=== PATIENT | female | born 1935 | race Caucasian/White ===

== ENCOUNTER 2017-06-22 11:27 | Inpatient (IN) | payer OTHER, MEDICARE ==
[2017-06-22 11:34] VITALS: BMI 34.7
--- NOTE | 2017-06-22 11:52 | PDOC ---
History of Present Illness - General Chief Complaint: Weakness Stated Complaint: Weakness Time Seen by Provider: 06/22/17 11:48 History Source: Patient, Spouse - History of Present Illness Initial Comments: 06/22/17 11:52 Patient is an 81 year old female with PMH of DM2, HTN, HLD, CAD/[place] s/p CABG presenting with dizziness, problems with coordination and generally feeling unwell since last night. Patient endorses a diagnosis of breast cancer 9 months ago with cervical LN involvement that was identified by her bread panner but for which she has not obtained followed up or treatment. Patient states she started feeling "strange" last night with right arm weakness/coordination problems, shaking and difficulty getting out of bed because her "legs wouldn't cooperate". Patient normally ambulates well at baseline. Endorses chronic nausea ; denies headache, weakness, recent illness, changes to vision or hearing, shortness of breath, chest pain and abdominal pain. PCP: William Bazzi Cardio: Gitic Past History - Past Medical History Allergies/Adverse Reactions: Allergies Allergy/AdvReac Type Severity Reaction Status Date / Time Penicillins AdvReac Mild Rash Verified 06/22/17 11:32 Home Medications: Ambulatory Orders Aspirin [ASA -] 81 mg PO DAILY #0 tab.chew 06/29/12 Carvedilol [Coreg -] 12.5 mg PO BID #0 tablet 06/29/12 Glimepiride 4 mg PO BID #0 tablet 06/29/12 Lisinopril [Prinivil] 40 mg PO DAILY #0 tablet 06/29/12 Atorvastatin Ca [Lipitor] 40 mg PO HS 06/22/17 Metformin HCl 500 mg PO BID 06/22/17 Cardiac Disorders: Yes (AZ [place] 2005) Diabetes: Yes (niddm) HTN: Yes Hypercholesterolemia: Yes Thyroid Disease: Yes - Surgical History Cardiac Surgery: Yes (TRIPLE BYPASS) - Suicide/Smoking/Psychosocial Hx Smoking Status: No Smoking History: Unknown if ever smoked Have you smoked in the past 12 months: No Number of Cigarettes Smoked Daily: 0 Information on smoking cessation initiated: No Hx Alcohol Use: No Drug/Substance Use Hx: No Substance Use Type: None Hx Substance Use Treatment: No Review of Systems - Review of Systems Able to Perform ROS?: Yes Comments:: 06/22/17 14:00 GEN: Endorses feeling "strange" and general malaise; Denies fever, chills, recent illness HEENTM: Endorses tender right-sided mass; Denies sore throat, difficulty swallowing, Changes in vision, Changes in hearing Respiratory: Denies Cough, Shortness of Breath Breast: Endorses right sided mass Cardiac: Denies Chest Pain, Syncope ABD/GI: Endorses nausea; Denies Abdominal Pain, Vomiting, Diarrhea, Constipation : Denies Dysuria, Burning on urination, Vaginal bleeding Musculoskeletal: Endorses chronic joint pain; Denies muscle pain Integumentary: Endorses lesion over right breast; denies diaphoresis, bruises Neurological: Endorses dizziness on standing; Denies WONG, weakness All Other Systems Reviewed and Negative Is the patient limited Irish proficient: No *Physical Exam - Vital Signs Last Vital Signs Temp Pulse Resp BP Pulse Ox 98.3 F 82 18 147/66 93 L 06/22/17 11:32 06/22/17 11:32 06/22/17 11:32 06/22/17 11:32 06/22/17 11:32 - Physical Exam Comments: 06/22/17 14:49 GENERAL: AAOx3, nourished and generally well appearing, mildly disheveled, NAD HEAD: NCAT EYES: PERRLA, EOMI, sclera anicteric, conjunctiva clear ENT: hearing grossly normal, nares patent, no congestion NECK: Firm/tender right anterior mass/LAD ([id number]), [id number] left anterior mass /LAD, no JVD RESP: Speaking in full sentences, Symmetrical chest expansion, no respiratory distress, lungs CTAB CHEST: firm lump in right breast with overlying skin involvement HEART: RRR, normal S1-S2, (+) S3 ABDOMEN: nlBSx4, Soft, NTND, no guarding, no rebound. EXTREMITIES: Normal inspection, Normal ROM NEUROLOGICAL: CN II-XII grossly intact. Normal speech, no focal sensorimotor deficits, NIH:0 SKIN: Warm, Dry, normal turgor, no rashes or lesions other than noted. ED Treatment Course - LABORATORY CBC & Chemistry Diagram: 06/23/17 06:05 06/23/17 06:05 - RADIOLOGY Radiology Studies Ordered: [id number] CT/HEAD CT WITHOUT CONTRAST Cranial CT without contrast Clinical information: dizziness Multiplanar imaging was performed. Intravenous contrast was not administered. No intracranial hemorrhage is seen. There is no discrete infarct within the limitations of CT. No extra-axial fluid collection is noted. Involutional changes are seen with minimal to mild ventricular dilatation. A 0.7 x 0.3 cm low-attenuation focus is seen within the left posterior temporal squama without obvious bony expansion (transaxial image 12). There is possible mild attenuation of the adjacent inner table of the calvarium. IMPRESSION: No CT evidence of acute intracranial pathology. A small amount of fluid accumulation is noted within the right mastoid air cells. In comparison to a neck CT angiographic study of 10/30/2010 there has been apparent interval development of a 0.7 x 0.3 cm nonspecific hypodense osseous focus within the left temporal convexity posteriorly. correlate clinically and with one month follow-up CT. If there is a history of malignancy correlation with a whole body radionuclide bone scan may also be performed. Radiograph Interpretation: 06/22/17 13:37 [id number] RAD/CHEST X-RAY PORTABLE* Chest: Dizziness Since 06/28/2012, there is new pleural fluid with atelectasis or infiltrate on the right. There is a large heart with sternal sutures and clips. The left lung is clear. Follow-up recommended. [id number] CT/HEAD CT WITHOUT CONTRAST Cranial CT without contrast Clinical information: dizziness Multiplanar imaging was performed. Intravenous contrast was not administered. No intracranial hemorrhage is seen. There is no discrete infarct within the limitations of CT. No extra-axial fluid collection is noted. Involutional changes are seen with minimal to mild ventricular dilatation. A 0.7 x 0.3 cm low-attenuation focus is seen within the left posterior temporal squama without obvious bony expansion (transaxial image 12). There is possible mild attenuation of the adjacent inner table of the calvarium. IMPRESSION: No CT evidence of acute intracranial pathology. A small amount of fluid accumulation is noted within the right mastoid air cells. In comparison to a neck CT angiographic study of 10/30/2010 there has been apparent interval development of a 0.7 x 0.3 cm nonspecific hypodense osseous focus within the left temporal convexity posteriorly. correlate clinically and with one month follow-up CT. If there is a history of malignancy correlation with a whole body radionuclide bone scan may also be performed. 06/22/17 14:33 Medical Decision Making - Medical Decision Making An 81 year old female with history of CABG and untreated breast cancer with possible metastasis feeling generally unwell with associated dizziness and subjective problems with coordination. Ddx includes but is not limited to CA, metastasis, ACS, PNA, UTI, metabolic abnormalities, anemia Workup with standard labs and cardiac enzymes EKG, CXR UA CT head Admission for further workup My interpretation of EKG: nsr with some non-specific u-wave inversions, aVL, no st-elevations, intervals wnl 06/22/17 13:14 CBC WBC 8.8 K/mm3 (4.0-10.0) 06/22/17 11:52 RBC 4.83 M/mm3 (3.60-5.2) 06/22/17 11:52 Hgb 12.5 GM/dL (10.7-15.3) 06/22/17 11:52 Hct 38.6 % (32.4-45.2) 06/22/17 11:52 MCV 80.0 fl (80-96) 06/22/17 11:52 MCH 25.9 pg (25.7-33.7) 06/22/17 11:52 MCHC 32.3 g/dl (32.0-36.0) 06/22/17 11:52 RDW 16.9 % (11.6-15.6) H 06/22/17 11:52 Plt Count 312 K/MM3 (134-434) 06/22/17 11:52 MPV 7.5 fl (7.5-11.1) D 06/22/17 11:52 Neutrophils % 71.1 % (42.8-82.8) 06/22/17 11:52 Lymphocytes % 21.1 % (8-40) D 06/22/17 11:52 Monocytes % 6.9 % (3.8-10.2) 06/22/17 11:52 Eosinophils % 0.2 % (0-4.5) 06/22/17 11:52 Basophils % 0.7 % (0-2.0) 06/22/17 11:52 Reviewed and non concerning CMP Sodium 137 mmol/L (136-145) 06/22/17 11:52 Potassium 4.1 mmol/L (3.5-5.1) 06/22/17 11:52 Chloride 102 mmol/L (98-107) 06/22/17 11:52 Carbon Dioxide 25 mmol/L (21-32) 06/22/17 11:52 Anion Gap 10 (8-16) 06/22/17 11:52 BUN 17 mg/dL (7-18) 06/22/17 11:52 Creatinine 0.7 mg/dL (0.55-1.02) D 06/22/17 11:52 Creat Clearance w eGFR > 60 (>60) 06/22/17 11:52 Random Glucose 72 mg/dL (74-106) L D 06/22/17 11:52 Calcium 9.9 mg/dL (8.5-10.1) 06/22/17 11:52 Total Bilirubin 0.7 mg/dL (0.2-1.0) 06/22/17 11:52 AST 26 U/L (15-37) D 06/22/17 11:52 ALT 20 U/L (12-78) D 06/22/17 11:52 Alkaline Phosphatase 141 U/L (45-117) H 06/22/17 11:52 Creatine Kinase 117 IU/L (26-192) 06/22/17 11:52 Troponin I 0.02 ng/ml (0.00-0.05) 06/22/17 11:52 Total Protein 7.1 g/dl (6.4-8.2) 06/22/17 11:52 Albumin 2.8 g/dl (3.4-5.0) L 06/22/17 11:52 Troponin reassuring for ACS Results consistent with patient's claim of poor nutrition Elevated alkP possibly related to underlying cancer disease process 06/22/17 13:38 CXR significant for cardiomegaly with pleural fluid and atelectasis/infiltrate on the right Head CT showed no evidence of acute intracranial pathology but was significant for interval changes from 10/30/2010 with development of a 0.7 x 0.3 cm nonspecific hypodense osseous focus within the left temporal convexity posteriorly. Discussed patient with Dr. Anahy Pires (admitting for Dr. Bazzi) who agreed with admission. *DC/Admit/Observation/Transfer Diagnosis at time of Disposition: Dizziness - Discharge Dispostion Admit: Yes - Referrals
[2017-06-22 12:06] LABS: BASOPHIL 0.7 % (0-2.0); EOSINOPHIL 0.2 % (0-4.5); MCH 25.9 pg (25.7-33.7); MCHC 32.3 g/dl (32.0-36.0); MEAN PLT VOLUME 7.5 fl (7.5-11.1); NEUTROPHILS 71.1 % (42.8-82.8); PLATELET COUNT 312 K/MM3 (134-434); RDW 16.9 % (11.6-15.6); WHITE BLOOD COUNT 8.8 K/mm3 (4.0-10.0)
[2017-06-22] MEDS ORDERED: SODIUM CHLORIDE 500 ML IV STA (12:28)
[2017-06-22 12:29] LABS: ALBUMIN 2.8 g/dl (3.4-5.0); ANION GAP 10 (8-16); BILIRUBIN,TOTAL 0.7 mg/dL (0.2-1.0); CALCIUM 9.9 mg/dL (8.5-10.1); CO2 25 mmol/L (21-32); CREATININE 0.7 mg/dL (0.55-1.02); GLUCOSE,RANDOM 72 mg/dL (74-106); SGOT/AST 26 U/L (15-37); SGPT/ALT 20 U/L (12-78); TOT PROT 7.1 g/dl (6.4-8.2)
[2017-06-22 12:32] LABS: ALK PHOS 141 U/L (45-117); CPK 117 IU/L (26-192); TROPONIN I 0.02 ng/ml (0.00-0.05)
--- NOTE | 2017-06-22 13:15 | PDOC ---
Attending Attestation - Resident Resident Name: Paulino Gresham - ED Attending Attestation I have performed the following: I have examined & evaluated the patient, The case was reviewed & discussed with the resident, I agree w/resident's findings & plan, Exceptions are as noted - HPI HPI: 06/22/17 13:13 This is an 81-year-old female with a history of diabetes, hypertension, hyperlipidemia, coronary artery disease status post [place], h/o breast cancer presents to the ER with a complaint of generalized weakness, and "not feeling well" No fevers, no chills 06/22/17 13:15 - Physicial Exam PE: 06/22/17 13:17 GENERAL: The patient is in no acute distress. HEAD: Normal with no signs of trauma. EYES: PERRLA, EOMI, sclera anicteric, conjunctiva clear. ENT: Ears normal, nares patent, oropharynx clear without exudates. Moist mucous membranes. NECK: Normal range of motion, supple without lymphadenopathy, (+) Left neck mass. LUNGS: Breath sounds equal, clear to auscultation bilaterally. No wheezes, and no crackles. HEART:Regular rate and rhythm, normal S1 and S2 without murmur, rub or gallop. ABDOMEN: Soft, nontender, normoactive bowel sounds. No guarding, no rebound. No masses palpable. EXTREMITIES: Normal range of motion, no edema. No clubbing or cyanosis. No erythema, or tenderness. NEUROLOGICAL: Cranial nerves II through XII grossly intact. Normal speech. No focal neurological deficits. MUSCULOSKELETAL: Back non-tender to palpation, no CVA tenderness SKIN: Warm, Dry, normal turgor, no rashes or lesions noted. 06/22/17 14:47 - Medical Decision Making 81-year-old female with multiple coronary artery risk factors who presents emergency department with a complaint of generalized weakness. No fevers, no chills. Differential diagnosis is broad and includes: ACS, anemia, electrolyte abnormality, renal insufficiency, dehydration, intracranial pathology. Will do Labs Head CT EKG 06/22/17 13:17 Twelve-lead EKG was performed and reviewed by me. There is normal sinus rhythm with a normal rate of 79 bpm. The axis is normal. The intervals are normal - pr: 180ms, QRS:114ms, QTc:431ms. Prominent T waves anteriorly, Laboratory Tests 06/22/17 06/22/17 11:52 11:52 WBC 8.8 Hgb 12.5 Hct 38.6 Plt Count 312 BUN 17 Creatinine 0.7 D Troponin I 0.02 0.7 x 0.3 cm nonspecific hypodense osseous focus within the left temporal convexity posteriorly. No intracranial hemorrhage. No discrete infarct within the limitations of CT. No fluid collections Chest x-ray demonstrates new right pleural effusion with atelectasis May account for pt hypoxia ?CT chest 06/22/17 14:48 Pt seen in the ER by Dr Crowe Will admit to his service 06/22/17 14:50 06/22/17 14:51 06/22/17 14:57
[2017-06-22] MEDS ORDERED: ACETAMINOPHEN 325 MG TABLET (FP) PO PRN (14:58)
--- NOTE | 2017-06-22 15:05 | HP ---
Admitting History and Physical - Primary Care Physician PCP: Daya Crowe - Admission Chief Complaint: SYNCOPE/WEAKNESS/NEW ONSET OF BREAST CANCER History of Present Illness: 81 Y/O FEMALE WHO FELT DIZZY, WEAK AND HEADACHE FOR 1 DAY PRESENTS TODAY TO ER WITH HER DAUGHTER. PATIENT LIVES ALONE, HAS H/O DM, HTN, LIPIDEMIA, OA, PATIENT REPORTS SHE FEELS LIKE SHE IS HAVING A STROKE History Source: Patient, Family Member, Medical Record Limitations to Obtaining History: Poor Historian - Past Medical History Cardiovascular: Yes: HTN, Hyperlipdemia Endocrine: Yes: Diabetes Insipidus - Smoking History Smoking history: Unknown if ever smoked Have you smoked in the past 12 months: No Aproximately how many cigarettes per day: 0 - Alcohol/Substance Use Hx Alcohol Use: No Home Medications - Allergies Allergies/Adverse Reactions: Allergies Allergy/AdvReac Type Severity Reaction Status Date / Time Penicillins AdvReac Mild Rash Verified 06/22/17 11:32 - Home Medications Home Medications: Ambulatory Orders Aspirin [ASA -] 81 mg PO DAILY #0 tab.chew 06/29/12 Carvedilol [Coreg -] 12.5 mg PO BID #0 tablet 06/29/12 Glimepiride 4 mg PO BID #0 tablet 06/29/12 Lisinopril [Prinivil] 40 mg PO DAILY #0 tablet 06/29/12 Atorvastatin Ca [Lipitor] 40 mg PO HS 06/22/17 Metformin HCl 500 mg PO BID 06/22/17 Review of Systems - Review of Systems Constitutional: reports: Loss of Appetite, Malaise, Weakness Eyes: reports: No Symptoms HENT: reports: No Symptoms Neck: reports: No Symptoms Cardiovascular: reports: Palpitations Respiratory: reports: No Symptoms Gastrointestinal: reports: No Symptoms Genitourinary: reports: No Symptoms Musculoskeletal: reports: Muscle Weakness Integumentary: reports: No Symptoms Neurological: reports: Incoordination, Weakness Endocrine: reports: No Symptoms Hematology/Lymphatic: reports: No Symptoms Psychiatric: reports: No Symptoms Physical Examination Vital Signs: Vital Signs Temperature 98.3 F 06/22/17 11:32 Pulse Rate 82 06/22/17 11:32 Respiratory Rate 18 06/22/17 11:32 Blood Pressure 147/66 06/22/17 11:32 O2 Sat by Pulse Oximetry (%) 93 L 06/22/17 11:32 Constitutional: Yes: Mild Distress Eyes: Yes: WNL HENT: Yes: WNL Neck: Yes: Lymphadenopathy Cardiovascular: Yes: Pulse Irregular Respiratory: Yes: WNL Gastrointestinal: Yes: WNL Renal/: Yes: WNL Musculoskeletal: Yes: Muscle Weakness Extremities: Yes: WNL Edema: Yes Peripheral Pulses WNL: Yes Integumentary: Yes: WNL Wound/Incision: Yes: Clean/Dry Neurological: Yes: Pre-Existing Deficit, Weakness ...Motor Strength: LLE, RLE Psychiatric: Yes: Other Labs: CBC, BMP 06/22/17 11:52 06/22/17 11:52 Imaging - Results Cat Scan: Report Reviewed Problem List - Problems (1) Dizziness Code(s): R42 - DIZZINESS AND GIDDINESS (2) Ruled out for myocardial infarction Code(s): Z03.89 - ENCNTR FOR OBS FOR OTH SUSPECTED DISEASES AND COND RULED OUT (3) Stroke Assessment/Plan: RULE OUT CVA Code(s): I63.9 - CEREBRAL INFARCTION, UNSPECIFIED Qualifiers: Laterality of affected vessel: unspecified (4) Breast cancer Code(s): C50.919 - MALIGNANT NEOPLASM OF UNSP SITE OF UNSPECIFIED FEMALE BREAST Qualifiers: Estrogen receptor status: unspecified Laterality: unspecified laterality (5) Neck mass Code(s): R22.1 - LOCALIZED SWELLING, MASS AND LUMP, NECK Assessment/Plan CT HEAD LIPITOR ASA A1C BGM FALL AND NEUROCHECKS PT EVAL NEUROLOGY AND CARDIOLOGY EVAL CANCER NEOPLASM WORKUP
--- NOTE | 2017-06-22 16:08 | CONSULT ---
Consult Consult Specialty:: Oncology - History of Present Illness History of Present Illness: 81-year-old female with a history of diabetes, hypertension, hyperlipidemia, coronary artery disease status post SD, presented with generalized weakness and felt like her room spinned around her and her legs were just "weak" when she stands up. She did notice lumps in her right breast and "swelling" in her neck, but she didn't want to "bother" anyone. Lives by herself and is independent of her ADLs. No fevers, no chills. no bowel or bladder incontinence. - History Source History Provided By: Patient, Family Member, Medical Record - Past Medical History Cardio/Vascular: Yes: HTN, Hyperlipdemia Endocrine: Yes: Diabetes Insipidus - Alcohol/Substance Use Hx Alcohol Use: No - Smoking History Smoking history: Unknown if ever smoked Have you smoked in the past 12 months: No Aproximately how many cigarettes per day: 0 Home Medications - Allergies Allergies/Adverse Reactions: Allergies Allergy/AdvReac Type Severity Reaction Status Date / Time Penicillins AdvReac Mild Rash Verified 06/22/17 11:32 - Home Medications Home Medications: Ambulatory Orders Aspirin [ASA -] 81 mg PO DAILY #0 tab.chew 06/29/12 Carvedilol [Coreg -] 12.5 mg PO BID #0 tablet 06/29/12 Glimepiride 4 mg PO BID #0 tablet 06/29/12 Lisinopril [Prinivil] 40 mg PO DAILY #0 tablet 06/29/12 Atorvastatin Ca [Lipitor] 40 mg PO HS 06/22/17 Metformin HCl 500 mg PO BID 06/22/17 Review of Systems - Review of Systems Constitutional: reports: Loss of Appetite, Unintentional Wgt. Loss HENT: denies: Difficult Swallowing Neck: reports: Lumps Cardiovascular: denies: Chest Pain, Edema, Palpitations Respiratory: reports: Exercise Intolerance. denies: Cough Breasts: reports: Lumps, Skin Changes Musculoskeletal: reports: No Symptoms Hematology/Lymphatic: reports: Swollen Glands Physical Exam Vital Signs: Vital Signs Temperature 98.3 F 06/22/17 11:32 Pulse Rate 81 06/22/17 15:21 Respiratory Rate 16 06/22/17 15:21 Blood Pressure 157/61 06/22/17 15:21 O2 Sat by Pulse Oximetry (%) 95 06/22/17 15:21 Constitutional: Yes: Well Nourished, No Distress, Calm Eyes: Yes: Conjunctiva Clear, EOM Intact HENT: Yes: Atraumatic, Normocephalic Neck: Yes: Supple, Other (hard mass on the left side of the neck) Cardiovascular: Yes: Regular Rate and Rhythm Respiratory: Yes: Regular, CTA Bilaterally Gastrointestinal: Yes: Normal Bowel Sounds, Soft, Abdomen, Obese Breast(s): Yes: Left (no palpable nodules felt), Right (rt breat with a small ulcerated skin, but palplable nodules felt), Skin Changes. No: Dimpling, Discharge from Nipple, Nipple Inversion Musculoskeletal: No: Joint Stiffness, Joint Swelling Extremities: Yes: Other (bilateral axillary lymphadenopathy present) Edema: No Imaging - Results X-ray: Report Reviewed Problem List - Problems (1) Neck mass Code(s): R22.1 - LOCALIZED SWELLING, MASS AND LUMP, NECK (2) Breast mass Code(s): N63.0 - UNSPECIFIED LUMP IN UNSPECIFIED BREAST (3) Axillary lymphadenopathy Code(s): R59.0 - LOCALIZED ENLARGED LYMPH NODES Assessment/Plan New onset right sided neck mass Breast masses palpable ( right breast) Bilateral axillary LAD New pleural effusion on CXR Patient with LIKELY metastatic breast cancer. Pathological diagnosis not made. Staging w/u CT neck, C/a/p and bone scan CTH negative Pt is on aspirin , last dose was on 06/21. Would need biopsy of the neck mass preferably once off of aspirin 4-5d. Explained in detail to the daughter and the pt , who are in agreement with the planned w/u.
[2017-06-22] MEDS ORDERED: LISINOPRIL 5 MG TABLET (FP) ONE (16:15)
[2017-06-22] MEDS: LISINOPRIL 5 MG TABLET (FP) PO SCH (16:24)
[2017-06-22] MEDS: INSULIN SLIDING SCALE (NOVOLOG) 1 VIAL SQ SCH ×2 (17:19→21:15)
--- NOTE | 2017-06-22 17:24 | CON.CARD ---
Cardiology Consult (text) - Consultation Consultation Note: cc: leg weakness hpi: 81 f hx cad s/p cabg 2005, htn , hld, dm, breast cancer here with leg weakness. Pt was feeling well until this AM when tried to get out of bed and legs felt weak and she felt her balance was off. She did not fall. Waited until felt better and then stood up slowly. No cp, sob, palps, dizzy, loc, pnd , orthopnea, le edema. Sees dr fong for cardio. pmh: per hpi psh: cabg social: no tob fam: no premature cad ros: per hpi; no fever, nvd, cough, tavarez, vision changes, muscle pain, gib, hematuria, dysuria meds: Home Medications Medication Instructions Recorded Aspirin [ASA -] 81 mg PO DAILY #0 tab.chew 06/29/12 Carvedilol [Coreg -] 12.5 mg PO BID #0 tablet 06/29/12 Glimepiride 4 mg PO BID #0 tablet 06/29/12 Lisinopril [Prinivil] 40 mg PO DAILY #0 tablet 06/29/12 Atorvastatin Ca [Lipitor] 40 mg PO HS 06/22/17 Metformin HCl 500 mg PO BID 06/22/17 pe: Vital Signs Period Temp Pulse Resp BP Sys/Moreno Pulse Ox Last 24 Hr 98.3 F 81-82 16-18 147-157/61-66 93-95 nad no jvd rrr s1s2 no mrg cta bl nl eff aaox3 no le e/c/c abd nt nd pos bs no jaundice diaphoresis pos dp pt, no carotid bruit Laboratory Last Values WBC 8.8 K/mm3 (4.0-10.0) 06/22/17 11:52 RBC 4.83 M/mm3 (3.60-5.2) 06/22/17 11:52 Hgb 12.5 GM/dL (10.7-15.3) 06/22/17 11:52 Hct 38.6 % (32.4-45.2) 06/22/17 11:52 MCV 80.0 fl (80-96) 06/22/17 11:52 MCH 25.9 pg (25.7-33.7) 06/22/17 11:52 MCHC 32.3 g/dl (32.0-36.0) 06/22/17 11:52 RDW 16.9 % (11.6-15.6) H 06/22/17 11:52 Plt Count 312 K/MM3 (134-434) 06/22/17 11:52 MPV 7.5 fl (7.5-11.1) D 06/22/17 11:52 Neutrophils % 71.1 % (42.8-82.8) 06/22/17 11:52 Lymphocytes % 21.1 % (8-40) D 06/22/17 11:52 Monocytes % 6.9 % (3.8-10.2) 06/22/17 11:52 Eosinophils % 0.2 % (0-4.5) 06/22/17 11:52 Basophils % 0.7 % (0-2.0) 06/22/17 11:52 ESR 35 mm/hr (0-30) H 06/22/17 15:00 Sodium 137 mmol/L (136-145) 06/22/17 11:52 Potassium 4.1 mmol/L (3.5-5.1) 06/22/17 11:52 Chloride 102 mmol/L (98-107) 06/22/17 11:52 Carbon Dioxide 25 mmol/L (21-32) 06/22/17 11:52 Anion Gap 10 (8-16) 06/22/17 11:52 BUN 17 mg/dL (7-18) 06/22/17 11:52 Creatinine 0.7 mg/dL (0.55-1.02) D 06/22/17 11:52 Creat Clearance w eGFR > 60 (>60) 06/22/17 11:52 Random Glucose 72 mg/dL (74-106) L D 06/22/17 11:52 Hemoglobin A1c % 7.6 % (4.8-6.0) H 06/22/17 15:00 Calcium 9.9 mg/dL (8.5-10.1) 06/22/17 11:52 Total Bilirubin 0.7 mg/dL (0.2-1.0) 06/22/17 11:52 AST 26 U/L (15-37) D 06/22/17 11:52 ALT 20 U/L (12-78) D 06/22/17 11:52 Alkaline Phosphatase 141 U/L (45-117) H 06/22/17 11:52 Creatine Kinase 117 IU/L (26-192) 06/22/17 11:52 Troponin I 0.02 ng/ml (0.00-0.05) 06/22/17 11:52 Total Protein 7.1 g/dl (6.4-8.2) 06/22/17 11:52 Albumin 2.8 g/dl (3.4-5.0) L 06/22/17 11:52 echo 10/2016: nl lvef, inf/inflat/infseptal HK, nl rv, mild mr carotid us 10/2016: 60-79% bl ICA stenosis, chronic ecg 06/22/17: sr, nl intervals, no ischemic changes, pvc cxr: right atx/infiltrate a/p: 81 f hx cad s/p cabg 2005, htn , hld, dm, breast cancer here with leg weakness. leg weakness: -no obvious cardiac etiology at present -no signs acs, ecg unremarkable -recent echo w/o etiology -can check orthostatics, monitor on tele -PT, neuro eval cad, cabg: -stable, no signs acs, no angina -nl lvef -cont statin, asa, bb, yared htn: -cont home meds hld: -cont statin
--- NOTE | 2017-06-22 17:52 | CONSULT ---
Consult - text type - Consultation Consultation Note: Neurology History of Present Illness Patient is an 81 year old female with PMH of DM2, HTN, HLD, CAD/GA s/p CABG presenting with dizziness, weakness and generally feeling unwell since last night. Patient endorses a diagnosis of breast cancer with cervical LN involvement that was identified by her bullet assembly press operator but she has not obtained followed up or treatment. Patient states she started feeling "strange" last night with right arm weakness/coordination problems, shaking and difficulty getting out of bed because her "legs wouldn't cooperate". Patient normally ambulates well at baseline. Denies headache, weakness, recent illness, changes to vision or hearing, shortness of breath, chest pain and abdominal pain. CT head compelted and no intraparenchymal abnormality but ?left temporal osseous foci thats 0.7 X 0.3cm in size. Follow up CT in 1 month recommended or radionucleotide scan. Neurologically she is mentating well and without any deficits. Past History - Past Medical History Allergies/Adverse Reactions: Allergies Allergy/AdvReac Type Severity Reaction Status Date / Time Penicillins AdvReac Mild Rash Verified 06/22/17 11:32 Home Medications: Ambulatory Orders Aspirin [ASA -] 81 mg PO DAILY #0 tab.chew 06/29/12 Carvedilol [Coreg -] 12.5 mg PO BID #0 tablet 06/29/12 Glimepiride 4 mg PO BID #0 tablet 06/29/12 Lisinopril [Prinivil] 40 mg PO DAILY #0 tablet 06/29/12 Atorvastatin Ca [Lipitor] 40 mg PO HS 06/22/17 Metformin HCl 500 mg PO BID 06/22/17 Cardiac Disorders: Yes (GA IN 2005) Diabetes: Yes (niddm) HTN: Yes Hypercholesterolemia: Yes Thyroid Disease: Yes - Surgical History Cardiac Surgery: Yes (TRIPLE BYPASS) - Suicide/Smoking/Psychosocial Hx Smoking Status: No Smoking History: Unknown if ever smoked Have you smoked in the past 12 months: No Number of Cigarettes Smoked Daily: 0 Information on smoking cessation initiated: No Hx Alcohol Use: No Drug/Substance Use Hx: No Substance Use Type: None Hx Substance Use Treatment: No Review of Systems GEN: Endorses feeling "strange" and general malaise; Denies fever, chills, recent illness HEENTM: Endorses tender right sided mass; Denies sore throat, Changes in vision , Changes in hearing Respiratory: Denies Cough, Shortness of Breath Breast: Endorses right sided mass Cardiac: Denies Chest Pain, Syncope ABD/GI: Endorses nausea; Denies Abdominal Pain, Vomiting, Diarrhea, Constipation : Denies Dysuria, Burning on urination, Vaginal bleeding Musculoskeletal: Endorses chronic joint pain; Denies muscle pain Integumentary: Denies diaphoresis, rashes, bruises Neurological: Endorses dizziness on standing; Denies WONG, weakness All Other Systems Reviewed and Negative *Physical Exam - Vital Signs Last Vital Signs Temp Pulse Resp BP Pulse Ox 98.3 F 82 18 147/66 93 L 06/22/17 11:32 06/22/17 11:32 06/22/17 11:32 06/22/17 11:32 06/22/17 11:32 GENERAL: Nourished, Appropriately dressed, AAOx3, NAD HEAD: NCAT EYES: PERRLA, EOMI, sclera anicteric, conjunctiva clear ENT: hearing grossly normal, nares patent, no congestion NECK: Firm/tender right anterior mass/LAD ([id number]), [id number] left anterior mass /LAD, no JVD RESP: Speaking in full sentences, Symmetrical chest expansion, no respiratory distress, lungs CTAB CHEST: firm lump in right breast with overlying skin involvement HEART: RRR, normal S1-S2, (+) S3 ABDOMEN: nlBSx4, Soft, NTND, no guarding, no rebound. EXTREMITIES: Normal inspection, Normal ROM NEUROLOGICAL: CN II-XII grossly intact. Normal speech, no focal sensorimotor deficits, alert and awake, gait deferred SKIN: Warm, Dry, normal turgor, no rashes or lesions other than noted. CBCD WBC 8.8 K/mm3 (4.0-10.0) 06/22/17 11:52 RBC 4.83 M/mm3 (3.60-5.2) 06/22/17 11:52 Hgb 12.5 GM/dL (10.7-15.3) 06/22/17 11:52 Hct 38.6 % (32.4-45.2) 06/22/17 11:52 MCV 80.0 fl (80-96) 06/22/17 11:52 MCHC 32.3 g/dl (32.0-36.0) 06/22/17 11:52 RDW 16.9 % (11.6-15.6) H 06/22/17 11:52 Plt Count 312 K/MM3 (134-434) 06/22/17 11:52 MPV 7.5 fl (7.5-11.1) D 06/22/17 11:52 CMP Sodium 137 mmol/L (136-145) 06/22/17 11:52 Potassium 4.1 mmol/L (3.5-5.1) 06/22/17 11:52 Chloride 102 mmol/L (98-107) 06/22/17 11:52 Carbon Dioxide 25 mmol/L (21-32) 06/22/17 11:52 Anion Gap 10 (8-16) 06/22/17 11:52 BUN 17 mg/dL (7-18) 06/22/17 11:52 Creatinine 0.7 mg/dL (0.55-1.02) D 06/22/17 11:52 Creat Clearance w eGFR > 60 (>60) 06/22/17 11:52 Calcium 9.9 mg/dL (8.5-10.1) 06/22/17 11:52 Total Bilirubin 0.7 mg/dL (0.2-1.0) 06/22/17 11:52 AST 26 U/L (15-37) D 06/22/17 11:52 ALT 20 U/L (12-78) D 06/22/17 11:52 Alkaline Phosphatase 141 U/L (45-117) H 06/22/17 11:52 Total Protein 7.1 g/dl (6.4-8.2) 06/22/17 11:52 Albumin 2.8 g/dl (3.4-5.0) L 06/22/17 11:52 - RADIOLOGY Radiograph Interpretation: 06/22/17 13:37 [id number] RAD/CHEST X-RAY PORTABLE* Since 06/28/2012, there is new pleural fluid with atelectasis or infiltrate on the right. There is a large heart with sternal sutures and clips. The left lung is clear. Follow-up recommended. CT/HEAD CT WITHOUT CONTRAST IMPRESSION: No CT evidence of acute intracranial pathology. A small amount of fluid accumulation is noted within the right mastoid air cells. In comparison to a neck CT angiographic study of 10/30/2010 there has been apparent interval development of a 0.7 x 0.3 cm nonspecific hypodense osseous focus within the left temporal convexity posteriorly. correlate clinically and with one month follow-up CT. If there is a history of malignancy correlation with a whole body radionuclide bone scan may also be performed. Plan: 81 year old female with PMH of DM2, HTN, HLD, CAD/GA s/p CABG presenting with dizziness, weakness and generally feeling unwell since last night. Patient endorses a diagnosis of breast cancer with cervical LN involvement that was identified by her bullet assembly press operator but she has not obtained followed up or treatment. Patient states she started feeling "strange" last night with right arm weakness/coordination problems, shaking and difficulty getting out of bed because her "legs wouldn't cooperate". Patient normally ambulates well at baseline. Denies headache, weakness, recent illness, changes to vision or hearing, shortness of breath, chest pain and abdominal pain. CT head compelted and no intraparenchymal abnormality but ?left temporal osseous foci thats 0.7 X 0.3cm in size. Follow up CT in 1 month recommended or radionucleotide scan. Neurologically she is mentating well and without any deficits. Cardiology consulted for cardiac evaluation. Oncology consulted as well and following, likely mets. Will defer on need for further radiographic testing based on their plans and patient's wishes. If further evaluation needed, then repeat CT can be performed. Continue blood pressure management, goal < 140/90, on Coreg and Lisinopril. Continue Statin for HLD, goal LDL < 100. Dizzyness is better.
[2017-06-22 19:46] LABS: URINE APPEARANCE SLCLOUDY; URINE BILIRUBIN NEGATIVE (NEGATIVE); URINE BLOOD NEGATIVE (NEGATIVE); URINE COLOR YELLOW; URINE GLUCOSE (UA) NEGATIVE (NEGATIVE); URINE KETONE TRACE (NEGATIVE); URINE NITRITE NEGATIVE (NEGATIVE); URINE PROTEIN NEGATIVE (NEGATIVE); URINE UROBILINOGEN NEGATIVE mg/dL (0.2-1.0)
[2017-06-22] MEDS: CARVEDILOL 12.5 MG TABLET (FP) PO SCH (21:11)
[2017-06-22] MEDS: ATORVASTATIN CA 20 MG TABLET (FP) PO SCH (21:12)
[2017-06-22] MEDS ORDERED: ATORVASTATIN CA 20 MG TABLET (FP) PO SCH (22:00)
[2017-06-22] MEDS ORDERED: CARVEDILOL 6.25 MG TABLET (FP) PO SCH ×2 (22:00)
[2017-06-23] MEDS: GLIMEPIRIDE 4 MG TABLET (FP) PO SCH (06:35)
[2017-06-23 06:38] LABS: MCH 25.6 pg (25.7-33.7); MCHC 32.3 g/dl (32.0-36.0); MEAN CELL VOLUME 79.1 fl (80-96); MEAN PLT VOLUME 7.8 fl (7.5-11.1); PLATELET COUNT 276 K/MM3 (134-434); RDW 16.8 % (11.6-15.6); WHITE BLOOD COUNT 6.2 K/mm3 (4.0-10.0)
[2017-06-23] MEDS: INSULIN SLIDING SCALE (NOVOLOG) 1 VIAL SQ SCH ×3 (06:42→21:13)
[2017-06-23 06:51] LABS: INR 1.09 (0.82-1.09)
[2017-06-23 06:53] LABS: ACTIVATED PTT 27.4 SECONDS (26.9-34.4)
[2017-06-23 07:07] LABS: ANION GAP 11 (8-16); CALCIUM 9.7 mg/dL (8.5-10.1); CO2 24 mmol/L (21-32); GLUCOSE,RANDOM 59 mg/dL (74-106)
[2017-06-23 07:11] LABS: ALBUMIN 2.5 g/dl (3.4-5.0); ALK PHOS 116 U/L (45-117); BILIRUBIN,TOTAL 0.7 mg/dL (0.2-1.0); CREATININE 0.6 mg/dL (0.55-1.02); SGOT/AST 22 U/L (15-37); SGPT/ALT 17 U/L (12-78); TOT PROT 6.2 g/dl (6.4-8.2)
[2017-06-23 08:27] LABS: URINE LEUK ESTERASE Negative (NEGATIVE)
[2017-06-23] MEDS: CARVEDILOL 12.5 MG TABLET (FP) PO SCH ×2 (09:06→21:12)
[2017-06-23] MEDS: LISINOPRIL 5 MG TABLET (FP) PO SCH (09:06)
[2017-06-23 09:33] LABS: CHOLESTEROL 132 mg/dL (50-200)
--- NOTE | 2017-06-23 09:38 | PN ---
Progress Note (short form) - Note Progress Note: Neurology History of Present Illness Patient is an 81 year old female with PMH of DM2, HTN, HLD, CAD/IA s/p CABG presenting with dizziness, weakness and generally feeling unwell since last night. Patient endorses a diagnosis of breast cancer with cervical LN involvement that was identified by her cone examiner but she has not obtained followed up or treatment. Patient states she started feeling "strange" last night with right arm weakness/coordination problems, shaking and difficulty getting out of bed because her "legs wouldn't cooperate". Patient normally ambulates well at baseline. Denies headache, weakness, recent illness, changes to vision or hearing, shortness of breath, chest pain and abdominal pain. CT head compelted and no intraparenchymal abnormality but ?left temporal osseous foci thats 0.7 X 0.3cm in size. Follow up CT in 1 month recommended or radionucleotide scan. Denies feeling dizzy or lightheaded today. About to have physical therapy during my visit. Neurologically she is mentating well and without any deficits. Active Medications Acetaminophen (Tylenol -) 650 mg PO Q6H PRN PRN Reason: FEVER OR PAIN Atorvastatin Calcium (Lipitor -) 40 mg PO HS [facility] Last Admin: 06/22/17 21:12 Dose: 40 mg Carvedilol (Coreg -) 12.5 mg PO BID [facility] Last Admin: 06/23/17 09:06 Dose: 12.5 mg Glimepiride (Amaryl -) 4 mg PO DAILY@0700 [facility] Last Admin: 06/23/17 06:35 Dose: 4 mg Influenza Virus Vaccine Quadrival (Flulaval Quad [id number]) 60 mcg IM .ONCE ONE Stop: 06/23/17 10:01 Insulin Aspart (Novolog Vial Sliding Scale -) 1 vial SQ ACHS [facility] PRN Reason: Protocol Last Admin: 06/23/17 06:42 Dose: Not Given Lisinopril (Prinivil) 5 mg PO DAILY [facility] Last Admin: 06/23/17 09:06 Dose: 5 mg *Physical Exam Vital Signs Temperature 98.7 F 06/23/17 05:36 Pulse Rate 80 06/23/17 05:36 Respiratory Rate 18 06/23/17 05:36 Blood Pressure 159/65 06/23/17 05:36 O2 Sat by Pulse Oximetry (%) 96 06/22/17 20:49 GENERAL: Nourished, Appropriately dressed, AAOx3, NAD HEAD: NCAT EYES: PERRLA, EOMI, sclera anicteric, conjunctiva clear ENT: hearing grossly normal, nares patent, no congestion NECK: Firm/tender right anterior mass/LAD ([id number]), [id number] left anterior mass /LAD, no JVD RESP: Speaking in full sentences, Symmetrical chest expansion, no respiratory distress, lungs CTAB CHEST: firm lump in right breast with overlying skin involvement HEART: RRR, normal S1-S2, (+) S3 ABDOMEN: nlBSx4, Soft, NTND, no guarding, no rebound. EXTREMITIES: Normal inspection, Normal ROM NEUROLOGICAL: CN II-XII grossly intact. Normal speech, no focal sensorimotor deficits, alert and awake, gait deferred SKIN: Warm, Dry, normal turgor, no rashes or lesions other than noted. CBCD WBC 6.2 K/mm3 (4.0-10.0) 06/23/17 06:05 RBC 4.50 M/mm3 (3.60-5.2) 06/23/17 06:05 Hgb 11.5 GM/dL (10.7-15.3) 06/23/17 06:05 Hct 35.6 % (32.4-45.2) 06/23/17 06:05 MCV 79.1 fl (80-96) L 06/23/17 06:05 MCHC 32.3 g/dl (32.0-36.0) 06/23/17 06:05 RDW 16.8 % (11.6-15.6) H 06/23/17 06:05 Plt Count 276 K/MM3 (134-434) 06/23/17 06:05 MPV 7.8 fl (7.5-11.1) 06/23/17 06:05 CMP Sodium 138 mmol/L (136-145) 06/23/17 06:05 Potassium 4.2 mmol/L (3.5-5.1) 06/23/17 06:05 Chloride 103 mmol/L (98-107) 06/23/17 06:05 Carbon Dioxide 24 mmol/L (21-32) 06/23/17 06:05 Anion Gap 11 (8-16) 06/23/17 06:05 BUN 13 mg/dL (7-18) D 06/23/17 06:05 Creatinine 0.6 mg/dL (0.55-1.02) 06/23/17 06:05 Creat Clearance w eGFR > 60 (>60) 06/23/17 06:05 Calcium 9.7 mg/dL (8.5-10.1) 06/23/17 06:05 Total Bilirubin 0.7 mg/dL (0.2-1.0) 06/23/17 06:05 AST 22 U/L (15-37) 06/23/17 06:05 ALT 17 U/L (12-78) 06/23/17 06:05 Alkaline Phosphatase 116 U/L (45-117) 06/23/17 06:05 Total Protein 6.2 g/dl (6.4-8.2) L 06/23/17 06:05 Albumin 2.5 g/dl (3.4-5.0) L 06/23/17 06:05 - RADIOLOGY Radiograph Interpretation: 06/22/17 13:37 [id number] RAD/CHEST X-RAY PORTABLE* Since 06/28/2012, there is new pleural fluid with atelectasis or infiltrate on the right. There is a large heart with sternal sutures and clips. The left lung is clear. Follow-up recommended. CT/HEAD CT WITHOUT CONTRAST IMPRESSION: No CT evidence of acute intracranial pathology. A small amount of fluid accumulation is noted within the right mastoid air cells. In comparison to a neck CT angiographic study of 10/30/2010 there has been apparent interval development of a 0.7 x 0.3 cm nonspecific hypodense osseous focus within the left temporal convexity posteriorly. correlate clinically and with one month follow-up CT. If there is a history of malignancy correlation with a whole body radionuclide bone scan may also be performed. Plan: 81 year old female with PMH of DM2, HTN, HLD, CAD/IA s/p CABG presenting with dizziness, weakness and generally feeling unwell since last night. Patient endorses a diagnosis of breast cancer with cervical LN involvement that was identified by her cone examiner but she has not obtained followed up or treatment. Patient states she started feeling "strange" last night with right arm weakness/coordination problems, shaking and difficulty getting out of bed because her "legs wouldn't cooperate". Patient normally ambulates well at baseline. Denies headache, weakness, recent illness, changes to vision or hearing, shortness of breath, chest pain and abdominal pain. CT head compelted and no intraparenchymal abnormality but ?left temporal osseous foci thats 0.7 X 0.3cm in size. Follow up CT in 1 month recommended or radionucleotide scan. Neurologically she is mentating well and without any deficits. Cardiology consulted for cardiac evaluation. Oncology consulted as well and following, likely mets. Will defer on need for further radiographic testing based on their plans and patient's wishes. If further evaluation needed, then repeat CT can be performed. Continue blood pressure management, goal < 140/90, on Coreg and Lisinopril. Continue Statin for HLD, goal LDL < 100. Dizzyness is better and patient stable. Physcial therapy for this AM.
[2017-06-23] MEDS ORDERED: FLU VACCINE QUAD 60 MCG/0.5 ML (MDV 17-18) IM ONE (10:00)
--- NOTE | 2017-06-23 10:46 | PN ---
Progress Note (short form) - Note Progress Note: s: feeling better, no sob palps dizzy cp. legs stronger today. o: Vital Signs Period Temp Pulse Resp BP Sys/Moreno Pulse Ox Last 24 Hr 97.8 F-98.7 F 80-92 16-18 118-174/55-84 93-97 nad no jvd rrr s1s2 no mrg cta bl nl eff aaox3 no le e/c/c abd nt nd pos bs no jaundice diaphoresis Current Medications Generic Name Dose Route Start Last Admin Trade Name Freq PRN Reason Stop Dose Admin Acetaminophen 650 mg 06/22/17 14:58 Tylenol - PO Q6H PRN FEVER OR PAIN Atorvastatin Calcium 40 mg 06/22/17 22:00 06/22/17 21:12 Lipitor - PO 40 mg HS [facility] Administration Carvedilol 12.5 mg 06/22/17 22:00 06/23/17 09:06 Coreg - PO 12.5 mg BID [facility] Administration Glimepiride 4 mg 06/23/17 07:00 06/23/17 06:35 Amaryl - PO 4 mg DAILY@0700 [facility] Administration Insulin Aspart 1 vial 06/22/17 16:30 06/23/17 06:42 Novolog Vial Sliding Scale - SQ Not Given ACHS [facility] Protocol Lisinopril 5 mg 06/22/17 10:00 06/23/17 09:06 Prinivil PO 5 mg DAILY [facility] Administration Laboratory Last Values WBC 6.2 K/mm3 (4.0-10.0) 06/23/17 06:05 RBC 4.50 M/mm3 (3.60-5.2) 06/23/17 06:05 Hgb 11.5 GM/dL (10.7-15.3) 06/23/17 06:05 Hct 35.6 % (32.4-45.2) 06/23/17 06:05 MCV 79.1 fl (80-96) L 06/23/17 06:05 MCH 25.6 pg (25.7-33.7) L 06/23/17 06:05 MCHC 32.3 g/dl (32.0-36.0) 06/23/17 06:05 RDW 16.8 % (11.6-15.6) H 06/23/17 06:05 Plt Count 276 K/MM3 (134-434) 06/23/17 06:05 MPV 7.8 fl (7.5-11.1) 06/23/17 06:05 Neutrophils % 71.1 % (42.8-82.8) 06/22/17 11:52 Lymphocytes % 21.1 % (8-40) D 06/22/17 11:52 Monocytes % 6.9 % (3.8-10.2) 06/22/17 11:52 Eosinophils % 0.2 % (0-4.5) 06/22/17 11:52 Basophils % 0.7 % (0-2.0) 06/22/17 11:52 ESR 35 mm/hr (0-30) H 06/22/17 15:00 PT with INR 12.00 SEC (9.98-11.88) H 06/23/17 06:05 INR 1.09 (0.82-1.09) 06/23/17 06:05 PTT (Actin FS) 27.4 SECONDS (26.9-34.4) 06/23/17 06:05 Sodium 138 mmol/L (136-145) 06/23/17 06:05 Potassium 4.2 mmol/L (3.5-5.1) 06/23/17 06:05 Chloride 103 mmol/L (98-107) 06/23/17 06:05 Carbon Dioxide 24 mmol/L (21-32) 06/23/17 06:05 Anion Gap 11 (8-16) 06/23/17 06:05 BUN 13 mg/dL (7-18) D 06/23/17 06:05 Creatinine 0.6 mg/dL (0.55-1.02) 06/23/17 06:05 Creat Clearance w eGFR > 60 (>60) 06/23/17 06:05 POC Glucometer 80 UNITS (()) 06/23/17 06:00 Random Glucose 59 mg/dL (74-106) L 06/23/17 06:05 Hemoglobin A1c % 7.6 % (4.8-6.0) H 06/22/17 15:00 Calcium 9.7 mg/dL (8.5-10.1) 06/23/17 06:05 Total Bilirubin 0.7 mg/dL (0.2-1.0) 06/23/17 06:05 AST 22 U/L (15-37) 06/23/17 06:05 ALT 17 U/L (12-78) 06/23/17 06:05 Alkaline Phosphatase 116 U/L (45-117) 06/23/17 06:05 Creatine Kinase 117 IU/L (26-192) 06/22/17 11:52 Troponin I 0.02 ng/ml (0.00-0.05) 06/22/17 11:52 Total Protein 6.2 g/dl (6.4-8.2) L 06/23/17 06:05 Albumin 2.5 g/dl (3.4-5.0) L 06/23/17 06:05 Triglycerides 106 mg/dL (35-160) 06/23/17 06:05 Cholesterol 132 mg/dL (50-200) 06/23/17 06:05 Total LDL Cholesterol 73 mg/dL (5-100) 06/23/17 06:05 HDL Cholesterol 36 mg/dL (40-60) L 06/23/17 06:05 Urine Color Yellow 06/22/17 18:20 Urine Appearance Slcloudy 06/22/17 18:20 Urine pH 5.0 (5.0-8.0) 06/22/17 18:20 Ur Specific [place] >= 1.030 (1.005-1.025) H 06/22/17 18:20 Urine Protein Negative (NEGATIVE) 06/22/17 18:20 Urine Glucose (UA) Negative (NEGATIVE) 06/22/17 18:20 Urine Ketones Trace (NEGATIVE) H 06/22/17 18:20 Urine Blood Negative (NEGATIVE) 06/22/17 18:20 Urine Nitrite Negative (NEGATIVE) 06/22/17 18:20 Urine Bilirubin Negative (NEGATIVE) 06/22/17 18:20 Urine Urobilinogen Negative mg/dL (0.2-1.0) 06/22/17 18:20 Ur Leukocyte Esterase Negative (NEGATIVE) 06/22/17 18:20 echo 10/2016: nl lvef, inf/inflat/infseptal HK, nl rv, mild mr carotid us 10/2016: 60-79% bl ICA stenosis, chronic ecg 06/22/17: sr, nl intervals, no ischemic changes, pvc cxr: right atx/infiltrate tele: sr, occ pvcs a/p: 81 f hx cad s/p cabg 2006, htn , hld, dm, breast cancer here with leg weakness. leg weakness: -no obvious cardiac etiology at present -no signs acs, ecg unremarkable -recent echo w/o etiology -orthostatics nl, tele benign -PT, neuro eval cad, cabg: -stable, no signs acs, no angina -nl lvef -cont statin, asa, bb, yared htn: -cont home meds hld: -cont statin
--- NOTE | 2017-06-23 12:16 | PN ---
Progress Note, Physician Chief Complaint: comfortable +appetite +bm - Current Medication List Current Medications: Active Medications Acetaminophen (Tylenol -) 650 mg PO Q6H PRN PRN Reason: FEVER OR PAIN Atorvastatin Calcium (Lipitor -) 40 mg PO HS [facility] Last Admin: 06/22/17 21:12 Dose: 40 mg Carvedilol (Coreg -) 12.5 mg PO BID [facility] Last Admin: 06/23/17 09:06 Dose: 12.5 mg Glimepiride (Amaryl -) 4 mg PO DAILY@0700 [facility] Last Admin: 06/23/17 06:35 Dose: 4 mg Insulin Aspart (Novolog Vial Sliding Scale -) 1 vial SQ ACHS [facility] PRN Reason: Protocol Last Admin: 06/23/17 06:42 Dose: Not Given Lisinopril (Prinivil) 5 mg PO DAILY [facility] Last Admin: 06/23/17 09:06 Dose: 5 mg - Objective Vital Signs: Vital Signs Temperature 98 F 06/23/17 09:00 Pulse Rate 75 06/23/17 09:00 Respiratory Rate 18 06/23/17 09:00 Blood Pressure 139/63 06/23/17 09:00 O2 Sat by Pulse Oximetry (%) 97 06/23/17 09:00 Constitutional: Yes: Mild Distress Eyes: Yes: WNL HENT: Yes: WNL Neck: Yes: Lymphadenopathy, Other Cardiovascular: Yes: WNL Respiratory: Yes: On Nasal O2, SOB on Exertion Gastrointestinal: Yes: WNL Musculoskeletal: Yes: WNL Extremities: Yes: WNL Edema: Yes Edema: LLE: Trace, RLE: Trace Peripheral Pulses WNL: Yes Integumentary: Yes: WNL Wound/Incision: Yes: Clean/Dry Neurological: Yes: Pre-Existing Deficit ...Motor Strength: WNL Psychiatric: Yes: WNL Labs: CBC, BMP 06/23/17 06:05 06/23/17 06:05 INR, PTT INR 1.09 (0.82-1.09) 06/23/17 06:05 Problem List - Problems (1) Dizziness Code(s): R42 - DIZZINESS AND GIDDINESS (2) Ruled out for myocardial infarction Code(s): Z03.89 - ENCNTR FOR OBS FOR OTH SUSPECTED DISEASES AND COND RULED OUT (3) Stroke Code(s): I63.9 - CEREBRAL INFARCTION, UNSPECIFIED Qualifiers: Laterality of affected vessel: unspecified (4) Breast cancer Code(s): C50.919 - MALIGNANT NEOPLASM OF UNSP SITE OF UNSPECIFIED FEMALE BREAST Qualifiers: Estrogen receptor status: unspecified Laterality: unspecified laterality (5) Neck mass Code(s): R22.1 - LOCALIZED SWELLING, MASS AND LUMP, NECK Assessment/Plan NEOPLASM WORKUP IN PROGRESS ONCOLOGY F/U APPRECIATED WILL NEED BIOPSY OF BREAST LIVER LESIONS WILL DISCUSS WITH DR ARCHIE ROCK ASA FOR 7 DAYS
--- NOTE | 2017-06-23 15:58 | CONSULT ---
Consult - text type - Consultation Consultation Note: Breast surgery Patient chart reviewed. 81 yr old who tells me she has had a nontender R breast mass for over one year and for one year has noted a R neck mass that is enlarging. currently admitted for dizziness with a neg cardiology and neurology workup. had ct of chest abl pelvis CT that is suspicious for cervical , R supraclav lymph nodes, renal mass , hepatic and bony metastatic disease. Has no prior breast history. FH- sister with breast cancer age 80. Feels much better than yesterday. PE- Breasts- ulcerating 6cm mass in the R breast 2-3:00 periphery and a second mass mearing 1.5cm R 1:00 location 5cm from the nipple with intact skin. no cellulitis. There are other areas of nodularity in the L breast no discerte mass. No other palp abnormality in the R breast. Multiple enlarged matted R axillary lymph nodes. Obvious R neck mass measures 8cm firm and fixed with no skin changes. Likely metastatic breast cancer. rec. R cervical LN FNA or core under u/s guidance, if core is unsafe based on u/s then a R breast core biopsy as well for bio markers. I have asked her to f/u with me as well as medical oncology as an outpatient. She and her daughter understand. Thank you for the consult Dr. Evangelista [phone]
--- NOTE | 2017-06-23 16:08 | PN ---
Progress Note (short form) - Note Progress Note: Oncology f/u: Patient says she feels back to baseline. General: NAD Neck: Yes: Supple, Other (hard mass on the left side of the neck) Cardiovascular: Yes: Regular Rate and Rhythm Respiratory: Yes: Regular, CTA Bilaterally Gastrointestinal: Yes: Normal Bowel Sounds, Soft, Abdomen, Obese Breast(s): Yes: Left (no palpable nodules felt), Right (rt breat with a ulcerated skin, but palpable nodules felt), Skin Changes. No: Dimpling, Discharge from Nipple, Nipple Inversion Musculoskeletal: No: Joint Stiffness, Joint Swelling Extremities: Yes: Other (bilateral axillary lymphadenopathy present) Edema: No Last Vital Signs Temp Pulse Resp BP Pulse Ox 97.5 F L 78 18 157/80 97 06/23/17 14:00 06/23/17 14:00 06/23/17 09:00 06/23/17 14:00 06/23/17 09:00 CBC, BMP 06/23/17 06:05 06/23/17 06:05 Current Medications Generic Name Dose Route Start Last Admin Trade Name Freq PRN Reason Stop Dose Admin Acetaminophen 650 mg 06/22/17 14:58 Tylenol - PO Q6H PRN FEVER OR PAIN Atorvastatin Calcium 40 mg 06/22/17 22:00 06/22/17 21:12 Lipitor - PO 40 mg HS [facility] Administration Carvedilol 12.5 mg 06/22/17 22:00 06/23/17 09:06 Coreg - PO 12.5 mg BID [facility] Administration Glimepiride 4 mg 06/23/17 07:00 06/23/17 06:35 Amaryl - PO 4 mg DAILY@0700 [facility] Administration Insulin Aspart 1 vial 06/22/17 16:30 06/23/17 12:18 Novolog Vial Sliding Scale - SQ Not Given ACHS [facility] Protocol Lisinopril 5 mg 06/22/17 10:00 06/23/17 09:06 Prinivil PO 5 mg DAILY [facility] Administration Assessment/Plan: New onset right sided neck mass Breast masses palpable ( right breast) Bilateral axillary LAD New pleural effusion on CXR Patient with LIKELY metastatic breast cancer. Pathological diagnosis pending. Biopsy IP/OP Staging w/u CT neck, C/a/p reviewed, extensive metastatic disease. To consider pulm c/s for pleural effusion. Pending bone scan to be seen by Breast Surgery. Problem List - Problems (1) Neck mass Code(s): R22.1 - LOCALIZED SWELLING, MASS AND LUMP, NECK (2) Breast mass Code(s): N63.0 - UNSPECIFIED LUMP IN UNSPECIFIED BREAST (3) Axillary lymphadenopathy Code(s): R59.0 - LOCALIZED ENLARGED LYMPH NODES
[2017-06-23] MEDS: ATORVASTATIN CA 20 MG TABLET (FP) PO SCH (21:12)
[2017-06-24] MEDS: GLIMEPIRIDE 4 MG TABLET (FP) PO SCH (06:30)
[2017-06-24 06:54] LABS: MCH 25.2 pg (25.7-33.7); MCHC 31.9 g/dl (32.0-36.0); MEAN CELL VOLUME 79.1 fl (80-96); MEAN PLT VOLUME 7.8 fl (7.5-11.1); PLATELET COUNT 280 K/MM3 (134-434); RDW 16.5 % (11.6-15.6)
[2017-06-24 07:12] LABS: ALBUMIN 2.6 g/dl (3.4-5.0); ANION GAP 8 (8-16); CALCIUM 9.9 mg/dL (8.5-10.1); CO2 27 mmol/L (21-32); GLUCOSE,RANDOM 74 mg/dL (74-106); SGOT/AST 22 U/L (15-37); SGPT/ALT 18 U/L (12-78)
[2017-06-24 07:14] LABS: ALK PHOS 121 U/L (45-117); BILIRUBIN,TOTAL 0.8 mg/dL (0.2-1.0); CREATININE 0.6 mg/dL (0.55-1.02); TOT PROT 6.4 g/dl (6.4-8.2)
[2017-06-24] MEDS: CARVEDILOL 12.5 MG TABLET (FP) PO SCH (09:13)
[2017-06-24] MEDS: LISINOPRIL 5 MG TABLET (FP) PO SCH (09:13)
--- NOTE | 2017-06-24 10:18 | PN ---
Progress Note (short form) - Note Progress Note: s: feeling better, no sob palps dizzy cp. legs stronger today. o: Vital Signs Period Temp Pulse Resp BP Sys/Moreno Pulse Ox Last 24 Hr 97.4 F-99.3 F 77-79 18-20 125-157/58-80 93 nad no jvd rrr s1s2 no mrg cta bl nl eff aaox3 no le e/c/c abd nt nd pos bs no jaundice diaphoresis Current Medications Generic Name Dose Route Start Last Admin Trade Name Freq PRN Reason Stop Dose Admin Acetaminophen 650 mg 06/22/17 14:58 Tylenol - PO Q6H PRN FEVER OR PAIN Atorvastatin Calcium 40 mg 06/22/17 22:00 06/23/17 21:12 Lipitor - PO 40 mg HS URSZULA Administration Carvedilol 12.5 mg 06/22/17 22:00 06/24/17 09:13 Coreg - PO 12.5 mg BID URSZULA Administration Glimepiride 4 mg 06/23/17 07:00 06/24/17 06:30 Amaryl - PO 4 mg DAILY@0700 URSZULA Administration Insulin Aspart 1 vial 06/22/17 16:30 06/23/17 21:13 Novolog Vial Sliding Scale - SQ Not Given ACHS [facility] Protocol Lisinopril 5 mg 06/22/17 10:00 06/24/17 09:13 Prinivil PO 5 mg DAILY URSZULA Administration CBC, BMP 06/24/17 06:15 06/24/17 06:15 echo 10/2016: nl lvef, inf/inflat/infseptal HK, nl rv, mild mr carotid us 10/2016: 60-79% bl ICA stenosis, chronic ecg 06/22/17: sr, nl intervals, no ischemic changes, pvc cxr: right atx/infiltrate tele: sr, occ pvcs a/p: 81 f hx cad s/p cabg 2006, htn , hld, dm, breast cancer here with leg weakness. leg weakness: -no obvious cardiac etiology -no signs acs, ecg unremarkable -recent echo w/o etiology -orthostatics nl, tele benign -PT, neuro eval cad, cabg: -stable, no signs acs, no angina -nl lvef -cont statin, asa, bb, yared htn: -cont home meds hld: -cont statin metastatic breast ca: -per oncology cardiac nolen stable for dc, can dc tele
--- NOTE | 2017-06-24 10:20 | PN ---
Progress Note (short form) - Note Progress Note: Neurology History of Present Illness Patient is an 81 year old female with PMH of DM2, HTN, HLD, CAD/[place] s/p CABG presenting with dizziness, weakness and generally feeling unwell since last night. 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 Patient states she started feeling "strange" last night with right arm weakness/coordination problems, shaking and difficulty getting out of bed because her "legs wouldn't cooperate". Patient normally ambulates well at baseline. Denies headache, weakness, recent illness, changes to vision or hearing, shortness of breath, chest pain and abdominal pain. CT head compelted and no intraparenchymal abnormality but ?left temporal osseous foci thats 0.7 X 0.3cm in size. Completed CT Neck, chest, abd/pelvis. Reviewed all studies. 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 Neurologically she is mentating well and without any deficits. Active Medications Acetaminophen (Tylenol -) 650 mg PO Q6H PRN PRN Reason: FEVER OR PAIN Atorvastatin Calcium (Lipitor -) 40 mg PO HS [facility] Last Admin: 06/23/17 21:12 Dose: 40 mg Carvedilol (Coreg -) 12.5 mg PO BID [facility] Last Admin: 06/24/17 09:13 Dose: 12.5 mg Glimepiride (Amaryl -) 4 mg PO DAILY@0700 [facility] Last Admin: 06/24/17 06:30 Dose: 4 mg Insulin Aspart (Novolog Vial Sliding Scale -) 1 vial SQ ACHS [facility] PRN Reason: Protocol Last Admin: 06/23/17 21:13 Dose: Not Given Lisinopril (Prinivil) 5 mg PO DAILY [facility] Last Admin: 06/24/17 09:13 Dose: 5 mg *Physical Exam Vital Signs Period Temp Pulse Resp BP Sys/Moreno Pulse Ox Last 24 Hr 97.4 F-99.3 F 77-79 18-20 125-157/58-80 93 GENERAL: Nourished, Appropriately dressed, AAOx3, NAD HEAD: NCAT EYES: PERRLA, EOMI, sclera anicteric, conjunctiva clear ENT: hearing grossly normal, nares patent, no congestion NECK: Firm/tender right anterior mass/LAD ([id number]), [id number] left anterior mass /LAD, no JVD RESP: Speaking in full sentences, Symmetrical chest expansion, no respiratory distress, lungs CTAB CHEST: firm lump in right breast with overlying skin involvement HEART: RRR, normal S1-S2, (+) S3 ABDOMEN: nlBSx4, Soft, NTND, no guarding, no rebound. EXTREMITIES: Normal inspection, Normal ROM NEUROLOGICAL: CN II-XII grossly intact. Normal speech, no focal sensorimotor deficits, alert and awake, gait deferred SKIN: Warm, Dry, normal turgor, no rashes or lesions other than noted. CBCD WBC 6.0 K/mm3 (4.0-10.0) 06/24/17 06:15 RBC 4.51 M/mm3 (3.60-5.2) 06/24/17 06:15 Hgb 11.4 GM/dL (10.7-15.3) 06/24/17 06:15 Hct 35.7 % (32.4-45.2) 06/24/17 06:15 MCV 79.1 fl (80-96) L 06/24/17 06:15 MCHC 31.9 g/dl (32.0-36.0) L 06/24/17 06:15 RDW 16.5 % (11.6-15.6) H 06/24/17 06:15 Plt Count 280 K/MM3 (134-434) 06/24/17 06:15 MPV 7.8 fl (7.5-11.1) 06/24/17 06:15 CMP Sodium 136 mmol/L (136-145) 06/24/17 06:15 Potassium 4.3 mmol/L (3.5-5.1) 06/24/17 06:15 Chloride 101 mmol/L (98-107) 06/24/17 06:15 Carbon Dioxide 27 mmol/L (21-32) 06/24/17 06:15 Anion Gap 8 (8-16) 06/24/17 06:15 BUN 13 mg/dL (7-18) 06/24/17 06:15 Creatinine 0.6 mg/dL (0.55-1.02) 06/24/17 06:15 Creat Clearance w eGFR > 60 (>60) 06/24/17 06:15 Calcium 9.9 mg/dL (8.5-10.1) 06/24/17 06:15 Total Bilirubin 0.8 mg/dL (0.2-1.0) 06/24/17 06:15 AST 22 U/L (15-37) 06/24/17 06:15 ALT 18 U/L (12-78) 06/24/17 06:15 Alkaline Phosphatase 121 U/L (45-117) H 06/24/17 06:15 Total Protein 6.4 g/dl (6.4-8.2) 06/24/17 06:15 Albumin 2.6 g/dl (3.4-5.0) L 06/24/17 06:15 - RADIOLOGY Radiograph Interpretation: CT head reviewed CT Chest reviewed CT Abd/pelvis reviewed CT neck reviewed Plan: 81 year old female with PMH of DM2, HTN, HLD, CAD/[place] s/p CABG presenting with dizziness, weakness and generally feeling unwell since last night. 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 Patient states she started feeling "strange" last night with right arm weakness/coordination problems, shaking and difficulty getting out of bed because her "legs wouldn't cooperate". Patient normally ambulates well at baseline. Denies headache, weakness, recent illness, changes to vision or hearing, shortness of breath, chest pain and abdominal pain. CT head compelted and no intraparenchymal abnormality but ?left temporal osseous foci thats 0.7 X 0.3cm in size.Also reviewed CT neck, chest, abd as above. Oncology following. Patient considering options and goals of care. Continue blood pressure management, goal < 140/90, on Coreg and Lisinopril. Continue Statin for HLD, goal LDL < 100. Dizzyness is better and patient stable.
--- NOTE | 2017-06-24 10:40 | DS ---
Physical Examination Vital Signs: Vital Signs Temperature 98.3 F 06/24/17 05:45 Pulse Rate 79 06/24/17 05:45 Respiratory Rate 20 06/24/17 05:45 Blood Pressure 145/69 06/24/17 05:45 O2 Sat by Pulse Oximetry (%) 93 L 06/23/17 20:30 Findings/Remarks: PATIENT IS READY TO GO HOME TODAY AND RETURN WEDNESDAY FOR BIOPSY AFTER 7 DAYS OFF ASA Constitutional: Yes: No Distress Eyes: Yes: WNL HENT: Yes: WNL Neck: Yes: Lymphadenopathy Cardiovascular: Yes: WNL Respiratory: Yes: SOB Gastrointestinal: Yes: WNL Renal/: Yes: WNL Musculoskeletal: Yes: Muscle Weakness Extremities: Yes: WNL Edema: No Peripheral Pulses WNL: Yes Integumentary: Yes: WNL Wound/Incision: Yes: Clean/Dry Neurological: Yes: Pre-Existing Deficit ...Motor Strength: LLE, RLE Psychiatric: Yes: WNL Labs: CBC, BMP 06/24/17 06:15 06/24/17 06:15 Discharge Summary Reason For Visit: DIZZINES Current Active Problems Axillary lymphadenopathy (Acute) Breast cancer (Acute) Breast mass (Acute) Dizziness (Acute) Neck mass (Acute) Ruled out for myocardial infarction (Acute) Stroke (Acute) Procedures: Principal: CT HEAD/CHEST Other Procedures: NEOPLASTIC WORKUP Hospital Course: ADMITTED FOR NECK MASS, LUNG MASS, LIVER LESIONS, LIKELY METASTATIC CANCER. PATIENT NEEDS TO BE OFF ASA FOR 7 DAYS PRIOR TO DISCHARGE. WILL DC HOME TODAY, SHE IS SCHEDULED WITH DR SZYMANSKI FOR BREAST BIOPSY. [facility] Condition: Fair - Instructions Diet, Activity, Other Instructions: LOW SODIUM [facility] BIOPSY WEDNESDAY Referrals: William Bazzi MD, MD [Primary Care Provider] - Disposition: VNS/HOME HEALTH CARE - Home Medications Comprehensive Discharge Medication List: Ambulatory Orders Aspirin [ASA -] 81 mg PO DAILY #0 tab.chew 06/29/12 Carvedilol [Coreg -] 12.5 mg PO BID #0 tablet 06/29/12 Glimepiride 4 mg PO BID #0 tablet 06/29/12 Lisinopril [Prinivil] 40 mg PO DAILY #0 tablet 06/29/12 Atorvastatin Ca [Lipitor] 40 mg PO HS 06/22/17 Metformin HCl 500 mg PO BID 06/22/17
[2017-06-24 11:06] VITALS: BP 121/53; PULSE 81; TEMP 98.4
--- NOTE | 2017-07-02 10:38 | EKG ---
Test Reason : Blood Pressure : / mmHG Vent. Rate : 079 BPM Atrial Rate : 079 BPM P-R Int : 180 ms QRS Dur : 114 ms QT Int : 376 ms P-R-T Axes : 030 -13 118 degrees QTc Int : 431 ms SINUS RHYTHM WITH OCCASIONAL PREMATURE VENTRICULAR COMPLEXES NONSPECIFIC INTRAVENTRICULAR CONDUCTION DEFECT ABNORMAL ECG WHEN COMPARED WITH ECG OF 28-JUN-2012 13:17, PREMATURE VENTRICULAR COMPLEXES ARE NOW PRESENT NONSPECIFIC T WAVE ABNORMALITY NOW EVIDENT IN INFERIOR LEADS T WAVE INVERSION MORE EVIDENT IN LATERAL LEADS REPEAT EKG IF CLINICALLY INDICATED Confirmed by KAMRAN WATSON MD ([id number]) on 06/22/2017 9:58:33 PM Also confirmed by KAMRAN WATSON MD ([id number]), visual effects editor REYMUNDO RAMIREZ ([id number]) on 07/02/2017 10:38:00 AM Referred By: Confirmed By:KAMRAN WATSON MD
== END 2017-06-24 11:40 | disposition home health service (06) | DRG 598 ==
LOC: JER 11:27 → JERBED 14:37 → J4W 17:58
PROVIDERS: ADMIT Family Medicine; ATTEND Family Medicine
DX: C50.911 Malignant neoplasm of unspecified site of right female breast (principal); J98.11 Atelectasis; J90 Pleural effusion, not elsewhere classified; Z80.3 Family history of malignant neoplasm of breast; R53.1 Weakness; E11.9 Type 2 diabetes mellitus without complications; I10 Essential (primary) hypertension; E78.5 Hyperlipidemia, unspecified; I25.10 Atherosclerotic heart disease of native coronary artery without angina pectoris; I25.2 Old myocardial infarction; Z95.1 Presence of aortocoronary bypass graft; R22.1 Localized swelling, mass and lump, neck; R59.0 Localized enlarged lymph nodes
CPT/HCPCS: 36415; 70450-TC; 70491-TC; 71010-TC; 71260-TC; 74178-TC; 78306-TC; 80053; 80061; 81003; 82550; 83036; 83721; 84484; 85025; 85027; 85610; 85651; 85730; 86300; 86304; 90688; 93005; 93010; 99284-25; A9503; Q9967

== ENCOUNTER 2017-07-17 08:15 | Inpatient (IN) | payer OTHER, MEDICARE ==
[2017-07-17 08:27] VITALS: BMI 34.3
--- NOTE | 2017-07-17 08:28 | PDOC ---
History of Present Illness <Gio Cabrera - Last Filed: 07/17/17 08:27> - General History Source: Patient Exam Limitations: No Limitations - History of Present Illness Initial Comments: 07/17/17 08:50 The patient is a 81 year old female with a significant past medical history of diabetes, HTN, HLD, triple bypass s/p [place] who presents to the ED for progressively worsening shortness of breath for several weeks. The patient was recently discharged from the hospital on 06/24 and since then reports intermittent shortness of breath with a slightly productive cough of phlegm. Patient states her shortness of breath worsened last night and woke her up from her sleep around midnight. Patient states she had difficulty moving her extremities during her episode of shortness of breath last night. She also notes she developed bilateral lower extremity edema 2 days ago. Denies chest pain. <Gretchen Watkins - Last Filed: 07/17/17 08:51> - General Chief Complaint: Shortness of Breath Stated Complaint: SOB Time Seen by Provider: 07/17/17 08:26 Past History - Past Medical History Cardiac Disorders: Yes ([place] 2005) COPD: No Diabetes: Yes (niddm) HTN: Yes Hypercholesterolemia: Yes Thyroid Disease: Yes - Surgical History Cardiac Surgery: Yes (TRIPLE BYPASS) - Suicide/Smoking/Psychosocial Hx Smoking Status: No Smoking History: Never smoked Have you smoked in the past 12 months: No Number of Cigarettes Smoked Daily: 0 Information on smoking cessation initiated: No Hx Alcohol Use: No Drug/Substance Use Hx: No Substance Use Type: None Hx Substance Use Treatment: No <Gio Cabrera - Last Filed: 07/17/17 08:27> <Gretchen Watkins - Last Filed: 07/17/17 08:51> - Past Medical History Allergies/Adverse Reactions: Allergies Allergy/AdvReac Type Severity Reaction Status Date / Time Penicillins AdvReac Mild Rash Verified 07/17/17 08:21 Home Medications: Ambulatory Orders Aspirin [ASA -] 81 mg PO DAILY #0 tab.chew 06/29/12 Carvedilol [Coreg -] 12.5 mg PO BID #0 tablet 06/29/12 Glimepiride 4 mg PO BID #0 tablet 06/29/12 Lisinopril [Prinivil] 40 mg PO DAILY #0 tablet 06/29/12 Atorvastatin Ca [Lipitor] 40 mg PO HS 06/22/17 Metformin HCl 500 mg PO BID 06/22/17 *Physical Exam - Vital Signs Last Vital Signs Temp Pulse Resp BP Pulse Ox 94 H 32 H 130/89 9 L 07/17/17 08:22 07/17/17 08:22 07/17/17 08:22 07/17/17 08:22 <Gio Cabrera - Last Filed: 07/17/17 08:27> - Vital Signs Last Vital Signs Temp Pulse Resp BP Pulse Ox 94 H 32 H 130/89 9 L 07/17/17 08:22 07/17/17 08:22 07/17/17 08:22 07/17/17 08:22 <Gretchen Watkins - Last Filed: 07/17/17 08:51> *DC/Admit/Observation/Transfer - Attestations Scribe Attestion: 07/17/17 08:51 Documentation prepared by Gretchen Watkins, acting as medical laboratory assistant for Gio Cabrera MD <Gretchen Watkins - Last Filed: 07/17/17 08:51>
--- NOTE | 2017-07-17 08:29 | PDOC ---
History of Present Illness - General Chief Complaint: Shortness of Breath Stated Complaint: SOB Time Seen by Provider: 07/17/17 08:26 History Source: Patient, Family Exam Limitations: No Limitations - History of Present Illness Initial Comments: 07/17/17 12:52 Patient is an 81 year old female with PMH of DM2, HTN, HLD, CAD/[place] s/p CABG and recently diagnosed breast cancer with metastatic tumors in lungs, liver and neck brought by EMS with acute respiratory distress since last night around 2am. Called daughter around 6am who called EMS. Patient given oxygen in ambulance and saturating well, breathing comfortably. Patient was admitted on 06/22 and discharged on 06/24, where she was found to have a large right-sided pleural edema as well as multiple neoplams and metastases in the nasopharynx, cervical, axillary and supraclavicular lymph nodes, breast, lungs, liver, adrenal glands, kidney, uterus, spine, ribs and pelvis. Patient denies loss of consciousness, chest pain. 07/20/17 20:29 Past History - Past Medical History Allergies/Adverse Reactions: Allergies Allergy/AdvReac Type Severity Reaction Status Date / Time Penicillins AdvReac Mild Rash Verified 07/17/17 08:21 Home Medications: Ambulatory Orders Aspirin [ASA -] 81 mg PO DAILY #0 tab.chew 06/29/12 Carvedilol [Coreg -] 12.5 mg PO BID #0 tablet 06/29/12 Glimepiride 4 mg PO BID #0 tablet 06/29/12 Lisinopril [Prinivil] 40 mg PO DAILY #0 tablet 06/29/12 Atorvastatin Ca [Lipitor] 40 mg PO HS 06/22/17 Metformin HCl [Metformin HCl ER] 500 mg PO BID 07/17/17 Cardiac Disorders: Yes ([place] 2005) COPD: No Diabetes: Yes (niddm) HTN: Yes Hypercholesterolemia: Yes Thyroid Disease: Yes - Surgical History Cardiac Surgery: Yes (TRIPLE BYPASS) - Suicide/Smoking/Psychosocial Hx Smoking Status: No Smoking History: Never smoked Have you smoked in the past 12 months: No Number of Cigarettes Smoked Daily: 0 Information on smoking cessation initiated: No Hx Alcohol Use: No Drug/Substance Use Hx: No Substance Use Type: None Hx Substance Use Treatment: No Review of Systems - Review of Systems Able to Perform ROS?: Yes Is the patient limited Portuguese proficient: No Constitutional: No: Symptoms Reported HEENTM: No: Symptoms Reported Respiratory: Yes: Shortness of Breath, SOB at Rest Cardiac (ROS): No: Symptoms Reported ABD/GI: No: Symptoms Reported : No: Symptoms Reported Musculoskeletal: No: Symptoms Reported Integumentary: No: Symptoms Reported Neurological: No: Symptoms reported Endocrine: No: Symptoms Reported *Physical Exam - Vital Signs Last Vital Signs Temp Pulse Resp BP Pulse Ox 94 H 32 H 130/89 9 L 07/17/17 08:22 07/17/17 08:22 07/17/17 08:22 07/17/17 08:22 - Physical Exam General Appearance: Yes: Appropriately Dressed, Mild Distress HEENT: positive: EOMI, ROLANDA Respiratory/Chest: positive: Other (absent breath sounds on the right. normal on the left.). negative: Chest Tender Cardiovascular: positive: Regular Rhythm, Regular Rate, S1, S2 Gastrointestinal/Abdominal: positive: Normal Bowel Sounds, Soft, Protuberent. negative: Tender Integumentary: positive: Normal Color, Dry, Warm Neurologic: positive: Fully Oriented, Alert, Depressed Affect ED Treatment Course - LABORATORY CBC & Chemistry Diagram: 07/19/17 05:18 07/19/17 05:18 Medical Decision Making - Medical Decision Making 07/20/17 20:29 Patient is an 81 year old female with PMH of DM2, HTN, HLD, CAD/[place] s/p CABG and recently diagnosed breast cancer with metastatic tumors in lungs, liver and neck brought by EMS with acute respiratory distress since last night around 2am Patient received 40 mg of Lasix IV with diuresis of 1 L of normal saline, improving overall respiratory status. Chest x-ray reveals increasing right hemithorax opacification. Case discussed with Dr. Andres who accepted to admit the patient. . Will admit for further evaluation and treatment. *DC/Admit/Observation/Transfer Diagnosis at time of Disposition: Respiratory distress, Malignant pleural effusion - Discharge Dispostion Admit: Yes - Referrals
[2017-07-17] MEDS ORDERED: FUROSEMIDE 40 MG/4 ML INJECTABLE VIAL IVPUSH ONE (08:59)
[2017-07-17] MEDS ORDERED: FUROSEMIDE 40 MG/4 ML INJECTABLE VIAL ONE ×2 (09:12→17:58)
[2017-07-17 09:15] LABS: VENOUS PH 7.73 (7.32-7.42)
[2017-07-17 09:16] LABS: VENOUS BLOOD GAS HCO3 27.8 meq/L (19-25)
[2017-07-17 09:27] LABS: BASOPHIL 0.6 % (0-2.0); EOSINOPHIL 0.2 % (0-4.5); MCH 25.7 pg (25.7-33.7); MCHC 32.7 g/dl (32.0-36.0); MEAN CELL VOLUME 78.6 fl (80-96); MEAN PLT VOLUME 7.6 fl (7.5-11.1); NEUTROPHILS 76.2 % (42.8-82.8); PLATELET COUNT 336 K/MM3 (134-434); RDW 16.8 % (11.6-15.6); WHITE BLOOD COUNT 8.1 K/mm3 (4.0-10.0)
[2017-07-17 09:47] LABS: INR 1.01 (0.82-1.09); PROTHROMBIN TIME (PATIENT) 11.4 SEC (9.98-11.88)
[2017-07-17 09:50] LABS: ALBUMIN 3.2 g/dl (3.4-5.0); ANION GAP 7 (8-16); BILIRUBIN,TOTAL 0.9 mg/dL (0.2-1.0); CALCIUM 10.9 mg/dL (8.5-10.1); CO2 29 mmol/L (21-32); CREATININE 0.7 mg/dL (0.55-1.02); GLUCOSE,RANDOM 74 mg/dL (74-106); MAGNESIUM 1.8 mg/dL (1.8-2.4); PHOSPHOROUS 3.9 mg/dL (2.5-4.9); SGOT/AST 33 U/L (15-37); SGPT/ALT 26 U/L (12-78); TOT PROT 7.9 g/dl (6.4-8.2)
[2017-07-17 09:51] LABS: ALK PHOS 174 U/L (45-117); CPK 121 IU/L (26-192); TROPONIN I < 0.02 ng/ml (0.00-0.05)
[2017-07-17 09:58] LABS: URINE APPEARANCE CLEAR; URINE BILIRUBIN NEGATIVE (NEGATIVE); URINE BLOOD NEGATIVE (NEGATIVE); URINE COLOR LTYELLOW; URINE GLUCOSE (UA) NEGATIVE (NEGATIVE); URINE KETONE NEGATIVE (NEGATIVE); URINE NITRITE NEGATIVE (NEGATIVE); URINE PROTEIN NEGATIVE (NEGATIVE); URINE UROBILINOGEN NEGATIVE mg/dL (0.2-1.0)
--- NOTE | 2017-07-17 10:28 | PDOC ---
Attending Attestation - HPI HPI: 07/17/17 10:28 The patient is a 81 year old female with a significant past medical history of diabetes, HTN, HLD, triple bypass s/p [place] who presents to the ED for progressively worsening shortness of breath for several weeks. The patient was recently discharged from the hospital on 06/24 and since then reports intermittent shortness of breath with a slightly productive cough of phlegm. Patient states her shortness of breath worsened last night and woke her up from her sleep around midnight. Patient states she had difficulty moving her extremities during her episode of shortness of breath last night. She also notes she developed bilateral lower extremity edema 2 days ago. Denies chest pain. Documentation prepared by Gretchen Watkins, acting as medical oncologist for Gio Cabrera MD <Gretchen Watkins - Last Filed: 07/17/17 10:28> - Resident Resident Name: Favian Crandall - ED Attending Attestation I have performed the following: I have examined & evaluated the patient, The case was reviewed & discussed with the resident, I agree w/resident's findings & plan, Exceptions are as noted - Physicial Exam PE: 07/17/17 12:11 Patient is awake and alert, dyspneic and tachypneic; patient's hypoxemic on room air with oxygen saturation of 88%, improving to 100% 4 L via nasal cannula. Morbidly obese, nc, atr + Large right submandibular mass, mildly tender to palpation, attached to the overlying skin; rrr + Significantly decreased breath sounds at the right base, extending up to the two thirds of the lung field; breath sounds are audible on the left with mild intermittent rhonchi; + Evaluation of the right breast reveals a hard mass with excoriated, erythematous overlying skin; + 1 Left lower extremity edema cn ii-xii grossly intact; motor is 5 of 54; - Medical Decision Making 07/17/17 12:13 Patient is an 81-year-old female with history of hypertension, diabetes, elevated cholesterol, metastatic breast CA presents to the ER with worsening shortness of breath. Presentation is consistent with increasing right pleural effusion which is likely malignant in nature as well as concomitant fluid overload. Patient received 40 mg of Lasix IV with diuresis of 1 L of normal saline, improving overall respiratory status. Chest x-ray reveals increasing right hemithorax opacification. Case discussed with Dr. jones he. Will admit for further evaluation and treatment. <Gio Cabrera - Last Filed: 07/17/17 12:14>
--- NOTE | 2017-07-17 11:43 | HP ---
Admitting History and Physical - Admission History of Present Illness: 81 year old female with PMH of DM2, HTN, HLD, CAD/[place] s/p CABG and recently diagnosed breast cancer with metastatic tumors in lungs, liver and neck brought by EMS with acute respiratory distress since last night around 2am. Called daughter around 6am who called EMS. Patient given oxygen in ambulance and saturating well, breathing comfortably. Patient was admitted on 06/22 and discharged on 06/24, where she was found to have a large right-sided pleural edema as well as multiple neoplams and metastases in the nasopharynx, cervical, axillary and supraclavicular lymph nodes, breast, lungs, liver, adrenal glands, kidney, uterus, spine, ribs and pelvis. Patient denies loss of consciousness, chest pain. - Past Medical History Cardiovascular: Yes: CHF, HTN, Hyperlipdemia Pulmonary: Yes: COPD Heme/Onc: Yes: Cancer (BREAST) Endocrine: Yes: Diabetes Insipidus - Smoking History Smoking history: Never smoked Have you smoked in the past 12 months: No Aproximately how many cigarettes per day: 0 - Alcohol/Substance Use Hx Alcohol Use: No Home Medications - Allergies Allergies/Adverse Reactions: Allergies Allergy/AdvReac Type Severity Reaction Status Date / Time Penicillins AdvReac Mild Rash Verified 07/17/17 08:21 - Home Medications Home Medications: Ambulatory Orders Aspirin [ASA -] 81 mg PO DAILY #0 tab.chew 06/29/12 Carvedilol [Coreg -] 12.5 mg PO BID #0 tablet 06/29/12 Glimepiride 4 mg PO BID #0 tablet 06/29/12 Lisinopril [Prinivil] 40 mg PO DAILY #0 tablet 06/29/12 Atorvastatin Ca [Lipitor] 40 mg PO HS 06/22/17 Metformin HCl [Metformin HCl ER] 500 mg PO BID 07/17/17 Review of Systems - Review of Systems Cardiovascular: reports: Edema, Shortness of Breath. denies: Chest Pain Respiratory: reports: Orthopnea, SOB, SOB on Exertion Gastrointestinal: denies: Abdominal Pain, Diarrhea Genitourinary: reports: No Symptoms Neurological: reports: No Symptoms Physical Examination Vital Signs: Vital Signs Temperature 97.4 F L 07/17/17 09:13 Pulse Rate 79 07/17/17 10:49 Respiratory Rate 17 07/17/17 10:49 Blood Pressure 133/84 07/17/17 10:49 O2 Sat by Pulse Oximetry (%) 97 07/17/17 10:49 Cardiovascular: Yes: S1, S2 Respiratory: Yes: Diminished, Rales (AT THE BASES) Gastrointestinal: Yes: Normal Bowel Sounds, Soft. No: Tenderness Edema: Yes Labs: CBC, BMP 07/17/17 09:01 07/17/17 09:01 Imaging - Results Cat Scan: Image Reviewed Problem List - Problems (1) CHF (congestive heart failure) Assessment/Plan: IV LASIX BNP CARDIO Code(s): I50.9 - HEART FAILURE, UNSPECIFIED (2) Malignant pleural effusion Assessment/Plan: CONSULT W PULM Code(s): J91.0 - MALIGNANT PLEURAL EFFUSION (3) Breast cancer Assessment/Plan: ONCOLOGY CONSULT SURGICAL CONSULT Code(s): C50.919 - MALIGNANT NEOPLASM OF UNSP SITE OF UNSPECIFIED FEMALE BREAST Qualifiers: Estrogen receptor status: unspecified Laterality: unspecified laterality
[2017-07-17] MEDS ORDERED: POTASSIUM CHLORIDE TABS 20 MEQ TABLET.ER (FP) PO ONE (11:52)
[2017-07-17] MEDS: POTASSIUM CHLORIDE TABS 20 MEQ TABLET.ER (FP) PO SCH ×2 (11:58→12:19)
[2017-07-17 17:08] LABS: URINE LEUK ESTERASE Negative (NEGATIVE)
--- NOTE | 2017-07-17 17:25 | PN ---
Progress Note (short form) - Note Progress Note: PULMONARY CONSULTATION DICTATED 07/17/17 IMP RESPIRATORY DISTRESS LARGE R PLEURAL EFFUSION METASTATIC BREAST CA CHF ASHD S/P CABG PLAN O2 THORACENTESIS LASIX PRN ONCOLOGY OPINION DR ACOSTA Problem List - Problems (1) Malignant pleural effusion Code(s): J91.0 - MALIGNANT PLEURAL EFFUSION (2) Respiratory distress Code(s): R06.00 - DYSPNEA, UNSPECIFIED (3) Breast cancer Code(s): C50.919 - MALIGNANT NEOPLASM OF UNSP SITE OF UNSPECIFIED FEMALE BREAST Qualifiers: Estrogen receptor status: unspecified Laterality: unspecified laterality (4) Breast mass Code(s): N63.0 - UNSPECIFIED LUMP IN UNSPECIFIED BREAST (5) ASHD (arteriosclerotic heart disease) Code(s): I25.10 - ATHSCL HEART DISEASE OF [place] CORONARY ARTERY W/O ANG PCTRS (6) CHF (congestive heart failure) Code(s): I50.9 - HEART FAILURE, UNSPECIFIED
[2017-07-17 17:42] LABS: TROPONIN I 0.03 ng/ml (0.00-0.05)
[2017-07-17] MEDS: FUROSEMIDE 40 MG/4 ML INJECTABLE VIAL IVPUSH SCH (18:12)
--- NOTE | 2017-07-17 18:18 | CONS ---
DATE OF CONSULTATION: 07/17/2017 PULMONARY CONSULTATION REFERRING PHYSICIAN: Annemarie Andres MD HISTORY OF PRESENT ILLNESS: The patient is an 81-year-old white female with a past medical history of type 2 diabetes, hypertension, arteriosclerotic heart disease, status post CABG, status post MD, nonsmoker who was recently diagnosed with breast cancer with multiple metastatic tumors to the lungs, pleural effusion. She was admitted to [facility] with complaints of increasing shortness of breath. The patient states the past 3-4 weeks though she has been developing increasing shortness of breath and dyspnea on exertion. Yesterday she developed severe dyspnea at which time she was sent to the emergency room. In the ER she was treated with some Lasix and bronchodilators with some clinical improvement. She had a chest x-ray performed which revealed a large right pleural effusion. Of note, she had a CAT scan on June 22 which revealed large right pleural effusion and multiple metastatic lesions. The patient denies any chest pain or palpitations. She has a cough that is nonproductive. She denies fever or chills. She has had weight loss having had a loss of appetite. PAST MEDICAL HISTORY: Again includes type 2 diabetes, hypertension, hyperlipidemia, arteriosclerotic heart disease, status post MD, status post CABG, recently diagnosed breast cancer. MEDICATIONS PRIOR TO ADMISSION: Include aspirin, Coreg, glimepiride, Prinivil, Lipitor, metformin. 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 CURRENT MEDICATIONS: Include Lasix, Lipitor, Coreg and subcutaneous heparin, Prinivil. PHYSICAL EXAMINATION: General: The patient is an elderly white female, awake, alert and in no acute respiratory distress. Vitals: The patient is currently afebrile. Blood pressure is 100/50, respiratory rate 19, O2 saturation 97% on 3 L. HEENT: Examination is normocephalic and atraumatic. Neck: Supple. Heart: Regular with normal S1, S2. Lungs: Diminished breath sounds on the right 3/4 up. Abdomen: Soft, bowel sounds positive. Extremities: No cyanosis or edema. LABORATORY DATA: WBC 8.1, hemoglobin 13.4, hematocrit 40.9, platelet count 336,000. Chemistries showed BUN 14, creatinine 0.7, BNP 1353. Chest x-ray revealed large right pleural effusion. IMPRESSION: 1. Respiratory distress secondary to large right pleural effusion most likely malignancy secondary to the malignant etiology, transit breast cancer. 2. Mild congestive heart failure. 3. Hypertension. 4. Arteriosclerotic heart disease status post coronary artery bypass graft. PLAN: Continue O2. Will arrange for thoracentesis and/or insertion of pigtail catheter for drainage, oncology consultation, Sourav judd, supplemental O2. BRYCE ACOSTA M.D. [id number]
[2017-07-17] MEDS ORDERED: DEXTROSE 50%-WATER 25 GM/50 ML DISP.SYRIN ONE (23:21)
[2017-07-17] MEDS ORDERED: DEXTROSE 50%-WATER - 25 GM/50 ML VIAL IVPUSH ONE (23:24)
--- NOTE | 2017-07-17 23:35 | PN ---
Progress Note (short form) - Note Progress Note: Paged about patient who is lethargic. Informed that her most recent BGM was 37. Chart reviewed PE: Gen: Lethargic patient, diaphoresis noted Lungs: Rales appreciated L lower base; otherwise no wheezes or rhonchi heard. Normal rate Cardiac: RRR, no murmurs appreciated; monitoring showing 86 bpm Abdomen: Nontender, nondistended soft, no rebound Neuro: EOMI, COLTON, strength 5/5 grossly, sensation intact grossly Ext: trace edema noted at ankles; clammy to touch A/P: --D50 25gm IVP --BGM 15-30 min --Dr. Andres was reached by nursing staff; rest per his management. Lazaro Garcia, - Internal Medicine PGY-1
[2017-07-17] MEDS: CARVEDILOL 12.5 MG TABLET (FP) PO SCH (23:45)
[2017-07-17] MEDS: ATORVASTATIN CA 40 MG TABLET (FP) PO SCH (23:45)
[2017-07-17] MEDS: HEPARIN NA (PORCINE) 5,000 UNITS/ML 1ML VIAL SQ SCH (23:46)
[2017-07-17] MEDS: DEXTROSE 5%-0.45% SALINE 1,000 ML IV SCH (23:55)
[2017-07-18] MEDS: FUROSEMIDE 40 MG/4 ML INJECTABLE VIAL IVPUSH SCH ×2 (06:39→17:03)
[2017-07-18 07:39] LABS: BASOPHIL 0.5 % (0-2.0); EOSINOPHIL 0.2 % (0-4.5); MCH 25.6 pg (25.7-33.7); MCHC 32.6 g/dl (32.0-36.0); MEAN CELL VOLUME 78.6 fl (80-96); MEAN PLT VOLUME 7.6 fl (7.5-11.1); NEUTROPHILS 69.4 % (42.8-82.8); PLATELET COUNT 273 K/MM3 (134-434); RDW 16.9 % (11.6-15.6); WHITE BLOOD COUNT 7.4 K/mm3 (4.0-10.0)
[2017-07-18 08:33] LABS: ALBUMIN 2.5 g/dl (3.4-5.0); ALK PHOS 131 U/L (45-117); ANION GAP 8 (8-16); BILIRUBIN,TOTAL 0.9 mg/dL (0.2-1.0); CALCIUM 9.6 mg/dL (8.5-10.1); CO2 31 mmol/L (21-32); CREATININE 0.8 mg/dL (0.55-1.02); SGOT/AST 32 U/L (15-37); SGPT/ALT 22 U/L (12-78); TOT PROT 6.1 g/dl (6.4-8.2)
[2017-07-18 08:44] LABS: GLUCOSE,RANDOM 41 mg/dL (74-106)
[2017-07-18] MEDS: LISINOPRIL 20 MG TABLET (FP) PO SCH (09:35)
[2017-07-18] MEDS: CARVEDILOL 12.5 MG TABLET (FP) PO SCH ×2 (09:35→21:20)
[2017-07-18] MEDS: POTASSIUM CHLORIDE TABS 20 MEQ TABLET.ER (FP) PO SCH (09:35)
[2017-07-18] MEDS: HEPARIN NA (PORCINE) 5,000 UNITS/ML 1ML VIAL SQ SCH (09:36)
--- NOTE | 2017-07-18 10:41 | PN ---
Progress Note, Physician History of Present Illness: PULMONARY ALERT,FEELING BETTER,LESS DYSPNEIC,-CP,DRY COUGH - Current Medication List Current Medications: Active Medications Atorvastatin Calcium (Lipitor -) 40 mg PO HS [facility] Last Admin: 07/17/17 23:45 Dose: 40 mg Carvedilol (Coreg -) 12.5 mg PO BID [facility] Last Admin: 07/18/17 09:35 Dose: 12.5 mg Furosemide (Lasix Injection -) 40 mg IVPUSH BID@0600,1800 [facility] Last Admin: 07/18/17 06:39 Dose: 40 mg Heparin Sodium (Porcine) (Heparin -) 5,000 unit SQ BID [facility] Last Admin: 07/18/17 09:36 Dose: 5,000 unit Dextrose/Sodium Chloride (D5-1/2ns -) 1,000 mls @ 75 mls/hr IV ASDIR [facility] Last Admin: 07/17/17 23:55 Dose: 75 mls/hr Lisinopril (Prinivil) 40 mg PO DAILY [facility] Last Admin: 07/18/17 09:35 Dose: 40 mg Potassium Chloride (K-Dur -) 20 meq PO DAILY [facility] Last Admin: 07/18/17 09:35 Dose: 20 meq - Objective Vital Signs: Vital Signs Temperature 98.0 F 07/18/17 06:00 Pulse Rate 75 07/18/17 06:00 Respiratory Rate 18 07/18/17 06:00 Blood Pressure 118/51 07/18/17 06:00 O2 Sat by Pulse Oximetry (%) 95 07/17/17 23:45 Constitutional: Yes: Well Nourished, Calm Eyes: Yes: WNL HENT: Yes: WNL, Thrush Cardiovascular: Yes: Regular Rate and Rhythm, S1, S2 Respiratory: Yes: Diminished (DIMINISHED BS R 1/2 UP) Gastrointestinal: Yes: Normal Bowel Sounds, Soft Extremities: Yes: WNL Edema: No Labs: CBC, BMP 07/18/17 05:10 07/18/17 05:10 INR, PTT INR 1.01 (0.82-1.09) 07/17/17 09:01 Problem List - Problems (1) Malignant pleural effusion Code(s): J91.0 - MALIGNANT PLEURAL EFFUSION (2) Respiratory distress Code(s): R06.00 - DYSPNEA, UNSPECIFIED (3) Breast cancer Code(s): C50.919 - MALIGNANT NEOPLASM OF UNSP SITE OF UNSPECIFIED FEMALE BREAST Qualifiers: Estrogen receptor status: unspecified Laterality: unspecified laterality (4) Breast mass Code(s): N63.0 - UNSPECIFIED LUMP IN UNSPECIFIED BREAST (5) ASHD (arteriosclerotic heart disease) Code(s): I25.10 - ATHSCL HEART DISEASE OF [place] CORONARY ARTERY W/O ANG PCTRS (6) CHF (congestive heart failure) Code(s): I50.9 - HEART FAILURE, UNSPECIFIED Assessment/Plan IMP RESPIRATORY DISTRESS LARGE R PLEURAL EFFUSION LIKELY MALIGNANT METASTATIC BREAST CA CHF ASHD S/P CABG PLAN O2 THORACENTESIS WITH ULTRASOUND GUIDANCE LASIX PRN ONCOLOGY OPINION DR ACOSTA Problem List - Problems (1) Malignant pleural effusion Code(s): J91.0 - MALIGNANT PLEURAL EFFUSION (2) Respiratory distress Code(s): R06.00 - DYSPNEA, UNSPECIFIED (3) Breast cancer Code(s): C50.919 - MALIGNANT NEOPLASM OF UNSP SITE OF UNSPECIFIED FEMALE BREAST Qualifiers: Estrogen receptor status: unspecified Laterality: unspecified laterality (4) Breast mass Code(s): N63.0 - UNSPECIFIED LUMP IN UNSPECIFIED BREAST (5) ASHD (arteriosclerotic heart disease) Code(s): I25.10 - ATHSCL HEART DISEASE OF [place] CORONARY ARTERY W/O ANG PCTRS (6) CHF (congestive heart failure) Code(s): I50.9 - HEART FAILURE, UNSPECIFIED
--- NOTE | 2017-07-18 11:34 | PN ---
Progress Note, Physician - Current Medication List Current Medications: Active Medications Atorvastatin Calcium (Lipitor -) 40 mg PO HS [facility] Last Admin: 07/17/17 23:45 Dose: 40 mg Carvedilol (Coreg -) 12.5 mg PO BID [facility] Last Admin: 07/18/17 09:35 Dose: 12.5 mg Furosemide (Lasix Injection -) 40 mg IVPUSH BID@0600,1800 [facility] Last Admin: 07/18/17 06:39 Dose: 40 mg Heparin Sodium (Porcine) (Heparin -) 5,000 unit SQ BID [facility] Last Admin: 07/18/17 09:36 Dose: 5,000 unit Dextrose/Sodium Chloride (D5-1/2ns -) 1,000 mls @ 75 mls/hr IV ASDIR [facility] Last Admin: 07/17/17 23:55 Dose: 75 mls/hr Lisinopril (Prinivil) 40 mg PO DAILY [facility] Last Admin: 07/18/17 09:35 Dose: 40 mg Potassium Chloride (K-Dur -) 20 meq PO DAILY [facility] Last Admin: 07/18/17 09:35 Dose: 20 meq - Objective Vital Signs: Vital Signs Temperature 98.0 F 07/18/17 06:00 Pulse Rate 75 07/18/17 06:00 Respiratory Rate 18 07/18/17 06:00 Blood Pressure 118/51 07/18/17 06:00 O2 Sat by Pulse Oximetry (%) 95 07/17/17 23:45 Cardiovascular: Yes: S1, S2 Respiratory: Yes: Rales Gastrointestinal: Yes: Normal Bowel Sounds, Soft Labs: CBC, BMP 07/18/17 05:10 07/18/17 05:10 INR, PTT INR 1.01 (0.82-1.09) 07/17/17 09:01 Problem List - Problems (1) CHF (congestive heart failure) Assessment/Plan: IV LASIX BNP CARDIO Code(s): I50.9 - HEART FAILURE, UNSPECIFIED (2) Malignant pleural effusion Assessment/Plan: CONSULT W PULM PLEURAL TAP Code(s): J91.0 - MALIGNANT PLEURAL EFFUSION (3) Breast cancer Assessment/Plan: ONCOLOGY CONSULT SURGICAL CONSULT Code(s): C50.919 - MALIGNANT NEOPLASM OF UNSP SITE OF UNSPECIFIED FEMALE BREAST Qualifiers: Estrogen receptor status: unspecified Laterality: unspecified laterality (4) Bacteremia Assessment/Plan: RPT BC ID ROCEPHIN Code(s): R78.81 - BACTEREMIA
--- NOTE | 2017-07-18 12:36 | CONSULT ---
Consult Consult Specialty:: Oncology - History of Present Illness History of Present Illness: 81 year old female with a significant past medical history of diabetes, HTN, HLD , triple bypass s/p [place] who presents to the ED for progressively worsening shortness of breath for several weeks. The patient was recently discharged from the hospital on 06/24 and since then reports intermittent shortness of breath with a slightly productive cough of phlegm. Patient states her shortness of breath worsened last night and woke her up from her sleep around midnight. Patient states she had difficulty moving her extremities during her episode of shortness of breath last night. She also notes she developed bilateral lower extremity edema 2 days ago. Denies chest pain. She was seen by breast surgery last admission, as per her and daughter neck mass biopsy was inconclusive and a breat bioposy was planned She now feels a little bit better than when she came in. she had an roman coming up in the office - History Source History Provided By: Patient, Family Member, Medical Record - Past Medical History Cardio/Vascular: Yes: CHF, HTN, Hyperlipdemia Pulmonary: Yes: COPD Endocrine: Yes: Diabetes Insipidus - Alcohol/Substance Use Hx Alcohol Use: No - Smoking History Smoking history: Never smoked Have you smoked in the past 12 months: No Aproximately how many cigarettes per day: 0 Home Medications - Allergies Allergies/Adverse Reactions: Allergies Allergy/AdvReac Type Severity Reaction Status Date / Time Penicillins AdvReac Mild Rash Verified 07/17/17 08:21 - Home Medications Home Medications: Ambulatory Orders Aspirin [ASA -] 81 mg PO DAILY #0 tab.chew 06/29/12 Carvedilol [Coreg -] 12.5 mg PO BID #0 tablet 06/29/12 Glimepiride 4 mg PO BID #0 tablet 06/29/12 Lisinopril [Prinivil] 40 mg PO DAILY #0 tablet 06/29/12 Atorvastatin Ca [Lipitor] 40 mg PO HS 06/22/17 Metformin HCl [Metformin HCl ER] 500 mg PO BID 07/17/17 Physical Exam Vital Signs: Vital Signs Temperature 97.9 F 07/18/17 11:53 Pulse Rate 80 07/18/17 11:53 Respiratory Rate 18 07/18/17 11:53 Blood Pressure 97/66 07/18/17 11:53 O2 Sat by Pulse Oximetry (%) 95 07/18/17 11:49 Constitutional: Yes: Well Nourished, No Distress, Calm Eyes: Yes: Conjunctiva Clear, EOM Intact HENT: Yes: Atraumatic, Normocephalic Neck: Yes: Supple, Trachea Midline Cardiovascular: Yes: Regular Rate and Rhythm Respiratory: Yes: Regular, Other (decreased breath sounds left) Breast(s): Yes: Other (palpable rt breast mass. palpable rt neck mass) Labs: CBC, BMP 07/18/17 05:10 07/18/17 05:10 Imaging - Results X-ray: Report Reviewed Assessment/Plan metastatic breast ca for thoracentesis tomorrow. hold dvt ppx for cytology appreciate pulm consult will follow supportive care
[2017-07-18] MEDS ORDERED: CEFTRIAXONE 2 GM in DEXTROSE 5%-WATER - 100 ML IVPB SCH (14:30)
--- NOTE | 2017-07-18 15:02 | CON.CARD ---
Cardiology Consult (text) - Consultation Consultation Note: cc: sob hpi: 81 f hx cad s/p cabg 2006, htn , hld, dm, metastatic breast cancer, with rt pleural effusion (likely malignant) here with sob/increase in effusion size. . has been on D5 IVF (? due to hypoglycemia)? as well as bid IV lasix. ? overall net negative? Patient states her sob has improved iwth this regimen. No cp, palps, dizzy, loc, pnd, orthopnea, le edema. Sees dr fong for cardio. pmh: per hpi psh: cabg social: no tob fam: no premature cad ros: per hpi; no fever, nvd, cough, tavarez, vision changes, muscle pain, gib, hematuria, dysuria meds: Ambulatory Orders Aspirin [ASA -] 81 mg PO DAILY #0 tab.chew 06/29/12 Carvedilol [Coreg -] 12.5 mg PO BID #0 tablet 06/29/12 Glimepiride 4 mg PO BID #0 tablet 06/29/12 Lisinopril [Prinivil] 40 mg PO DAILY #0 tablet 06/29/12 Atorvastatin Ca [Lipitor] 40 mg PO HS 06/22/17 Metformin HCl [Metformin HCl ER] 500 mg PO BID 07/17/17 Current Medications Atorvastatin Calcium (Lipitor -) 40 mg PO HS [facility] Last Admin: 07/17/17 23:45 Dose: 40 mg Carvedilol (Coreg -) 12.5 mg PO BID [facility] Last Admin: 07/18/17 09:35 Dose: 12.5 mg Furosemide (Lasix Injection -) 40 mg IVPUSH BID@0600,1800 [facility] Last Admin: 07/18/17 06:39 Dose: 40 mg Heparin Sodium (Porcine) (Heparin -) 5,000 unit SQ BID [facility] Last Admin: 07/18/17 09:36 Dose: 5,000 unit Dextrose/Sodium Chloride (D5-1/2ns -) 1,000 mls @ 75 mls/hr IV ASDIR [facility] Last Admin: 07/17/17 23:55 Dose: 75 mls/hr Ceftriaxone Sodium 2 gm/ (Dextrose) 100 mls @ 200 mls/hr IVPB DAILY [facility] Lisinopril (Prinivil) 40 mg PO DAILY [facility] Last Admin: 07/18/17 09:35 Dose: 40 mg Potassium Chloride (K-Dur -) 20 meq PO DAILY [facility] Last Admin: 07/18/17 09:35 Dose: 20 meq pe: Vital Signs - 24 hr 07/17/17 07/17/17 07/17/17 19:25 22:00 22:02 Temperature 98.4 F Pulse Rate Pulse Rate [ 80 84 Apical] Respiratory 16 16 Rate Blood Pressure Blood Pressure 112/55 160/91 [Right Arm] O2 Sat by Pulse 100 96 96 Oximetry (%) 07/17/17 07/18/17 07/18/17 23:45 01:00 EST 06:00 Temperature 98.1 F 97.6 F 98.0 F Pulse Rate 79 76 75 Pulse Rate [ Apical] Respiratory 18 18 18 Rate Blood Pressure 130/67 125/70 118/51 Blood Pressure [Right Arm] O2 Sat by Pulse 95 Oximetry (%) 07/18/17 07/18/17 11:49 11:53 Temperature 97.9 F Pulse Rate 80 Pulse Rate [ Apical] Respiratory 18 18 Rate Blood Pressure 97/66 Blood Pressure [Right Arm] O2 Sat by Pulse 95 Oximetry (%) Intake & Output 07/16/17 07/17/17 07/18/17 07/19/17 08:59 08:59 07:59 07:59 Output Total Balance Weight nad no jvd rrr s1s2 no mrg bibasilar dullness R>L, nl effort aaox3 no le e/c/c abd nt nd pos bs no jaundice diaphoresis pos dp pt, no carotid bruit CBC, BMP 07/18/17 05:10 07/18/17 05:10 Laboratory Tests 07/17/17 07/17/17 07/17/17 09:01 09:01 11:58 Calcium 10.9 H Magnesium 1.8 Total Bilirubin AST ALT Alkaline Phosphatase Troponin I < 0.02 0.03 B-Natriuretic Peptide 1353.50 H Albumin 07/18/17 05:10 Calcium Magnesium Total Bilirubin 0.9 AST 32 ALT 22 Alkaline Phosphatase 131 H D Troponin I B-Natriuretic Peptide Albumin 2.5 L D echo 10/2016: nl lvef, inf/inflat/infseptal HK, nl rv, mild mr carotid us 10/2016: 60-79% bl ICA stenosis, chronic ecg: sr, pac's. lateral twi. tele: sr, pac's, pvc's. 1 run of svt, cxr: progressive fluid on right with CM. congestive changes. a/p: 81 f hx cad s/p cabg 2005, htn , hld, dm, metastatic breast cancer, with rt pleural effusion (likely malignant) here with sob/increase in effusion size. . sob - plan for thoracentesis wednesday, holding asa - currently on both IVF/bid iv lasix. D5 may be necessary due to hypoglycemia. Also with 1/2 + blood cx. Since symptoms improving, will con't current regimen and reevaluate need to stop either lasix or fluids tomorrow. cad, cabg: -stable, no signs acs, no angina -nl lvef -cont statin, asa, bb, yared htn: -cont home meds hld: -cont statin
[2017-07-18] MEDS: LEVOFLOXACIN 500 MG IVPB 100 ML IVPB SCH (18:42)
[2017-07-18] MEDS: ATORVASTATIN CA 40 MG TABLET (FP) PO SCH (21:20)
[2017-07-18] MEDS: DEXTROSE 5%-0.45% SALINE 1,000 ML IV SCH (23:45)
[2017-07-19] MEDS: FUROSEMIDE 40 MG/4 ML INJECTABLE VIAL IVPUSH SCH ×2 (06:26→17:55)
--- NOTE | 2017-07-19 07:21 | EKG ---
Test Reason : Blood Pressure : / mmHG Vent. Rate : 071 BPM Atrial Rate : 071 BPM P-R Int : 184 ms QRS Dur : 112 ms QT Int : 404 ms P-R-T Axes : 042 -06 125 degrees QTc Int : 439 ms SINUS RHYTHM WITH PREMATURE ATRIAL COMPLEXES INCOMPLETE LEFT BUNDLE BRANCH BLOCK ABNORMAL ECG WHEN COMPARED WITH ECG OF 17-JUL-2017 08:30, NO SIGNIFICANT CHANGE WAS FOUND Confirmed by ROSE ESPINOSA, CARLOS ENRIQUE (2016) on 07/19/2017 7:20:26 AM Referred By: Rebecca RDZ Confirmed By:CARLOS ENRIQUE ROSE MD
[2017-07-19 07:37] LABS: BASOPHIL 0.8 % (0-2.0); EOSINOPHIL 1.5 % (0-4.5); MCH 25.5 pg (25.7-33.7); MCHC 32.8 g/dl (32.0-36.0); MEAN CELL VOLUME 77.8 fl (80-96); MEAN PLT VOLUME 7.3 fl (7.5-11.1); NEUTROPHILS 65.1 % (42.8-82.8); PLATELET COUNT 265 K/MM3 (134-434); RDW 16.8 % (11.6-15.6); WHITE BLOOD COUNT 6.8 K/mm3 (4.0-10.0)
[2017-07-19 07:56] LABS: ALBUMIN 2.5 g/dl (3.4-5.0); ANION GAP 9 (8-16); BILIRUBIN,TOTAL 0.6 mg/dL (0.2-1.0); CALCIUM 9.5 mg/dL (8.5-10.1); CO2 31 mmol/L (21-32); CREATININE 0.8 mg/dL (0.55-1.02); GLUCOSE,RANDOM 63 mg/dL (74-106); SGOT/AST 37 U/L (15-37); SGPT/ALT 22 U/L (12-78); TOT PROT 6.1 g/dl (6.4-8.2)
[2017-07-19 07:57] LABS: ALK PHOS 133 U/L (45-117)
[2017-07-19] MEDS: LEVOFLOXACIN 500 MG IVPB 100 ML IVPB SCH (09:38)
[2017-07-19] MEDS: LISINOPRIL 20 MG TABLET (FP) PO SCH (09:38)
[2017-07-19] MEDS: CARVEDILOL 12.5 MG TABLET (FP) PO SCH ×2 (09:39→21:27)
[2017-07-19] MEDS: POTASSIUM CHLORIDE TABS 20 MEQ TABLET.ER (FP) PO SCH (09:39)
--- NOTE | 2017-07-19 10:12 | PN ---
Progress Note (short form) - Note Progress Note: ID Consult dictated + BC SCN x 1 bottle Probable contaminant Metastatic ca, probable malignant effusion Await repeat BC Observe off antibiotics
--- NOTE | 2017-07-19 11:21 | PN ---
Progress Note, Physician History of Present Illness: pulmonary alert,feeling better,less dyspneic,-cp. pt to have thoracentesis today - Current Medication List Current Medications: Active Medications Atorvastatin Calcium (Lipitor -) 40 mg PO HS [facility] Last Admin: 07/18/17 21:20 Dose: 40 mg Carvedilol (Coreg -) 12.5 mg PO BID [facility] Last Admin: 07/19/17 09:39 Dose: 12.5 mg Furosemide (Lasix Injection -) 40 mg IVPUSH BID@0600,1800 [facility] Last Admin: 07/19/17 06:26 Dose: 40 mg Heparin Sodium (Porcine) (Heparin -) 5,000 unit SQ BID [facility] Last Admin: 07/18/17 09:36 Dose: 5,000 unit Dextrose/Sodium Chloride (D5-1/2ns -) 1,000 mls @ 75 mls/hr IV ASDIR [facility] Last Admin: 07/18/17 23:45 Dose: 75 mls/hr Levofloxacin (Levaquin 500 Mg Premixed Ivpb -) 100 mls @ 100 mls/hr IVPB DAILY [facility] Last Admin: 07/19/17 09:38 Dose: 100 mls/hr Lisinopril (Prinivil) 40 mg PO DAILY [facility] Last Admin: 07/19/17 09:38 Dose: 40 mg Potassium Chloride (K-Dur -) 20 meq PO DAILY [facility] Last Admin: 07/19/17 09:39 Dose: 20 meq - Objective Vital Signs: Vital Signs Temperature 97.9 F 07/19/17 10:00 Pulse Rate 80 07/19/17 10:00 Respiratory Rate 18 07/19/17 10:00 Blood Pressure 108/51 07/19/17 10:00 O2 Sat by Pulse Oximetry (%) 96 07/19/17 09:00 Constitutional: Yes: Well Nourished, Calm Eyes: Yes: WNL HENT: Yes: WNL Neck: Yes: WNL Cardiovascular: Yes: Regular Rate and Rhythm, S1, S2 Respiratory: Yes: Diminished (diminished bs on r 1/3 up) Gastrointestinal: Yes: Normal Bowel Sounds, Soft Extremities: Yes: WNL Edema: No Labs: CBC, BMP 07/19/17 05:18 07/19/17 05:18 INR, PTT INR 1.01 (0.82-1.09) 07/17/17 09:01 Problem List - Problems (1) Malignant pleural effusion Code(s): J91.0 - MALIGNANT PLEURAL EFFUSION (2) Respiratory distress Code(s): R06.00 - DYSPNEA, UNSPECIFIED (3) Breast cancer Code(s): C50.919 - MALIGNANT NEOPLASM OF UNSP SITE OF UNSPECIFIED FEMALE BREAST Qualifiers: Estrogen receptor status: unspecified Laterality: unspecified laterality (4) Breast mass Code(s): N63.0 - UNSPECIFIED LUMP IN UNSPECIFIED BREAST (5) ASHD (arteriosclerotic heart disease) Code(s): I25.10 - ATHSCL HEART DISEASE OF [place] CORONARY ARTERY W/O ANG PCTRS (6) CHF (congestive heart failure) Code(s): I50.9 - HEART FAILURE, UNSPECIFIED Assessment/Plan IMP RESPIRATORY DISTRESS LARGE R PLEURAL EFFUSION LIKELY MALIGNANT METASTATIC BREAST CA CHF ASHD S/P CABG PLAN O2 THORACENTESIS WITH ULTRASOUND GUIDANCE TODAY ALYSSA ACOSTA Problem List - Problems (1) Malignant pleural effusion Code(s): J91.0 - MALIGNANT PLEURAL EFFUSION (2) Respiratory distress Code(s): R06.00 - DYSPNEA, UNSPECIFIED (3) Breast cancer Code(s): C50.919 - MALIGNANT NEOPLASM OF UNSP SITE OF UNSPECIFIED FEMALE BREAST Qualifiers: Estrogen receptor status: unspecified Laterality: unspecified laterality (4) Breast mass Code(s): N63.0 - UNSPECIFIED LUMP IN UNSPECIFIED BREAST (5) ASHD (arteriosclerotic heart disease) Code(s): I25.10 - ATHSCL HEART DISEASE OF [place] CORONARY ARTERY W/O ANG PCTRS (6) CHF (congestive heart failure) Code(s): I50.9 - HEART FAILURE, UNSPECIFIED
--- NOTE | 2017-07-19 12:17 | PN ---
Progress Note, Physician Chief Complaint: sob History of Present Illness: urinated marked volume to lasix. sob much improved. leg swelling (started few days prior to admit) much improved no cp, palpit - Current Medication List Current Medications: Active Medications Atorvastatin Calcium (Lipitor -) 40 mg PO HS [facility] Last Admin: 07/18/17 21:20 Dose: 40 mg Carvedilol (Coreg -) 12.5 mg PO BID [facility] Last Admin: 07/19/17 09:39 Dose: 12.5 mg Furosemide (Lasix Injection -) 40 mg IVPUSH BID@0600,1800 [facility] Last Admin: 07/19/17 06:26 Dose: 40 mg Heparin Sodium (Porcine) (Heparin -) 5,000 unit SQ BID [facility] Last Admin: 07/18/17 09:36 Dose: 5,000 unit Dextrose/Sodium Chloride (D5-1/2ns -) 1,000 mls @ 75 mls/hr IV ASDIR [facility] Last Admin: 07/18/17 23:45 Dose: 75 mls/hr Levofloxacin (Levaquin 500 Mg Premixed Ivpb -) 100 mls @ 100 mls/hr IVPB DAILY [facility] Last Admin: 07/19/17 09:38 Dose: 100 mls/hr Lisinopril (Prinivil) 40 mg PO DAILY [facility] Last Admin: 07/19/17 09:38 Dose: 40 mg Potassium Chloride (K-Dur -) 20 meq PO DAILY [facility] Last Admin: 07/19/17 09:39 Dose: 20 meq - Objective Vital Signs: Vital Signs Temperature 97.9 F 07/19/17 10:00 Pulse Rate 80 07/19/17 10:00 Respiratory Rate 18 07/19/17 10:00 Blood Pressure 108/51 07/19/17 10:00 O2 Sat by Pulse Oximetry (%) 96 07/19/17 09:00 Constitutional: Yes: Well Nourished, No Distress, Calm Cardiovascular: Yes: Regular Rate and Rhythm, S1, S2. No: Gallop, Murmur Respiratory: Yes: Regular, CTA Bilaterally, Diminished (R lower 1/2). No: Accessory Muscle Use, Rales, Wheezes Extremities: No: Cold Edema: Yes (trace pretib) Neurological: Yes: Alert, Oriented Psychiatric: No: Agitated Labs: CBC, BMP 07/19/17 05:18 07/19/17 05:18 INR, PTT INR 1.01 (0.82-1.09) 07/17/17 09:01 - ....Imaging EKG: Other (tele: NSR) Assessment/Plan echo 10/2016: nl lvef, inf/inflat/infseptal HK, nl rv, mild mr carotid us 10/2016: 60-79% bl ICA stenosis, chronic ecg: sr, pac's. lateral twi. cxr: progressive fluid on right with CM. congestive changes. a/p: 81 f hx cad s/p cabg 2005, htn , hld, dm, metastatic breast cancer, with rt pleural effusion (likely malignant) here with sob/increase in effusion size. . sob, pleural effusion (right)--likely malignant - plan for thoracentesis wednesday, holding asa - remainder of plan per pulmonary cad, cabg: -has had no angina -no signs acs here -nl lvef -cont statin, asa, bb, yared htn: -cont home meds hld: -cont statin D/C TELEMETRY
--- NOTE | 2017-07-19 13:19 | CONS ---
DATE OF CONSULTATION: DATE OF DICTATION: 07/19/2017 INFECTIOUS DISEASE CONSULTATION HISTORY OF PRESENT ILLNESS: The patient is an 81-year-old female with presumed metastatic breast cancer evaluated for positive blood culture. She presented to the hospital on July 17, 2017, with worsening shortness of breath. She had recently been hospitalized at [facility] from June 22 through June 24 with shortness of breath. She was found to have a large right pleural effusion which was felt to be metastatic. She is now scheduled to have a diagnostic/therapeutic thoracentesis. Blood cultures were obtained on admission and are positive for coagulase-negative staphylococcus in 1 bottle. She denies any fever or chills. She has a right breast mass involving the skin which was not described as being infected. No reports of any surrounding erythema or purulent wound drainage. She denies any other skin infection. She does not have a port. She is status post bypass surgery. No history of prosthetic valves or other intravascular devices. PAST MEDICAL HISTORY: Positive for presumed metastatic breast carcinoma, hypertension, diabetes, hyperlipidemia, coronary artery disease, myocardial infarction. PAST SURGICAL HISTORY: Status post coronary artery bypass. ALLERGIES: TO PENICILLIN. PATIENT REPORTS RASH WITH PENICILLIN. SOCIAL HISTORY: She lives at home. She is a nonsmoker. SYSTEMS REVIEW: Neurologic: No loss of consciousness. Seizure activity or focal weakness. Cardiac: Negative chest pain or palpations. Respiratory: Negative cough or sputum production. Gastrointestinal: Negative vomiting or diarrhea. Genitourinary: Negative for urinary tract infection. MEDICATIONS: Include aspirin, carvedilol, lisinopril, Lipitor, glimepiride. LABORATORY DATA: White count 6.8, hematocrit 33.1, platelet count 265. BUN 15, creatinine 0.8. Urinalysis negative. Chest x-ray shows a large right pleural effusion. Blood cultures coagulase-negative staphylococcus x1 bottle. PHYSICAL EXAMINATION: General: The patient is out of bed to chair, alert and awake, not acutely toxic appearing, in acute distress. Vital Signs: Temperature 98.9, blood pressure 129/76, pulse 84 regular, respirations 20 per minute, breathing appears nonlabored at rest on nasal cannula. HEENT: Sclerae anicteric. Heart: Sounds S1, S2. Lungs: Diminished breath sounds, right mid and lower lung bejarano. Left lung field clear. Breasts: Right breast, there is a mass lesion present with skin involvement. There is no surrounding erythema or purulent wound drainage. Abdomen: Soft. No tenderness elicited. No mass, rebound, or rigidity. Extremities: 1+ pedal edema. IMPRESSION: 1. Positive blood cultures, coagulase-negative staphylococcus, probable contaminant. 2. Metastatic carcinoma. 3. Probable malignant right pleural effusion. PLAN: Repeat blood cultures have been obtained. No clear source for coagulase-negative staphylococcus bacteremia or sepsis. Will observe off antibiotic therapy. Await blood culture results. Will follow. Thank you for the kind referral. MONTY ALVAREZ M.D. [id number]
[2017-07-19 15:24] LABS: GLUCOSE,PLEURAL FLUID 105.618; TOTAL PROTEIN,PLEURAL FLUID 3.879
[2017-07-19 15:41] LABS: PLEURAL FLUID SOURCE RIGHT PLEURAL
[2017-07-19 15:42] LABS: PLEURAL FLUID APPEARANCE CLOUDY; PLEURAL FLUID COLOR YELLOW
--- NOTE | 2017-07-19 17:50 | PN ---
Progress Note, Physician Chief Complaint: AWAKE, ALERT EATING DINNER S/P THORACENTESIS - Current Medication List Current Medications: Active Medications Atorvastatin Calcium (Lipitor -) 40 mg PO HS [facility] Last Admin: 07/18/17 21:20 Dose: 40 mg Carvedilol (Coreg -) 12.5 mg PO BID [facility] Last Admin: 07/19/17 09:39 Dose: 12.5 mg Furosemide (Lasix Injection -) 40 mg IVPUSH BID@0600,1800 [facility] Last Admin: 07/19/17 06:26 Dose: 40 mg Heparin Sodium (Porcine) (Heparin -) 5,000 unit SQ BID [facility] Last Admin: 07/18/17 09:36 Dose: 5,000 unit Dextrose/Sodium Chloride (D5-1/2ns -) 1,000 mls @ 75 mls/hr IV ASDIR [facility] Last Admin: 07/18/17 23:45 Dose: 75 mls/hr Levofloxacin (Levaquin 500 Mg Premixed Ivpb -) 100 mls @ 100 mls/hr IVPB DAILY [facility] Last Admin: 07/19/17 09:38 Dose: 100 mls/hr Lisinopril (Prinivil) 40 mg PO DAILY [facility] Last Admin: 07/19/17 09:38 Dose: 40 mg Potassium Chloride (K-Dur -) 20 meq PO DAILY [facility] Last Admin: 07/19/17 09:39 Dose: 20 meq - Objective Vital Signs: Vital Signs Temperature 98.3 F 07/19/17 15:00 Pulse Rate 81 07/19/17 15:00 Respiratory Rate 18 07/19/17 15:00 Blood Pressure 99/50 07/19/17 15:00 O2 Sat by Pulse Oximetry (%) 96 07/19/17 09:00 Constitutional: Yes: Mild Distress Eyes: Yes: WNL HENT: Yes: WNL Neck: Yes: WNL Cardiovascular: Yes: Murmur Respiratory: Yes: Cough, On Nasal O2, Rales Gastrointestinal: Yes: WNL Genitourinary: Yes: WNL Musculoskeletal: Yes: Muscle Weakness Extremities: Yes: WNL Edema: Yes Edema: LLE: 1+, RLE: 1+ Peripheral Pulses WNL: Yes Integumentary: Yes: WNL Wound/Incision: Yes: Clean/Dry Neurological: Yes: WNL ...Motor Strength: WNL Psychiatric: Yes: WNL Labs: CBC, BMP 07/19/17 05:18 07/19/17 05:18 INR, PTT INR 1.01 (0.82-1.09) 07/17/17 09:01 Problem List - Problems (1) ASHD (arteriosclerotic heart disease) Code(s): I25.10 - ATHSCL HEART DISEASE OF [place] CORONARY ARTERY W/O ANG PCTRS (2) CHF (congestive heart failure) Code(s): I50.9 - HEART FAILURE, UNSPECIFIED Qualifiers: Congestive heart failure type: unspecified congestive heart failure type Congestive heart failure chronicity: acute on chronic Qualified Code(s ): I50.9 - Heart failure, unspecified; I50.9 - Heart failure, unspecified; I50.9 - Heart failure, unspecified; I50.9 - Heart failure, unspecified (3) Malignant pleural effusion Code(s): J91.0 - MALIGNANT PLEURAL EFFUSION (4) Respiratory distress Code(s): R06.00 - DYSPNEA, UNSPECIFIED (5) Axillary lymphadenopathy Code(s): R59.0 - LOCALIZED ENLARGED LYMPH NODES (6) Breast cancer Code(s): C50.919 - MALIGNANT NEOPLASM OF UNSP SITE OF UNSPECIFIED FEMALE BREAST Qualifiers: Breast location: overlapping sites of breast Estrogen receptor status: unspecified Laterality: unspecified laterality (7) Breast mass Code(s): N63.0 - UNSPECIFIED LUMP IN UNSPECIFIED BREAST (8) Neck mass Code(s): R22.1 - LOCALIZED SWELLING, MASS AND LUMP, NECK Assessment/Plan AWAIT CULTURES AND CYTOLOGY OF THORACENTEIS PLEURAL EFFUSIONS PULM/CARDIO F/U APPRECIATED PT EVAL SNF [facility]
[2017-07-19] MEDS: ATORVASTATIN CA 40 MG TABLET (FP) PO SCH (21:27)
[2017-07-19 21:39] LABS: PLEURAL FLUID LYMPHOCYTES 28 %; PLEURAL FLUID MACROPHAGES 36 %; PLEURAL FLUID NEUTROPHIL 22 %
[2017-07-19] MEDS ORDERED: INSULIN (NOVOLOG) ASPART 100 UNITS/ML 10ML VIAL SQ ONE ×2 (22:30→22:45)
[2017-07-19] MEDS: DEXTROSE 5%-0.45% SALINE 1,000 ML IV SCH (22:53)
[2017-07-20] MEDS: FUROSEMIDE 40 MG/4 ML INJECTABLE VIAL IVPUSH SCH ×2 (06:37→18:13)
[2017-07-20] MEDS: INSULIN SLIDING SCALE (NOVOLOG) 1 VIAL SQ SCH ×4 (06:38→21:31)
[2017-07-20] MEDS: DEXTROSE 5%-0.45% SALINE 1,000 ML IV SCH (08:44)
[2017-07-20] MEDS ORDERED: PT OWN MED DRAWER 7, Y5N ONE (10:25)
[2017-07-20] MEDS: LEVOFLOXACIN 500 MG IVPB 100 ML IVPB SCH (11:01)
[2017-07-20] MEDS: HEPARIN NA (PORCINE) 5,000 UNITS/ML 1ML VIAL SQ SCH ×2 (11:02→21:30)
[2017-07-20] MEDS: POTASSIUM CHLORIDE TABS 20 MEQ TABLET.ER (FP) PO SCH (11:02)
[2017-07-20] MEDS: LISINOPRIL 20 MG TABLET (FP) PO SCH (11:02)
[2017-07-20] MEDS: CARVEDILOL 12.5 MG TABLET (FP) PO SCH ×2 (11:02→21:30)
[2017-07-20] MEDS ORDERED: INSULIN (NOVOLOG) ASPART 100 UNITS/ML 10ML VIAL ONE (11:23)
--- NOTE | 2017-07-20 13:02 | PN ---
Progress Note (short form) - Note Progress Note: Feels better. Less SOB. S/P Thoracentesis yesterday -> appears exudative No acute events overnight. Intake & Output 07/18/17 07/18/17 07/19/17 07/20/17 00:59 23:59 23:59 23:59 Intake Total 2970 Output Total 3000 Balance -30 Weight 189 lb 14.4 oz 186 lb 3 oz Last Vital Signs Temp Pulse Resp BP Pulse Ox 98.3 F 77 20 104/61 95 07/20/17 06:11 07/20/17 06:11 07/20/17 06:11 07/20/17 06:11 07/19/17 21:00 Active Medications Atorvastatin Calcium (Lipitor -) 40 mg PO HS [facility] Last Admin: 07/19/17 21:27 Dose: 40 mg Carvedilol (Coreg -) 12.5 mg PO BID [facility] Last Admin: 07/20/17 11:02 Dose: 12.5 mg Furosemide (Lasix Injection -) 40 mg IVPUSH BID@0600,1800 [facility] Last Admin: 07/20/17 06:37 Dose: 40 mg Heparin Sodium (Porcine) (Heparin -) 5,000 unit SQ BID [facility] Last Admin: 07/20/17 11:02 Dose: 5,000 unit Dextrose/Sodium Chloride (D5-1/2ns -) 1,000 mls @ 75 mls/hr IV ASDIR [facility] Last Admin: 07/20/17 08:44 Dose: 75 mls/hr Levofloxacin (Levaquin 500 Mg Premixed Ivpb -) 100 mls @ 100 mls/hr IVPB DAILY [facility] Last Admin: 07/20/17 11:01 Dose: 100 mls/hr Insulin Aspart (Novolog Vial Sliding Scale -) 1 vial SQ ACHS [facility] PRN Reason: Protocol Last Admin: 07/20/17 11:27 Dose: 2 units Lisinopril (Prinivil) 40 mg PO DAILY [facility] Last Admin: 07/20/17 11:02 Dose: 40 mg Potassium Chloride (K-Dur -) 20 meq PO DAILY [facility] Last Admin: 07/20/17 11:02 Dose: 20 meq Constitutional: Yes: NAD Eyes: Yes: WNL HENT: Yes: WNL Neck: Yes: WNL Cardiovascular: Yes: Regular Rate and Rhythm, S1, S2 Respiratory: Yes: Diminished at the bases, few scattered rhonchi Gastrointestinal: Yes: Normal Bowel Sounds, Soft Extremities: Yes: WNL Edema: No Labs: Laboratory Results - last 24 hr 07/19/17 07/19/17 07/19/17 14:30 14:35 21:26 POC Glucometer 184 298 Fluid Other Cells Pleural Fluid Source Right pleural Pleural Color Yellow Pleural Appearance Cloudy Pleural WBC 424 Pleural RBC 6467 Pleural Neutrophils 22 Pleural Lymphocytes 28 Pleural Monocytes 2 Pleural Macrophages 36 Pleural Mesothelial 12 Pleural Total Protein 3.879 Pleural Albumin 2 Pleural LDH 670.56 Pleural Glucose 105.618 Pleural Amylase 19.714 Pleural Triglycerides 26 07/20/17 07/20/17 07/20/17 01:16 04:08 06:37 POC Glucometer 270 222 216 Fluid Other Cells Pleural Fluid Source Pleural Color Pleural Appearance Pleural WBC Pleural RBC Pleural Neutrophils Pleural Lymphocytes Pleural Monocytes Pleural Macrophages Pleural Mesothelial Pleural Total Protein Pleural Albumin Pleural LDH Pleural Glucose Pleural Amylase Pleural Triglycerides 07/20/17 11:15 POC Glucometer 218 Fluid Other Cells Pleural Fluid Source Pleural Color Pleural Appearance Pleural WBC Pleural RBC Pleural Neutrophils Pleural Lymphocytes Pleural Monocytes Pleural Macrophages Pleural Mesothelial Pleural Total Protein Pleural Albumin Pleural LDH Pleural Glucose Pleural Amylase Pleural Triglycerides Problem List - Problems (1) Malignant pleural effusion Code(s): J91.0 - MALIGNANT PLEURAL EFFUSION (2) Respiratory distress Code(s): R06.00 - DYSPNEA, UNSPECIFIED (3) Breast cancer Code(s): C50.919 - MALIGNANT NEOPLASM OF UNSP SITE OF UNSPECIFIED FEMALE BREAST Qualifiers: Estrogen receptor status: unspecified Laterality: unspecified laterality (4) Breast mass Code(s): N63.0 - UNSPECIFIED LUMP IN UNSPECIFIED BREAST (5) ASHD (arteriosclerotic heart disease) Code(s): I25.10 - ATHSCL HEART DISEASE OF [place] CORONARY ARTERY W/O ANG PCTRS (6) CHF (congestive heart failure) Code(s): I50.9 - HEART FAILURE, UNSPECIFIED Assessment/Plan IMP RESPIRATORY DISTRESS LARGE R PLEURAL EFFUSION LIKELY MALIGNANT METASTATIC BREAST CA CHF ASHD S/P CABG PLAN O2 FOLLOW PLEURAL FLUID CYTOLOGY AND CULTURES LASIX PRN DR SALGADO
--- NOTE | 2017-07-20 13:57 | PN ---
Progress Note, Physician Chief Complaint: OOB in chair S/P thoracentesis Breathing improved. No c/o chest pain Denies cough/ sputum No fever/ chills Afebrile WBC WNL - Current Medication List Current Medications: Active Medications Atorvastatin Calcium (Lipitor -) 40 mg PO HS [facility] Last Admin: 07/19/17 21:27 Dose: 40 mg Carvedilol (Coreg -) 12.5 mg PO BID [facility] Last Admin: 07/20/17 11:02 Dose: 12.5 mg Furosemide (Lasix Injection -) 40 mg IVPUSH BID@0600,1800 [facility] Last Admin: 07/20/17 06:37 Dose: 40 mg Heparin Sodium (Porcine) (Heparin -) 5,000 unit SQ BID [facility] Last Admin: 07/20/17 11:02 Dose: 5,000 unit Dextrose/Sodium Chloride (D5-1/2ns -) 1,000 mls @ 75 mls/hr IV ASDIR [facility] Last Admin: 07/20/17 08:44 Dose: 75 mls/hr Levofloxacin (Levaquin 500 Mg Premixed Ivpb -) 100 mls @ 100 mls/hr IVPB DAILY [facility] Last Admin: 07/20/17 11:01 Dose: 100 mls/hr Insulin Aspart (Novolog Vial Sliding Scale -) 1 vial SQ ACHS [facility] PRN Reason: Protocol Last Admin: 07/20/17 11:27 Dose: 2 units Lisinopril (Prinivil) 40 mg PO DAILY [facility] Last Admin: 07/20/17 11:02 Dose: 40 mg Potassium Chloride (K-Dur -) 20 meq PO DAILY [facility] Last Admin: 07/20/17 11:02 Dose: 20 meq - Objective Vital Signs: Vital Signs Temperature 98.3 F 07/20/17 06:11 Pulse Rate 77 07/20/17 06:11 Respiratory Rate 20 07/20/17 06:11 Blood Pressure 104/61 07/20/17 06:11 O2 Sat by Pulse Oximetry (%) 95 07/19/17 21:00 Constitutional: Yes: No Distress Eyes: Yes: Conjunctiva Clear Cardiovascular: Yes: Regular Rate and Rhythm, S1, S2 Respiratory: Yes: Other (decreased BS R lower lung field Few crepitations L base) Gastrointestinal: Yes: Normal Bowel Sounds, Soft. No: Tenderness Edema: Yes Labs: CBC, BMP 07/19/17 05:18 07/19/17 05:18 INR, PTT INR 1.01 (0.82-1.09) 07/17/17 09:01 Assessment/Plan R Pleural effusion s/p thoracentesis Exudative ? malignant +BC SCN likely contaminant Repeat BC (-) Metastatic ca Would observe off antibiotics No treatment for blood isolate
--- NOTE | 2017-07-20 14:32 | PN ---
Progress Note, Physician Chief Complaint: awake alert removed 02 nc patient comfortable - Current Medication List Current Medications: Active Medications Atorvastatin Calcium (Lipitor -) 40 mg PO HS [facility] Last Admin: 07/19/17 21:27 Dose: 40 mg Carvedilol (Coreg -) 12.5 mg PO BID [facility] Last Admin: 07/20/17 11:02 Dose: 12.5 mg Furosemide (Lasix Injection -) 40 mg IVPUSH BID@0600,1800 [facility] Last Admin: 07/20/17 06:37 Dose: 40 mg Heparin Sodium (Porcine) (Heparin -) 5,000 unit SQ BID [facility] Last Admin: 07/20/17 11:02 Dose: 5,000 unit Dextrose/Sodium Chloride (D5-1/2ns -) 1,000 mls @ 75 mls/hr IV ASDIR [facility] Last Admin: 07/20/17 08:44 Dose: 75 mls/hr Levofloxacin (Levaquin 500 Mg Premixed Ivpb -) 100 mls @ 100 mls/hr IVPB DAILY [facility] Last Admin: 07/20/17 11:01 Dose: 100 mls/hr Insulin Aspart (Novolog Vial Sliding Scale -) 1 vial SQ ACHS [facility] PRN Reason: Protocol Last Admin: 07/20/17 11:27 Dose: 2 units Lisinopril (Prinivil) 40 mg PO DAILY [facility] Last Admin: 07/20/17 11:02 Dose: 40 mg Potassium Chloride (K-Dur -) 20 meq PO DAILY [facility] Last Admin: 07/20/17 11:02 Dose: 20 meq - Objective Vital Signs: Vital Signs Temperature 98.3 F 07/20/17 06:11 Pulse Rate 77 07/20/17 06:11 Respiratory Rate 20 07/20/17 06:11 Blood Pressure 104/61 07/20/17 06:11 O2 Sat by Pulse Oximetry (%) 95 07/19/17 21:00 Constitutional: Yes: Mild Distress Eyes: Yes: WNL HENT: Yes: WNL Neck: Yes: WNL Cardiovascular: Yes: WNL Respiratory: Yes: WNL Gastrointestinal: Yes: WNL Genitourinary: Yes: WNL Musculoskeletal: Yes: Muscle Weakness Extremities: Yes: WNL Peripheral Pulses WNL: Yes Integumentary: Yes: WNL Wound/Incision: Yes: Clean/Dry Neurological: Yes: Unsteady Gait, Weakness ...Motor Strength: LLE, RLE Psychiatric: Yes: WNL Labs: CBC, BMP 07/19/17 05:18 07/19/17 05:18 INR, PTT INR 1.01 (0.82-1.09) 07/17/17 09:01 Problem List - Problems (1) ASHD (arteriosclerotic heart disease) Code(s): I25.10 - ATHSCL HEART DISEASE OF [place] CORONARY ARTERY W/O ANG PCTRS (2) CHF (congestive heart failure) Code(s): I50.9 - HEART FAILURE, UNSPECIFIED Qualifiers: Congestive heart failure type: unspecified congestive heart failure type Congestive heart failure chronicity: acute on chronic Qualified Code(s ): I50.9 - Heart failure, unspecified; I50.9 - Heart failure, unspecified; I50.9 - Heart failure, unspecified; I50.9 - Heart failure, unspecified (3) Malignant pleural effusion Code(s): J91.0 - MALIGNANT PLEURAL EFFUSION (4) Respiratory distress Code(s): R06.00 - DYSPNEA, UNSPECIFIED (5) Axillary lymphadenopathy Code(s): R59.0 - LOCALIZED ENLARGED LYMPH NODES (6) Breast cancer Code(s): C50.919 - MALIGNANT NEOPLASM OF UNSP SITE OF UNSPECIFIED FEMALE BREAST Qualifiers: Breast location: overlapping sites of breast Estrogen receptor status: unspecified Laterality: unspecified laterality (7) Breast mass Code(s): N63.0 - UNSPECIFIED LUMP IN UNSPECIFIED BREAST (8) Neck mass Code(s): R22.1 - LOCALIZED SWELLING, MASS AND LUMP, NECK Assessment/Plan AWAIT CYTOLOGY RESULTS FROM THORACENTESIS NO ABX AT THIS TIME CHECK LABS PT EVAL SNF [facility] REFERRALS
--- NOTE | 2017-07-20 16:44 | PN ---
Progress Note (short form) - Note Progress Note: Oncology follow-up: Feels much better s/p thoracentesis eating lunch Denies any complains. daughter at bedside. Constitutional: Yes: No Distress Eyes: Yes: Conjunctiva Clear Cardiovascular: Yes: Regular Rate and Rhythm, S1, S2 Respiratory: Yes: Other (decreased BS R lower lung field Few crepitations L base) Gastrointestinal: Yes: Normal Bowel Sounds, Soft. No: Tenderness Edema: Yes Last Vital Signs Temp Pulse Resp BP Pulse Ox 97.8 F 72 20 119/46 98 07/20/17 09:00 07/20/17 09:00 07/20/17 09:00 07/20/17 09:00 07/20/17 09:00 CBC, BMP 07/19/17 05:18 07/19/17 05:18 Current Medications Generic Name Dose Route Start Last Admin Trade Name Freq PRN Reason Stop Dose Admin Atorvastatin Calcium 40 mg 07/17/17 22:00 07/19/17 21:27 Lipitor - PO 40 mg HS [facility] Administration Carvedilol 12.5 mg 07/17/17 22:00 07/20/17 11:02 Coreg - PO 12.5 mg BID [facility] Administration Furosemide 40 mg 07/17/17 18:00 07/20/17 06:37 Lasix Injection - IVPUSH 40 mg BID@0600,1800 [facility] Administration Heparin Sodium (Porcine) 5,000 unit 07/17/17 22:00 07/20/17 11:02 Heparin - SQ 5,000 unit BID [facility] Administration Dextrose/Sodium Chloride 1,000 mls @ 75 mls/hr 07/17/17 23:30 07/20/17 08:44 D5-1/2ns - IV 75 mls/hr ASDIR [facility] Administration Levofloxacin 100 mls @ 100 mls/hr 07/18/17 18:30 07/20/17 11:01 Levaquin 500 Mg Premixed Ivpb - IVPB 100 mls/hr DAILY [facility] Administration Insulin Aspart 1 vial 07/20/17 07:00 07/20/17 11:27 Novolog Vial Sliding Scale - SQ 2 units ACHS [facility] Administration Protocol Lisinopril 40 mg 07/18/17 10:00 07/20/17 11:02 Prinivil PO 40 mg DAILY [facility] Administration Potassium Chloride 20 meq 07/17/17 12:00 07/20/17 11:02 K-Dur - PO 20 meq DAILY [facility] Administration s/p thoracentesis will f/u cytology pt and daughter aware the date and time for follow-up in our office. Problem List - Problems (1) Malignant pleural effusion Code(s): J91.0 - MALIGNANT PLEURAL EFFUSION (2) Axillary lymphadenopathy Code(s): R59.0 - LOCALIZED ENLARGED LYMPH NODES (3) Breast cancer Code(s): C50.919 - MALIGNANT NEOPLASM OF UNSP SITE OF UNSPECIFIED FEMALE BREAST Qualifiers: Breast location: overlapping sites of breast Estrogen receptor status: unspecified Laterality: unspecified laterality (4) Neck mass Code(s): R22.1 - LOCALIZED SWELLING, MASS AND LUMP, NECK
[2017-07-20] MEDS: ATORVASTATIN CA 40 MG TABLET (FP) PO SCH (21:30)
[2017-07-21 09:06] LABS: MCH 26.1 pg (25.7-33.7); MCHC 33.5 g/dl (32.0-36.0); MEAN CELL VOLUME 77.9 fl (80-96); MEAN PLT VOLUME 7.4 fl (7.5-11.1); PLATELET COUNT 249 K/MM3 (134-434); RDW 16.5 % (11.6-15.6)
[2017-07-21 09:34] LABS: ALBUMIN 2.4 g/dl (3.4-5.0); ALK PHOS 135 U/L (45-117); ANION GAP 9 (8-16); BILIRUBIN,TOTAL 0.7 mg/dL (0.2-1.0); CALCIUM 9.3 mg/dL (8.5-10.1); CO2 28 mmol/L (21-32); CREATININE 0.8 mg/dL (0.55-1.02); GLUCOSE,RANDOM 259 mg/dL (74-106); SGOT/AST 28 U/L (15-37); SGPT/ALT 24 U/L (12-78); TOT PROT 6.3 g/dl (6.4-8.2)
[2017-07-21] MEDS: LEVOFLOXACIN 500 MG IVPB 100 ML IVPB SCH (09:37)
[2017-07-21] MEDS: POTASSIUM CHLORIDE TABS 20 MEQ TABLET.ER (FP) PO SCH (09:39)
[2017-07-21] MEDS: CARVEDILOL 12.5 MG TABLET (FP) PO SCH (09:40)
[2017-07-21] MEDS: LISINOPRIL 20 MG TABLET (FP) PO SCH (09:40)
[2017-07-21] MEDS: HEPARIN NA (PORCINE) 5,000 UNITS/ML 1ML VIAL SQ SCH (10:47)
--- NOTE | 2017-07-21 11:28 | DS ---
Physical Examination Vital Signs: Vital Signs Temperature 97.8 F 07/21/17 02:00 Pulse Rate 82 07/21/17 02:00 Respiratory Rate 20 07/21/17 02:00 Blood Pressure 125/46 07/21/17 02:00 O2 Sat by Pulse Oximetry (%) 98 07/20/17 21:00 Constitutional: Yes: No Distress Eyes: Yes: WNL HENT: Yes: WNL Neck: Yes: WNL Cardiovascular: Yes: WNL Respiratory: Yes: WNL Gastrointestinal: Yes: WNL Renal/: Yes: WNL Musculoskeletal: Yes: Muscle Weakness Extremities: Yes: WNL Edema: Yes Edema: LLE: Trace, RLE: Trace Peripheral Pulses WNL: Yes Integumentary: Yes: WNL Wound/Incision: Yes: Clean/Dry Neurological: Yes: Pre-Existing Deficit ...Motor Strength: LLE, RLE Psychiatric: Yes: WNL Labs: CBC, BMP 07/21/17 08:35 07/21/17 08:35 Discharge Summary Reason For Visit: RESPITORY DISTRESS PLEURAL EFFUSION Current Active Problems ASHD (arteriosclerotic heart disease) (Acute) Bacteremia (Acute) CHF (congestive heart failure) (Acute) Malignant pleural effusion (Acute) Respiratory distress (Acute) Procedures: Principal: thoracentesis Hospital Course: labs cultures thoracentesis, await cultures and cytology can dc to snf f/u as outpatient for oncology workup and treatment Condition: Fair - Instructions Diet, Activity, Other Instructions: ada oncology follow up for cytology of thoracentesis Referrals: William Bazzi MD, [Primary Care Provider] - Disposition: [facility] F[facility] - Home Medications Comprehensive Discharge Medication List: Ambulatory Orders Aspirin [ASA -] 81 mg PO DAILY #0 tab.chew 06/29/12 Carvedilol [Coreg -] 12.5 mg PO BID #0 tablet 06/29/12 Glimepiride 4 mg PO BID #0 tablet 06/29/12 Lisinopril [Prinivil] 40 mg PO DAILY #0 tablet 06/29/12 Atorvastatin Ca [Lipitor] 40 mg PO HS 06/22/17 Metformin HCl [Metformin HCl ER] 500 mg PO BID 07/17/17 Atorvastatin Ca [Lipitor] 40 mg PO HS tablet 07/21/17 Carvedilol [Coreg -] 12.5 mg PO BID tablet 07/21/17 Insulin Sliding Scale [Novolog Vial Sliding Scale -] 1 vial SQ ACHS units 07/21 Lisinopril [Prinivil] 40 mg PO DAILY tablet 07/21/17 Potassium Chloride [K-Dur -] 20 meq PO DAILY tablet.er 07/21/17
--- NOTE | 2017-07-21 12:59 | EKG ---
Test Reason : Blood Pressure : / mmHG Vent. Rate : 087 BPM Atrial Rate : 091 BPM P-R Int : 000 ms QRS Dur : 104 ms QT Int : 364 ms P-R-T Axes : 000 -15 144 degrees QTc Int : 438 ms POOR DATA QUALITY, INTERPRETATION MAY BE ADVERSELY AFFECTED NORMAL SINUS RHYTHM POSSIBLE ANTERIOR INFARCT (CITED ON OR BEFORE 17-JUL-2017) NONSPECIFIC T WAVE ABNORMALITY LATERAL LEADS ABNORMAL ECG WHEN COMPARED WITH ECG OF 22-JUN-2017 11:35, PREMATURE VENTRICULAR COMPLEXES ARE NO LONGER PRESENT Confirmed by ROSE ESPINOSA, CARLOS ENRIQUE (2016) on 07/21/2017 12:58:49 PM Referred By: Confirmed By:CARLOS ENRIQUE ROSE MD
[2017-07-21 14:40] VITALS: BP 121/64; PULSE 79; TEMP 98.1
--- NOTE | 2017-07-22 20:28 | PN ---
Progress Note (short form) - Note Progress Note: ADDENDUM DIAGNOSIS MALIGNANT PLEURAL EFFUSSIONS WITH RESOLVED ACUTE RESPIRATORY FAILURE Problem List - Problems (1) Neck mass Code(s): R22.1 - LOCALIZED SWELLING, MASS AND LUMP, NECK (2) Breast cancer Code(s): C50.919 - MALIGNANT NEOPLASM OF UNSP SITE OF UNSPECIFIED FEMALE BREAST Qualifiers: Breast location: overlapping sites of breast Estrogen receptor status: unspecified Laterality: unspecified laterality (3) Breast mass Code(s): N63.0 - UNSPECIFIED LUMP IN UNSPECIFIED BREAST (4) Axillary lymphadenopathy Code(s): R59.0 - LOCALIZED ENLARGED LYMPH NODES (5) Respiratory distress Code(s): R06.00 - DYSPNEA, UNSPECIFIED (6) Malignant pleural effusion Code(s): J91.0 - MALIGNANT PLEURAL EFFUSION (7) ASHD (arteriosclerotic heart disease) Code(s): I25.10 - ATHSCL HEART DISEASE OF [place] CORONARY ARTERY W/O ANG PCTRS (8) CHF (congestive heart failure) Code(s): I50.9 - HEART FAILURE, UNSPECIFIED Qualifiers: Congestive heart failure type: unspecified congestive heart failure type Congestive heart failure chronicity: acute on chronic Qualified Code(s): I50.9 - Heart failure, unspecified
--- NOTE | 2017-07-26 15:53 | PATH ---
Cytology Non-Gynecological Report Patient Name: KAIN HOLDEN [facility]. Rec. #: [id number] /Age/Gender: 1935 (Age: 81) / F Account: [id number] Location: [address] [place] [address] Taken: 07/19/2017 Received: 07/20/2017 Reported: 07/26/2017 Physicians: Elvia Rendon M.D. Ammir Rabadi, M.D. Specimen(s) Received A: RIGHT PLEURAL FLUID B: RIGHT PLEURAL FLUID Clinical History Pleural fusion, lung nodules, breast mass Final Diagnosis A & B. PLEURAL EFFUSION FOR CYTOLOGY: SATISFACTORY FOR EVALUATION POSITIVE FOR MALIGNANT CELLS. ADENOCARCINOMA. SEE COMMENT. Comment: Immunohistochemical stains performed and interpreted at [facility] show the atypical cells are positive for CK7, and ER, while negative for TTF-1. Additional immunohistochemical stains performed at [place], [place] ([id number]) and interpreted at [facility] show the atypical cells are positive for BASIL, Reese-Ep4 (weakly) and MARY-3. MOC-31 shows weak staining. Numerous macrophages are highlighted by CD68, while scattered mesothelial cells are positive for D2-40 and calretinin. The above immunophenotype (CK7+, ER+, MARY-3+) favors breast origin. Medical chart reviewed. Suggest clinical/radiological correlation and further work-up as warranted. Case shown interdepartmentally. Findings will be discussed with Dr. Crowe. Electronically Signed Zaira Patel M.D. Gross Description A. Approximately 50 cc of yellow fluid received fixed in 50% alcohol. Two cytofunnels and one cellblock prepared. B. Approximately 1400 cc of yellow fluid received fresh. Two cytofunnels and one cellblock prepared.
== END 2017-07-21 17:21 | DRG 597 ==
LOC: JER 08:15 → JERBED 14:59 → J4W 22:35 → J6S 07-20 00:18
PROVIDERS: ADMIT Family Medicine; ATTEND Family Medicine
PROC: 0W993ZX Drainage of Right Pleural Cavity, Percutaneous Approach, Diagnostic (ICD-10-PCS; principal; 2017-07-19)
DX: C50.919 Malignant neoplasm of unspecified site of unspecified female breast (principal); J96.00 Acute respiratory failure, unspecified whether with hypoxia or hypercapnia; C78.7 Secondary malignant neoplasm of liver and intrahepatic bile duct; C78.00 Secondary malignant neoplasm of unspecified lung; J91.0 Malignant pleural effusion; E78.5 Hyperlipidemia, unspecified; I25.10 Atherosclerotic heart disease of native coronary artery without angina pectoris; Z95.1 Presence of aortocoronary bypass graft; I25.2 Old myocardial infarction; E11.9 Type 2 diabetes mellitus without complications; Z79.84 Long term (current) use of oral hypoglycemic drugs; E66.01 Morbid (severe) obesity due to excess calories; Z68.36 Body mass index [BMI] 36.0-36.9, adult; I11.0 Hypertensive heart disease with heart failure; I50.9 Heart failure, unspecified; R06.03 Acute respiratory distress; Z88.0 Allergy status to penicillin
CPT/HCPCS: 36415; 71010-TC; 76942; 80053; 81003; 82042; 82150; 82550; 82803; 82945; 83615; 83735; 83880; 84100; 84157; 84478; 84484; 85025; 85027; 85610; 85730; 87040; 87070; 87075; 87086; 87102; 87116; 87186; 87205; 87206; 87210; 88108; 88305-TC; 88341-TC; 89051; 93005; 93010; 93970-TC; 97116-GP; 97161-GP; 99285-25; J1644

== ENCOUNTER 2017-07-23 16:36 | Observation (INO) | payer OTHER, MEDICARE ==
--- NOTE | 2017-07-23 17:41 | PDOC ---
History of Present Illness <Sharad Victoria - Last Filed: 07/23/17 20:48> - History of Present Illness Initial Comments: 07/23/17 17:27 The patient is an 81 yo f w/ PMH of DM2, HTN, HLD, CAD/[place] s/p CABG and recently diagnosed breast cancer with metastatic tumors in lungs, liver and neck comes into the ED after she became confused and agitated in the residential. Per the patient, she remembers seeing double, then remembers being woken up by residential staff. Her blood glucose at this time was 25. The patient was given 1 mg glucagon IM and 200cc of D10 in the residential, then brought to the ED for evaluation. Patient denies chest pain, SOB, fevers, chills, abdominal pain. 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, lungs and neck) COPD: No Diabetes: Yes (niddm) HTN: Yes Hypercholesterolemia: Yes Thyroid Disease: Yes - Surgical History Cardiac Surgery: Yes (TRIPLE BYPASS) - Suicide/Smoking/Psychosocial Hx Smoking Status: No Smoking History: Never smoked Have you smoked in the past 12 months: No Number of Cigarettes Smoked Daily: 0 Hx Alcohol Use: No Drug/Substance Use Hx: No Substance Use Type: None Hx Substance Use Treatment: No <Yariel Gomez - Last Filed: 07/24/17 09:04> <Jonathan Cancino - Last Filed: 07/27/17 17:21> - Past Medical History Allergies/Adverse Reactions: Allergies Allergy/AdvReac Type Severity Reaction Status Date / Time Penicillins AdvReac Mild Rash Verified 07/23/17 16:44 Home Medications: Ambulatory Orders Aspirin [ASA -] 81 mg PO DAILY #0 tab.chew 06/29/12 Metformin HCl [Metformin HCl ER] 500 mg PO BID 07/17/17 Atorvastatin Ca [Lipitor] 40 mg PO HS tablet 07/21/17 Carvedilol [Coreg -] 12.5 mg PO BID tablet 07/21/17 Insulin Sliding Scale [Novolog Vial Sliding Scale -] 1 vial SQ ACHS units 07/21 Lisinopril [Prinivil] 40 mg PO DAILY tablet 07/21/17 Potassium Chloride [K-Dur -] 20 meq PO DAILY tablet.er 07/21/17 Review of Systems - Review of Systems Constitutional: No: Chills, Fever, Malaise HEENTM: Yes: Double Vision Respiratory: No: Cough, Shortness of Breath, SOB with Exertion Cardiac (ROS): No: Chest Pain, Edema, Lightheadedness, Palpitations ABD/GI: No: Symptoms Reported : No: Burning, Dysuria Integumentary: No: Bruising Neurological: No: Headache, Numbness, Tingling Hematologic/Lymphatic: No: Anemia, Blood Clots, Easy Bleeding <Yariel Gomez - Last Filed: 07/24/17 09:04> *Physical Exam - Vital Signs Last Vital Signs Temp Pulse Resp BP Pulse Ox 97.4 F L 68 20 131/48 96 07/23/17 16:44 07/23/17 16:44 07/23/17 16:44 07/23/17 16:44 07/23/17 16:44 <Sharad Victoria - Last Filed: 07/23/17 20:48> - Vital Signs Last Vital Signs Temp Pulse Resp BP Pulse Ox 97.4 F L 68 20 131/48 96 07/23/17 16:44 07/23/17 16:44 07/23/17 16:44 07/23/17 16:44 07/23/17 16:44 - Physical Exam General Appearance: Yes: Appropriately Dressed. No: Apparent Distress HEENT: positive: EOMI, ROLANDA, Normal ENT Inspection Neck: positive: Trachea midline. negative: Tender Respiratory/Chest: positive: Decreased Breath Sounds (decreased breath sounds in the right lower lung field), Crackles (crackles in mid lung bejarano b/l ). negative: Chest Tender Cardiovascular: positive: Regular Rhythm, Regular Rate, S1, S2. negative: Edema , JVD, Murmur, Gallop/S3, Gallop/S4 Gastrointestinal/Abdominal: positive: Normal Bowel Sounds, Flat, Soft. 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, Fully Oriented, Alert, Normal Mood/ Affect, Normal Response <Yariel Gomez - Last Filed: 07/24/17 09:04> - Vital Signs Last Vital Signs Temp Pulse Resp BP Pulse Ox 98.2 F 76 20 134/62 95 07/26/17 10:00 07/26/17 10:00 07/26/17 10:00 07/26/17 10:00 07/26/17 10:00 <Jonathan Cancino - Last Filed: 07/27/17 17:21> ED Treatment Course - LABORATORY CBC & Chemistry Diagram: 07/23/17 18:30 07/23/17 18:30 - ADDITIONAL ORDERS Additional order review: Laboratory Results 07/23/17 07/23/17 07/23/17 18:30 18:30 17:29 Sodium 135 L Potassium 4.5 D Chloride 99 Carbon Dioxide 30 Anion Gap 6 L BUN 13 Creatinine 0.6 D Creat Clearance w eGFR > 60 POC Glucometer 163.45537 Random Glucose 90 D Calcium 10.6 H Total Bilirubin 0.4 D AST 35 D ALT 29 D Alkaline Phosphatase 137 H Total Protein 6.5 Albumin 2.5 L Urine Color Ltyellow Urine Appearance Clear Urine pH 7.0 D Ur Specific [place] 1.005 Urine Protein Negative Urine Glucose (UA) 1+ H Urine Ketones Negative Urine Blood 1+ H Urine Nitrite Negative Urine Bilirubin Negative Urine Urobilinogen Negative Urine WBC (Auto) 2 Urine RBC (Auto) < 1 Ur Epithelial Cells Rare Urine Bacteria Rare 07/23/17 07/23/17 18:30 17:29 RBC 4.27 MCV 78.5 L MCHC 32.8 RDW 16.8 H MPV 7.2 L Neutrophils % 76.7 Lymphocytes % 14.6 D Monocytes % 7.5 Eosinophils % 0.4 Basophils % 0.8 POC Glucometer [phone] <Sharad Victoria - Last Filed: 07/23/17 20:48> - LABORATORY CBC & Chemistry Diagram: 07/23/17 18:30 07/23/17 18:30 <Yariel Gomez - Last Filed: 07/24/17 09:04> - LABORATORY CBC & Chemistry Diagram: 07/25/17 06:35 07/25/17 06:35 - ADDITIONAL ORDERS Additional order review: 07/23/17 18:30 Urine Culture - Final Urine - Urine Clean Catch NO GROWTH OBTAINED 07/23/17 07/23/17 18:30 17:29 RBC 4.27 MCV 78.5 L MCHC 32.8 RDW 16.8 H MPV 7.2 L Neutrophils % 76.7 Lymphocytes % 14.6 D Monocytes % 7.5 Eosinophils % 0.4 Basophils % 0.8 POC Glucometer [phone] - Medications Given in the ED: ED Medications Discontinued Medications Generic Name Dose Route Start Last Admin Trade Name Freq PRN Reason Stop Dose Admin Aspirin 81 mg 07/24/17 10:00 07/26/17 10:24 Asa - PO 81 mg DAILY URSZULA Administration Atorvastatin Calcium 40 mg 07/24/17 22:00 07/25/17 22:20 Lipitor - PO 40 mg HS URSZULA Administration Carvedilol 12.5 mg 07/24/17 10:00 07/24/17 09:23 Coreg - PO Not Given BID URSZULA Carvedilol 12.5 mg 07/24/17 10:00 07/26/17 10:23 Coreg - PO 12.5 mg BID URSZULA Administration Dextrose 25 gm 07/24/17 05:57 07/24/17 06:04 D50w (Syringe) - IVPUSH 25 gm PRN PRN Administration hypoglycemia Heparin Sodium (Porcine) 5,000 unit 07/24/17 10:00 07/26/17 10:24 Heparin - SQ 5,000 unit BID URSZULA Administration Dextrose 1,000 mls @ 42 mls/hr 07/24/17 00:15 07/24/17 00:38 D5w - IV 42 mls/hr ASDIR URSZULA Administration Insulin Aspart 1 vial 07/24/17 07:00 07/26/17 06:18 Novolog Vial Sliding Scale - SQ Not Given ACHS URSZULA Protocol Lisinopril 40 mg 07/24/17 10:00 07/24/17 09:23 Prinivil PO Not Given DAILY URSZULA Lisinopril 40 mg 07/24/17 10:00 07/24/17 10:04 Prinivil PO Not Given DAILY URSZULA Lisinopril 10 mg 07/24/17 15:35 07/26/17 10:22 Prinivil PO 10 mg DAILY URSZULA Administration Potassium Chloride 20 meq 07/24/17 10:00 07/26/17 10:24 K-Dur - PO 20 meq DAILY URSZULA Administration <Jonathan Cancino - Last Filed: 07/27/17 17:21> Medical Decision Making - Medical Decision Making 07/23/17 18:53 The patient is an 81 yo f w/ PMH of DM2, HTN, HLD, CAD/RI s/p CABG and recently diagnosed breast cancer with metastatic tumors in lungs, liver and neck who comes into the ED s/p hypoglycemic episode. Patient's blood glucose is WNL in the ED. She is eating, talking and oriented at this time. Her sulfonyurea is long acting, however and has the potential to cause further hypoglycemic episodes. She likely will require admission for observation. -CBC, CMP -CXR -UA -UCX 07/23/17 19:00 -Case signed out to Dr. Victoria <Yariel Gomez - Last Filed: 07/24/17 09:04> *DC/Admit/Observation/Transfer - Discharge Dispostion Admit: Yes <Sharad Victoria - Last Filed: 07/23/17 20:48> <Yariel Gomez - Last Filed: 07/24/17 09:04> <Jonathan Cancino - Last Filed: 07/27/17 17:21> Diagnosis at time of Disposition: Hypoglycemia - Discharge Dispostion Disposition: [facility] Condition at time of disposition: Stable
--- NOTE | 2017-07-23 18:14 | PDOC ---
Attending Attestation - HPI HPI: 07/23/17 18:16 81 year old female, pmh of NIDDM (on metformin and glipizide), HTN, HLD, stage 4 Breast Cancer with metastasis to the neck and lungs, who presents to the emergency room [facility] from [facility] with a blood glucose of 35. Patient 's daughter states that the patient became confused and agitated when her sugar dropped. - Physicial Exam PE: 07/23/17 18:24 Vitals: Triage Vital signs reviewed General Appearance: no acute distress, well nourished well developed Head: Atraumatic Eyes: Pupils equal reactive round, extraocular movement intact Chest Wall: Nontender Cardiac: Regular rate and rhythym, no murmurs, no rubs, no gallops Lungs: Clear to auscultation bilateral, good air movement bilaterally Abdomen: Soft, non distended, normal bowel sounds, non tender to palpation Skin: Warm and dry, no rashes or lesions, no rash, no petechiae Neuro: AOX3; Cranial Nerves 2-12 grossly intact, Strength intact to all extremities, Sensation intact to all extremities, gait normal Psych: Normal mood, normal affect <Trisha Nj - Last Filed: 07/23/17 18:23> - Resident Resident Name: Yariel Gomez - ED Attending Attestation I have performed the following: I have examined & evaluated the patient, The case was reviewed & discussed with the resident, I agree w/resident's findings & plan, Exceptions are as noted - Medical Decision Making 07/23/17 19:21 Hypoglycemia on a sulfonylurea. Dr. Guthrie follow-up blood work patient will need observation for further management. <Jonathan Cancino - Last Filed: 07/23/17 19:21>
[2017-07-23 18:49] LABS: BASOPHIL 0.8 % (0-2.0); EOSINOPHIL 0.4 % (0-4.5); MCH 25.8 pg (25.7-33.7); MCHC 32.8 g/dl (32.0-36.0); MEAN CELL VOLUME 78.5 fl (80-96); MEAN PLT VOLUME 7.2 fl (7.5-11.1); NEUTROPHILS 76.7 % (42.8-82.8); PLATELET COUNT 237 K/MM3 (134-434); RDW 16.8 % (11.6-15.6); WHITE BLOOD COUNT 10.6 K/mm3 (4.0-10.0)
[2017-07-23 19:13] LABS: ALBUMIN 2.5 g/dl (3.4-5.0); ANION GAP 6 (8-16); BILIRUBIN,TOTAL 0.4 mg/dL (0.2-1.0); CALCIUM 10.6 mg/dL (8.5-10.1); CO2 30 mmol/L (21-32); CREATININE 0.6 mg/dL (0.55-1.02); GLUCOSE,RANDOM 90 mg/dL (74-106); SGOT/AST 35 U/L (15-37); SGPT/ALT 29 U/L (12-78); TOT PROT 6.5 g/dl (6.4-8.2)
[2017-07-23 19:14] LABS: ALK PHOS 137 U/L (45-117)
[2017-07-23 19:21] LABS: URINE APPEARANCE CLEAR; URINE BILIRUBIN NEGATIVE (NEGATIVE); URINE BLOOD 1+ (NEGATIVE); URINE COLOR LTYELLOW; URINE GLUCOSE (UA) 1+ (NEGATIVE); URINE KETONE NEGATIVE (NEGATIVE); URINE NITRITE NEGATIVE (NEGATIVE); URINE PROTEIN NEGATIVE (NEGATIVE); URINE UROBILINOGEN NEGATIVE mg/dL (0.2-1.0)
[2017-07-23 19:24] LABS: URINE BACTERIA RARE /hpf (NONE SEEN); URINE RBC < 1; URINE WBC 2
[2017-07-23 21:45] LABS: URINE LEUK ESTERASE Negative (NEGATIVE)
[2017-07-24 00:05] VITALS: BMI 31.8
[2017-07-24] MEDS ORDERED: DEXTROSE 50%-WATER - 25 GM/50 ML VIAL IVPUSH PRN (00:14)
[2017-07-24] MEDS ORDERED: DEXTROSE 5%-WATER - 1,000 ML IV SCH (00:15)
[2017-07-24] MEDS ORDERED: ACETAMINOPHEN 325 MG TABLET (FP) PO PRN (00:17)
[2017-07-24] MEDS ORDERED: DEXTROSE 50%-WATER 25 GM/50 ML DISP.SYRIN IVPUSH PRN (05:57)
[2017-07-24] MEDS ORDERED: DEXTROSE 50%-WATER - 25 GM/50 ML VIAL ONE (05:59)
[2017-07-24] MEDS: INSULIN SLIDING SCALE (NOVOLOG) 1 VIAL SQ SCH ×4 (06:00→22:06)
[2017-07-24] MEDS ORDERED: INSULIN SLIDING SCALE (NOVOLOG) 1 VIAL SQ SCH (07:00)
[2017-07-24] MEDS: POTASSIUM CHLORIDE TABS 20 MEQ TABLET.ER (FP) PO SCH (09:23)
[2017-07-24] MEDS: ASPIRIN 81 MG CHEWABLE TABLETS PO SCH (09:23)
[2017-07-24] MEDS: HEPARIN NA (PORCINE) 5,000 UNITS/ML 1ML VIAL SQ SCH ×2 (09:23→22:06)
[2017-07-24] MEDS ORDERED: CARVEDILOL 12.5 MG TABLET (FP) PO SCH (10:00)
[2017-07-24] MEDS ORDERED: LISINOPRIL 20 MG TABLET (FP) PO SCH ×2 (10:00)
[2017-07-24] MEDS: CARVEDILOL 12.5 MG TABLET (FP) PO SCH ×2 (10:04→22:03)
--- NOTE | 2017-07-24 15:41 | CONSULT ---
Consult Consult Specialty:: endocrine Referred by:: yelena diamond Reason for Consultation:: hypercalcemia,and hypoglycemia - History of Present Illness Chief Complaint: low sugar History of Present Illness: 81 year old female, pmh of NIDDM (on metformin and glipizide), HTN, HLD, stage 4 Breast Cancer with metastasis to the neck and lungs, who presents to the emergency room [facility] from [facility] with a blood glucose of 35. she became confused and agitated when her sugar dropped.has elevated calcium,poor appetite - History Source History Provided By: Patient - Past Medical History Cardio/Vascular: Yes: CHF, HTN, Hyperlipdemia Pulmonary: Yes: COPD ...: No Endocrine: Yes: Diabetes Insipidus - Alcohol/Substance Use Hx Alcohol Use: No - Smoking History Smoking history: Never smoked Have you smoked in the past 12 months: No Aproximately how many cigarettes per day: 0 Home Medications - Allergies Allergies/Adverse Reactions: Allergies Allergy/AdvReac Type Severity Reaction Status Date / Time Penicillins AdvReac Mild Rash Verified 07/23/17 16:44 - Home Medications Home Medications: Ambulatory Orders Aspirin [ASA -] 81 mg PO DAILY #0 tab.chew 06/29/12 Glimepiride 4 mg PO BID #0 tablet 06/29/12 Metformin HCl [Metformin HCl ER] 500 mg PO BID 07/17/17 Atorvastatin Ca [Lipitor] 40 mg PO HS tablet 07/21/17 Carvedilol [Coreg -] 12.5 mg PO BID tablet 07/21/17 Insulin Sliding Scale [Novolog Vial Sliding Scale -] 1 vial SQ ACHS units 07/21 Levofloxacin [Levaquin -] 500 mg PO DAILY #4 tablet 07/21/17 Lisinopril [Prinivil] 40 mg PO DAILY tablet 07/21/17 Potassium Chloride [K-Dur -] 20 meq PO DAILY tablet.er 07/21/17 Review of Systems - Review of Systems Constitutional: reports: Loss of Appetite, Weakness Eyes: reports: No Symptoms HENT: reports: No Symptoms Neck: reports: No Symptoms Cardiovascular: reports: No Symptoms Respiratory: reports: Exercise Intolerance, SOB on Exertion Gastrointestinal: reports: Constipation, Nausea Genitourinary: reports: No Symptoms Breasts: reports: Skin Changes Musculoskeletal: reports: Muscle Pain, Muscle Cramps, Muscle Weakness Integumentary: reports: No Symptoms Neurological: reports: Weakness Physical Exam Vital Signs: Vital Signs Temperature 97.4 F L 07/24/17 14:00 Pulse Rate 79 07/24/17 14:00 Respiratory Rate 20 07/24/17 14:00 Blood Pressure 110/61 07/24/17 14:00 O2 Sat by Pulse Oximetry (%) 96 07/24/17 15:05 Constitutional: Yes: Anxious Eyes: Yes: EOM Intact HENT: Yes: Normocephalic Neck: Yes: Trachea Midline Cardiovascular: Yes: Regular Rate and Rhythm Respiratory: Yes: CTA Bilaterally Gastrointestinal: Yes: Normal Bowel Sounds ...Rectal Exam: Yes: Deferred Renal/: Yes: WNL Musculoskeletal: Yes: WNL Extremities: Yes: WNL Edema: No Edema: LLE: 2+, RLE: 2+ Integumentary: Yes: WNL Neurological: Yes: WNL Psychiatric: Yes: Alert Labs: CBC, BMP 07/23/17 18:30 07/23/17 18:30 Problem List - Problems (1) Hypercalcemia of malignancy Code(s): E83.52 - HYPERCALCEMIA (2) ASHD (arteriosclerotic heart disease) Code(s): I25.10 - ATHSCL HEART DISEASE OF [place] CORONARY ARTERY W/O ANG PCTRS (3) Breast cancer Code(s): C50.919 - MALIGNANT NEOPLASM OF UNSP SITE OF UNSPECIFIED FEMALE BREAST (4) Breast mass Code(s): N63.0 - UNSPECIFIED LUMP IN UNSPECIFIED BREAST (5) Hypoglycemia Code(s): E16.2 - HYPOGLYCEMIA, UNSPECIFIED Assessment/Plan Current Active Problems Hypercalcemia of malignancy (Acute) Hypoglycemia (Acute) diabetes mellitus,hypoglycemia htn ashd Abnormal Lab Results 07/23/17 07/23/17 07/23/17 18:30 18:30 18:30 WBC 10.6 H D MCV 78.5 L RDW 16.8 H MPV 7.2 L Sodium 135 L Anion Gap 6 L Calcium 10.6 H Alkaline Phosphatase 137 H Albumin 2.5 L Urine Glucose (UA) 1+ H Urine Blood 1+ H Laboratory Results - last 24 hr 07/23/17 07/23/17 07/23/17 17:29 18:30 18:30 WBC 10.6 H D RBC 4.27 Hgb 11.0 Hct 33.5 MCV 78.5 L MCH 25.8 MCHC 32.8 RDW 16.8 H Plt Count 237 MPV 7.2 L Neutrophils % 76.7 Lymphocytes % 14.6 D Monocytes % 7.5 Eosinophils % 0.4 Basophils % 0.8 Sodium 135 L Potassium 4.5 D Chloride 99 Carbon Dioxide 30 Anion Gap 6 L BUN 13 Creatinine 0.6 D Creat Clearance w eGFR > 60 POC Glucometer 163.43900 Random Glucose 90 D Calcium 10.6 H Total Bilirubin 0.4 D AST 35 D ALT 29 D Alkaline Phosphatase 137 H Total Protein 6.5 Albumin 2.5 L Urine Color Urine Appearance Urine pH Ur Specific [place] Urine Protein Urine Glucose (UA) Urine Ketones Urine Blood Urine Nitrite Urine Bilirubin Urine Urobilinogen Ur Leukocyte Esterase Urine WBC (Auto) Urine RBC (Auto) Ur Epithelial Cells Urine Bacteria 07/23/17 07/24/17 07/24/17 18:30 03:08 05:50 WBC RBC Hgb Hct MCV MCH MCHC RDW Plt Count MPV Neutrophils % Lymphocytes % Monocytes % Eosinophils % Basophils % Sodium Potassium Chloride Carbon Dioxide Anion Gap BUN Creatinine Creat Clearance w eGFR POC Glucometer 57 73 Random Glucose Calcium Total Bilirubin AST ALT Alkaline Phosphatase Total Protein Albumin Urine Color Ltyellow Urine Appearance Clear Urine pH 7.0 D Ur Specific [place] 1.005 Urine Protein Negative Urine Glucose (UA) 1+ H Urine Ketones Negative Urine Blood 1+ H Urine Nitrite Negative Urine Bilirubin Negative Urine Urobilinogen Negative Ur Leukocyte Esterase Negative Urine WBC (Auto) 2 Urine RBC (Auto) < 1 Ur Epithelial Cells Rare Urine Bacteria Rare 07/24/17 07/24/17 07/24/17 06:40 07:51 11:13 WBC RBC Hgb Hct MCV MCH MCHC RDW Plt Count MPV Neutrophils % Lymphocytes % Monocytes % Eosinophils % Basophils % Sodium Potassium Chloride Carbon Dioxide Anion Gap BUN Creatinine Creat Clearance w eGFR POC Glucometer 147 94 150 Random Glucose Calcium Total Bilirubin AST ALT Alkaline Phosphatase Total Protein Albumin Urine Color Urine Appearance Urine pH Ur Specific [place] Urine Protein Urine Glucose (UA) Urine Ketones Urine Blood Urine Nitrite Urine Bilirubin Urine Urobilinogen Ur Leukocyte Esterase Urine WBC (Auto) Urine RBC (Auto) Ur Epithelial Cells Urine Bacteria plan: bgm qid novolog insulin low dose dc glymeperide as appetite is low\risk hypoglycemia dc iv k lower yared 1 use metformin 500mg bid ck pth intact molecule ck hba1c
--- NOTE | 2017-07-24 17:53 | HP ---
Admitting History and Physical - Primary Care Physician PCP: Daya Crowe - Admission Chief Complaint: hypoglyemia History of Present Illness: The patient is an 81 yo f w/ PMH of DM2, HTN, HLD, CAD/[place] s/p CABG and recently diagnosed breast cancer with metastatic tumors in lungs, liver and neck comes into the ED after she became confused and agitated in the skilled nursing. Per the patient, she remembers seeing double, then remembers being woken up by skilled nursing staff. Her blood glucose at this time was 25. The patient was given 1 mg glucagon IM and 200cc of D10 in the skilled nursing, then brought to the ED for evaluation. Patient denies chest pain, SOB, fevers, chills, abdominal pain. History Source: Patient, Medical Record Limitations to Obtaining History: No Limitations - Past Medical History Cardiovascular: Yes: CHF, HTN, Hyperlipdemia Pulmonary: Yes: COPD ...: No Heme/Onc: Yes: Cancer (BREAST) Endocrine: Yes: Diabetes Insipidus - Smoking History Smoking history: Never smoked Have you smoked in the past 12 months: No Aproximately how many cigarettes per day: 0 - Alcohol/Substance Use Hx Alcohol Use: No Home Medications - Allergies Allergies/Adverse Reactions: Allergies Allergy/AdvReac Type Severity Reaction Status Date / Time Penicillins AdvReac Mild Rash Verified 07/23/17 16:44 - Home Medications Home Medications: Ambulatory Orders Aspirin [ASA -] 81 mg PO DAILY #0 tab.chew 06/29/12 Glimepiride 4 mg PO BID #0 tablet 06/29/12 Metformin HCl [Metformin HCl ER] 500 mg PO BID 07/17/17 Atorvastatin Ca [Lipitor] 40 mg PO HS tablet 07/21/17 Carvedilol [Coreg -] 12.5 mg PO BID tablet 07/21/17 Insulin Sliding Scale [Novolog Vial Sliding Scale -] 1 vial SQ ACHS units 07/21 Levofloxacin [Levaquin -] 500 mg PO DAILY #4 tablet 07/21/17 Lisinopril [Prinivil] 40 mg PO DAILY tablet 07/21/17 Potassium Chloride [K-Dur -] 20 meq PO DAILY tablet.er 07/21/17 Review of Systems - Review of Systems Constitutional: reports: Diaphoresis, Weakness Eyes: reports: No Symptoms HENT: reports: No Symptoms Neck: reports: No Symptoms Cardiovascular: reports: No Symptoms Respiratory: reports: No Symptoms Gastrointestinal: reports: No Symptoms Genitourinary: reports: No Symptoms Breasts: reports: No Symptoms Reported Musculoskeletal: reports: No Symptoms Integumentary: reports: No Symptoms Neurological: reports: Change in LOC Endocrine: reports: No Symptoms Hematology/Lymphatic: reports: No Symptoms Psychiatric: reports: No Symptoms Pain Intensity: 0 Physical Examination Vital Signs: Vital Signs Temperature 97.4 F L 07/24/17 14:00 Pulse Rate 79 07/24/17 14:00 Respiratory Rate 20 07/24/17 14:00 Blood Pressure 110/61 07/24/17 14:00 O2 Sat by Pulse Oximetry (%) 96 07/24/17 15:05 Findings/Remarks: NAD, sitting in chair, feels much better seen by endocrinology medications adjusted Constitutional: Yes: Well Nourished, No Distress, Calm Cardiovascular: Yes: Regular Rate and Rhythm Respiratory: Yes: Regular Musculoskeletal: Yes: WNL Extremities: Yes: WNL Edema: No Peripheral Pulses WNL: Yes Neurological: Yes: Alert, Oriented Psychiatric: Yes: Alert, Oriented Labs: CBC, BMP 07/23/17 18:30 07/23/17 18:30 Imaging - Results Chest X-ray: Report Reviewed Problem List - Problems (1) Hypoglycemia Assessment/Plan: -d/c glimepiride -decrease metformin dosage -insulin sliding scale -endocrinology consult Code(s): E16.2 - HYPOGLYCEMIA, UNSPECIFIED (2) Breast cancer Code(s): C50.919 - MALIGNANT NEOPLASM OF UNSP SITE OF UNSPECIFIED FEMALE BREAST Assessment/Plan see problem list possible d/c in AM DVT prophylaxis
[2017-07-24] MEDS: ATORVASTATIN CA 40 MG TABLET (FP) PO SCH (22:04)
[2017-07-25] MEDS: INSULIN SLIDING SCALE (NOVOLOG) 1 VIAL SQ SCH ×4 (06:31→22:22)
[2017-07-25 07:37] LABS: BASOPHIL 1.3 % (0-2.0); EOSINOPHIL 1.2 % (0-4.5); MCH 25.5 pg (25.7-33.7); MCHC 32.4 g/dl (32.0-36.0); MEAN CELL VOLUME 78.6 fl (80-96); MEAN PLT VOLUME 7.7 fl (7.5-11.1); NEUTROPHILS 60.7 % (42.8-82.8); PLATELET COUNT 225 K/MM3 (134-434); RDW 16.5 % (11.6-15.6); WHITE BLOOD COUNT 5.6 K/mm3 (4.0-10.0)
[2017-07-25 08:17] LABS: ALBUMIN 2.2 g/dl (3.4-5.0); ANION GAP 7 (8-16); CALCIUM 9.8 mg/dL (8.5-10.1); CHOLESTEROL 124 mg/dL (50-200); CO2 29 mmol/L (21-32); CREATININE 0.6 mg/dL (0.55-1.02); GLUCOSE,RANDOM 145 mg/dL (74-106); SGOT/AST 25 U/L (15-37); SGPT/ALT 23 U/L (12-78)
[2017-07-25 08:19] LABS: ALK PHOS 124 U/L (45-117); BILIRUBIN,TOTAL 0.5 mg/dL (0.2-1.0); TOT PROT 5.6 g/dl (6.4-8.2)
[2017-07-25] MEDS: POTASSIUM CHLORIDE TABS 20 MEQ TABLET.ER (FP) PO SCH (09:26)
[2017-07-25] MEDS: HEPARIN NA (PORCINE) 5,000 UNITS/ML 1ML VIAL SQ SCH ×2 (09:26→22:22)
[2017-07-25] MEDS: LISINOPRIL 20 MG TABLET (FP) PO SCH (09:26)
[2017-07-25] MEDS: CARVEDILOL 12.5 MG TABLET (FP) PO SCH ×2 (09:26→22:20)
[2017-07-25] MEDS: ASPIRIN 81 MG CHEWABLE TABLETS PO SCH (09:26)
[2017-07-25] MEDS: ATORVASTATIN CA 40 MG TABLET (FP) PO SCH (22:20)
--- NOTE | 2017-07-25 22:44 | PN ---
Progress Note, Physician Chief Complaint: hypoglycemia History of Present Illness: NAD, sitting in chair, doesn't want to go back today d/c in AM - Current Medication List Current Medications: Active Medications Acetaminophen (Tylenol -) 650 mg PO Q6H PRN PRN Reason: FEVER OR PAIN Aspirin (Asa -) 81 mg PO DAILY [facility] Last Admin: 07/25/17 09:26 Dose: 81 mg Atorvastatin Calcium (Lipitor -) 40 mg PO HS [facility] Last Admin: 07/25/17 22:20 Dose: 40 mg Carvedilol (Coreg -) 12.5 mg PO BID [facility] Last Admin: 07/25/17 22:20 Dose: 12.5 mg Heparin Sodium (Porcine) (Heparin -) 5,000 unit SQ BID [facility] Last Admin: 07/25/17 22:22 Dose: 5,000 unit Insulin Aspart (Novolog Vial Sliding Scale -) 1 vial SQ ACHS [facility] PRN Reason: Protocol Last Admin: 07/25/17 22:22 Dose: 4 units Lisinopril (Prinivil) 10 mg PO DAILY [facility] Last Admin: 07/25/17 09:26 Dose: 10 mg Potassium Chloride (K-Dur -) 20 meq PO DAILY [facility] Last Admin: 07/25/17 09:26 Dose: 20 meq - Objective Vital Signs: Vital Signs Temperature 97.8 F 07/25/17 22:00 Pulse Rate 72 07/25/17 22:00 Respiratory Rate 20 07/25/17 22:00 Blood Pressure 136/58 07/25/17 22:00 O2 Sat by Pulse Oximetry (%) 95 07/25/17 16:00 Constitutional: Yes: Well Nourished, No Distress, Calm Cardiovascular: Yes: Regular Rate and Rhythm Respiratory: Yes: Regular Gastrointestinal: Yes: Normal Bowel Sounds Musculoskeletal: Yes: WNL Extremities: Yes: WNL Edema: No Peripheral Pulses WNL: Yes Neurological: Yes: Alert, Oriented Psychiatric: Yes: Alert, Oriented Labs: CBC, BMP 07/25/17 06:35 07/25/17 06:35 Problem List - Problems (1) Hypoglycemia Assessment/Plan: -d/c glimepiride -decrease metformin dosage -insulin sliding scale -endocrinology consult Code(s): E16.2 - HYPOGLYCEMIA, UNSPECIFIED (2) Breast cancer Code(s): C50.919 - MALIGNANT NEOPLASM OF UNSP SITE OF UNSPECIFIED FEMALE BREAST Assessment/Plan see problem list d/c in AM DVT prophylaxis
--- NOTE | 2017-07-25 22:47 | DS ---
Physical Examination Vital Signs: Vital Signs Temperature 97.8 F 07/25/17 22:00 Pulse Rate 72 07/25/17 22:00 Respiratory Rate 20 07/25/17 22:00 Blood Pressure 136/58 07/25/17 22:00 O2 Sat by Pulse Oximetry (%) 95 07/25/17 16:00 Constitutional: Yes: Well Nourished, No Distress, Calm Cardiovascular: Yes: Regular Rate and Rhythm Respiratory: Yes: Regular Gastrointestinal: Yes: Normal Bowel Sounds Musculoskeletal: Yes: WNL Extremities: Yes: WNL Edema: No Peripheral Pulses WNL: Yes Neurological: Yes: Alert, Oriented Psychiatric: Yes: Alert, Oriented Labs: CBC, BMP 07/25/17 06:35 07/25/17 06:35 Discharge Summary Reason For Visit: HYPOGLYCEMIA Current Active Problems Hypercalcemia of malignancy (Acute) Hypoglycemia (Acute) Hospital Course: 81 year old female, pmh of NIDDM (on metformin and glipizide), HTN, HLD, stage 4 Breast Cancer with metastasis to the neck and lungs, who presents to the emergency room [facility] from [facility] with a blood glucose of 35. Patient 's daughter states that the patient became confused and agitated when her sugar dropped. During her stay she was evaluated by endocrinology Glimepiride was discontinue and metformin was change to 500 mg po BID Insulin sliding scale was continued Condition: Stable - Instructions Diet, Activity, Other Instructions: diabetic diet -d/c Glimepiride -metformin 500 mg BID -f/u with endocrinology Disposition: [facility] - Home Medications Comprehensive Discharge Medication List: Ambulatory Orders Aspirin [ASA -] 81 mg PO DAILY #0 tab.chew 06/29/12 Metformin HCl [Metformin HCl ER] 500 mg PO BID 07/17/17 Atorvastatin Ca [Lipitor] 40 mg PO HS tablet 07/21/17 Carvedilol [Coreg -] 12.5 mg PO BID tablet 07/21/17 Insulin Sliding Scale [Novolog Vial Sliding Scale -] 1 vial SQ ACHS units 07/21 Lisinopril [Prinivil] 40 mg PO DAILY tablet 07/21/17 Potassium Chloride [K-Dur -] 20 meq PO DAILY tablet.er 07/21/17
[2017-07-26] MEDS: INSULIN SLIDING SCALE (NOVOLOG) 1 VIAL SQ SCH (06:18)
[2017-07-26] MEDS: LISINOPRIL 20 MG TABLET (FP) PO SCH (10:22)
[2017-07-26] MEDS: CARVEDILOL 12.5 MG TABLET (FP) PO SCH (10:23)
[2017-07-26] MEDS: ASPIRIN 81 MG CHEWABLE TABLETS PO SCH (10:24)
[2017-07-26] MEDS: POTASSIUM CHLORIDE TABS 20 MEQ TABLET.ER (FP) PO SCH (10:24)
[2017-07-26] MEDS: HEPARIN NA (PORCINE) 5,000 UNITS/ML 1ML VIAL SQ SCH (10:24)
[2017-07-26 12:12] VITALS: BP 134/62; PULSE 76; TEMP 98.2
== END 2017-07-26 11:02 ==
LOC: JER 16:36 → JERBED 20:49 → J7W 23:27
PROVIDERS: ADMIT Family Medicine; ATTEND Family Medicine
PROC: 3E013GC Introduction of Other Therapeutic Substance into Subcutaneous Tissue, Percutaneous Approach (ICD-10-PCS; principal; 2017-07-23)
DX: E11.649 Type 2 diabetes mellitus with hypoglycemia without coma (principal); E23.2 Diabetes insipidus; Z79.4 Long term (current) use of insulin; Z79.84 Long term (current) use of oral hypoglycemic drugs; E83.52 Hypercalcemia; I10 Essential (primary) hypertension; I25.10 Atherosclerotic heart disease of native coronary artery without angina pectoris; I25.2 Old myocardial infarction; I50.9 Heart failure, unspecified; E78.5 Hyperlipidemia, unspecified; C50.919 Malignant neoplasm of unspecified site of unspecified female breast; C78.7 Secondary malignant neoplasm of liver and intrahepatic bile duct; C78.00 Secondary malignant neoplasm of unspecified lung; C79.89 Secondary malignant neoplasm of other specified sites; Z95.1 Presence of aortocoronary bypass graft; Z88.0 Allergy status to penicillin; Z79.82 Long term (current) use of aspirin
CPT/HCPCS: 36415; 71010-TC; 80053; 80061; 81003; 81015; 83721; 85025; 87086; 96372; 99284-25; G0378; J1644

== ENCOUNTER 2017-09-29 19:36 | Inpatient (IN) | payer OTHER, MEDICARE ==
--- NOTE | 2017-09-29 20:06 | PDOC ---
History of Present Illness - General History Source: Family, Old Records Exam Limitations: No Limitations - History of Present Illness Initial Comments: 09/29/17 20:53 The patient is an 81 yo f w/ PMH of DM2, HTN, HLD, CAD/OK s/p CABG and recently diagnosed breast cancer with metastatic tumors in lungs, liver and neck ( currently receiving radiation) comes into the ED with lower extremity swelling and shortness of breath since Monday 09/25. As per daughter, there was a recent change made to the patients diuretic medication (furosemide). She was originally 20 mg once a day, but the patients Oncologist increased the dosage to 40 mg every other day. The patient is not on O2 at home. She reports a cough productive of yellow sputum. Denies any fever, chills, nausea, vomiting, diarrhea, or abdominal pain. Denies any chest pain. Allergies: Penicillins Oncologist: Dr. Frey Supervisor Stitching Department: Dr. Dubose PCP: Dr. 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, lungs and neck) COPD: No Diabetes: Yes (niddm) HTN: Yes Hypercholesterolemia: Yes Thyroid Disease: Yes - Surgical History Cardiac Surgery: Yes (TRIPLE BYPASS) - Suicide/Smoking/Psychosocial Hx Smoking Status: No Smoking History: Never smoked Have you smoked in the past 12 months: No Number of Cigarettes Smoked Daily: 0 Hx Alcohol Use: No Drug/Substance Use Hx: No Substance Use Type: None Hx Substance Use Treatment: No <Chantel Hall - Last Filed: 09/29/17 23:09> - Past Medical History Allergies/Adverse Reactions: Allergies Allergy/AdvReac Type Severity Reaction Status Date / Time Penicillins AdvReac Mild Rash Verified 09/29/17 20:04 Home Medications: Ambulatory Orders Aspirin [ASA -] 81 mg PO DAILY #0 tab.chew 06/29/12 Metformin HCl [Metformin HCl ER] 500 mg PO BID 07/17/17 Atorvastatin Ca [Lipitor] 40 mg PO HS tablet 07/21/17 Carvedilol [Coreg -] 12.5 mg PO BID tablet 07/21/17 Lisinopril [Prinivil] 40 mg PO DAILY tablet 07/21/17 Anastrozole [Arimidex -] 1 mg PO DAILY 09/29/17 Furosemide [Lasix -] 40 mg PO DAILY 09/29/17 Review of Systems - Review of Systems Able to Perform ROS?: Yes Comments:: 09/29/17 20:56 GENERAL/CONSTITUTIONAL: No fever or chills. No weakness. HEAD, EYES, EARS, NOSE AND THROAT: No change in vision. No ear pain or discharge. No sore throat. CARDIOVASCULAR: No chest pain or shortness of breath. RESPIRATORY: (+)Shortness of breath, Cough. No wheezing, or hemoptysis. GASTROINTESTINAL: No nausea, vomiting, diarrhea or constipation. GENITOURINARY: No dysuria, frequency, or change in urination. MUSCULOSKELETAL: No joint swelling or pain. No neck or back pain. EXTREMITIES: (+)Bilateral lower extremity swelling. SKIN: No rash NEUROLOGIC: No headache, vertigo, loss of consciousness, or change in strength/ sensation. ENDOCRINE: No increased thirst. No abnormal weight change. HEMATOLOGIC/LYMPHATIC: No anemia, easy bleeding, or history of blood clots. ALLERGIC/IMMUNOLOGIC: No hives or skin allergy. <Sisi Terry - Last Filed: 09/29/17 21:01> *Physical Exam - Vital Signs Last Vital Signs Temp Pulse Resp BP Pulse Ox 98.8 F 80 20 127/61 93 L 09/29/17 20:05 09/29/17 20:05 09/29/17 20:05 09/29/17 20:05 09/29/17 20:05 - Physical Exam Comments: 09/29/17 20:58 GENERAL: Awake, alert, and fully oriented, in no acute distress HEAD: No signs of trauma EYES: PERRLA, EOMI, sclera anicteric, conjunctiva clear ENT: Auricles normal inspection, hearing grossly normal, nares patent, oropharynx clear without exudates. Moist mucosa NECK: Normal ROM, supple, no lymphadenopathy, JVD, or masses LUNGS: (+)Rales throughout. No wheezes. HEART: Regular rate and rhythm, normal S1 and S2, no murmurs, rubs or gallops ABDOMEN: Soft, nontender, normoactive bowel sounds. No guarding, no rebound. No masses EXTREMITIES: (+)4+ pitting edema bilaterally. Normal range of motion. No clubbing or cyanosis. No cords, erythema, or tenderness NEUROLOGICAL: Cranial nerves II through XII grossly intact. Normal speech, normal gait SKIN: Warm, Dry, normal turgor, no rashes or lesions noted <Sisi Terry - Last Filed: 09/29/17 21:01> Heart Score/ECG Review - ECG Intrepretation Comment:: 09/29/17 21:42 sinus at 82, q waves anterior leads that are age indeterminate, t wave inversions lateral leads, unchanged from prior <Chantel Hall - Last Filed: 09/29/17 23:09> ED Treatment Course - LABORATORY CBC & Chemistry Diagram: 09/29/17 20:27 09/29/17 20:27 <Sisi Terry - Last Filed: 09/29/17 21:01> - LABORATORY CBC & Chemistry Diagram: 09/29/17 20:27 09/29/17 20:27 <Chantel Hall - Last Filed: 09/29/17 23:09> Medical Decision Making - Medical Decision Making 09/29/17 20:21 81yo female with SOB/Cough/LE EDEMA -suspect chf exacerbation vs pna -yellow sputum -currently on radiation therapy for breast ca -recent change in lasix therapy to 40mg qod instead of 20mg daily -cards is Dr. Dubose -rales on exam, no rhonchi -now with O2 requirement -will need admission 09/29/17 23:08 large pleural effusion on R side on xray, cephalizaiton on xray will admit Dr. Bazzi admits to [facility] who is covered by the hospitalist service case discussed with Dr. castaneda who accepts pt to service <Chantel Hall - Last Filed: 09/29/17 23:09> *DC/Admit/Observation/Transfer - Attestations Scribe Attestion: 09/29/17 21:02 Documentation prepared by Sisi Terry, acting as medical officer psychiatry for Chantel Hall DO, MD. <Sisi Terry - Last Filed: 09/29/17 21:01> - Discharge Dispostion Admit: Yes - Attestations Physician Attestion: 09/29/17 23:09 I, Dr. Chantel Hall DO, attest that this document has been prepared under my direction and personally reviewed by me in its entirety. I further attest, that it accurately reflects all work, treatment, procedures and medical decision -making performed by me. <Chantel Hall - Last Filed: 09/29/17 23:09> Diagnosis at time of Disposition: CHF (congestive heart failure), Respiratory distress, Pleural effusion, Edema - Discharge Dispostion Condition at time of disposition: Guarded - Referrals Referrals: William Bazzi MD, MD [Primary Care Provider] -
[2017-09-29 20:08] VITALS: BMI 24.3
[2017-09-29 20:46] LABS: BASO % 0.9 % (0-2.0); HEMATOCRIT 30.5 % (32.4-45.2); HEMOGLOBIN 9.8 GM/dL (10.7-15.3); LYMPH % 5.1 % (8-40); MCH 25.9 pg (25.7-33.7); MCHC 32.3 g/dl (32.0-36.0); MEAN CELL VOLUME 80.3 fl (80-96); MEAN PLT VOLUME 7.3 fl (7.5-11.1); MONO % 4.9 % (3.8-10.2); NEUT % 89.1 % (42.8-82.8); PLATELET COUNT 338 K/MM3 (134-434); RBC 3.79 M/mm3 (3.60-5.2); WHITE BLOOD COUNT 3.3 K/mm3 (4.0-10.0)
[2017-09-29 21:09] LABS: INR 1.24 (0.82-1.09)
[2017-09-29 21:12] LABS: ACTIVATED PTT 26.6 SECONDS (26.9-34.4)
[2017-09-29 21:13] LABS: ALBUMIN 2.3 g/dl (3.4-5.0); ANION GAP 9 (8-16); BILIRUBIN,TOTAL 0.7 mg/dL (0.2-1.0); BLOOD UREA NITROGEN 11 mg/dL (7-18); CALCIUM 7.9 mg/dL (8.5-10.1); CHLORIDE 90 mmol/L (98-107); CO2 30 mmol/L (21-32); CREATININE 0.6 mg/dL (0.55-1.02); GLUCOSE,RANDOM 232 mg/dL (74-106); MAGNESIUM 1.1 mg/dL (1.8-2.4); POTASSIUM 3.9 mmol/L (3.5-5.1); SGOT/AST 12 U/L (15-37); SGPT/ALT 13 U/L (12-78); SODIUM 129 mmol/L (136-145); TOT PROT 5.7 g/dl (6.4-8.2)
[2017-09-29 21:14] LABS: ARTERIAL BLD GAS O2 SATURATION 94.9 % (90-98.9); ARTERIAL BLOOD GAS BASE EXCESS 6.1 meq/l (-2-2); ARTERIAL BLOOD GAS PCO2 43.5 mmHg (35-45); ARTERIAL BLOOD GAS PO2 73.4 mmHg (68-100); ARTERIAL BLOOD GAS pH 7.46 (7.35-7.45); CARBOXYHEMOGLOBIN 1.7 gm% (0.5-2.0)
[2017-09-29 21:16] LABS: ALK PHOS 127 U/L (45-117)
[2017-09-29 21:17] LABS: ALLENS TEST POSITIVE
[2017-09-29] MEDS ORDERED: FUROSEMIDE 40 MG/4 ML INJECTABLE VIAL IVPUSH ONE (21:39)
[2017-09-29] MEDS ORDERED: FUROSEMIDE 40 MG/4 ML INJECTABLE VIAL ONE (22:12)
[2017-09-29] MEDS ORDERED: MAGNESIUM SULF 50% (8.12 MEQ/2 ML-1 GM VIAL) IVPB ONE (23:09)
--- NOTE | 2017-09-30 | HP ---
Addendum entered and electronically signed by Sera Cheatham, RESIDENT 09/30/17 01 :14: Added: #Hypomagnesemia -F/u Mg level tomorrow Original Note: <Sera Cheatham - Last Filed: 09/30/17 01:13> CHIEF COMPLAINT: SOB, lower extremity edema PCP: HISTORY OF PRESENT ILLNESS: 81 y/o F with PMH CAD s/p CABG, recently dx breast CA (2016) with mets to lung, liver, neck (receives radiation M,T,,,. On Anastrazole), recent admission in July for respiratory distress and pleural effusion, who presents to ED with lower extremity edema and SOB since this past 09/25/17. As per pt , around noon on Wednesday, her daughter looked at her legs and realized they looked incredibly swollen. Pt already noticed during this time that she became increasingly SOB when ambulating four steps. At baseline, pt walks 20 feet before she becomes SOB. Over past wk, pt has gained 9 pounds. She follows with Dr. Frey and she recently changed her lasix regimen of 20mg qd to 20-40- 20mg alternating doses. Pt also endorses productive cough of yellow or white sputum over past 2 weeks (without blood). Denies WONG, fever, chills, chest or abdominal pain, changes in urinary or bowel function, or sick contacts. In ED, pt received one dose of lasix 40mg IVP. ER course was notable for: (1) leukopenia 3.3 (2) Na 129 (3) BNP ~07923 (4) CXR: R effusion (5) Admin of 1 dose lasix 40mg IVP (6) received Mg 2gm IVPB - had Mg level 1.1 Recent Travel: none PAST MEDICAL HISTORY: IDDM, HTN, HLD, CAD/ GA (s/p CABG), recently dx Breast CA with mets to lung, liver, neck (receives radiation M, T, W, , Wed. On anastrazole), recent admission in July for resp distress and pleural effusion, gluteal pressure ulcers x 2 PAST SURGICAL HISTORY: D&C, tonsillectomy, CABG Social History: Smoking: denies Alcohol: denies Drugs: denies Family History: mother - CHF, brothers- lung cancer x 2 (both smokers), sister- breast CA, lung CA Allergies Penicillins Adverse Reaction (Mild, Verified 09/29/17 20:04) Rash HOME MEDICATIONS: Home Medications Medication Instructions Recorded Aspirin [ASA -] 81 mg PO DAILY #0 tab.chew 06/29/12 Metformin HCl [Metformin HCl ER] 500 mg PO BID 07/17/17 Atorvastatin Ca [Lipitor] 40 mg PO HS tablet 07/21/17 Carvedilol [Coreg -] 12.5 mg PO BID tablet 07/21/17 Lisinopril [Prinivil] 40 mg PO DAILY tablet 07/21/17 Anastrozole [Arimidex -] 1 mg PO DAILY 09/29/17 Furosemide [Lasix -] 40 mg PO DAILY 09/29/17 REVIEW OF SYSTEMS CONSTITUTIONAL: +weight gain Absent: fever, chills, diaphoresis, generalized weakness, malaise, loss of appetite, weight change HEENT: Absent: rhinorrhea, nasal congestion, throat pain, throat swelling, difficulty swallowing, mouth swelling, ear pain, eye pain, visual changes CARDIOVASCULAR: Absent: chest pain, syncope, palpitations, irregular heart rate, lightheadedness , peripheral edema RESPIRATORY: +SOB, intermittent cough, dyspnea with exertion Absent: cough, shortness of breath, dyspnea with exertion, orthopnea, wheezing, stridor, hemoptysis GASTROINTESTINAL: Absent: abdominal pain, abdominal distension, nausea, vomiting, diarrhea, constipation, melena, hematochezia GENITOURINARY: Absent: dysuria, frequency, urgency, hesitancy, hematuria, flank pain, genital pain MUSCULOSKELETAL: Absent: myalgia, arthralgia, joint swelling, back pain, neck pain SKIN: Absent: rash, itching, pallor HEMATOLOGIC/IMMUNOLOGIC: Absent: easy bleeding, easy bruising, lymphadenopathy, frequent infections ENDOCRINE: Absent: unexplained weight gain, unexplained weight loss, heat intolerance, cold intolerance NEUROLOGIC: Absent: headache, focal weakness or paresthesias, dizziness, unsteady gait, seizure, mental status changes, bladder or bowel incontinence PSYCHIATRIC: Absent: anxiety, depression, suicidal or homicidal ideation, hallucinations. PHYSICAL EXAMINATION Vital Signs - 24 hr 09/29/17 09/29/17 20:05 22:19 Temperature 98.8 F Pulse Rate 80 Respiratory 20 Rate Blood Pressure 127/61 Blood Pressure 121/53 [Right Arm] O2 Sat by Pulse 93 L Oximetry (%) GENERAL: Sitting up in bed, on NC 02, awake, alert, and fully oriented, in no acute distress. HEAD: Normal with no signs of trauma. EYES: Pupils equal, round and reactive to light, extraocular movements intact, sclera anicteric, conjunctiva clear. EARS, NOSE, THROAT: Ears normal, nares patent, oropharynx clear without exudates. Moist mucous membranes. NECK: Normal range of motion, supple without lymphadenopathy, JVD. R sided induration on neck - fibrotic LUNGS: rales appreciated b/l. No wheezes, and no crackles. No accessory muscle use. HEART: Regular rate and rhythm, normal S1 and S2 without murmur, rub or gallop. ABDOMEN: Soft, nontender, not distended, normoactive bowel sounds, no guarding LOWER EXTREMITIES: 2+ posterior tibial pulses, 3+ pitting edema b/l NEUROLOGICAL: Cranial nerves II-XII intact. Laboratory Results 09/29/17 09/29/17 09/29/17 20:27 20:27 20:27 WBC 3.3 L D Hgb 9.8 L Hct 30.5 L Plt Count 338 D Neutrophils % 89.1 H D ABG O2 Sat (Measured) Sodium 129 L Potassium 3.9 Chloride 90 L Carbon Dioxide 30 BUN 11 Creatinine 0.6 Random Glucose 232 H Calcium 7.9 L AST 12 L ALT 13 Alkaline Phosphatase 127 H B-Natriuretic Peptide 3937.42 H 09/29/17 21:00 Hct Neutrophils % Puncture Site Right radial ABG pH 7.46 H ABG pCO2 at Pt Temp 43.5 ABG pO2 at Pt Temp 73.4 ABG HCO3 30.2 H ABG O2 Sat (Measured) 94.9 BUN AST Microbiology -Blood cx: pending Radio -CXR: cardiomegaly, cephalization of vessels, R sided pleural effusion (my read) ASSESSMENT/PLAN: 81 y/o F with PMH CAD s/p CABG, recently dx breast CA (2016) with mets to lung, liver, neck (receives radiation M,T,W,Th,Fr. On Anastrazole), recent admission in July for respiratory distress and pleural effusion, who presents to ED with lower extremity edema and SOB since this past 09/25/17. Pt being admitted for SOB 2/2 malignant pleural effusion or CHF exacerbation /RHF #SOB 2/2 malignant pleural effusion and possible CHF exacerbation/ RHF -IR consult - Dr. Mckinney for therapeutic thoracentesis -Pulm consult- Dr. Barber -BNP ~39,000 -received 40mg IVP lasix in ED -starting on lasix 40mg IVP BID -strict I's and O's -daily weights -02, nebulizer tx #Metastatic Breast CA (on radiation) -leukopenia 3.3 -continue Anastrazole 1mg PO qd -Heme-onc consult- Dr. Frey #gluteal pressure ulcers -wound care consult -turn and position #CAD s/p CABG -Continue aspirin 81 mg PO qd #HTN- currently controlled -Continue home meds coreg 12.5 PO BID, prinivil 40mg PO qd #HLD -Continue Lipitor 40mg PO qd #IDDM -Hold metformin 500 mg PO BID -ISS -BGM #F/E/N -avoid fluid overload -monitor electrolytes - especially Na. Has hx hyponatremia -sodium controlled diet #Disposition telemetry monitoring Visit type - Emergency Visit Emergency Visit: Yes ED Registration Date: 09/29/17 Care time: The patient presented to the Emergency Department on the above date and was hospitalized for further evaluation of their emergent condition. - New Patient This patient is new to me today: Yes Date on this admission: 09/30/17 - Critical Care Critical Care patient: No <DanielCarlee - Last Filed: 09/30/17 01:48> ATTENDING PHYSICIAN STATEMENT I saw and evaluated the patient. I reviewed the resident's note and discussed the case with the resident. I agree with the resident's findings and plan as documented. HISTORY OF PRESENT ILLNESS: 81 year old female with history of metastatic breast cancer complicated by recurrent malignant pleural effusion that presents c/o worsening leg edema and sob No fevers . S/p recent XRT to r chest wall On oral chemo PHYSICAL EXAMINATION Vital Signs - 24 hr 09/29/17 09/29/17 09/30/17 20:05 22:19 01:14 Temperature 98.8 F Pulse Rate 80 Respiratory 20 Rate Blood Pressure 127/61 Blood Pressure 121/53 109/54 [Right Arm] O2 Sat by Pulse 93 L Oximetry (%) GENERAL: Awake, alert, and fully oriented, in no acute distress. HEAD: Normal with no signs of trauma. NECK: Normal range of motion,R chest wall and neck XRT skin scarring and erythema LUNGS:decreased air entry R LL, left basilar rales HEART: Regular rate and rhythm, normal S1 and S2 without murmur, rub or gallop. ABDOMEN: Soft, nontender, not distended, normoactive bowel sounds, no guarding, no rebound, no masses. No hepatomegaly or splenomegaly. MUSCULOSKELETAL: Normal range of motion at all joints. No bony deformities or tenderness. No CVA tenderness. UPPER EXTREMITIES: 2+ pulses, warm, well-perfused. No cyanosis. No clubbing. No peripheral edema. LOWER EXTREMITIES: 2+ pulses, warm, well-perfused. 3 plus edema Agree with assessment and plan above . Discussed with patients daughter
[2017-09-30 01:54] LABS: URINE APPEARANCE CLEAR; URINE BILIRUBIN NEGATIVE (NEGATIVE); URINE BLOOD NEGATIVE (NEGATIVE); URINE COLOR LTYELLOW; URINE GLUCOSE (UA) 2+ (NEGATIVE); URINE KETONE NEGATIVE (NEGATIVE); URINE LEUK ESTERASE NEGATIVE (NEGATIVE); URINE NITRITE NEGATIVE (NEGATIVE); URINE PROTEIN NEGATIVE (NEGATIVE); URINE UROBILINOGEN 4.0 E.U/dl mg/dL (0.2-1.0)
[2017-09-30] MEDS: FUROSEMIDE 40 MG/4 ML INJECTABLE VIAL IVPUSH SCH ×3 (02:00→12:59)
[2017-09-30] MEDS: HEPARIN NA (PORCINE) 5,000 UNITS/ML 1ML VIAL SQ SCH ×3 (03:18→22:05)
[2017-09-30] MEDS: INSULIN SLIDING SCALE (NOVOLOG) 1 VIAL SQ SCH ×4 (06:30→22:06)
[2017-09-30 06:37] LABS: BASO % 0.6 % (0-2.0); EOS % 0.2 % (0-4.5); HEMATOCRIT 27.7 % (32.4-45.2); HEMOGLOBIN 8.8 GM/dL (10.7-15.3); LYMPH % 9.5 % (8-40); MCH 25.5 pg (25.7-33.7); MCHC 31.7 g/dl (32.0-36.0); MEAN CELL VOLUME 80.5 fl (80-96); MEAN PLT VOLUME 7.6 fl (7.5-11.1); MONO % 8.2 % (3.8-10.2); NEUT % 81.5 % (42.8-82.8); PLATELET COUNT 313 K/MM3 (134-434); RBC 3.44 M/mm3 (3.60-5.2); WHITE BLOOD COUNT 3.4 K/mm3 (4.0-10.0)
[2017-09-30] MEDS ORDERED: metFORMIN HCL 500 MG TABLET (FP) PO SCH (07:00)
[2017-09-30 07:04] LABS: ANION GAP 9 (8-16); BLOOD UREA NITROGEN 8 mg/dL (7-18); CALCIUM 7.5 mg/dL (8.5-10.1); CHLORIDE 92 mmol/L (98-107); CO2 32 mmol/L (21-32); GLUCOSE,RANDOM 193 mg/dL (74-106); MAGNESIUM 1.6 mg/dL (1.8-2.4); POTASSIUM 3.2 mmol/L (3.5-5.1); SODIUM 133 mmol/L (136-145)
[2017-09-30 07:05] LABS: CREATININE 0.5 mg/dL (0.55-1.02)
--- NOTE | 2017-09-30 08:58 | PN ---
Progress Note, Physician - Current Medication List Current Medications: Active Medications Anastrozole (Arimidex -) 1 mg PO DAILY URSZULA Aspirin (Asa -) 81 mg PO DAILY URSZULA Atorvastatin Calcium (Lipitor -) 40 mg PO HS URSZULA Carvedilol (Coreg -) 12.5 mg PO BID URSZULA Furosemide (Lasix Injection -) 40 mg IVPUSH BIDLASIX URSZULA Last Admin: 09/30/17 02:00 Dose: 40 mg Heparin Sodium (Porcine) (Heparin -) 5,000 unit SQ BID URSZULA Last Admin: 09/30/17 03:18 Dose: 5,000 unit Insulin Aspart (Novolog Vial Sliding Scale -) 1 vial SQ ACHS URSZULA PRN Reason: Protocol Last Admin: 09/30/17 06:30 Dose: 4 units Lisinopril (Prinivil) 40 mg PO DAILY [facility] - Objective Vital Signs: Vital Signs Temperature 98.6 F 09/30/17 07:08 Pulse Rate 81 09/30/17 08:53 Respiratory Rate 24 09/30/17 08:53 Blood Pressure 99/57 09/30/17 08:53 O2 Sat by Pulse Oximetry (%) 98 09/30/17 08:50 Labs: CBC, BMP 09/30/17 05:05 09/30/17 05:05 INR, PTT INR 1.24 (0.82-1.09) H 09/29/17 20:27 Problem List - Problems (1) Malignant pleural effusion Assessment/Plan: -IR consult - Dr. Mckinney for therapeutic thoracentesis -Pulm consult- -BNP ~39,000 -received 40mg IVP lasix in ED -on lasix 40mg IVP BID -strict I's and O's -daily weights -02, nebulizer tx Code(s): J91.0 - MALIGNANT PLEURAL EFFUSION (2) CHF (congestive heart failure) Assessment/Plan: as above Code(s): I50.9 - HEART FAILURE, UNSPECIFIED Qualifiers: (3) Breast cancer Assessment/Plan: per oncology Code(s): C50.919 - MALIGNANT NEOPLASM OF UNSP SITE OF UNSPECIFIED FEMALE BREAST
--- NOTE | 2017-09-30 09:02 | PN ---
Progress Note (short form) - Note Progress Note: Patient seen and examined. Metastatic breast cancer on hormonal therapy. Paliative RT for neck LAD. Admitted for LE edema and SOB. Today, she feels better, improved with IV diuresis. O/E: NAD NCAT Decreased size of the neck mass. Decreased rt breath sounds +2+ edema LE. Temp Pulse Resp BP Pulse Ox 98.6 F 81 24 99/57 98 09/30/17 07:08 09/30/17 08:53 09/30/17 08:53 09/30/17 08:53 09/30/17 08:50 CBC, BMP 09/30/17 05:05 09/30/17 05:05 Current Medications Generic Name Dose Route Start Last Admin Trade Name Freq PRN Reason Stop Dose Admin Anastrozole 1 mg 09/30/17 10:00 Arimidex - PO DAILY URSZULA Aspirin 81 mg 09/30/17 10:00 Asa - PO DAILY URSZULA Atorvastatin Calcium 40 mg 09/30/17 22:00 Lipitor - PO HS URSZULA Carvedilol 12.5 mg 09/30/17 10:00 Coreg - PO BID URSZULA Furosemide 40 mg 09/30/17 01:00 09/30/17 02:00 Lasix Injection - IVPUSH 40 mg BIDLASIX URSZULA Administration Heparin Sodium (Porcine) 5,000 unit 09/30/17 01:15 09/30/17 03:18 Heparin - SQ 5,000 unit BID URSZULA Administration Insulin Aspart 1 vial 09/30/17 07:00 09/30/17 06:30 Novolog Vial Sliding Scale - SQ 4 units ACHS URSZULA Administration Protocol Lisinopril 40 mg 09/30/17 10:00 Prinivil PO DAILY URSZULA CT c/a/p pending CT chest results, consideration for aspira. IR consult IV diuresis ( increased an an OP lasix 40mg every other day , alternating to 20 last week). c/w Arimedex undergoing palliative RT to the neck mass refused chemotherapy HypoK, repletion d/w ISABELLE
[2017-09-30] MEDS ORDERED: PT OWN MED DRAWER 7, Y5N ONE ×2 (09:44)
[2017-09-30 09:52] LABS: BASO % 0.8 % (0-2.0); EOS % 0.1 % (0-4.5); HEMATOCRIT 29.8 % (32.4-45.2); HEMOGLOBIN 9.5 GM/dL (10.7-15.3); LYMPH % 7.2 % (8-40); MCH 25.7 pg (25.7-33.7); MCHC 31.8 g/dl (32.0-36.0); MEAN CELL VOLUME 80.7 fl (80-96); MEAN PLT VOLUME 6.9 fl (7.5-11.1); MONO % 6.7 % (3.8-10.2); NEUT % 85.2 % (42.8-82.8); PLATELET COUNT 315 K/MM3 (134-434); RBC 3.69 M/mm3 (3.60-5.2); WHITE BLOOD COUNT 4.2 K/mm3 (4.0-10.0)
[2017-09-30] MEDS ORDERED: FUROSEMIDE 40 MG TABLET (FP) PO SCH (10:00)
[2017-09-30] MEDS: CARVEDILOL 12.5 MG TABLET (FP) PO SCH ×2 (10:03→22:05)
[2017-09-30] MEDS: ASPIRIN 81 MG CHEWABLE TABLETS PO SCH (10:03)
[2017-09-30] MEDS: LISINOPRIL 20 MG TABLET (FP) PO SCH (10:03)
[2017-09-30] MEDS: ANASTROZOLE 1 MG TABLET PO SCH (10:04)
[2017-09-30] MEDS: POTASSIUM CHLORIDE TABS 20 MEQ TABLET.ER (FP) PO SCH (10:09)
[2017-09-30 10:25] LABS: ALBUMIN 2.2 g/dl (3.4-5.0); ANION GAP 6 (8-16); BLOOD UREA NITROGEN 8 mg/dL (7-18); CALCIUM 7.8 mg/dL (8.5-10.1); CHLORIDE 91 mmol/L (98-107); CO2 35 mmol/L (21-32); GLUCOSE,RANDOM 157 mg/dL (74-106); POTASSIUM 3.4 mmol/L (3.5-5.1); SGOT/AST 15 U/L (15-37); SODIUM 132 mmol/L (136-145)
[2017-09-30 10:49] LABS: ALK PHOS 114 U/L (45-117); BILIRUBIN,TOTAL 0.5 mg/dL (0.2-1.0); CREATININE 0.6 mg/dL (0.55-1.02); SGPT/ALT 15 U/L (12-78); TOT PROT 5.5 g/dl (6.4-8.2)
--- NOTE | 2017-09-30 11:18 | PN ---
Progress Note (short form) - Note Progress Note: ID Consult dictated 81 y/o female with PMH metastatic breast ca, malignant R pleural effusion admitted with worsening dyspnea, bilateral LE edema. Noted to have leukopenia. No fever/ chills Metastatic breast ca Malignant pleural effusion For theraputic thoracentesis Observe off antibiotics
[2017-09-30] MEDS: POTASSIUM CHLORIDE 10 MEQ in SODIUM CHLORIDE 100 ML IVPB SCH ×2 (11:50→12:51)
--- NOTE | 2017-09-30 12:35 | EKG ---
Test Reason : Blood Pressure : / mmHG Vent. Rate : 082 BPM Atrial Rate : 082 BPM P-R Int : 162 ms QRS Dur : 118 ms QT Int : 404 ms P-R-T Axes : 056 -13 131 degrees QTc Int : 472 ms SINUS RHYTHM WITH PREMATURE SUPRAVENTRICULAR COMPLEXES ANTERIOR INFARCT (CITED ON OR BEFORE 23-JUL-2017) ABNORMAL ECG WHEN COMPARED WITH ECG OF 23-JUL-2017 17:33, PREMATURE SUPRAVENTRICULAR COMPLEXES ARE NOW PRESENT QT HAS LENGTHENED Confirmed by KAREN EMERSON MD ([id number]) on 09/30/2017 12:34:55 PM Referred By: Confirmed By:KAREN EMERSON MD
--- NOTE | 2017-09-30 13:36 | CONS ---
INFECTIOUS DISEASE CONSULTATION DATE OF CONSULTATION: DATE OF DICTATION: 09/20/2017 REASON FOR CONSULTATION: The patient is an 81-year-old female with a history of metastatic breast cancer, evaluated for possible pneumonia. HISTORY OF PRESENT ILLNESS: The patient was admitted to the hospital on September 29, 2017, with complaints of increasing shortness of breath and lower extremity edema for several days. A chest x-ray shows a right pleural effusion. Her course was notable for leukopenia. At the present time, the patient is awake and alert. She complains of some shortness of breath at rest. She has an occasional cough productive of whitish sputum. She denies any chest pain or hemoptysis. No fever or chills. She has been afebrile during this admission. Blood cultures preliminarily are negative. She denies any chest pain, purulent sputum production, or hemoptysis. No complaints of vomiting or diarrhea, dysuria, or hematuria. PAST MEDICAL HISTORY: Positive for breast CA with metastases to the lung, liver, and neck; diabetes mellitus; hypertension; hyperlipidemia; coronary artery disease status post myocardial infarction. PAST SURGICAL HISTORY: Status post coronary artery bypass graft in 2017. ALLERGIES: PENICILLIN (rash). MEDICATIONS: Aspirin, metformin, Lipitor, Coreg, lisinopril, Lasix, Arimidex. SOCIAL HISTORY: She lives at home with family members. She is a nonsmoker, nondrinker. SYSTEMS REVIEW: Neurologic: No loss of consciousness, seizure activity, or focal weakness. Cardiac: Negative chest pain or palpitations. Respiratory: As per HPI. Gastrointestinal: Negative vomiting or diarrhea. Genitourinary: Negative for urinary tract infection. LABORATORY DATA: White count 4.2, hematocrit 29.8, platelet count 315. BUN 8, creatinine 0.5. Urinalysis was negative leukocyte esterase. Chest x-ray: Right pleural effusion. PHYSICAL EXAMINATION: General: The patient is awake and alert. She is not acutely toxic appearing, in no acute respiratory distress. Vital Signs: Temperature 98.6; blood pressure 99/57; pulse 87, regular; respirations 24 per minute. HEENT: Sclerae are anicteric. Heart: Sounds S1, S2. Lungs: Diminished breath sounds, right base. Abdomen: Obese, soft, nontender. Extremities: Positive for edema. IMPRESSION: An 81-year-old female with a history of metastatic breast cancer, malignant right pleural effusion, now admitted with worsening dyspnea, lower extremity edema, noted to be leukopenic. 1. Metastatic breast cancer. 2. Malignant pleural effusion. 3. Leukopenia. RECOMMENDATIONS: Observe off antibiotic therapy. Await cultures. Therapeutic thoracentesis with fluid for culture and cytology. Will follow. Thank you for the kind referral. MONTY ALVAREZ M.D. [facility]/[id number]
[2017-09-30] MEDS ORDERED: POTASSIUM CHLORIDE TABS 20 MEQ TABLET.ER (FP) PO ONE (17:15)
[2017-09-30] MEDS ORDERED: MAGNESIUM SULF 50% (8.12 MEQ/2 ML-1 GM VIAL) IVPB ONE ×2 (17:15→22:30)
--- NOTE | 2017-09-30 17:32 | CON.CARD ---
Cardiology Consult (text) - Consultation Consultation Note: cc: sob hpi: 81 f hx cad s/p cabg 2005, htn , hld, niddm, breast cancer with mets to l.nodes, bone, likely liver and malignant rt pleural effusion (s/p thora 2016) p/w progressive lower extremity edema, shortness of breath and noted to have recurrent rt pleural effusion (s/p thora 09/30). Sx's since Monday 09/25. + cough productive of yellow sputum. Oncologist recently increased lasix from 20 mg daily to 40 mg QOD alternating with 20 mg QOD. s/p thoracentesis here. s/p 40 mg IV lasix last night and BID today. s/p lyte repletion. No cp, palps, dizzy, loc, pnd, orthopnea Sees dr fong for cardio. pmh: per hpi psh: cabg social: no tob fam: no premature cad ros: per hpi; no f/c/s, nvd, tavarez, vision changes, rashes, bleeding, abdominal pain. meds: Ambulatory Orders Aspirin [ASA -] 81 mg PO DAILY #0 tab.chew 06/29/12 Metformin HCl [Metformin HCl ER] 500 mg PO BID 07/17/17 Atorvastatin Ca [Lipitor] 40 mg PO HS tablet 07/21/17 Carvedilol [Coreg -] 12.5 mg PO BID tablet 07/21/17 Lisinopril [Prinivil] 40 mg PO DAILY tablet 07/21/17 Anastrozole [Arimidex -] 1 mg PO DAILY 09/29/17 Furosemide [Lasix -] 40 mg PO DAILY 09/29/17 Current Medications Anastrozole (Arimidex -) 1 mg PO DAILY COUNTS [facility]CLUDE 234 BEDS AT [facility] Last Admin: 09/30/17 10:04 Dose: Not Given Aspirin (Asa -) 81 mg PO DAILY COUNTS INCLUDE 234 BEDS AT THE [facility] Last Admin: 09/30/17 10:03 Dose: 81 mg Atorvastatin Calcium (Lipitor -) 40 mg PO HS COUNTS INCLUDE 234 BEDS AT THE [facility] Carvedilol (Coreg -) 12.5 mg PO BID COUNTS INCLUDE 234 BEDS AT THE [facility] Last Admin: 09/30/17 10:03 Dose: 12.5 mg Furosemide (Lasix Injection -) 40 mg IVPUSH BIDLASIX COUNTS INCLUDE 234 BEDS AT THE [facility] Last Admin: 09/30/17 12:59 Dose: 40 mg Heparin Sodium (Porcine) (Heparin -) 5,000 unit SQ BID COUNTS INCLUDE 234 BEDS AT THE [facility] Last Admin: 09/30/17 10:04 Dose: 5,000 unit Insulin Aspart (Novolog Vial Sliding Scale -) 1 vial SQ ACHS COUNTS INCLUDE 234 BEDS AT THE [facility] PRN Reason: Protocol Last Admin: 09/30/17 11:15 Dose: Not Given Lisinopril (Prinivil) 40 mg PO DAILY COUNTS INCLUDE 234 BEDS AT THE [facility] Last Admin: 09/30/17 10:03 Dose: 40 mg Potassium Chloride (K-Dur -) 20 meq PO DAILY COUNTS INCLUDE 234 BEDS AT THE [facility] Last Admin: 09/30/17 10:09 Dose: 20 meq pe: Vital Signs - 24 hr 09/30/17 09/30/17 09/30/17 01:14 02:02 02:59 Temperature 98.6 F Pulse Rate 80 Pulse Rate [ 70 Radial] Respiratory 24 Rate Blood Pressure 120/54 Blood Pressure 109/54 106/53 [Right Arm] O2 Sat by Pulse 97 Oximetry (%) 09/30/17 09/30/17 09/30/17 07:08 07:43 08:53 Temperature 98.6 F Pulse Rate 78 81 Pulse Rate [ Radial] Respiratory 18 18 24 Rate Blood Pressure 120/54 99/57 Blood Pressure [Right Arm] O2 Sat by Pulse 97 Oximetry (%) 09/30/17 09/30/17 09/30/17 09:00 09:30 18:00 Temperature Pulse Rate 69 94 H Pulse Rate [ Radial] Respiratory 18 17 Rate Blood Pressure 120/54 Blood Pressure [Right Arm] O2 Sat by Pulse 98 94 L Oximetry (%) Intake & Output 09/28/17 09/29/17 09/30/17 10/01/17 07:59 07:59 07:59 07:59 Intake Total 480 Output Total 600 1200 Balance -600 -720 Weight 193 lb 6.4 oz nad calm jvd flat, neck supple rrr s1s2 2/6 sys murmur at lsb/apex bibasilar dullness, nl effort + bs. soft, nt nd no hsm 1-2+ soft le edema, no c/c pos dp pt, no carotid bruit no jaundice diaphoresis aaox3 CBC, BMP 09/30/17 09:30 09/30/17 09:30 Laboratory Tests 07/17/17 09/29/17 09/29/17 09:01 20:27 20:27 INR 1.24 H ABG pH ABG pCO2 at Pt Temp ABG pO2 at Pt Temp ABG HCO3 ABG O2 Sat (Measured) Magnesium 1.1 L Total Bilirubin AST ALT Alkaline Phosphatase B-Natriuretic Peptide 1353.50 H Albumin 09/29/17 09/29/17 09/30/17 20:27 21:00 05:05 INR ABG pH 7.46 H ABG pCO2 at Pt Temp 43.5 ABG pO2 at Pt Temp 73.4 ABG HCO3 30.2 H ABG O2 Sat (Measured) 94.9 Magnesium 1.6 L Total Bilirubin AST ALT Alkaline Phosphatase B-Natriuretic Peptide 3937.42 H Albumin 09/30/17 09:30 INR ABG pH ABG pCO2 at Pt Temp ABG pO2 at Pt Temp ABG HCO3 ABG O2 Sat (Measured) Magnesium Total Bilirubin 0.5 D AST 15 ALT 15 Alkaline Phosphatase 114 B-Natriuretic Peptide Albumin 2.2 L 09/29/17 20:27 Creatine Kinase 52 Troponin I 0.03 ekg: SR with pac's, IVCD, poor r wave progression. anterolateral twi. similar to priors. tele: sr with frequent runs of svt chest ct: images and report reviewed. interstitial edema. bilateral pl effusion with compressive atelectasis. large on rt, small on left. cardiomegaly. calc cors. Diffuse subcutaneous edema/anasarca. mets to l. nodes, bone, likely liver. rt breast mass. echo 10/2016: nl lvef, inf/inflat/infseptal HK, nl rv, mild mr carotid us 10/2016: 60-79% bl ICA stenosis, chronic LE dopplers 07/2017: no dvt. 81 f hx cad s/p cabg 2005, htn , hld, niddm, breast cancer with mets to l.nodes, bone, likely liver and malignant rt pleural effusion (s/p thora 2016) p/w progressive lower extremity edema, shortness of breath and noted to have recurrent rt pleural effusion (s/p thora 09/30). sob: - multifactorial. likely contribution from recurrent pleural effusion (s/p thora 09/30), but also with diastolic HF exacerbation (see mgm't below). - pulm/id/onc following. diastolic HF exacerbation - anasarca and signs of pulmonary edema on exam and chest ct. May have contribution from third spacing due to low albumin, but likely also with acute diastolic HF exacerbation. Will repeat echo to r/o change in systolic function. - hyponatremia improving with current lasix regimen. con't diuresis with 40 mg IV bid. aggressive lyte repletion. - frequent runs of SVT on tele. lyte repletion. monitor for sustained episodes. con't coreg - daily standing weights. i/o's. bmp, mg cad s/p cabg/HL - prior echo with inferior wall motion abnormalities with preserved EF. Had declined stress testing in past, per dr. fong. - no anginal sx's. EKG unchanged from priors. troponin neg x 1 yesterday. Will add on level to this morning's labs. - con't OMT with asa, statin, bb, yared HTN - bp running low normal s/p thora. monitor on home lisinopril, coreg carotid atherosclerosis - stable velocities on u/s per office notes. Per report has previously declined further evaluation with cta or surgical eval. - con't asa, statin
[2017-09-30 19:37] LABS: GLUCOSE,PLEURAL FLUID 166.647; TOTAL PROTEIN,PLEURAL FLUID 2.588
[2017-09-30 20:56] LABS: PLEURAL FLUID APPEARANCE CLEAR; PLEURAL FLUID COLOR YELLOW
[2017-09-30 20:57] LABS: PLEURAL FLUID LYMPHOCYTES 48 %; PLEURAL FLUID MACROPHAGES 15 %; PLEURAL FLUID MESOTHELIAL 6 %; PLEURAL FLUID MONOCYTE 29 %; PLEURAL FLUID NEUTROPHIL 2 %; PLEURAL FLUID RBC 418 /mm3
[2017-09-30] MEDS: ATORVASTATIN CA 40 MG TABLET (FP) PO SCH (22:05)
[2017-09-30] MEDS ORDERED: MAGNESIUM SULF 50% (8.12 MEQ/2 ML-1 GM VIAL) ONE (22:18)
[2017-10-01] MEDS: INSULIN SLIDING SCALE (NOVOLOG) 1 VIAL SQ SCH ×4 (06:06→21:18)
[2017-10-01] MEDS: FUROSEMIDE 40 MG/4 ML INJECTABLE VIAL IVPUSH SCH ×2 (06:07→13:43)
[2017-10-01 07:00] LABS: ANION GAP 6 (8-16); BLOOD UREA NITROGEN 8 mg/dL (7-18); CALCIUM 7.2 mg/dL (8.5-10.1); CHLORIDE 93 mmol/L (98-107); CO2 33 mmol/L (21-32); CREATININE 0.5 mg/dL (0.55-1.02); GLUCOSE,RANDOM 101 mg/dL (74-106); MAGNESIUM 1.9 mg/dL (1.8-2.4); POTASSIUM 3.8 mmol/L (3.5-5.1); SODIUM 132 mmol/L (136-145)
[2017-10-01] MEDS ORDERED: PT OWN MED DRAWER 7, Y5N ONE (09:21)
[2017-10-01] MEDS: HEPARIN NA (PORCINE) 5,000 UNITS/ML 1ML VIAL SQ SCH ×2 (09:59→21:17)
[2017-10-01] MEDS: POTASSIUM CHLORIDE TABS 20 MEQ TABLET.ER (FP) PO SCH (10:00)
[2017-10-01] MEDS: ASPIRIN 81 MG CHEWABLE TABLETS PO SCH (10:00)
[2017-10-01] MEDS: ANASTROZOLE 1 MG TABLET PO SCH (10:01)
[2017-10-01] MEDS: LISINOPRIL 20 MG TABLET (FP) PO SCH (10:19)
[2017-10-01] MEDS: CARVEDILOL 12.5 MG TABLET (FP) PO SCH ×2 (10:19→21:18)
--- NOTE | 2017-10-01 11:19 | PN ---
Progress Note (short form) - Note Progress Note: s: sob and le edema present but a little better today. no cp palps dizzy o: Vital Signs Period Temp Pulse Resp BP Sys/Moreno Pulse Ox Last 24 Hr 98.1 F-99.8 F 65-94 17-22 96-120/40-54 95-97 nad calm jvd flat, neck supple rrr s1s2 2/6 sys murmur at lsb/apex bibasilar dullness, nl effort + bs. soft, nt nd no hsm 1+ le edema, no c/c no jaundice diaphoresis aaox3 Current Medications Generic Name Dose Route Start Last Admin Trade Name Freq PRN Reason Stop Dose Admin Anastrozole 1 mg 09/30/17 10:00 10/01/17 10:01 Arimidex - PO 1 mg DAILY URSZULA Administration Aspirin 81 mg 09/30/17 10:00 10/01/17 10:00 Asa - PO 81 mg DAILY URSZULA Administration Atorvastatin Calcium 40 mg 09/30/17 22:00 09/30/17 22:05 Lipitor - PO 40 mg HS URSZULA Administration Carvedilol 12.5 mg 09/30/17 10:00 10/01/17 10:19 Coreg - PO Not Given BID URSZULA Furosemide 40 mg 09/30/17 01:00 10/01/17 06:07 Lasix Injection - IVPUSH 40 mg BIDLASIX URSZULA Administration Heparin Sodium (Porcine) 5,000 unit 09/30/17 01:15 10/01/17 09:59 Heparin - SQ 5,000 unit BID URSZULA Administration Insulin Aspart 1 vial 09/30/17 07:00 10/01/17 06:06 Novolog Vial Sliding Scale - SQ Not Given ACHS [facility] Protocol Lisinopril 40 mg 09/30/17 10:00 10/01/17 10:19 Prinivil PO Not Given DAILY URSZULA Potassium Chloride 20 meq 09/30/17 10:00 10/01/17 10:00 K-Dur - PO 20 meq DAILY URSZULA Administration CBC, BMP 09/30/17 09:30 10/01/17 06:00 ekg: SR with pac's, IVCD, poor r wave progression. anterolateral twi. similar to priors. tele: sr, occ pvcs, brief atrial run chest ct: images and report reviewed. interstitial edema. bilateral pl effusion with compressive atelectasis. large on rt, small on left. cardiomegaly. calc cors. Diffuse subcutaneous edema/anasarca. mets to l. nodes, bone, likely liver. rt breast mass. echo 10/2016: nl lvef, inf/inflat/infseptal HK, nl rv, mild mr carotid us 10/2016: 60-79% bl ICA stenosis, chronic LE dopplers 07/2017: no dvt. a/p: 81 f hx cad s/p cabg 2005, htn , hld, niddm, breast cancer with mets to l.nodes, bone, likely liver and malignant rt pleural effusion (s/p thora 2016) p/w progressive lower extremity edema, shortness of breath and noted to have recurrent rt pleural effusion (s/p thora 09/30). sob: - multifactorial. likely contribution from recurrent pleural effusion (s/p thora 09/30), but also with diastolic HF exacerbation (see mgm't below). - s/p thoracentesis 09/30 - pulm/id/onc following. diastolic HF exacerbation - anasarca and signs of pulmonary edema on exam and chest ct. May have contribution from third spacing due to low albumin, but likely also with acute diastolic HF exacerbation. Will repeat echo to r/o change in systolic function. - con't diuresis with 40 mg IV bid. - daily standing weights. i/o's. bmp, mg cad s/p cabg/HL - prior echo with inferior wall motion abnormalities with preserved EF. Had declined stress testing in past, per dr. fong. - no anginal sx's. EKG unchanged from priors. troponin neg x 2 - con't OMT with asa, statin, bb, yared HTN - monitor on home lisinopril, coreg carotid atherosclerosis - stable velocities on u/s per office notes. Per report has previously declined further evaluation with cta or surgical eval. - con't asa, statin
--- NOTE | 2017-10-01 13:44 | CON.PULM ---
Consult Consult Specialty:: PULM/CCM Referred by:: FÉLIX Reason for Consultation:: SOB - History of Present Illness Chief Complaint: SOB History of Present Illness: 81 F, CAD s/p CABG, recently dx breast CA (2016) with mets to lung, liver, neck (receives radiation M,T,W,Th,Fr. On Anastrazole). Recent admission in July for respiratory distress and pleural effusion. Now reports PRIDE and increased LE. Does report recent change in Lasix dose. No sick contacts or travel history. CT : Large right pleural effusion. - History Source History Provided By: Patient Limitations to Obtaining History: No Limitations - Past Medical History Cardio/Vascular: Yes: CHF, HTN, Hyperlipdemia Pulmonary: Yes: COPD Endocrine: Yes: Diabetes Insipidus - Alcohol/Substance Use Hx Alcohol Use: No - Smoking History Smoking history: Never smoked Have you smoked in the past 12 months: No Aproximately how many cigarettes per day: 0 Home Medications - Allergies Allergies/Adverse Reactions: Allergies Allergy/AdvReac Type Severity Reaction Status Date / Time Penicillins AdvReac Mild Rash Verified 09/29/17 20:04 - Home Medications Home Medications: Ambulatory Orders Aspirin [ASA -] 81 mg PO DAILY #0 tab.chew 06/29/12 Metformin HCl [Metformin HCl ER] 500 mg PO BID 07/17/17 Atorvastatin Ca [Lipitor] 40 mg PO HS tablet 07/21/17 Carvedilol [Coreg -] 12.5 mg PO BID tablet 07/21/17 Lisinopril [Prinivil] 40 mg PO DAILY tablet 07/21/17 Anastrozole [Arimidex -] 1 mg PO DAILY 09/29/17 Furosemide [Lasix -] 40 mg PO DAILY 09/29/17 Review of Systems - Review of Systems Constitutional: reports: Malaise, Weakness. denies: Chills, Fever, Night Sweats Eyes: reports: No Symptoms HENT: reports: No Symptoms Neck: reports: No Symptoms Cardiovascular: reports: Edema, Shortness of Breath. denies: Chest Pain, Palpitations Respiratory: reports: Cough, SOB, SOB on Exertion. denies: Hemoptysis, Snoring , Wheezing Gastrointestinal: reports: No Symptoms Genitourinary: reports: No Symptoms Breasts: reports: No Symptoms Reported Musculoskeletal: reports: No Symptoms Integumentary: reports: No Symptoms Neurological: reports: No Symptoms Endocrine: reports: No Symptoms Hematology/Lymphatic: reports: No Symptoms Psychiatric: reports: No Symptoms Physical Exam Vital Sings: Vital Signs Temperature 98.1 F 10/01/17 08:29 Pulse Rate 76 10/01/17 10:09 Respiratory Rate 21 10/01/17 09:00 Blood Pressure 108/45 10/01/17 10:09 O2 Sat by Pulse Oximetry (%) 97 10/01/17 09:00 Constitutional: Yes: Mild Distress Eyes: Yes: Conjunctiva Clear, EOM Intact HENT: Yes: Atraumatic, Normocephalic Neck: Yes: Supple, Trachea Midline Cardiovascular: Yes: Tachycardia Respiratory: Yes: Cough, Diminished, On Nasal O2, Rales, Rhonchi, SOB, Tachypnea. No: Accessory Muscle Use, Stridor, Wheezes ...Inspection: Yes: Surgical Scar Gastrointestinal: Yes: Normal Bowel Sounds, Soft Renal/: Yes: WNL Musculoskeletal: Yes: WNL Extremities: Yes: WNL Edema: Yes Peripheral Pulses WNL: Yes Integumentary: Yes: WNL Neurological: Yes: WNL, Alert, Oriented ...Motor Strength: WNL Psychiatric: Yes: WNL, Alert, Oriented Labs: CBC, BMP 09/30/17 09:30 10/01/17 06:00 ABG Results ABG pH 7.46 (7.35-7.45) H 09/29/17 21:00 ABG pCO2 at Pt Temp 43.5 mmHg (35-45) 09/29/17 21:00 ABG pO2 at Pt Temp 73.4 mmHg (68-100) 09/29/17 21:00 ABG HCO3 30.2 meq/L (22-26) H 09/29/17 21:00 ABG O2 Sat (Measured) 94.9 % (90-98.9) 09/29/17 21:00 ABG O2 Content 11.6 % vol (15-22) L 09/29/17 21:00 ABG Base Excess 6.1 meq/l (-2-2) H 09/29/17 21:00 Imaging - Results Chest X-ray: Report Reviewed, Image Reviewed Cat Scan: Report Reviewed, Image Reviewed Problem List - Problems (1) CHF (congestive heart failure) Code(s): I50.9 - HEART FAILURE, UNSPECIFIED Qualifiers: (2) Edema Code(s): R60.9 - EDEMA, UNSPECIFIED (3) Pleural effusion Code(s): J90 - PLEURAL EFFUSION, NOT ELSEWHERE CLASSIFIED (4) Respiratory distress Code(s): R06.00 - DYSPNEA, UNSPECIFIED (5) ASHD (arteriosclerotic heart disease) Code(s): I25.10 - ATHSCL HEART DISEASE OF [place] CORONARY ARTERY W/O ANG PCTRS (6) Axillary lymphadenopathy Code(s): R59.0 - LOCALIZED ENLARGED LYMPH NODES (7) Breast cancer Code(s): C50.919 - MALIGNANT NEOPLASM OF UNSP SITE OF UNSPECIFIED FEMALE BREAST (8) Malignant pleural effusion Code(s): J91.0 - MALIGNANT PLEURAL EFFUSION Assessment/Plan Follow Fluid analysis Daily weight Strict I & O O2 as needed to maintain saturation Monitor off ABX VTE prophylaxis with SQ Heparin If fluid is recurrent -> may benefit from a PleureX Will follow Dr Morales
--- NOTE | 2017-10-01 16:37 | PN ---
Progress Note, Physician History of Present Illness: Awake, alert No complaints No c/o cough / sputum / dyspnea No fever/ chills Afebrile WBC improved - Current Medication List Current Medications: Active Medications Anastrozole (Arimidex -) 1 mg PO DAILY [facility] Last Admin: 10/01/17 10:01 Dose: 1 mg Aspirin (Asa -) 81 mg PO DAILY [facility] Last Admin: 10/01/17 10:00 Dose: 81 mg Atorvastatin Calcium (Lipitor -) 40 mg PO HS [facility] Last Admin: 09/30/17 22:05 Dose: 40 mg Carvedilol (Coreg -) 12.5 mg PO BID [facility] Last Admin: 10/01/17 10:19 Dose: Not Given Furosemide (Lasix Injection -) 40 mg IVPUSH BIDLASIX [facility] Last Admin: 10/01/17 13:43 Dose: 40 mg Heparin Sodium (Porcine) (Heparin -) 5,000 unit SQ BID [facility] Last Admin: 10/01/17 09:59 Dose: 5,000 unit Insulin Aspart (Novolog Vial Sliding Scale -) [address] [facility] PRN Reason: Protocol Last Admin: 10/01/17 12:09 Dose: 4 units Lisinopril (Prinivil) 40 mg PO DAILY [facility] Last Admin: 10/01/17 10:19 Dose: Not Given Potassium Chloride (K-Dur -) 20 meq PO DAILY [facility] Last Admin: 10/01/17 10:00 Dose: 20 meq - Objective Vital Signs: Vital Signs Temperature 98.0 F 10/01/17 14:00 Pulse Rate 75 10/01/17 14:00 Respiratory Rate 22 10/01/17 14:00 Blood Pressure 111/56 10/01/17 14:00 O2 Sat by Pulse Oximetry (%) 97 10/01/17 09:00 Constitutional: Yes: No Distress Eyes: Yes: Conjunctiva Clear Cardiovascular: Yes: Regular Rate and Rhythm, S1, S2 Respiratory: Yes: Diminished Gastrointestinal: Yes: Normal Bowel Sounds, Soft. No: Tenderness Edema: Yes Edema: LLE: 1+, RLE: 1+ Labs: CBC, BMP 09/30/17 09:30 10/01/17 06:00 INR, PTT INR 1.24 (0.82-1.09) H 09/29/17 20:27 Assessment/Plan Metastatic breast ca Malignant effusion Leukopenia-improved Cultures no growth Observe off antibiotics
--- NOTE | 2017-10-01 17:08 | PN ---
Progress Note, Physician History of Present Illness: Feels better - Current Medication List Current Medications: Active Medications Anastrozole (Arimidex -) 1 mg PO DAILY [facility] Last Admin: 10/01/17 10:01 Dose: 1 mg Aspirin (Asa -) 81 mg PO DAILY [facility] Last Admin: 10/01/17 10:00 Dose: 81 mg Atorvastatin Calcium (Lipitor -) 40 mg PO HS [facility] Last Admin: 09/30/17 22:05 Dose: 40 mg Carvedilol (Coreg -) 12.5 mg PO BID [facility] Last Admin: 10/01/17 10:19 Dose: Not Given Furosemide (Lasix Injection -) 40 mg IVPUSH BIDLASIX [facility] Last Admin: 10/01/17 13:43 Dose: 40 mg Heparin Sodium (Porcine) (Heparin -) 5,000 unit SQ BID [facility] Last Admin: 10/01/17 09:59 Dose: 5,000 unit Insulin Aspart (Novolog Vial Sliding Scale -) 1 vial SQ ACHS [facility] PRN Reason: Protocol Last Admin: 10/01/17 12:09 Dose: 4 units Lisinopril (Prinivil) 40 mg PO DAILY [facility] Last Admin: 10/01/17 10:19 Dose: Not Given Potassium Chloride (K-Dur -) 20 meq PO DAILY [facility] Last Admin: 10/01/17 10:00 Dose: 20 meq - Objective Vital Signs: Vital Signs Temperature 98.0 F 10/01/17 14:00 Pulse Rate 75 10/01/17 14:00 Respiratory Rate 22 10/01/17 14:00 Blood Pressure 111/56 10/01/17 14:00 O2 Sat by Pulse Oximetry (%) 97 10/01/17 09:00 Cardiovascular: Yes: S1, S2 Respiratory: Yes: Diminished (at the bases), On Nasal O2 Gastrointestinal: Yes: Normal Bowel Sounds, Soft Edema: Yes Labs: CBC, BMP 09/30/17 09:30 10/01/17 06:00 INR, PTT INR 1.24 (0.82-1.09) H 09/29/17 20:27 Problem List - Problems (1) Malignant pleural effusion Assessment/Plan: -IR consult - Dr. Mckinney for s/p therapeutic thoracentesis -Pulm consult- -BNP ~39,000 -received 40mg IVP lasix in ED -on lasix 40mg IVP BID -strict I's and O's -daily weights -02, nebulizer tx -f/u cxr Code(s): J91.0 - MALIGNANT PLEURAL EFFUSION (2) CHF (congestive heart failure) Assessment/Plan: as above Code(s): I50.9 - HEART FAILURE, UNSPECIFIED Qualifiers: (3) Breast cancer Assessment/Plan: per oncology Code(s): C50.919 - MALIGNANT NEOPLASM OF UNSP SITE OF UNSPECIFIED FEMALE BREAST
--- NOTE | 2017-10-01 17:17 | PN ---
Progress Note (short form) - Note Progress Note: PAtient seen and examined Denies any complaints Last Vital Signs Temp Pulse Resp BP Pulse Ox 98.0 F 75 22 111/56 97 10/01/17 14:00 10/01/17 14:00 10/01/17 14:00 10/01/17 14:00 10/01/17 09:00 Rt. neck mass Cor: RSR, No murmurs, No gallops Lungs: Clear to P&A Abd: Soft, Normal bowel sounds, No organomegaly Ext:No significant edema Abnormal Lab Results 09/30/17 10/01/17 09:30 06:00 Sodium 132 L 132 L Potassium 3.4 L Chloride 91 L 93 L Carbon Dioxide 35 H 33 H Anion Gap 6 L 6 L Creatinine 0.5 L Random Glucose 157 H Calcium 7.8 L 7.2 L Total Protein 5.5 L Albumin 2.2 L Active Medications Generic Name Dose Route Start Last Admin Trade Name Freq PRN Reason Stop Dose Admin Anastrozole 1 mg 09/30/17 10:00 10/01/17 10:01 Arimidex - PO 1 mg DAILY URSZULA Administration Aspirin 81 mg 09/30/17 10:00 10/01/17 10:00 Asa - PO 81 mg DAILY URSZULA Administration Atorvastatin Calcium 40 mg 09/30/17 22:00 09/30/17 22:05 Lipitor - PO 40 mg HS URSZULA Administration Carvedilol 12.5 mg 09/30/17 10:00 10/01/17 10:19 Coreg - PO Not Given BID URSZULA Furosemide 40 mg 09/30/17 01:00 10/01/17 13:43 Lasix Injection - IVPUSH 40 mg BIDLASIX URSZULA Administration Heparin Sodium (Porcine) 5,000 unit 09/30/17 01:15 10/01/17 09:59 Heparin - SQ 5,000 unit BID URSZULA Administration Insulin Aspart 1 vial 09/30/17 07:00 10/01/17 12:09 Novolog Vial Sliding Scale - SQ 4 units ACHS URSZULA Administration Protocol Lisinopril 40 mg 09/30/17 10:00 10/01/17 10:19 Prinivil PO Not Given DAILY URSZULA Potassium Chloride 20 meq 09/30/17 10:00 10/01/17 10:00 K-Dur - PO 20 meq DAILY URSZULA Administration A/P 81 y/o patient with metastatic breast cancer, on arimidex. Getting RT to rt. neck mass. Recurrent rt. pleural effusion--s/p thoracentesis getting iv diuresis per cardiology will follow
[2017-10-01] MEDS: ATORVASTATIN CA 40 MG TABLET (FP) PO SCH (21:17)
[2017-10-02] MEDS: FUROSEMIDE 40 MG/4 ML INJECTABLE VIAL IVPUSH SCH ×2 (05:43→13:58)
[2017-10-02] MEDS: INSULIN SLIDING SCALE (NOVOLOG) 1 VIAL SQ SCH ×4 (06:07→22:28)
[2017-10-02] MEDS ORDERED: PT OWN MED DRAWER 7, Y5N ONE (07:58)
[2017-10-02 08:07] LABS: SERUM IRON SATURATION 12 % (15-55); TOTAL IRON BINDING CAPACITY 217 ug/dL (250-450); UIBC 191 ug/dL (118-369)
[2017-10-02] MEDS: LISINOPRIL 20 MG TABLET (FP) PO SCH (09:09)
[2017-10-02] MEDS: POTASSIUM CHLORIDE TABS 20 MEQ TABLET.ER (FP) PO SCH (09:09)
[2017-10-02] MEDS: HEPARIN NA (PORCINE) 5,000 UNITS/ML 1ML VIAL SQ SCH ×2 (09:10→22:28)
[2017-10-02] MEDS: ANASTROZOLE 1 MG TABLET PO SCH (09:10)
[2017-10-02] MEDS: CARVEDILOL 12.5 MG TABLET (FP) PO SCH ×2 (09:10→22:28)
[2017-10-02] MEDS: ASPIRIN 81 MG CHEWABLE TABLETS PO SCH (09:10)
--- NOTE | 2017-10-02 10:28 | PN ---
Progress Note (short form) - Note Progress Note: NAD on [place] O2. Reports feeling better after right thoracentesis. Appeared transudative. Intake & Output 09/29/17 09/30/17 10/01/17 10/02/17 23:59 23:59 23:59 23:59 Intake Total 480 565 200 Output Total 2500 2350 1200 Balance -2019 Weight 137 lb 193 lb 6.4 oz 189 lb 186 lb 6.4 oz Last Vital Signs Temp Pulse Resp BP Pulse Ox 98.9 F 96 H 22 127/54 95 10/02/17 06:00 10/02/17 06:00 10/02/17 06:00 10/02/17 06:00 10/01/17 21:00 Active Medications Anastrozole (Arimidex -) 1 mg PO DAILY [facility] Last Admin: 10/02/17 09:10 Dose: 1 mg Aspirin (Asa -) 81 mg PO DAILY [facility] Last Admin: 10/02/17 09:10 Dose: 81 mg Atorvastatin Calcium (Lipitor -) 40 mg PO HS [facility] Last Admin: 10/01/17 21:17 Dose: 40 mg Carvedilol (Coreg -) 12.5 mg PO BID [facility] Last Admin: 10/02/17 09:10 Dose: 12.5 mg Furosemide (Lasix Injection -) 40 mg IVPUSH BIDLASIX [facility] Last Admin: 10/02/17 05:43 Dose: 40 mg Heparin Sodium (Porcine) (Heparin -) 5,000 unit SQ BID [facility] Last Admin: 10/02/17 09:10 Dose: 5,000 unit Insulin Aspart (Novolog Vial Sliding Scale -) 1 vial SQ ACHS [facility] PRN Reason: Protocol Last Admin: 10/02/17 06:07 Dose: Not Given Lisinopril (Prinivil) 40 mg PO DAILY [facility] Last Admin: 10/02/17 09:09 Dose: 40 mg Potassium Chloride (K-Dur -) 20 meq PO DAILY [facility] Last Admin: 10/02/17 09:09 Dose: 20 meq Constitutional: Yes: No acute distress Eyes: Yes: Conjunctiva Clear, EOM Intact HENT: Yes: Atraumatic, Normocephalic Neck: Yes: Supple, Trachea Midline Cardiovascular: Yes: Tachycardia Respiratory: Yes: Cough, Diminished, On Nasal O2, Rales, Rhonchi, SOB, Tachypnea. No: Accessory Muscle Use, Stridor, Wheezes ...Inspection: Yes: Surgical Scar Gastrointestinal: Yes: Normal Bowel Sounds, Soft Renal/: Yes: WNL Musculoskeletal: Yes: WNL Extremities: Yes: WNL Edema: Yes Peripheral Pulses WNL: Yes Integumentary: Yes: WNL Neurological: Yes: WNL, Alert, Oriented ...Motor Strength: WNL Psychiatric: Yes: WNL, Alert, Oriented Labs: Laboratory Results - last 24 hr 09/30/17 09:30 Iron 26 L TIBC 217 L Iron Saturation 12 L Problem List - Problems (1) CHF (congestive heart failure) Code(s): I50.9 - HEART FAILURE, UNSPECIFIED Qualifiers: (2) Edema Code(s): R60.9 - EDEMA, UNSPECIFIED (3) Pleural effusion Code(s): J90 - PLEURAL EFFUSION, NOT ELSEWHERE CLASSIFIED (4) Respiratory distress Code(s): R06.00 - DYSPNEA, UNSPECIFIED (5) ASHD (arteriosclerotic heart disease) Code(s): I25.10 - ATHSCL HEART DISEASE OF [place] CORONARY ARTERY W/O ANG PCTRS (6) Axillary lymphadenopathy Code(s): R59.0 - LOCALIZED ENLARGED LYMPH NODES (7) Breast cancer Code(s): C50.919 - MALIGNANT NEOPLASM OF UNSP SITE OF UNSPECIFIED FEMALE BREAST (8) Malignant pleural effusion Code(s): J91.0 - MALIGNANT PLEURAL EFFUSION Assessment/Plan Daily weight Strict I & O O2 as needed to maintain saturation Monitor off ABX VTE prophylaxis with SQ Heparin Lasix BID Follow fluid culture / cytology Dr Morales Problem List - Problems (1) CHF (congestive heart failure) Code(s): I50.9 - HEART FAILURE, UNSPECIFIED Qualifiers: (2) Edema Code(s): R60.9 - EDEMA, UNSPECIFIED (3) Pleural effusion Code(s): J90 - PLEURAL EFFUSION, NOT ELSEWHERE CLASSIFIED (4) Respiratory distress Code(s): R06.00 - DYSPNEA, UNSPECIFIED (5) ASHD (arteriosclerotic heart disease) Code(s): I25.10 - ATHSCL HEART DISEASE OF [place] CORONARY ARTERY W/O ANG PCTRS (6) Axillary lymphadenopathy Code(s): R59.0 - LOCALIZED ENLARGED LYMPH NODES (7) Breast cancer Code(s): C50.919 - MALIGNANT NEOPLASM OF UNSP SITE OF UNSPECIFIED FEMALE BREAST (8) Malignant pleural effusion Code(s): J91.0 - MALIGNANT PLEURAL EFFUSION
[2017-10-02] MEDS: ATORVASTATIN CA 40 MG TABLET (FP) PO SCH (22:28)
[2017-10-03] MEDS ORDERED: PT OWN MED DRAWER 7, Y5N ONE (09:28)
--- NOTE | 2017-10-03 10:11 | PN ---
Progress Note (short form) - Note Progress Note: NAD on [place] O2. No acute events overnight. No CP or SOB. Intake & Output 09/30/17 10/01/17 10/02/17 10/03/17 23:59 23:59 23:59 23:59 Intake Total 282 015 6933 100 Output Total 2500 2350 1999 Balance -2019 100 Weight 193 lb 6.4 oz 189 lb 186 lb 6.4 oz Last Vital Signs Temp Pulse Resp BP Pulse Ox 98.9 F 69 21 104/43 98 10/02/17 14:00 10/03/17 06:00 10/03/17 06:00 10/03/17 06:00 10/02/17 20:06 Active Medications Anastrozole (Arimidex -) 1 mg PO DAILY [facility] Last Admin: 10/02/17 09:10 Dose: 1 mg Aspirin (Asa -) 81 mg PO DAILY [facility] Last Admin: 10/02/17 09:10 Dose: 81 mg Atorvastatin Calcium (Lipitor -) 40 mg PO HS [facility] Last Admin: 10/02/17 22:28 Dose: 40 mg Carvedilol (Coreg -) 12.5 mg PO BID [facility] Last Admin: 10/02/17 22:28 Dose: 12.5 mg Furosemide (Lasix Injection -) 40 mg IVPUSH BIDLASIX [facility] Last Admin: 10/02/17 13:58 Dose: 40 mg Heparin Sodium (Porcine) (Heparin -) 5,000 unit SQ BID [facility] Last Admin: 10/02/17 22:28 Dose: 5,000 unit Insulin Aspart (Novolog Vial Sliding Scale -) 1 vial SQ ACHS [facility] PRN Reason: Protocol Last Admin: 10/02/17 22:28 Dose: 2 units Lisinopril (Prinivil) 40 mg PO DAILY [facility] Last Admin: 10/02/17 09:09 Dose: 40 mg Potassium Chloride (K-Dur -) 20 meq PO DAILY [facility] Last Admin: 10/02/17 09:09 Dose: 20 meq Constitutional: Yes: No acute distress Eyes: Yes: Conjunctiva Clear, EOM Intact HENT: Yes: Atraumatic, Normocephalic Neck: Yes: Supple, Trachea Midline Cardiovascular: Yes: Tachycardia Respiratory: Yes: Cough, Diminished, On Nasal O2, Rales, Rhonchi, SOB, Tachypnea. No: Accessory Muscle Use, Stridor, Wheezes ...Inspection: Yes: Surgical Scar Gastrointestinal: Yes: Normal Bowel Sounds, Soft Renal/: Yes: WNL Musculoskeletal: Yes: WNL Extremities: Yes: WNL Edema: Yes Peripheral Pulses WNL: Yes Integumentary: Yes: WNL Neurological: Yes: WNL, Alert, Oriented ...Motor Strength: WNL Psychiatric: Yes: WNL, Alert, Oriented Labs: Laboratory Results - last 24 hr 10/02/17 10/02/17 12:25 17:43 POC Glucometer 190 179 Problem List - Problems (1) CHF (congestive heart failure) Code(s): I50.9 - HEART FAILURE, UNSPECIFIED Qualifiers: (2) Edema Code(s): R60.9 - EDEMA, UNSPECIFIED (3) Pleural effusion Code(s): J90 - PLEURAL EFFUSION, NOT ELSEWHERE CLASSIFIED (4) Respiratory distress Code(s): R06.00 - DYSPNEA, UNSPECIFIED (5) ASHD (arteriosclerotic heart disease) Code(s): I25.10 - ATHSCL HEART DISEASE OF [place] CORONARY ARTERY W/O ANG PCTRS (6) Axillary lymphadenopathy Code(s): R59.0 - LOCALIZED ENLARGED LYMPH NODES (7) Breast cancer Code(s): C50.919 - MALIGNANT NEOPLASM OF UNSP SITE OF UNSPECIFIED FEMALE BREAST (8) Malignant pleural effusion Code(s): J91.0 - MALIGNANT PLEURAL EFFUSION Assessment/Plan Daily weight Strict I & O O2 as needed to maintain saturation Monitor off ABX VTE prophylaxis with SQ Heparin Lasix BID Check labs Follow fluid culture / cytology Dr Morales Problem List - Problems (1) CHF (congestive heart failure) Code(s): I50.9 - HEART FAILURE, UNSPECIFIED Qualifiers: (2) Edema Code(s): R60.9 - EDEMA, UNSPECIFIED (3) Pleural effusion Code(s): J90 - PLEURAL EFFUSION, NOT ELSEWHERE CLASSIFIED (4) Respiratory distress Code(s): R06.00 - DYSPNEA, UNSPECIFIED (5) ASHD (arteriosclerotic heart disease) Code(s): I25.10 - ATHSCL HEART DISEASE OF [place] CORONARY ARTERY W/O ANG PCTRS (6) Axillary lymphadenopathy Code(s): R59.0 - LOCALIZED ENLARGED LYMPH NODES (7) Breast cancer Code(s): C50.919 - MALIGNANT NEOPLASM OF UNSP SITE OF UNSPECIFIED FEMALE BREAST (8) Malignant pleural effusion Code(s): J91.0 - MALIGNANT PLEURAL EFFUSION
[2017-10-03] MEDS: FUROSEMIDE 40 MG/4 ML INJECTABLE VIAL IVPUSH SCH ×2 (10:57→13:42)
[2017-10-03] MEDS: ANASTROZOLE 1 MG TABLET PO SCH (10:57)
[2017-10-03] MEDS: ASPIRIN 81 MG CHEWABLE TABLETS PO SCH (10:57)
[2017-10-03] MEDS: LISINOPRIL 20 MG TABLET (FP) PO SCH (10:57)
[2017-10-03] MEDS: CARVEDILOL 12.5 MG TABLET (FP) PO SCH ×2 (10:57→22:02)
[2017-10-03] MEDS: HEPARIN NA (PORCINE) 5,000 UNITS/ML 1ML VIAL SQ SCH ×2 (10:58→22:04)
[2017-10-03] MEDS: POTASSIUM CHLORIDE TABS 20 MEQ TABLET.ER (FP) PO SCH (10:58)
[2017-10-03] MEDS: INSULIN SLIDING SCALE (NOVOLOG) 1 VIAL SQ SCH ×4 (10:59→23:20)
[2017-10-03 11:32] LABS: ANION GAP 3 (8-16); BLOOD UREA NITROGEN 12 mg/dL (7-18); CHLORIDE 94 mmol/L (98-107); CO2 35 mmol/L (21-32); CREATININE 0.5 mg/dL (0.55-1.02); GLUCOSE,RANDOM 169 mg/dL (74-106); POTASSIUM 4.4 mmol/L (3.5-5.1); SODIUM 132 mmol/L (136-145)
[2017-10-03 12:07] LABS: CALCIUM 6.9 mg/dL (8.5-10.1)
--- NOTE | 2017-10-03 12:28 | PN ---
Progress Note, Physician History of Present Illness: No events I/O neg 1 L Wt up to 193 Believes that her breathing is improving - Current Medication List Current Medications: Active Medications Anastrozole (Arimidex -) 1 mg PO DAILY [facility] Last Admin: 10/03/17 10:57 Dose: 1 mg Aspirin (Asa -) 81 mg PO DAILY [facility] Last Admin: 10/03/17 10:57 Dose: 81 mg Atorvastatin Calcium (Lipitor -) 40 mg PO HS [facility] Last Admin: 10/02/17 22:28 Dose: 40 mg Carvedilol (Coreg -) 12.5 mg PO BID [facility] Last Admin: 10/03/17 10:57 Dose: 12.5 mg Furosemide (Lasix Injection -) 40 mg IVPUSH BIDLASIX [facility] Last Admin: 10/03/17 10:57 Dose: 40 mg Heparin Sodium (Porcine) (Heparin -) 5,000 unit SQ BID [facility] Last Admin: 10/03/17 10:58 Dose: 5,000 unit Insulin Aspart (Novolog Vial Sliding Scale -) 1 vial SQ ACHS [facility] PRN Reason: Protocol Last Admin: 10/03/17 11:18 Dose: 4 units Lisinopril (Prinivil) 40 mg PO DAILY [facility] Last Admin: 10/03/17 10:57 Dose: 40 mg Potassium Chloride (K-Dur -) 20 meq PO DAILY [facility] Last Admin: 10/03/17 10:58 Dose: 20 meq - Objective Vital Signs: Vital Signs Temperature 97.9 F 10/03/17 11:00 Pulse Rate 74 10/03/17 10:00 Respiratory Rate 22 10/03/17 10:00 Blood Pressure 119/76 10/03/17 10:00 O2 Sat by Pulse Oximetry (%) 98 10/03/17 09:00 Constitutional: Yes: No Distress Eyes: Yes: WNL HENT: Yes: WNL Neck: Yes: WNL Cardiovascular: Yes: WNL, Murmur Respiratory: Yes: WNL, Regular Gastrointestinal: Yes: Normal Bowel Sounds Extremities: Yes: WNL Edema: LLE: 1+, RLE: 1+ Labs: CBC, BMP 09/30/17 09:30 10/03/17 10:51 INR, PTT INR 1.24 (0.82-1.09) H 09/29/17 20:27 Assessment/Plan a/p: 81 f hx cad s/p cabg 2005, htn , hld, niddm, breast cancer with mets to l.nodes, bone, likely liver and malignant rt pleural effusion (s/p thora 2016) p/w progressive lower extremity edema, shortness of breath and noted to have recurrent rt pleural effusion (s/p thora 09/30). sob: - multifactorial. likely contribution from recurrent pleural effusion (s/p thora 09/30), but also with diastolic HF exacerbation (see mgm't below). - s/p thoracentesis 09/30 - pulm/id/onc following. diastolic HF exacerbation - anasarca and signs of pulmonary edema on exam and chest ct. May have contribution from third spacing due to low albumin, but likely also with acute diastolic HF exacerbation. Echo on 10/01/2017 showed preserved biventricular function with hypocontractility of inferoseptal segment. No significant valvular abnormality. - con't diuresis with 40 mg IV bid. - daily standing weights. i/o's. bmp, mg cad s/p cabg/HL - prior echo with inferior wall motion abnormalities with preserved EF. Had declined stress testing in past, per dr. fong. - no anginal sx's. EKG unchanged from priors. troponin neg x 2 - con't OMT with asa, statin, bb, yared
--- NOTE | 2017-10-03 19:36 | PN ---
Progress Note, Physician History of Present Illness: Feels better - Current Medication List Current Medications: Active Medications Anastrozole (Arimidex -) 1 mg PO DAILY [facility] Last Admin: 10/03/17 10:57 Dose: 1 mg Aspirin (Asa -) 81 mg PO DAILY [facility] Last Admin: 10/03/17 10:57 Dose: 81 mg Atorvastatin Calcium (Lipitor -) 40 mg PO HS [facility] Last Admin: 10/02/17 22:28 Dose: 40 mg Carvedilol (Coreg -) 12.5 mg PO BID [facility] Last Admin: 10/03/17 10:57 Dose: 12.5 mg Furosemide (Lasix Injection -) 40 mg IVPUSH BIDLASIX [facility] Last Admin: 10/03/17 13:42 Dose: 40 mg Heparin Sodium (Porcine) (Heparin -) 5,000 unit SQ BID [facility] Last Admin: 10/03/17 10:58 Dose: 5,000 unit Insulin Aspart (Novolog Vial Sliding Scale -) 1 vial SQ ACHS [facility] PRN Reason: Protocol Last Admin: 10/03/17 16:07 Dose: 4 units Lisinopril (Prinivil) 40 mg PO DAILY [facility] Last Admin: 10/03/17 10:57 Dose: 40 mg Potassium Chloride (K-Dur -) 20 meq PO DAILY [facility] Last Admin: 10/03/17 10:58 Dose: 20 meq - Objective Vital Signs: Vital Signs Temperature 98.8 F 10/03/17 16:10 Pulse Rate 72 10/03/17 16:10 Respiratory Rate 18 10/03/17 19:04 Blood Pressure 104/54 10/03/17 16:10 O2 Sat by Pulse Oximetry (%) 98 10/03/17 19:04 Cardiovascular: Yes: S1, S2 Respiratory: Yes: Diminished Gastrointestinal: Yes: Normal Bowel Sounds, Soft Labs: CBC, BMP 09/30/17 09:30 10/03/17 10:51 INR, PTT INR 1.24 (0.82-1.09) H 09/29/17 20:27 Problem List - Problems (1) Malignant pleural effusion Assessment/Plan: -IR consult - Dr. Mckinney for s/p therapeutic thoracentesis -Pulm consult- -BNP ~39,000 -received 40mg IVP lasix in ED -on lasix 40mg IVP BID -strict I's and O's -daily weights -02, nebulizer tx -f/u cxr Code(s): J91.0 - MALIGNANT PLEURAL EFFUSION (2) CHF (congestive heart failure) Assessment/Plan: as above Code(s): I50.9 - HEART FAILURE, UNSPECIFIED Qualifiers: (3) Breast cancer Assessment/Plan: per oncology Code(s): C50.919 - MALIGNANT NEOPLASM OF UNSP SITE OF UNSPECIFIED FEMALE BREAST (4) HTN (hypertension) Assessment/Plan: now low hold lisinpril check cbc monitor Code(s): I10 - ESSENTIAL (PRIMARY) HYPERTENSION
[2017-10-03 21:36] LABS: BASO % 0.5 % (0-2.0); EOS % 0.5 % (0-4.5); HEMATOCRIT 29.6 % (32.4-45.2); HEMOGLOBIN 9.5 GM/dL (10.7-15.3); LYMPH % 13.9 % (8-40); MCH 26.1 pg (25.7-33.7); MEAN CELL VOLUME 81.4 fl (80-96); MEAN PLT VOLUME 7.4 fl (7.5-11.1); MONO % 10.9 % (3.8-10.2); NEUT % 74.2 % (42.8-82.8); PLATELET COUNT 321 K/MM3 (134-434); RBC 3.63 M/mm3 (3.60-5.2); RDW 18.5 % (11.6-15.6); WHITE BLOOD COUNT 4.9 K/mm3 (4.0-10.0)
[2017-10-03] MEDS: ATORVASTATIN CA 40 MG TABLET (FP) PO SCH (22:01)
[2017-10-04] MEDS: FUROSEMIDE 40 MG/4 ML INJECTABLE VIAL IVPUSH SCH ×2 (05:45→14:22)
[2017-10-04 06:25] LABS: BASO % 1.7 % (0-2.0); EOS % 0.4 % (0-4.5); HEMATOCRIT 34.1 % (32.4-45.2); HEMOGLOBIN 10.6 GM/dL (10.7-15.3); LYMPH % 12.7 % (8-40); MCH 25.6 pg (25.7-33.7); MEAN CELL VOLUME 82.6 fl (80-96); MEAN PLT VOLUME 7.6 fl (7.5-11.1); MONO % 7.4 % (3.8-10.2); NEUT % 77.8 % (42.8-82.8); PLATELET COUNT 377 K/MM3 (134-434); RBC 4.13 M/mm3 (3.60-5.2); RDW 18.4 % (11.6-15.6); WHITE BLOOD COUNT 6.4 K/mm3 (4.0-10.0)
[2017-10-04 06:58] LABS: ALBUMIN 2.5 g/dl (3.4-5.0); ALK PHOS 123 U/L (45-117); ANION GAP 6 (8-16); BILIRUBIN,TOTAL 0.7 mg/dL (0.2-1.0); BLOOD UREA NITROGEN 12 mg/dL (7-18); CHLORIDE 93 mmol/L (98-107); CO2 33 mmol/L (21-32); CREATININE 0.5 mg/dL (0.55-1.02); GLUCOSE,RANDOM 175 mg/dL (74-106); POTASSIUM 4.5 mmol/L (3.5-5.1); SGOT/AST 19 U/L (15-37); SGPT/ALT 17 U/L (12-78); SODIUM 132 mmol/L (136-145); TOT PROT 6.2 g/dl (6.4-8.2)
[2017-10-04] MEDS ORDERED: PT OWN MED DRAWER 7, Y5N ONE ×2 (08:02→08:40)
--- NOTE | 2017-10-04 08:04 | PN ---
Progress Note, Physician Chief Complaint: sob History of Present Illness: sob "a little" better no cp, palpit feet swollen - Current Medication List Current Medications: Active Medications Anastrozole (Arimidex -) 1 mg PO DAILY [facility] Last Admin: 10/03/17 10:57 Dose: 1 mg Aspirin (Asa -) 81 mg PO DAILY [facility] Last Admin: 10/03/17 10:57 Dose: 81 mg Atorvastatin Calcium (Lipitor -) 40 mg PO HS [facility] Last Admin: 10/03/17 22:01 Dose: 40 mg Carvedilol (Coreg -) 12.5 mg PO BID [facility] Last Admin: 10/03/17 22:02 Dose: 12.5 mg Furosemide (Lasix Injection -) 40 mg IVPUSH BIDLASIX [facility] Last Admin: 10/04/17 05:45 Dose: 40 mg Heparin Sodium (Porcine) (Heparin -) 5,000 unit SQ BID [facility] Last Admin: 10/03/17 22:04 Dose: 5,000 unit Insulin Aspart (Novolog Vial Sliding Scale -) 1 vial SQ ACHS [facility] PRN Reason: Protocol Last Admin: 10/03/17 23:20 Dose: 2 units Potassium Chloride (K-Dur -) 20 meq PO DAILY [facility] Last Admin: 10/03/17 10:58 Dose: 20 meq - Objective Vital Signs: Vital Signs Temperature 98.6 F 10/04/17 02:00 Pulse Rate 76 10/04/17 06:00 Respiratory Rate 22 10/04/17 06:00 Blood Pressure 114/43 10/04/17 06:00 O2 Sat by Pulse Oximetry (%) 98 10/03/17 19:04 Constitutional: Yes: Well Nourished, No Distress, Calm Cardiovascular: Yes: Regular Rate and Rhythm, S1, S2. No: JVD (in chair), Gallop, Murmur Respiratory: Yes: Regular, Diminished (R base). No: Accessory Muscle Use, Rales , Wheezes Extremities: No: Cold Edema: Yes (1+ ankles/feet) Neurological: Yes: Alert, Oriented Psychiatric: No: Agitated Labs: CBC, BMP 10/04/17 05:25 10/04/17 05:25 INR, PTT INR 1.24 (0.82-1.09) H 09/29/17 20:27 - ....Imaging EKG: Other (tele: NSR, PSVT run) Assessment/Plan ekg: SR with pac's, IVCD, poor r wave progression. anterolateral twi. similar to priors. chest ct images and report reviewed. interstitial edema. bilateral pl effusion with compressive atelectasis. large on rt, small on left. cardiomegaly. calc cors. diffuse subcutaneous edema/anasarca. mets to l. nodes, bone, likely liver. rt breast mass. Echo 09/30: nl LVSF; + hypo IW, inferolat, inferoseptal; nl RV; valves WNL Echo 10/2016: nl lvef, inf/inflat/infseptal HK, nl rv, mild mr Carotid us 10/2016: 60-79% bl ICA stenosis, chronic LE dopplers 07/2017: no dvt. a/p: 81 f hx cad s/p cabg 2005, htn , hld, niddm, breast cancer with mets to l.nodes, bone, likely liver and malignant rt pleural effusion (s/p thora 2016) p/w progressive lower extremity edema, shortness of breath and noted to have recurrent rt pleural effusion (s/p thora 09/30). pleural effusion (malignant?), acute diast chf - s/p thoracentesis 09/30 - anasarca and signs of pulmonary edema on exam and chest ct. May have contribution from third spacing due to low albumin, but likely also with acute diastolic HF exacerbation. Will repeat echo to r/o change in systolic function. - remains sob, with 10/01 cxr worsening congestion/effusions - UOP approx 2L daily on lasix 40 iv bid - rpt CXR today--rec incr lasix 80 iv bid if cxr not improving - pulm/id/onc following. - bedscale wts not helpful, follow CXR and phys exam as above hyponatremia: - ? SIADH, ? paraneoplastic syndrome - sodium stable with ongoing diuresis, observe cad s/p cabg/HL - prior echo with inferior wall motion abnormalities with preserved EF. Had declined stress testing in past, per dr. fong. - no anginal sx's. EKG unchanged from priors. troponin neg x 2 - con't OMT with asa, statin, bb, yared HTN - bp controlled - cont home lisinopril, coreg carotid atherosclerosis - stable velocities on u/s per office notes. Per report has previously declined further evaluation with cta or surgical eval. - con't asa, statin
[2017-10-04] MEDS: HEPARIN NA (PORCINE) 5,000 UNITS/ML 1ML VIAL SQ SCH ×2 (09:00→22:03)
[2017-10-04] MEDS: POTASSIUM CHLORIDE TABS 20 MEQ TABLET.ER (FP) PO SCH (09:00)
[2017-10-04] MEDS: CARVEDILOL 12.5 MG TABLET (FP) PO SCH ×2 (09:00→22:03)
[2017-10-04] MEDS: ASPIRIN 81 MG CHEWABLE TABLETS PO SCH (09:01)
[2017-10-04] MEDS: ANASTROZOLE 1 MG TABLET PO SCH (09:26)
--- NOTE | 2017-10-04 11:15 | PN ---
Progress Note, Physician Chief Complaint: patient is in ICU s/p thoracocentesis on 09/30 sitting in chair awake alert no sob no distress weight is 182 from 193 - Current Medication List Current Medications: Active Medications Anastrozole (Arimidex -) 1 mg PO DAILY [facility] Last Admin: 10/04/17 09:26 Dose: 1 mg Aspirin (Asa -) 81 mg PO DAILY [facility] Last Admin: 10/04/17 09:01 Dose: 81 mg Atorvastatin Calcium (Lipitor -) 40 mg PO HS [facility] Last Admin: 10/03/17 22:01 Dose: 40 mg Carvedilol (Coreg -) 12.5 mg PO BID [facility] Last Admin: 10/04/17 09:00 Dose: 12.5 mg Furosemide (Lasix Injection -) 40 mg IVPUSH BIDLASIX [facility] Last Admin: 10/04/17 05:45 Dose: 40 mg Heparin Sodium (Porcine) (Heparin -) 5,000 unit SQ BID [facility] Last Admin: 10/04/17 09:00 Dose: 5,000 unit Insulin Aspart (Novolog Vial Sliding Scale -) 1 vial SQ ACHS [facility] PRN Reason: Protocol Last Admin: 10/03/17 23:20 Dose: 2 units Potassium Chloride (K-Dur -) 20 meq PO DAILY [facility] Last Admin: 10/04/17 09:00 Dose: 20 meq - Objective Vital Signs: Vital Signs Temperature 98 F 10/04/17 08:00 Pulse Rate 72 10/04/17 08:00 Respiratory Rate 22 10/04/17 08:00 Blood Pressure 114/48 10/04/17 08:00 O2 Sat by Pulse Oximetry (%) 96 10/04/17 09:00 Constitutional: Yes: Calm Cardiovascular: Yes: Regular Rate and Rhythm, S1 Respiratory: Yes: Diminished (on right side) Gastrointestinal: Yes: Normal Bowel Sounds, Soft Edema: Yes Neurological: Yes: Alert, Oriented Labs: CBC, BMP 10/04/17 05:25 10/04/17 05:25 INR, PTT INR 1.24 (0.82-1.09) H 09/29/17 20:27 Assessment/Plan recurrent pleural effusion s/p thoracocentesis on 09/30 awaitng cultures/cytology Microbiology 09/30/17 15:15 Pleural Fluid Gram Stain - Final 09/30/17 15:15 Pleural Fluid Anaerobic Culture - Final NO GROWTH OF AEROBIC ORGANISMS AFTER 48 HOURS INCUBATION NO ANAEROBES WERE ISOLATED daily weights iv lasix bid oxygen as needed DVT ppx sub q heparin cxr CAD s/p CABG on statin , BB, aspirin HTN on coreg , not on lisinopril breast cancer on arimidex
[2017-10-04] MEDS: INSULIN SLIDING SCALE (NOVOLOG) 1 VIAL SQ SCH ×3 (12:14→22:49)
--- NOTE | 2017-10-04 14:43 | PN ---
Progress Note (short form) - Note Progress Note: NAD on NC O2. Feels OK today. No acute events overnight. No CP or SOB. Intake & Output 10/01/17 10/02/17 10/03/17 10/04/17 23:59 23:59 23:59 23:59 Intake Total 565 1000 860 120 Output Total 2350 2000 2100 1400 Balance -1785 -1000 -1240 -1280 Weight 189 lb 186 lb 6.4 oz 193 lb 1.999 oz 182 lb 3.2 oz Last Vital Signs Temp Pulse Resp BP Pulse Ox 98 F 68 20 104/50 96 10/04/17 12:00 10/04/17 12:00 10/04/17 12:00 10/04/17 12:00 10/04/17 09:00 Active Medications Anastrozole (Arimidex -) 1 mg PO DAILY [facility] Last Admin: 10/04/17 09:26 Dose: 1 mg Aspirin (Asa -) 81 mg PO DAILY [facility] Last Admin: 10/04/17 09:01 Dose: 81 mg Atorvastatin Calcium (Lipitor -) 40 mg PO HS [facility] Last Admin: 10/03/17 22:01 Dose: 40 mg Carvedilol (Coreg -) 12.5 mg PO BID [facility] Last Admin: 10/04/17 09:00 Dose: 12.5 mg Furosemide (Lasix Injection -) 40 mg IVPUSH BIDLASIX [facility] Last Admin: 10/04/17 14:22 Dose: 40 mg Heparin Sodium (Porcine) (Heparin -) 5,000 unit SQ BID [facility] Last Admin: 10/04/17 09:00 Dose: 5,000 unit Insulin Aspart (Novolog Vial Sliding Scale -) 1 vial SQ ACHS [facility] PRN Reason: Protocol Last Admin: 10/04/17 12:14 Dose: 4 units Potassium Chloride (K-Dur -) 20 meq PO DAILY [facility] Last Admin: 10/04/17 09:00 Dose: 20 meq Constitutional: Yes: No acute distress Eyes: Yes: Conjunctiva Clear, EOM Intact HENT: Yes: Atraumatic, Normocephalic Neck: Yes: Supple, Trachea Midline Cardiovascular: Yes: Tachycardia Respiratory: Yes: Cough, Diminished, On Nasal O2, Rales, Rhonchi, SOB, Tachypnea. No: Accessory Muscle Use, Stridor, Wheezes ...Inspection: Yes: Surgical Scar Gastrointestinal: Yes: Normal Bowel Sounds, Soft Renal/: Yes: WNL Musculoskeletal: Yes: WNL Extremities: Yes: WNL Edema: Yes Peripheral Pulses WNL: Yes Integumentary: Yes: WNL Neurological: Yes: WNL, Alert, Oriented ...Motor Strength: WNL Psychiatric: Yes: WNL, Alert, Oriented Labs: Laboratory Results - last 24 hr 09/30/17 09/30/17 09/30/17 05:51 11:10 22:02 WBC RBC Hgb Hct MCV MCH MCHC RDW Plt Count MPV Neutrophils % Lymphocytes % Monocytes % Eosinophils % Basophils % Sodium Potassium Chloride Carbon Dioxide Anion Gap BUN Creatinine Creat Clearance w eGFR POC Glucometer 244.16133 205.82873 [phone] Random Glucose Calcium Total Bilirubin AST ALT Alkaline Phosphatase Total Protein Albumin 10/01/17 10/01/17 10/01/17 05:18 12:01 17:46 WBC RBC Hgb Hct MCV MCH MCHC RDW Plt Count MPV Neutrophils % Lymphocytes % Monocytes % Eosinophils % Basophils % Sodium Potassium Chloride Carbon Dioxide Anion Gap BUN Creatinine Creat Clearance w eGFR POC Glucometer 157.28592 210.03769 182.49344 Random Glucose Calcium Total Bilirubin AST ALT Alkaline Phosphatase Total Protein Albumin 10/01/17 10/02/17 10/02/17 20:33 05:31 22:24 WBC RBC Hgb Hct MCV MCH MCHC RDW Plt Count MPV Neutrophils % Lymphocytes % Monocytes % Eosinophils % Basophils % Sodium Potassium Chloride Carbon Dioxide Anion Gap BUN Creatinine Creat Clearance w eGFR POC Glucometer 145.86343 142.78671 164.16328 Random Glucose Calcium Total Bilirubin AST ALT Alkaline Phosphatase Total Protein Albumin 10/03/17 10/03/17 10/04/17 16:05 20:30 05:25 WBC 4.9 6.4 D RBC 3.63 4.13 Hgb 9.5 L 10.6 L D Hct 29.6 L 34.1 D MCV 81.4 82.6 MCH 26.1 25.6 L MCHC 32.0 31.0 L RDW 18.5 H 18.4 H Plt Count 321 377 MPV 7.4 L 7.6 Neutrophils % 74.2 77.8 Lymphocytes % 13.9 D 12.7 Monocytes % 10.9 H 7.4 Eosinophils % 0.5 D 0.4 Basophils % 0.5 1.7 D Sodium Potassium Chloride Carbon Dioxide Anion Gap BUN Creatinine Creat Clearance w eGFR POC Glucometer [phone] Random Glucose Calcium Total Bilirubin AST ALT Alkaline Phosphatase Total Protein Albumin 10/04/17 05:25 WBC RBC Hgb Hct MCV MCH MCHC RDW Plt Count MPV Neutrophils % Lymphocytes % Monocytes % Eosinophils % Basophils % Sodium 132 L Potassium 4.5 Chloride 93 L Carbon Dioxide 33 H Anion Gap 6 L BUN 12 Creatinine 0.5 L Creat Clearance w eGFR > 60 POC Glucometer Random Glucose 175 H Calcium 7.0 L Total Bilirubin 0.7 D AST 19 ALT 17 Alkaline Phosphatase 123 H Total Protein 6.2 L Albumin 2.5 L Problem List - Problems (1) CHF (congestive heart failure) Code(s): I50.9 - HEART FAILURE, UNSPECIFIED Qualifiers: (2) Edema Code(s): R60.9 - EDEMA, UNSPECIFIED (3) Pleural effusion Code(s): J90 - PLEURAL EFFUSION, NOT ELSEWHERE CLASSIFIED (4) Respiratory distress Code(s): R06.00 - DYSPNEA, UNSPECIFIED (5) ASHD (arteriosclerotic heart disease) Code(s): I25.10 - ATHSCL HEART DISEASE OF [place] CORONARY ARTERY W/O ANG PCTRS (6) Axillary lymphadenopathy Code(s): R59.0 - LOCALIZED ENLARGED LYMPH NODES (7) Breast cancer Code(s): C50.919 - MALIGNANT NEOPLASM OF UNSP SITE OF UNSPECIFIED FEMALE BREAST (8) Malignant pleural effusion Code(s): J91.0 - MALIGNANT PLEURAL EFFUSION Assessment/Plan Daily weight Strict I & O O2 as needed to maintain saturation Monitor off ABX VTE prophylaxis with SQ Heparin Lasix BID Follow fluid culture / cytology Dr Morales Problem List - Problems (1) CHF (congestive heart failure) Code(s): I50.9 - HEART FAILURE, UNSPECIFIED Qualifiers: (2) Edema Code(s): R60.9 - EDEMA, UNSPECIFIED (3) Pleural effusion Code(s): J90 - PLEURAL EFFUSION, NOT ELSEWHERE CLASSIFIED (4) Respiratory distress Code(s): R06.00 - DYSPNEA, UNSPECIFIED (5) ASHD (arteriosclerotic heart disease) Code(s): I25.10 - ATHSCL HEART DISEASE OF [place] CORONARY ARTERY W/O ANG PCTRS (6) Axillary lymphadenopathy Code(s): R59.0 - LOCALIZED ENLARGED LYMPH NODES (7) Breast cancer Code(s): C50.919 - MALIGNANT NEOPLASM OF UNSP SITE OF UNSPECIFIED FEMALE BREAST (8) Malignant pleural effusion Code(s): J91.0 - MALIGNANT PLEURAL EFFUSION
--- NOTE | 2017-10-04 15:07 | PATH ---
Cytology Non-Gynecological Report Patient Name: KAIN HOLDEN [facility]. Rec. #: [id number] /Age/Gender: 1935 (Age: 81) / F Account: [id number] Location: EMERGENCY ROOM Taken: 10/01/2017 Received: 10/01/2017 Reported: 10/04/2017 Physicians: Elvia Lazo M.D. Amara Nandikolla, M.D. Smitha Mellacheruvu, M.D. Specimen(s) Received A: RIGHT PLEURAL FLUID B: RIGHT PLEURAL FLUID Clinical History Pleural effusion Final Diagnosis A & B. PLEURAL FLUID, RIGHT, THORACENTESIS: SATISFACTORY FOR EVALUATION ATYPICAL. RARE ATYPICAL CELLS IN A BACKGROUND OF SCATTERED MESOTHELIAL CELLS, RARE NEUTROPHILS AND RARE LYMPHOCYTES. Comment: Prior material is noted. History of metastatic breast carcinoma noted. Electronically Signed Zaira Patel M.D. Gross Description A. Approximately 50 cc of yellow fluid received fixed in 50% alcohol. Two cytofunnels and one cellblock prepared. B. Approximately 1500 cc of yellow fluid received fresh. Two cytofunnels and one cellblock prepared.
[2017-10-04] MEDS: ATORVASTATIN CA 40 MG TABLET (FP) PO SCH (22:04)
[2017-10-05] MEDS: FUROSEMIDE 40 MG/4 ML INJECTABLE VIAL IVPUSH SCH (05:12)
[2017-10-05] MEDS: INSULIN SLIDING SCALE (NOVOLOG) 1 VIAL SQ SCH ×4 (06:15→22:05)
--- NOTE | 2017-10-05 09:33 | PN ---
Progress Note, Physician History of Present Illness: Feels better - Current Medication List Current Medications: Active Medications Anastrozole (Arimidex -) 1 mg PO DAILY [facility] Last Admin: 10/04/17 09:26 Dose: 1 mg Aspirin (Asa -) 81 mg PO DAILY [facility] Last Admin: 10/04/17 09:01 Dose: 81 mg Atorvastatin Calcium (Lipitor -) 40 mg PO HS [facility] Last Admin: 10/04/17 22:04 Dose: 40 mg Carvedilol (Coreg -) 12.5 mg PO BID [facility] Last Admin: 10/04/17 22:03 Dose: 12.5 mg Furosemide (Lasix Injection -) 40 mg IVPUSH BIDLASIX [facility] Last Admin: 10/05/17 05:12 Dose: 40 mg Heparin Sodium (Porcine) (Heparin -) 5,000 unit SQ BID [facility] Last Admin: 10/04/17 22:03 Dose: 5,000 unit Insulin Aspart (Novolog Vial Sliding Scale -) 1 vial SQ ACHS [facility] PRN Reason: Protocol Last Admin: 10/05/17 06:15 Dose: Not Given - Objective Vital Signs: Vital Signs Temperature 97.7 F 10/05/17 04:00 Pulse Rate 71 10/05/17 04:00 Respiratory Rate 20 10/05/17 04:00 Blood Pressure 106/48 10/05/17 04:00 O2 Sat by Pulse Oximetry (%) 96 10/04/17 19:23 Cardiovascular: Yes: S1, S2 Respiratory: Yes: Diminished, On Nasal O2 Gastrointestinal: Yes: Normal Bowel Sounds, Soft Labs: CBC, BMP 10/04/17 05:25 10/04/17 05:25 INR, PTT INR 1.24 (0.82-1.09) H 09/29/17 20:27 Problem List - Problems (1) Malignant pleural effusion Assessment/Plan: -IR consult - Dr. Mckinney for s/p therapeutic thoracentesis -Pulm consult- -BNP ~39,000 -received 40mg IVP lasix in ED -on lasix 40mg IVP BID--to 60 po bid -strict I's and O's -daily weights -02, nebulizer tx -f/u cxr Code(s): J91.0 - MALIGNANT PLEURAL EFFUSION (2) CHF (congestive heart failure) Code(s): I50.9 - HEART FAILURE, UNSPECIFIED Qualifiers: (3) Breast cancer Assessment/Plan: per oncology Code(s): C50.919 - MALIGNANT NEOPLASM OF UNSP SITE OF UNSPECIFIED FEMALE BREAST (4) HTN (hypertension) Assessment/Plan: now low hold lisinpril check cbc monitor Code(s): I10 - ESSENTIAL (PRIMARY) HYPERTENSION Assessment/Plan PHYSICAL THERAPY
--- NOTE | 2017-10-05 09:34 | PN ---
Progress Note (short form) - Note Progress Note: Chief Complaint: sob History of Present Illness: sob "a little" better no cp, palpit, dizziness, le edema stable/improving. appetite at baseline. Current Medications Anastrozole (Arimidex -) 1 mg PO DAILY [facility] Last Admin: 10/04/17 09:26 Dose: 1 mg Aspirin (Asa -) 81 mg PO DAILY [facility] Last Admin: 10/04/17 09:01 Dose: 81 mg Atorvastatin Calcium (Lipitor -) 40 mg PO HS [facility] Last Admin: 10/04/17 22:04 Dose: 40 mg Carvedilol (Coreg -) 12.5 mg PO BID [facility] Last Admin: 10/04/17 22:03 Dose: 12.5 mg Furosemide (Lasix Injection -) 40 mg IVPUSH BIDLASIX [facility] Last Admin: 10/05/17 05:12 Dose: 40 mg Heparin Sodium (Porcine) (Heparin -) 5,000 unit SQ BID [facility] Last Admin: 10/04/17 22:03 Dose: 5,000 unit Insulin Aspart (Novolog Vial Sliding Scale -) 1 vial SQ ACHS [facility] PRN Reason: Protocol Last Admin: 10/05/17 06:15 Dose: Not Given Potassium Chloride (K-Dur -) 20 meq PO DAILY [facility] Last Admin: 10/04/17 09:00 Dose: 20 meq - Objective Vital Signs: Vital Signs - 24 hr 10/04/17 10/04/17 10/04/17 12:00 16:00 19:23 Temperature 98 F Pulse Rate 68 72 Respiratory 20 20 20 Rate Blood Pressure 104/50 128/50 O2 Sat by Pulse 96 Oximetry (%) 10/04/17 10/05/17 10/05/17 20:00 00:00 04:00 Temperature 97.7 F Pulse Rate 74 72 71 Respiratory 20 20 20 Rate Blood Pressure 100/46 96/50 106/48 O2 Sat by Pulse Oximetry (%) Intake & Output 10/03/17 10/04/17 10/05/17 10/06/17 07:59 07:59 07:59 07:59 Intake Total 900 880 360 Output Total 800 3500 2200 Balance 100 -2620 -1840 Weight 193 lb 1.999 oz 182 lb 3.2 oz 180 lb 8 oz Constitutional: Yes: Well Nourished, No Distress, Calm jvd flat neck supple Cardiovascular: Yes: Regular Rate and Rhythm, S1, S2. No: JVD (in chair), Gallop, Murmur Respiratory: Yes: Regular, Diminished (R base). No: Accessory Muscle Use, Rales , Wheezes + bs soft nt nd Extremities: warm. diminished dp/pt. Edema: Yes (trace-1+ ankles/feet) Neurological: Yes: Alert, Oriented Psychiatric: No: Agitated Labs: CBC, BMP 10/04/17 05:25 10/04/17 05:25 - ....Imaging EKG: Other (tele: NSR, PSVT run) Assessment/Plan ekg: SR with pac's, IVCD, poor r wave progression. anterolateral twi. similar to priors. CXR 10/04: per report, no significant change. CM with residual congestion and bilateral pleural effusions R>L. by my review, right sided congestion/effusion appears slightly worse. chest ct images and report reviewed. interstitial edema. bilateral pl effusion with compressive atelectasis. large on rt, small on left. cardiomegaly. calc cors. diffuse subcutaneous edema/anasarca. mets to l. nodes, bone, likely liver. rt breast mass. Echo 09/30: nl LVSF; + hypo IW, inferolat, inferoseptal; nl RV; valves WNL Echo 10/2016: nl lvef, inf/inflat/infseptal HK, nl rv, mild mr Carotid us 10/2016: 60-79% bl ICA stenosis, chronic LE dopplers 07/2017: no dvt. a/p: 81 f hx cad s/p cabg 2005, htn , hld, niddm, breast cancer with mets to l.nodes, bone, likely liver and malignant rt pleural effusion (s/p thora 2016) p/w progressive lower extremity edema, shortness of breath and noted to have recurrent rt pleural effusion (s/p thora 09/30). pleural effusion (malignant?), acute diast chf - s/p thoracentesis 09/30 - anasarca and signs of pulmonary edema on exam and chest ct. May have contribution from third spacing due to low albumin, but likely also with acute diastolic HF exacerbation. Repeat echo --> no change in systolic function. - 10/04 remains sob, with 10/01 cxr worsening congestion/effusions. UOP approx 2L daily on lasix 40 iv bid. rpt CXR 10/04 --rec incr lasix 80 iv bid if cxr not - 10/05: repeat cxr stable/slightly worsened. pmd increase lasix to 60 mg IV BID. BMP today and tomorrow to monitor for change in setting of change in diruetic regimen. If bmp stable, consider increasing diuresis further to 80 mg IV BID (per dr. fong's recs from 10/04). K rising, will hold standing kcl. - pulm/id/onc following. bedscale wts not helpful, follow CXR and phys exam as above hyponatremia: - ? SIADH, ? paraneoplastic syndrome - sodium stable with ongoing diuresis, observe with above changes. cad s/p cabg/HL - prior echo with inferior wall motion abnormalities with preserved EF. Had declined stress testing in past, per dr. fong. - no anginal sx's. EKG unchanged from priors. troponin neg x 2 - con't OMT with asa, statin, bb. ACEI on hold for low bp's. HTN - bp controlled/running low. con't coreg. holding lisinopril. carotid atherosclerosis - stable velocities on u/s per office notes. Per report has previously declined further evaluation with cta or surgical eval. - con't asa, statin
[2017-10-05] MEDS ORDERED: PT OWN MED DRAWER 7, Y5N ONE (10:27)
[2017-10-05] MEDS: HEPARIN NA (PORCINE) 5,000 UNITS/ML 1ML VIAL SQ SCH ×2 (10:45→22:05)
[2017-10-05] MEDS: ANASTROZOLE 1 MG TABLET PO SCH (10:45)
[2017-10-05] MEDS: ASPIRIN 81 MG CHEWABLE TABLETS PO SCH (10:45)
[2017-10-05] MEDS: CARVEDILOL 12.5 MG TABLET (FP) PO SCH ×2 (10:45→22:05)
--- NOTE | 2017-10-05 10:55 | PN ---
Progress Note (short form) - Note Progress Note: Patient seen and examined. events noted. she says she feels not worse or not great. able to breath without effort. O/E: NAD NCAT Decreased size of the neck mass. Decreased rt breath sounds +1+ edema LE. Last Vital Signs Temp Pulse Resp BP Pulse Ox 97.7 F 71 20 106/48 96 10/05/17 04:00 10/05/17 04:00 10/05/17 04:00 10/05/17 04:00 10/04/17 19:23 CBC, BMP 10/04/17 05:25 Current Medications Generic Name Dose Route Start Last Admin Trade Name Freq PRN Reason Stop Dose Admin Anastrozole 1 mg 09/30/17 10:00 10/05/17 10:45 Arimidex - PO 1 mg DAILY [facility] Administration Aspirin 81 mg 09/30/17 10:00 10/05/17 10:45 Asa - PO 81 mg DAILY [facility] Administration Atorvastatin Calcium 40 mg 09/30/17 22:00 10/04/17 22:04 Lipitor - PO 40 mg HS [facility] Administration Carvedilol 12.5 mg 09/30/17 10:00 10/05/17 10:45 Coreg - PO 12.5 mg BID [facility] Administration Furosemide 60 mg 10/05/17 14:00 Lasix - PO BID@0600,1400 [facility] Heparin Sodium (Porcine) 5,000 unit 09/30/17 01:15 10/05/17 10:45 Heparin - SQ 5,000 unit BID [facility] Administration Insulin Aspart 1 vial 09/30/17 07:00 10/05/17 06:15 Novolog Vial Sliding Scale - SQ Not Given [facility] Protocol Widely metastatic Hormone positive breast cancer on Arimidex, declined systemic chemo (during discussion in the office ) Neck LAD metastatic site, on Palliative RT. Pleural effusion ( Surg path noted, but has proven malignant effusion in 07/2017 ) Multiple cardiovascular co-morbidities. -c/w arimidex -appreciate card/pulm c/s, s/p thoracentesis, on aggressive IV diuresis. -d/w pt, icu, pmd , about the possibility of aspira catheter for possible recurrent malignant effusion, jackson she declining systemic chemo, as of now she remains stable pulm status, pt equivocal about making decision. will d.w daughter, will continue to monitor. If improves , may need to consider in the OP setting -CT c/a/p noted, mostly stable to decreased disease, except new liver lesion.Spine disease noted, pt pain free, s/p zometa last week in the office setting -for rad-onc c/s , ?continue RT, ?hold for now while admitted if unable to lie flat., will discuss -CXR in the am -monitor BMP will follow
[2017-10-05 11:15] LABS: CHLORIDE 96 mmol/L (98-107); POTASSIUM 4.1 mmol/L (3.5-5.1); SODIUM 134 mmol/L (136-145)
[2017-10-05 11:22] LABS: ANION GAP 7 (8-16); BLOOD UREA NITROGEN 9 mg/dL (7-18); CALCIUM 7.4 mg/dL (8.5-10.1); CO2 31 mmol/L (21-32); CREATININE 0.4 mg/dL (0.55-1.02); GLUCOSE,RANDOM 148 mg/dL (74-106)
[2017-10-05 12:16] LABS: MAGNESIUM 1.8 mg/dL (1.8-2.4)
--- NOTE | 2017-10-05 12:46 | CONS ---
PHYSICAL MEDICINE REHABILITATION CONSULTATION REFERRING PHYSICIAN: Annemarie Andres MD DATE OF EVALUATION OR CONSULTATION: 10/05/2017 HISTORY OF PRESENT ILLNESS: The patient is a 81-year-old woman with past medical history of coronary artery disease status post coronary artery bypass graft, recently diagnosed with breast cancer with metastases to the lung, liver, and spine, receiving radiation and chemotherapy, who was admitted with dyspnea on exertion. Patient was found to have large pleural effusion on CT scan, is undergoing treatment in the ICU. Overall her breathing is significantly improved. The pleural effusion due to malignant effusion in the past. Patient overall is feeling better. She is now seen in rehabilitation evaluation. She is also diagnosed with congestive heart failure and is on strict intake/output. She remains on oxygen, which she does not use at home. REVIEW OF CURRENT BLOOD WORK: CBC on October 04, WBC 6.4, hemoglobin 10.6, platelet count 377. Chemistries show slightly low sodium at 134, potassium normal at 4.1, chloride slightly low at 96, BUN normal at 9, creatinine 0.4, calcium level is low at 7.4, but she has a low albumin of 2.5. She did get up out of bed yesterday, but today is her first day of physical therapy, and she is seen bedside with a physical therapist present. REVIEW OF PAST MEDICAL AND SURGICAL HISTORY: Also significant hypertension, hyperlipidemia, COPD, diabetes, bilateral knee osteoarthritis. SOCIAL HISTORY: She lives with her daughter in a private house, 4 steps to enter. Premorbidly, she has been using a walker. ALLERGIES: To PENICILLIN. REVIEW OF SYSTEMS: No dizziness or lightheadedness. No blurry vision or double vision. No nausea, vomiting, difficulty swallowing, or difficulty chewing. No chest pain. She does get dyspnea on exertion, but none currently. No abdominal pain. She is moving her bowels. She has a catheter for urination. She has no numbness or tingling in the upper or lower extremities, but again knee pain and diffuse weakness. No skin rash noted by the patient. No pruritus. PHYSICAL EXAMINATION: General: On examination, a slightly overweight woman. She is seen both lying in bed, sitting in bed, as well as standing and taking a few steps with a walker with therapy. HEENT: She is normocephalic and atraumatic. Her extraocular muscles appear intact. Neck: Supple. Extremities: Without any pitting edema or calf tenderness. Skin: Without any rash or breakdown. Neuromuscular: She is awake, alert, fully oriented. She seems to have good insight into her medical conditions. Cranial nerves are grossly intact. Good strength and range in the upper extremities with slight limitation in the right shoulder girdle. In the lower extremities, she has proximal weakness at 3+ out of 5 in the hip girdle. She has crepitus, medial joint line tenderness in both knees, with no deformity, with some weakness at 4 out of 5. Good dorsiflexion, plantar flexion. Normal sensation to pinprick. When she stands she has some instability in the knees and needs to sit after just a few steps using a walker because of the knees. OVERALL IMPRESSION: 1. Deficits mobility, activities of daily living, multifactorial. 2. Deconditioning. 3. Congestive heart failure. 4. History of malignant pleural effusion. 5. History of metastatic breast cancer. 6. Bilateral knee osteoarthritis, probably by weakness in the proximal lower extremities. 7. Elevated risk for deep venous thrombosis due to immobility. 8. Mild anemia. 9. Hypoalbuminemia. 10. History of coronary artery disease status post coronary artery bypass graft. PLANS AND SUGGESTIONS: 1. Continue physical therapy at the bedside. 2. Out of bed to chair. 3. Subcutaneous heparin. 4. Safety fall precautions. 5. Tylenol for pain in the knees. 6. Skin precautions. 7. Discontinue Thomas when able. 8. Monitor bowels. 9. Probably will need short-term rehabilitation in a [facility] facility prior to discharge. Thank you for this referral. PATT PERAZA M.D. [id number]
[2017-10-05] MEDS: FUROSEMIDE 20 MG TABLET (FP) PO SCH (14:03)
--- NOTE | 2017-10-05 17:21 | PN ---
Progress Note (short form) - Note Progress Note: NAD on NC O2. Feels about the same. No acute events overnight. No CP or SOB. Intake & Output 10/02/17 10/03/17 10/04/17 10/05/17 23:59 23:59 23:59 23:59 Intake Total 1000 860 360 120 Output Total 1999 2100 2900 1300 Balance -1000 -1240 -2540 -1180 Weight 186 lb 6.4 oz 193 lb 1.999 oz 182 lb 3.2 oz 180 lb 8 oz Last Vital Signs Temp Pulse Resp BP Pulse Ox 98.7 F 73 20 109/54 96 10/05/17 14:00 10/05/17 14:00 10/05/17 14:00 10/05/17 14:00 10/05/17 11:10 Active Medications Anastrozole (Arimidex -) 1 mg PO DAILY [facility] Last Admin: 10/05/17 10:45 Dose: 1 mg Aspirin (Asa -) 81 mg PO DAILY [facility] Last Admin: 10/05/17 10:45 Dose: 81 mg Atorvastatin Calcium (Lipitor -) 40 mg PO HS [facility] Last Admin: 10/04/17 22:04 Dose: 40 mg Carvedilol (Coreg -) 12.5 mg PO BID [facility] Last Admin: 10/05/17 10:45 Dose: 12.5 mg Furosemide (Lasix -) 60 mg PO BID@0600,1400 [facility] Last Admin: 10/05/17 14:03 Dose: 60 mg Heparin Sodium (Porcine) (Heparin -) 5,000 unit SQ BID [facility] Last Admin: 10/05/17 10:45 Dose: 5,000 unit Insulin Aspart (Novolog Vial Sliding Scale -) 1 vial SQ ACHS [facility] PRN Reason: Protocol Last Admin: 10/05/17 12:59 Dose: 4 units Constitutional: Yes: No acute distress Eyes: Yes: Conjunctiva Clear, EOM Intact HENT: Yes: Atraumatic, Normocephalic Neck: Yes: Supple, Trachea Midline Cardiovascular: Yes: Tachycardia Respiratory: Yes: Cough, Diminished, On Nasal O2, Rales, Rhonchi, SOB, Tachypnea. No: Accessory Muscle Use, Stridor, Wheezes ...Inspection: Yes: Surgical Scar Gastrointestinal: Yes: Normal Bowel Sounds, Soft Renal/: Yes: WNL Musculoskeletal: Yes: WNL Extremities: Yes: WNL Edema: Yes Peripheral Pulses WNL: Yes Integumentary: Yes: WNL Neurological: Yes: WNL, Alert, Oriented ...Motor Strength: WNL Psychiatric: Yes: WNL, Alert, Oriented Labs: Laboratory Results - last 24 hr 10/05/17 10/05/17 10/05/17 06:06 10:08 10:08 Sodium 134 L Potassium 4.1 Chloride 96 L Carbon Dioxide 31 Anion Gap 7 L BUN 9 Creatinine 0.4 L POC Glucometer 134.27130 Random Glucose 148 H Calcium 7.4 L Magnesium 1.8 Cancelled Problem List - Problems (1) CHF (congestive heart failure) Code(s): I50.9 - HEART FAILURE, UNSPECIFIED Qualifiers: (2) Edema Code(s): R60.9 - EDEMA, UNSPECIFIED (3) Pleural effusion Code(s): J90 - PLEURAL EFFUSION, NOT ELSEWHERE CLASSIFIED (4) Respiratory distress Code(s): R06.00 - DYSPNEA, UNSPECIFIED (5) ASHD (arteriosclerotic heart disease) Code(s): I25.10 - ATHSCL HEART DISEASE OF [place] CORONARY ARTERY W/O ANG PCTRS (6) Axillary lymphadenopathy Code(s): R59.0 - LOCALIZED ENLARGED LYMPH NODES (7) Breast cancer Code(s): C50.919 - MALIGNANT NEOPLASM OF UNSP SITE OF UNSPECIFIED FEMALE BREAST (8) Malignant pleural effusion Code(s): J91.0 - MALIGNANT PLEURAL EFFUSION Assessment/Plan Daily weight Strict I & O O2 as needed to maintain saturation Monitor off ABX VTE prophylaxis with SQ Heparin Lasix BID Consideration is being made for PleureX placement Dr Morales Problem List - Problems (1) CHF (congestive heart failure) Code(s): I50.9 - HEART FAILURE, UNSPECIFIED Qualifiers: (2) Edema Code(s): R60.9 - EDEMA, UNSPECIFIED (3) Pleural effusion Code(s): J90 - PLEURAL EFFUSION, NOT ELSEWHERE CLASSIFIED (4) Respiratory distress Code(s): R06.00 - DYSPNEA, UNSPECIFIED (5) ASHD (arteriosclerotic heart disease) Code(s): I25.10 - ATHSCL HEART DISEASE OF [place] CORONARY ARTERY W/O ANG PCTRS (6) Axillary lymphadenopathy Code(s): R59.0 - LOCALIZED ENLARGED LYMPH NODES (7) Breast cancer Code(s): C50.919 - MALIGNANT NEOPLASM OF UNSP SITE OF UNSPECIFIED FEMALE BREAST (8) Malignant pleural effusion Code(s): J91.0 - MALIGNANT PLEURAL EFFUSION
[2017-10-05] MEDS: ATORVASTATIN CA 40 MG TABLET (FP) PO SCH (22:05)
[2017-10-06] MEDS: FUROSEMIDE 20 MG TABLET (FP) PO SCH ×2 (06:32→13:28)
[2017-10-06] MEDS: INSULIN SLIDING SCALE (NOVOLOG) 1 VIAL SQ SCH ×4 (06:33→21:25)
[2017-10-06] MEDS ORDERED: PT OWN MED DRAWER 7, Y5N ONE (08:35)
[2017-10-06 08:49] LABS: CHLORIDE 97 mmol/L (98-107); POTASSIUM 4.3 mmol/L (3.5-5.1); SODIUM 136 mmol/L (136-145)
[2017-10-06] MEDS: ASPIRIN 81 MG CHEWABLE TABLETS PO SCH (09:01)
[2017-10-06] MEDS: ANASTROZOLE 1 MG TABLET PO SCH (09:01)
[2017-10-06] MEDS: HEPARIN NA (PORCINE) 5,000 UNITS/ML 1ML VIAL SQ SCH ×2 (09:01→21:24)
[2017-10-06] MEDS: CARVEDILOL 12.5 MG TABLET (FP) PO SCH ×2 (09:03→21:24)
--- NOTE | 2017-10-06 09:38 | PN ---
Progress Note, Physician History of Present Illness: Feels better pt has not decided regarding pleureX - Current Medication List Current Medications: Active Medications Anastrozole (Arimidex -) 1 mg PO DAILY [facility] Last Admin: 10/06/17 09:01 Dose: 1 mg Aspirin (Asa -) 81 mg PO DAILY [facility] Last Admin: 10/06/17 09:01 Dose: 81 mg Atorvastatin Calcium (Lipitor -) 40 mg PO HS [facility] Last Admin: 10/05/17 22:05 Dose: 40 mg Carvedilol (Coreg -) 12.5 mg PO BID [facility] Last Admin: 10/06/17 09:03 Dose: 12.5 mg Furosemide (Lasix -) 60 mg PO BID@0600,1400 [facility] Last Admin: 10/06/17 06:32 Dose: 60 mg Heparin Sodium (Porcine) (Heparin -) 5,000 unit SQ BID [facility] Last Admin: 10/06/17 09:01 Dose: 5,000 unit Insulin Aspart (Novolog Vial Sliding Scale -) 1 vial SQ ACHS [facility] PRN Reason: Protocol Last Admin: 10/06/17 06:33 Dose: 4 units - Objective Vital Signs: Vital Signs Temperature 98.6 F 10/06/17 07:36 Pulse Rate 70 10/06/17 07:36 Respiratory Rate 20 10/06/17 07:42 Blood Pressure 119/49 10/06/17 07:36 O2 Sat by Pulse Oximetry (%) 99 10/06/17 07:42 Cardiovascular: Yes: S1, S2 Respiratory: Yes: Rales (at the bases) Gastrointestinal: Yes: Normal Bowel Sounds, Soft Edema: No Labs: CBC, BMP 10/04/17 05:25 INR, PTT INR 1.24 (0.82-1.09) H 09/29/17 20:27 Problem List - Problems (1) Malignant pleural effusion Assessment/Plan: -IR consult - Dr. Mckinney for s/p therapeutic thoracentesis -Pulm consult- -BNP ~39,000 -received 40mg IVP lasix in ED -on lasix 40mg IVP BID--to 60 po bid -strict I's and O's -daily weights -02, nebulizer tx -f/u cxr --PLEUREX IF PT AGREES Code(s): J91.0 - MALIGNANT PLEURAL EFFUSION (2) CHF (congestive heart failure) Code(s): I50.9 - HEART FAILURE, UNSPECIFIED Qualifiers: (3) Breast cancer Assessment/Plan: per oncology Code(s): C50.919 - MALIGNANT NEOPLASM OF UNSP SITE OF UNSPECIFIED FEMALE BREAST (4) HTN (hypertension) Assessment/Plan: now low hold lisinpril check cbc monitor Code(s): I10 - ESSENTIAL (PRIMARY) HYPERTENSION Assessment/Plan PHYSICAL THERAPY---SNF
[2017-10-06 09:39] LABS: ANION GAP 6 (8-16); BLOOD UREA NITROGEN 8 mg/dL (7-18); CALCIUM 7.5 mg/dL (8.5-10.1); CO2 33 mmol/L (21-32); CREATININE 0.4 mg/dL (0.55-1.02); GLUCOSE,RANDOM 122 mg/dL (74-106)
--- NOTE | 2017-10-06 09:52 | PN ---
Progress Note (short form) - Note Progress Note: Radiation Oncology full consult to follow 81yo female known to us with stage IV breast cancer w widespread mets including bulky mass/adenopathy in right neck and malignant right pleural effusion who has been receiving palliative RT (18Gy to date) to right neck mass with some objective response on our daily portal imaging. Declined chemo but on Arimidex. Admitted for acute onset PRIDE from recurrent pleural effusion and heart failure. Had right pleural tap of 1300cc fluid. On diuresis. Feels better today with less SOB but states she still cannot lay flat. Denies cough, CP, dysphagia, pain. She and family are considering a pleurx catheter for the recurrent effusion. On exam skin is intact, mild erythema, and right neck mass is firm but smaller than initial size. She stated she would like to continue with RT but cannot lay flat without SOB. Will continue to hold RT pending ability to lay flat, perhaps after pleurx catheter if she and family so chooses. Cont current mgt.
--- NOTE | 2017-10-06 10:57 | PN ---
Progress Note (short form) - Note Progress Note: s: no cp palps dizzy sob o: Vital Signs Period Temp Pulse Resp BP Sys/Moreno Pulse Ox Last 24 Hr 98.5 F-98.7 F 70-75 18-20 103-119/43-54 96-99 nad calm jvd flat, neck supple rrr s1s2 2/6 sys murmur at lsb/apex bibasilar dullness, nl effort + bs. soft, nt nd no hsm trace le edema, no c/c no jaundice diaphoresis aaox3 Current Medications Generic Name Dose Route Start Last Admin Trade Name Freq PRN Reason Stop Dose Admin Anastrozole 1 mg 09/30/17 10:00 10/06/17 09:01 Arimidex - PO 1 mg DAILY [facility] Administration Aspirin 81 mg 09/30/17 10:00 10/06/17 09:01 Asa - PO 81 mg DAILY [facility] Administration Atorvastatin Calcium 40 mg 09/30/17 22:00 10/05/17 22:05 Lipitor - PO 40 mg HS [facility] Administration Carvedilol 12.5 mg 09/30/17 10:00 10/06/17 09:03 Coreg - PO 12.5 mg BID [facility] Administration Furosemide 60 mg 10/05/17 14:00 10/06/17 06:32 Lasix - PO 60 mg BID@0600,1400 [facility] Administration Heparin Sodium (Porcine) 5,000 unit 09/30/17 01:15 10/06/17 09:01 Heparin - SQ 5,000 unit BID [facility] Administration Insulin Aspart 1 vial 09/30/17 07:00 10/06/17 06:33 Novolog Vial Sliding Scale - SQ 4 units ACHS [facility] Administration Protocol CBC, BMP 10/04/17 05:25 10/06/17 06:35 ekg: SR with pac's, IVCD, poor r wave progression. anterolateral twi. similar to priors. CXR 10/04: per report, no significant change. CM with residual congestion and bilateral pleural effusions R>L. by my review, right sided congestion/effusion appears slightly worse. chest ct images and report reviewed. interstitial edema. bilateral pl effusion with compressive atelectasis. large on rt, small on left. cardiomegaly. calc cors. diffuse subcutaneous edema/anasarca. mets to l. nodes, bone, likely liver. rt breast mass. Echo 09/30: nl LVSF; + hypo IW, inferolat, inferoseptal; nl RV; valves WNL Echo 10/2016: nl lvef, inf/inflat/infseptal HK, nl rv, mild mr Carotid us 10/2016: 60-79% bl ICA stenosis, chronic LE dopplers 07/2017: no dvt. tele: sr, occ pvcs a/p: 81 f hx cad s/p cabg 2005, htn , hld, niddm, breast cancer with mets to l.nodes, bone, likely liver and malignant rt pleural effusion (s/p thora 2016) p/w progressive lower extremity edema, shortness of breath and noted to have recurrent rt pleural effusion (s/p thora 09/30). pleural effusion (malignant?), acute diast chf - s/p thoracentesis 09/30 - anasarca and signs of pulmonary edema on exam and chest ct. May have contribution from third spacing due to low albumin, but likely also with acute diastolic HF exacerbation. Repeat echo --> no change in systolic function. - 10/04 remains sob, with 10/01 cxr worsening congestion/effusions. UOP approx 2L daily on lasix 40 iv bid. rpt CXR 10/04 --rec incr lasix 80 iv bid if cxr not - 10/06: cont po lasix cad s/p cabg/HL - prior echo with inferior wall motion abnormalities with preserved EF. Had declined stress testing in past, per dr. fong. - no anginal sx's. EKG unchanged from priors. troponin neg x 2 - con't OMT with asa, statin, bb. ACEI on hold for low bp's. HTN - bp controlled/running low. con't coreg. holding lisinopril. carotid atherosclerosis - stable velocities on u/s per office notes. Per report has previously declined further evaluation with cta or surgical eval. - con't asa, statin
--- NOTE | 2017-10-06 15:45 | PN ---
Progress Note, Physician History of Present Illness: PULMONARY ALERT,OO-CHAIR,-C/O SOB - Current Medication List Current Medications: Active Medications Anastrozole (Arimidex -) 1 mg PO DAILY [facility] Last Admin: 10/06/17 09:01 Dose: 1 mg Aspirin (Asa -) 81 mg PO DAILY [facility] Last Admin: 10/06/17 09:01 Dose: 81 mg Atorvastatin Calcium (Lipitor -) 40 mg PO HS [facility] Last Admin: 10/05/17 22:05 Dose: 40 mg Carvedilol (Coreg -) 12.5 mg PO BID [facility] Last Admin: 10/06/17 09:03 Dose: 12.5 mg Furosemide (Lasix -) 60 mg PO BID@0600,1400 [facility] Last Admin: 10/06/17 13:28 Dose: 60 mg Heparin Sodium (Porcine) (Heparin -) 5,000 unit SQ BID [facility] Last Admin: 10/06/17 09:01 Dose: 5,000 unit Insulin Aspart (Novolog Vial Sliding Scale -) 1 vial SQ ACHS [facility]S [facility] PRN Reason: Protocol Last Admin: 10/06/17 11:31 Dose: 2 units - Objective Vital Signs: Vital Signs Temperature 98.1 F 10/06/17 14:30 Pulse Rate 69 10/06/17 14:30 Respiratory Rate 22 10/06/17 14:30 Blood Pressure 108/44 10/06/17 14:30 O2 Sat by Pulse Oximetry (%) 99 10/06/17 07:42 Constitutional: Yes: Well Nourished, Calm Eyes: Yes: WNL HENT: Yes: WNL Neck: Yes: WNL Cardiovascular: Yes: WNL Respiratory: Yes: Diminished Gastrointestinal: Yes: Normal Bowel Sounds, Soft Extremities: Yes: WNL Edema: Yes Edema: LLE: Trace, RLE: Trace Labs: CBC, BMP 10/06/17 06:35 INR, PTT INR 1.24 (0.82-1.09) H 09/29/17 20:27 Assessment/Plan Problem List - Problems (1) CHF (congestive heart failure) Code(s): I50.9 - HEART FAILURE, UNSPECIFIED Qualifiers: (2) Edema Code(s): R60.9 - EDEMA, UNSPECIFIED (3) Pleural effusion Code(s): J90 - PLEURAL EFFUSION, NOT ELSEWHERE CLASSIFIED (4) Respiratory distress Code(s): R06.00 - DYSPNEA, UNSPECIFIED (5) ASHD (arteriosclerotic heart disease) Code(s): I25.10 - ATHSCL HEART DISEASE OF [place] CORONARY ARTERY W/O ANG PCTRS (6) Axillary lymphadenopathy Code(s): R59.0 - LOCALIZED ENLARGED LYMPH NODES (7) Breast cancer Code(s): C50.919 - MALIGNANT NEOPLASM OF UNSP SITE OF UNSPECIFIED FEMALE BREAST (8) Malignant pleural effusion Code(s): J91.0 - MALIGNANT PLEURAL EFFUSION Assessment/Plan Daily weight Strict I & O O2 as needed to maintain saturation VTE prophylaxis with SQ Heparin Lasix BID ? PleureX placement DR ACOSTA Problem List - Problems (1) CHF (congestive heart failure) Code(s): I50.9 - HEART FAILURE, UNSPECIFIED Qualifiers: (2) Edema Code(s): R60.9 - EDEMA, UNSPECIFIED (3) Pleural effusion Code(s): J90 - PLEURAL EFFUSION, NOT ELSEWHERE CLASSIFIED (4) Respiratory distress Code(s): R06.00 - DYSPNEA, UNSPECIFIED (5) ASHD (arteriosclerotic heart disease) Code(s): I25.10 - ATHSCL HEART DISEASE OF [place] CORONARY ARTERY W/O ANG PCTRS (6) Axillary lymphadenopathy Code(s): R59.0 - LOCALIZED ENLARGED LYMPH NODES (7) Breast cancer Code(s): C50.919 - MALIGNANT NEOPLASM OF UNSP SITE OF UNSPECIFIED FEMALE BREAST (8) Malignant pleural effusion Code(s): J91.0 - MALIGNANT PLEURAL EFFUSION
--- NOTE | 2017-10-06 18:38 | PN ---
Progress Note (short form) - Note Progress Note: Patient seen and examined. events noted. she is feeling a little better she says O/E: NAD NCAT Decreased size of the neck mass. Decreased rt breath sounds +1+ edema LE. Last Vital Signs Temp Pulse Resp BP Pulse Ox 98.1 F 69 22 110/49 99 10/06/17 14:00 10/06/17 14:00 10/06/17 16:00 10/06/17 16:00 10/06/17 07:42 CBC, BMP 10/04/17 05:25 10/06/17 06:35 Current Medications Generic Name Dose Route Start Last Admin Trade Name Freq PRN Reason Stop Dose Admin Anastrozole 1 mg 09/30/17 10:00 10/06/17 09:01 Arimidex - PO 1 mg DAILY [facility] Administration Aspirin 81 mg 09/30/17 10:00 10/06/17 09:01 Asa - PO 81 mg DAILY [facility] Administration Atorvastatin Calcium 40 mg 09/30/17 22:00 10/05/17 22:05 Lipitor - PO 40 mg HS [facility] Administration Carvedilol 12.5 mg 09/30/17 10:00 10/06/17 09:03 Coreg - PO 12.5 mg BID [facility] Administration Furosemide 60 mg 10/05/17 14:00 10/06/17 13:28 Lasix - PO 60 mg BID@0600,1400 [facility] Administration Heparin Sodium (Porcine) 5,000 unit 09/30/17 01:15 10/06/17 09:01 Heparin - SQ 5,000 unit BID [facility] Administration Insulin Aspart 1 vial 09/30/17 07:00 10/06/17 16:26 Novolog Vial Sliding Scale - SQ 4 units ACHS [facility] Administration Protocol Widely metastatic Hormone positive breast cancer on Arimidex, declined systemic chemo (during discussion in the office ) Neck LAD metastatic site, on Palliative RT. Pleural effusion ( Surg path noted, but has proven malignant effusion in 07/2017 ) Multiple cardiovascular co-morbidities. -c/w arimidex -for diuresis -appreciate radonc c/s -for pleurex.
--- NOTE | 2017-10-06 19:53 | CONS ---
DATE OF CONSULTATION: 10/06/2017 REFERRING PHYSICIAN: Annita Frey MD REASON FOR CONSULTATION: Metastatic breast cancer on radiation therapy. HISTORY OF PRESENT ILLNESS: The patient is an 81-year-old woman known to our service with a history of coronary artery disease status post [place], who was recently diagnosed with metastatic right breast cancer involving the lung, liver, and axillary as well as cervical lymph nodes. She presented with an 8-cm right neck mass and has been receiving palliative radiation therapy to this mass (18 Gy as of September 28, 2017). She has also been on Arimidex. She is known to have a malignant right pleural effusion. She presented with acute onset of exertional dyspnea with bilateral lower extremity edema. She was admitted and CT scans showed [id number]-left pleural effusion, right breast malignancy with metastatic right axillary, hilar, and mediastinal/pretracheal lymph nodes. A right liver lesion is unchanged, but there is a new left liver lesion concerning for metastatic disease. There are extensive bone metastases and pathologic compression fractures of L2 and T2 with central epidural extension at L5. There are renal masses as well as the previously noted right neck mass. She is being treated for acute congestive heart failure and had a therapeutic right thoracentesis of 1300 mL fluid. The patient reports feeling better but states that she still cannot lie flat. She denies odynophagia, dysphagia, chest pain, hoarseness, stridor. PAST MEDICAL HISTORY: Diabetes mellitus, hypertension, hyperlipidemia, coronary artery disease status post [place], congestive heart failure, pleural effusions (malignant). PAST SURGICAL HISTORY: Coronary artery bypass graft. ALLERGIES: PENICILLIN. CURRENT MEDICATIONS: Insulin subcutaneous, Arimidex, Coreg, Lipitor, insulin sliding scale, Lasix, aspirin 81 mg. SOCIAL HISTORY: She is , never smoked. Rarely consumes alcoholic beverages. 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 FAMILY HISTORY: Father at age 47. Mother at age 89 secondary to cardiac disease. Two brothers had lung cancer. A sister had breast cancer. REVIEW OF SYSTEMS: As noted. PHYSICAL EXAMINATION: General: Elderly female in no acute distress. No stridor. Vital Signs: Stable, afebrile. HEENT: Normocephalic and atraumatic. Moist mucous membranes. Anicteric sclerae. Clear oral cavity without thrush or mucositis. Neck: Firm right neck mass extending to the supraclavicular fossa, smaller than previous. Trachea is midline. Chest: Decreased breath sounds bilaterally. Right axillary adenopathy. Breasts: Mass in the right breast. Soft on the left. Abdomen: Soft, nontender, nondistended, with active bowel sounds. Extremities: Bilateral lower extremity edema. Musculoskeletal: No spine or CVA tenderness. Neurologic: Nonfocal. RADIOLOGIC DATA: As noted above. PATHOLOGIC DATA: As noted above. IMPRESSION: An 81-year-old woman with stage IV breast cancer with widespread metastases including bulky mass/adenopathy in the right neck and malignant right pleural effusion, who received palliative radiation therapy, 9 of 20 fractions completed to date to the right neck with some objective response on our daily portal imaging. She declined chemotherapy but is on Arimidex. She was admitted for recurrent pleural effusion and congestive heart failure. She is being diuresed and feels better today with less shortness of breath. She states that she cannot lie flat. She stated that she would like to continue with palliative radiation therapy, but as she cannot lie flat at this time, we will continue to hold her radiation therapy pending improvement of her breathing and ability to lie supine. Spine radiation therapy will be considered for epidural tumor if she has neurologic indications, may also benefit from an MRI of the spine to rule out neurologic compression. PLAN: She and her family are considering Pleurx catheter placement for the recurrent effusion, and if they agree and she can then tolerate lying in a supine position we will reconsider resuming her radiation treatment. Thank you for asking me to participate in the care of this patient. ROSAMARIA IVERSON M.D. [id number] MTDD
[2017-10-06] MEDS: ATORVASTATIN CA 40 MG TABLET (FP) PO SCH (21:24)
[2017-10-07] MEDS: FUROSEMIDE 20 MG TABLET (FP) PO SCH ×2 (06:18→15:54)
[2017-10-07] MEDS: INSULIN SLIDING SCALE (NOVOLOG) 1 VIAL SQ SCH ×4 (06:18→21:30)
[2017-10-07 07:23] LABS: INR 1.04 (0.82-1.09); PROTHROMBIN TIME (PATIENT) 11.8 SEC (9.98-11.88)
[2017-10-07 07:25] LABS: ACTIVATED PTT 28.6 SECONDS (26.9-34.4)
[2017-10-07] MEDS ORDERED: PT OWN MED DRAWER 7, Y5N ONE (07:37)
[2017-10-07 08:06] LABS: BASO % 1.1 % (0-2.0); HEMATOCRIT 29.9 % (32.4-45.2); HEMOGLOBIN 9.5 GM/dL (10.7-15.3); LYMPH % 11.4 % (8-40); MCH 25.8 pg (25.7-33.7); MCHC 31.8 g/dl (32.0-36.0); MEAN CELL VOLUME 81.2 fl (80-96); MEAN PLT VOLUME 7.6 fl (7.5-11.1); MONO % 8.9 % (3.8-10.2); NEUT % 76.6 % (42.8-82.8); PLATELET COUNT 314 K/MM3 (134-434); RBC 3.68 M/mm3 (3.60-5.2); RDW 18.5 % (11.6-15.6); WHITE BLOOD COUNT 5.9 K/mm3 (4.0-10.0)
[2017-10-07] MEDS: ANASTROZOLE 1 MG TABLET PO SCH (09:40)
[2017-10-07] MEDS: HEPARIN NA (PORCINE) 5,000 UNITS/ML 1ML VIAL SQ SCH ×2 (09:40→21:24)
[2017-10-07] MEDS: CARVEDILOL 12.5 MG TABLET (FP) PO SCH ×2 (09:40→21:24)
[2017-10-07] MEDS: ASPIRIN 81 MG CHEWABLE TABLETS PO SCH (09:40)
--- NOTE | 2017-10-07 10:10 | PN ---
Progress Note, Physician Chief Complaint: awake alert in bed sitting awaiting pleurex cath placement - Current Medication List Current Medications: Active Medications Anastrozole (Arimidex -) 1 mg PO DAILY [facility] Last Admin: 10/07/17 09:40 Dose: 1 mg Aspirin (Asa -) 81 mg PO DAILY [facility] Last Admin: 10/07/17 09:40 Dose: 81 mg Atorvastatin Calcium (Lipitor -) 40 mg PO HS [facility] Last Admin: 10/06/17 21:24 Dose: 40 mg Carvedilol (Coreg -) 12.5 mg PO BID [facility] Last Admin: 10/07/17 09:40 Dose: 12.5 mg Furosemide (Lasix -) 60 mg PO BID@0600,1400 [facility] Last Admin: 10/07/17 06:18 Dose: 60 mg Heparin Sodium (Porcine) (Heparin -) 5,000 unit SQ BID [facility] Last Admin: 10/07/17 09:40 Dose: 5,000 unit Insulin Aspart (Novolog Vial Sliding Scale -) 1 vial SQ ACHS [facility] PRN Reason: Protocol Last Admin: 10/07/17 06:18 Dose: 2 units - Objective Vital Signs: Vital Signs Temperature 97.7 F 10/07/17 02:15 Pulse Rate 72 10/07/17 02:15 Respiratory Rate 24 10/07/17 02:15 Blood Pressure 114/44 10/07/17 02:15 O2 Sat by Pulse Oximetry (%) 98 10/06/17 21:00 Constitutional: Yes: Calm Cardiovascular: Yes: Regular Rate and Rhythm, S1, S2 Respiratory: Yes: Diminished (on right side) Gastrointestinal: Yes: Normal Bowel Sounds, Soft Neurological: Yes: Alert, Oriented Labs: CBC, BMP 10/07/17 05:42 10/06/17 06:35 INR, PTT INR 1.04 (0.82-1.09) 10/07/17 05:42 Problem List - Problems (1) Malignant pleural effusion Assessment/Plan: pleurex placement then RT Code(s): J91.0 - MALIGNANT PLEURAL EFFUSION (2) CHF (congestive heart failure) Assessment/Plan: lasix po awaiting pleurex cath placement appreciate Rad onc- plan for RT after pleurex is placed Code(s): I50.9 - HEART FAILURE, UNSPECIFIED Qualifiers: (3) HTN (hypertension) Assessment/Plan: coreg Code(s): I10 - ESSENTIAL (PRIMARY) HYPERTENSION (4) Breast cancer Assessment/Plan: armidiex RT-after pleurex placed dvt ppx Code(s): C50.919 - MALIGNANT NEOPLASM OF UNSP SITE OF UNSPECIFIED FEMALE BREAST Assessment/Plan PT eval - snf
--- NOTE | 2017-10-07 13:00 | PN ---
Progress Note (short form) - Note Progress Note: NAD on NC O2. Feels about the same. No acute events overnight. No CP or SOB. Intake & Output 10/04/17 10/05/17 10/06/17 10/07/17 23:59 23:59 23:59 23:59 Intake Total 360 220 250 100 Output Total 2900 1700 3000 1100 Balance -2540 -1480 -2750 -1000 Weight 182 lb 3.2 oz 180 lb 8 oz 179 lb 14.4 oz 170 lb 4 oz Last Vital Signs Temp Pulse Resp BP Pulse Ox 98.2 F 76 77 H 110/48 97 10/07/17 12:55 10/07/17 12:55 10/07/17 12:55 10/07/17 12:55 10/07/17 11:20 Active Medications Anastrozole (Arimidex -) 1 mg PO DAILY [facility] Last Admin: 10/07/17 09:40 Dose: 1 mg Aspirin (Asa -) 81 mg PO DAILY [facility] Last Admin: 10/07/17 09:40 Dose: 81 mg Atorvastatin Calcium (Lipitor -) 40 mg PO HS [facility] Last Admin: 10/06/17 21:24 Dose: 40 mg Carvedilol (Coreg -) 12.5 mg PO BID [facility] Last Admin: 10/07/17 09:40 Dose: 12.5 mg Furosemide (Lasix -) 60 mg PO BID@0600,1400 [facility] Last Admin: 10/07/17 06:18 Dose: 60 mg Heparin Sodium (Porcine) (Heparin -) 5,000 unit SQ BID [facility] Last Admin: 10/07/17 09:40 Dose: 5,000 unit Insulin Aspart (Novolog Vial Sliding Scale -) 1 vial SQ ACHS [facility] PRN Reason: Protocol Last Admin: 10/07/17 06:18 Dose: 2 units Constitutional: Yes: No acute distress Eyes: Yes: Conjunctiva Clear, EOM Intact HENT: Yes: Atraumatic, Normocephalic Neck: Yes: Supple, Trachea Midline Cardiovascular: Yes: Tachycardia Respiratory: Yes: Cough, Diminished, On Nasal O2, Rales, Rhonchi, SOB, Tachypnea. No: Accessory Muscle Use, Stridor, Wheezes ...Inspection: Yes: Surgical Scar Gastrointestinal: Yes: Normal Bowel Sounds, Soft Renal/: Yes: WNL Musculoskeletal: Yes: WNL Extremities: Yes: WNL Edema: Yes Peripheral Pulses WNL: Yes Integumentary: Yes: WNL Neurological: Yes: WNL, Alert, Oriented ...Motor Strength: WNL Psychiatric: Yes: WNL, Alert, Oriented Labs: Laboratory Results - last 24 hr 10/06/17 10/07/17 10/07/17 16:17 05:42 05:42 WBC 5.9 RBC 3.68 Hgb 9.5 L D Hct 29.9 L MCV 81.2 MCH 25.8 MCHC 31.8 L RDW 18.5 H Plt Count 314 MPV 7.6 Neutrophils % 76.6 Lymphocytes % 11.4 Monocytes % 8.9 Eosinophils % 2.0 D Basophils % 1.1 PT with INR 11.80 INR 1.04 PTT (Actin FS) 28.6 POC Glucometer [phone] Problem List - Problems (1) CHF (congestive heart failure) Code(s): I50.9 - HEART FAILURE, UNSPECIFIED Qualifiers: (2) Edema Code(s): R60.9 - EDEMA, UNSPECIFIED (3) Pleural effusion Code(s): J90 - PLEURAL EFFUSION, NOT ELSEWHERE CLASSIFIED (4) Respiratory distress Code(s): R06.00 - DYSPNEA, UNSPECIFIED (5) ASHD (arteriosclerotic heart disease) Code(s): I25.10 - ATHSCL HEART DISEASE OF [place] CORONARY ARTERY W/O ANG PCTRS (6) Axillary lymphadenopathy Code(s): R59.0 - LOCALIZED ENLARGED LYMPH NODES (7) Breast cancer Code(s): C50.919 - MALIGNANT NEOPLASM OF UNSP SITE OF UNSPECIFIED FEMALE BREAST (8) Malignant pleural effusion Code(s): J91.0 - MALIGNANT PLEURAL EFFUSION Assessment/Plan Daily weight Strict I & O O2 as needed to maintain saturation Monitor off ABX VTE prophylaxis with SQ Heparin Lasix BID Consideration is being made for PleureX placement but was on ASA Dr Morales Problem List - Problems (1) CHF (congestive heart failure) Code(s): I50.9 - HEART FAILURE, UNSPECIFIED Qualifiers: (2) Edema Code(s): R60.9 - EDEMA, UNSPECIFIED (3) Pleural effusion Code(s): J90 - PLEURAL EFFUSION, NOT ELSEWHERE CLASSIFIED (4) Respiratory distress Code(s): R06.00 - DYSPNEA, UNSPECIFIED (5) ASHD (arteriosclerotic heart disease) Code(s): I25.10 - ATHSCL HEART DISEASE OF [place] CORONARY ARTERY W/O ANG PCTRS (6) Axillary lymphadenopathy Code(s): R59.0 - LOCALIZED ENLARGED LYMPH NODES (7) Breast cancer Code(s): C50.919 - MALIGNANT NEOPLASM OF UNSP SITE OF UNSPECIFIED FEMALE BREAST (8) Malignant pleural effusion Code(s): J91.0 - MALIGNANT PLEURAL EFFUSION
--- NOTE | 2017-10-07 13:47 | PN ---
Progress Note (short form) - Note Progress Note: stop aspirin for 5 days and then will get pleurex cath lorena need snf - rehab lorena need oxygen as well and outpatient procedure for pleurex cath after 5 days Problem List - Problems (1) Malignant pleural effusion Code(s): J91.0 - MALIGNANT PLEURAL EFFUSION (2) CHF (congestive heart failure) Code(s): I50.9 - HEART FAILURE, UNSPECIFIED Qualifiers: (3) HTN (hypertension) Code(s): I10 - ESSENTIAL (PRIMARY) HYPERTENSION (4) Breast cancer Code(s): C50.919 - MALIGNANT NEOPLASM OF UNSP SITE OF UNSPECIFIED FEMALE BREAST
--- NOTE | 2017-10-07 17:52 | PN ---
Progress Note (short form) - Note Progress Note: CC: sob s: no cp palps dizzy sob. asa stopped, in anticipation of drain placement. o: Current Medications Anastrozole (Arimidex -) 1 mg PO DAILY [facility] Last Admin: 10/07/17 09:40 Dose: 1 mg Atorvastatin Calcium (Lipitor -) 40 mg PO HS [facility] Last Admin: 10/06/17 21:24 Dose: 40 mg Carvedilol (Coreg -) 12.5 mg PO BID [facility] Last Admin: 10/07/17 09:40 Dose: 12.5 mg Furosemide (Lasix -) 60 mg PO BID@0600,1400 [facility] Last Admin: 10/07/17 15:54 Dose: 60 mg Heparin Sodium (Porcine) (Heparin -) 5,000 unit SQ BID [facility] Last Admin: 10/07/17 09:40 Dose: 5,000 unit Insulin Aspart (Novolog Vial Sliding Scale -) 1 vial SQ ACHS [facility] PRN Reason: Protocol Last Admin: 10/07/17 17:07 Dose: 4 units Vital Signs - 24 hr 10/06/17 10/06/17 10/06/17 18:00 20:00 21:00 Temperature 98.3 F Pulse Rate 73 74 Respiratory 22 Rate Blood Pressure 124/52 121/88 O2 Sat by Pulse 98 Oximetry (%) 10/06/17 10/07/17 10/07/17 22:00 02:15 10:00 Temperature 97.9 F 97.7 F 97.9 F Pulse Rate 73 72 77 Respiratory 24 24 22 Rate Blood Pressure 112/42 114/44 108/43 O2 Sat by Pulse 97 Oximetry (%) 10/07/17 10/07/17 10/07/17 11:20 14:00 16:00 Temperature 98.2 F Pulse Rate 75 76 73 Respiratory 77 H 20 Rate Blood Pressure 110/48 98/87 O2 Sat by Pulse 97 Oximetry (%) Intake & Output 10/05/17 10/06/17 10/07/17 10/08/17 07:59 07:59 07:59 07:59 Intake Total 360 120 230 300 Output Total 2200 1200 2800 2700 Balance -3519 -7338 -6174 -8981 Weight 180 lb 8 oz 179 lb 14.4 oz 170 lb 4 oz nad calm jvd flat, neck supple rrr s1s2 2/6 sys murmur at lsb/apex dullness on right to mid lung, nl effort + bs. soft, nt nd no hsm trace le edema, no c/c no jaundice diaphoresis aaox3 CBC, BMP 10/07/17 05:42 10/06/17 06:35 ekg: SR with pac's, IVCD, poor r wave progression. anterolateral twi. similar to priors. tele: sr, occ pvcs cxr 10/05: worsening bilateral lower lobe consolidation with [id number] rt pleural effusion CXR 10/04: per report, no significant change. CM with residual congestion and bilateral pleural effusions R>L. by my review, right sided congestion/effusion appears slightly worse. chest ct images and report reviewed. interstitial edema. bilateral pl effusion with compressive atelectasis. large on rt, small on left. cardiomegaly. calc cors. diffuse subcutaneous edema/anasarca. mets to l. nodes, bone, likely liver. rt breast mass. Echo 09/30: nl LVSF; + hypo IW, inferolat, inferoseptal; nl RV; valves WNL Echo 10/2016: nl lvef, inf/inflat/infseptal HK, nl rv, mild mr Carotid us 10/2016: 60-79% bl ICA stenosis, chronic LE dopplers 07/2017: no dvt. a/p: 81 f hx cad s/p cabg 2005, htn , hld, niddm, breast cancer with mets to l.nodes, bone, likely liver and malignant rt pleural effusion (s/p thora 2016) p/w progressive lower extremity edema, shortness of breath and noted to have recurrent rt pleural effusion (s/p thora 09/30). pleural effusion (malignant?), acute diast chf - s/p thoracentesis 09/30 - anasarca and signs of pulmonary edema on exam and chest ct. May have contribution from third spacing due to low albumin, but likely also with acute diastolic HF exacerbation. Repeat echo --> no change in systolic function. - 10/04 remains sob, with 10/01 cxr worsening congestion/effusions. UOP approx 2L daily on lasix 40 iv bid. rpt CXR 10/04 --rec incr lasix 80 iv bid if cxr not - 10/06-10/07: cont po lasix cad s/p cabg/HL - prior echo with inferior wall motion abnormalities with preserved EF. Had declined stress testing in past, per dr. fong. - no anginal sx's. EKG unchanged from priors. troponin neg x 2 - con't OMT with statin, bb. ACEI on hold for low bp's. Asa on hold 10/07 in anticipation of drain placement. HTN - bp controlled/running low. con't coreg. holding lisinopril. carotid atherosclerosis - stable velocities on u/s per office notes. Per report has previously declined further evaluation with cta or surgical eval. - con't statin. asa on hold as mentioned
[2017-10-07] MEDS: ATORVASTATIN CA 40 MG TABLET (FP) PO SCH (21:24)
[2017-10-08] MEDS: FUROSEMIDE 20 MG TABLET (FP) PO SCH ×2 (05:49→14:31)
[2017-10-08] MEDS: INSULIN SLIDING SCALE (NOVOLOG) 1 VIAL SQ SCH ×4 (06:05→22:15)
--- NOTE | 2017-10-08 09:26 | PN ---
Progress Note, Physician History of Present Illness: Feels better pt has not decided regarding pleureX - Current Medication List Current Medications: Active Medications Anastrozole (Arimidex -) 1 mg PO DAILY [facility] Last Admin: 10/07/17 09:40 Dose: 1 mg Atorvastatin Calcium (Lipitor -) 40 mg PO HS [facility] Last Admin: 10/07/17 21:24 Dose: 40 mg Carvedilol (Coreg -) 12.5 mg PO BID [facility] Last Admin: 10/07/17 21:24 Dose: 12.5 mg Furosemide (Lasix -) 60 mg PO BID@0600,1400 [facility] Last Admin: 10/08/17 05:49 Dose: 60 mg Heparin Sodium (Porcine) (Heparin -) 5,000 unit SQ BID [facility] Last Admin: 10/07/17 21:24 Dose: 5,000 unit Insulin Aspart (Novolog Vial Sliding Scale -) 1 vial SQ ACHS [facility] PRN Reason: Protocol Last Admin: 10/08/17 06:05 Dose: Not Given - Objective Vital Signs: Vital Signs Temperature 98.2 F 10/07/17 20:25 Pulse Rate 72 10/08/17 06:09 Respiratory Rate 20 10/08/17 06:09 Blood Pressure 126/45 10/08/17 06:09 O2 Sat by Pulse Oximetry (%) 96 10/07/17 20:25 Cardiovascular: Yes: S1, S2 Respiratory: Yes: Diminished (at the bases), Rales Gastrointestinal: Yes: Normal Bowel Sounds, Soft Edema: No Labs: CBC, BMP 10/07/17 05:42 10/06/17 06:35 INR, PTT INR 1.04 (0.82-1.09) 10/07/17 05:42 Problem List - Problems (1) Malignant pleural effusion Code(s): J91.0 - MALIGNANT PLEURAL EFFUSION (2) CHF (congestive heart failure) Code(s): I50.9 - HEART FAILURE, UNSPECIFIED Qualifiers: (3) Breast cancer Code(s): C50.919 - MALIGNANT NEOPLASM OF UNSP SITE OF UNSPECIFIED FEMALE BREAST (4) HTN (hypertension) Code(s): I10 - ESSENTIAL (PRIMARY) HYPERTENSION Assessment/Plan - Problems (1) Malignant pleural effusion Assessment/Plan: pleurex placement then RT Code(s): J91.0 - MALIGNANT PLEURAL EFFUSION (2) CHF (congestive heart failure) Assessment/Plan: lasix po awaiting pleurex cath placement appreciate Rad onc- plan for RT after pleurex is placed Code(s): I50.9 - HEART FAILURE, UNSPECIFIED Qualifiers: (3) HTN (hypertension) Assessment/Plan: coreg Code(s): I10 - ESSENTIAL (PRIMARY) HYPERTENSION (4) Breast cancer Assessment/Plan: armidiex RT-after pleurex placed dvt ppx Code(s): C50.919 - MALIGNANT NEOPLASM OF UNSP SITE OF UNSPECIFIED FEMALE BREAST PT eval - snf
[2017-10-08] MEDS ORDERED: PT OWN MED DRAWER 7, Y5N ONE (09:27)
[2017-10-08] MEDS: ANASTROZOLE 1 MG TABLET PO SCH (09:42)
[2017-10-08] MEDS: HEPARIN NA (PORCINE) 5,000 UNITS/ML 1ML VIAL SQ SCH (09:43)
[2017-10-08] MEDS: CARVEDILOL 12.5 MG TABLET (FP) PO SCH ×2 (09:43→22:14)
--- NOTE | 2017-10-08 10:30 | PN ---
Progress Note (short form) - Note Progress Note: s: no cp palps dizzy sob o: Vital Signs Period Temp Pulse Resp BP Sys/Moreno Pulse Ox Last 24 Hr 98.2 F-98.2 F 72-78 20-77 98-126/40-87 96-97 nad calm jvd flat, neck supple rrr s1s2 2/6 sys murmur at lsb/apex bibasilar dullness, nl effort + bs. soft, nt nd no hsm trace le edema, no c/c no jaundice diaphoresis aaox3 Current Medications Generic Name Dose Route Start Last Admin Trade Name Freq PRN Reason Stop Dose Admin Anastrozole 1 mg 09/30/17 10:00 10/08/17 09:42 Arimidex - PO 1 mg DAILY [facility] Administration Atorvastatin Calcium 40 mg 09/30/17 22:00 10/07/17 21:24 Lipitor - PO 40 mg HS [facility] Administration Carvedilol 12.5 mg 09/30/17 10:00 10/08/17 09:43 Coreg - PO 12.5 mg BID [facility] Administration Furosemide 60 mg 10/05/17 14:00 10/08/17 05:49 Lasix - PO 60 mg BID@0600,1400 [facility] Administration Heparin Sodium (Porcine) 5,000 unit 09/30/17 01:15 10/08/17 09:43 Heparin - SQ 5,000 unit BID [facility] Administration Insulin Aspart 1 vial 09/30/17 07:00 10/08/17 06:05 Novolog Vial Sliding Scale - SQ Not Given ACHS [facility] Protocol CBC, BMP 10/07/17 05:42 10/06/17 06:35 ekg: SR with pac's, IVCD, poor r wave progression. anterolateral twi. similar to priors. CXR 10/04: per report, no significant change. CM with residual congestion and bilateral pleural effusions R>L. by my review, right sided congestion/effusion appears slightly worse. chest ct images and report reviewed. interstitial edema. bilateral pl effusion with compressive atelectasis. large on rt, small on left. cardiomegaly. calc cors. diffuse subcutaneous edema/anasarca. mets to l. nodes, bone, likely liver. rt breast mass. Echo 09/30: nl LVSF; + hypo IW, inferolat, inferoseptal; nl RV; valves WNL Echo 10/2016: nl lvef, inf/inflat/infseptal HK, nl rv, mild mr Carotid us 10/2016: 60-79% bl ICA stenosis, chronic LE dopplers 07/2017: no dvt. tele: sr, occ pvcs a/p: 81 f hx cad s/p cabg 2005, htn , hld, niddm, breast cancer with mets to l.nodes, bone, likely liver and malignant rt pleural effusion (s/p thora 2016) p/w progressive lower extremity edema, shortness of breath and noted to have recurrent rt pleural effusion (s/p thora 09/30). pleural effusion (malignant?), acute diast chf - s/p thoracentesis 09/30 - anasarca and signs of pulmonary edema on exam and chest ct. May have contribution from third spacing due to low albumin, but likely also with acute diastolic HF exacerbation. Repeat echo --> no change in systolic function. - 10/04 remains sob, with 10/01 cxr worsening congestion/effusions. UOP approx 2L daily on lasix 40 iv bid. rpt CXR 10/04 --rec incr lasix 80 iv bid if cxr not - 10/06-10/08: cont po lasix cad s/p cabg/HL - prior echo with inferior wall motion abnormalities with preserved EF. Had declined stress testing in past, per dr. fong. - no anginal sx's. EKG unchanged from priors. troponin neg x 2 - con't OMT with statin, bb. ACEI on hold for low bp's. Asa on hold 10/07 in anticipation of drain placement. HTN - bp controlled/running low. con't coreg. holding lisinopril. carotid atherosclerosis - stable velocities on u/s per office notes. Per report has previously declined further evaluation with cta or surgical eval. - con't statin. asa on hold as mentioned
[2017-10-08 11:07] LABS: BASO % 0.9 % (0-2.0); EOS % 0.4 % (0-4.5); HEMATOCRIT 31.1 % (32.4-45.2); HEMOGLOBIN 9.7 GM/dL (10.7-15.3); LYMPH % 10.3 % (8-40); MCH 25.6 pg (25.7-33.7); MCHC 31.3 g/dl (32.0-36.0); MEAN CELL VOLUME 81.6 fl (80-96); MEAN PLT VOLUME 7.4 fl (7.5-11.1); MONO % 8.9 % (3.8-10.2); NEUT % 79.5 % (42.8-82.8); PLATELET COUNT 332 K/MM3 (134-434); RBC 3.81 M/mm3 (3.60-5.2); RDW 18.7 % (11.6-15.6); WHITE BLOOD COUNT 5.7 K/mm3 (4.0-10.0)
[2017-10-08 11:14] LABS: ALBUMIN 2.1 g/dl (3.4-5.0); ANION GAP 7 (8-16); BILIRUBIN,TOTAL 0.5 mg/dL (0.2-1.0); BLOOD UREA NITROGEN 9 mg/dL (7-18); CALCIUM 7.8 mg/dL (8.5-10.1); CHLORIDE 92 mmol/L (98-107); CO2 34 mmol/L (21-32); CREATININE 0.6 mg/dL (0.55-1.02); GLUCOSE,RANDOM 262 mg/dL (74-106); POTASSIUM 3.9 mmol/L (3.5-5.1); SGOT/AST 18 U/L (15-37); SGPT/ALT 17 U/L (12-78); SODIUM 133 mmol/L (136-145); TOT PROT 5.7 g/dl (6.4-8.2)
[2017-10-08 11:15] LABS: ALK PHOS 100 U/L (45-117)
--- NOTE | 2017-10-08 11:21 | PN ---
Progress Note (short form) - Note Progress Note: NAD on NC O2. Breathing feels stable. No acute events overnight. No CP or SOB. Intake & Output 10/05/17 10/06/17 10/07/17 10/08/17 23:59 23:59 23:59 23:59 Intake Total 220 250 310 Output Total 1700 3000 4500 700 Balance -1480 -2750 -4190 -700 Weight 180 lb 8 oz 179 lb 14.4 oz 170 lb 4 oz 172 lb 5 oz Last Vital Signs Temp Pulse Resp BP Pulse Ox 98.2 F 72 20 126/45 96 10/07/17 20:25 10/08/17 06:09 10/08/17 06:09 10/08/17 06:09 10/07/17 20:25 Active Medications Anastrozole (Arimidex -) 1 mg PO DAILY [facility] Last Admin: 10/08/17 09:42 Dose: 1 mg Atorvastatin Calcium (Lipitor -) 40 mg PO HS [facility] Last Admin: 10/07/17 21:24 Dose: 40 mg Carvedilol (Coreg -) 12.5 mg PO BID [facility] Last Admin: 10/08/17 09:43 Dose: 12.5 mg Furosemide (Lasix -) 60 mg PO BID@0600,1400 [facility] Last Admin: 10/08/17 05:49 Dose: 60 mg Insulin Aspart (Novolog Vial Sliding Scale -) 1 vial SQ ACHS [facility] PRN Reason: Protocol Last Admin: 10/08/17 06:05 Dose: Not Given Constitutional: Yes: No acute distress Eyes: Yes: Conjunctiva Clear, EOM Intact HENT: Yes: Atraumatic, Normocephalic Neck: Yes: Supple, Trachea Midline Cardiovascular: Yes: Tachycardia Respiratory: Yes: Cough, Diminished, On Nasal O2, Rales, Rhonchi No: Accessory Muscle Use, Stridor, Wheezes ...Inspection: Yes: Surgical Scar Gastrointestinal: Yes: Normal Bowel Sounds, Soft Renal/: Yes: WNL Musculoskeletal: Yes: WNL Extremities: Yes: WNL Edema: Yes Peripheral Pulses WNL: Yes Integumentary: Yes: WNL Neurological: Yes: WNL, Alert, Oriented ...Motor Strength: WNL Psychiatric: Yes: WNL, Alert, Oriented Labs: Laboratory Results - last 24 hr 10/08/17 10/08/17 10/08/17 06:04 10:40 10:40 WBC 5.7 RBC 3.81 Hgb 9.7 L Hct 31.1 L MCV 81.6 MCH 25.6 L MCHC 31.3 L RDW 18.7 H Plt Count 332 MPV 7.4 L Neutrophils % 79.5 Lymphocytes % 10.3 Monocytes % 8.9 Eosinophils % 0.4 Basophils % 0.9 Sodium 133 L Potassium 3.9 Chloride 92 L Carbon Dioxide 34 H Anion Gap 7 L BUN 9 Creatinine 0.6 Creat Clearance w eGFR > 60 POC Glucometer [phone] Random Glucose 262 H Calcium 7.8 L Total Bilirubin 0.5 D AST 18 ALT 17 Alkaline Phosphatase 100 Total Protein 5.7 L Albumin 2.1 L Problem List - Problems (1) CHF (congestive heart failure) Code(s): I50.9 - HEART FAILURE, UNSPECIFIED Qualifiers: (2) Edema Code(s): R60.9 - EDEMA, UNSPECIFIED (3) Pleural effusion Code(s): J90 - PLEURAL EFFUSION, NOT ELSEWHERE CLASSIFIED (4) Respiratory distress Code(s): R06.00 - DYSPNEA, UNSPECIFIED (5) ASHD (arteriosclerotic heart disease) Code(s): I25.10 - ATHSCL HEART DISEASE OF [place] CORONARY ARTERY W/O ANG PCTRS (6) Axillary lymphadenopathy Code(s): R59.0 - LOCALIZED ENLARGED LYMPH NODES (7) Breast cancer Code(s): C50.919 - MALIGNANT NEOPLASM OF UNSP SITE OF UNSPECIFIED FEMALE BREAST (8) Malignant pleural effusion Code(s): J91.0 - MALIGNANT PLEURAL EFFUSION Assessment/Plan Daily weight Strict I & O O2 as needed to maintain saturation Monitor off ABX VTE prophylaxis with SQ Heparin Lasix BID Possible PleureX placement if patient willing early next week as she was on ASA Dr Morales Problem List - Problems (1) CHF (congestive heart failure) Code(s): I50.9 - HEART FAILURE, UNSPECIFIED Qualifiers: (2) Edema Code(s): R60.9 - EDEMA, UNSPECIFIED (3) Pleural effusion Code(s): J90 - PLEURAL EFFUSION, NOT ELSEWHERE CLASSIFIED (4) Respiratory distress Code(s): R06.00 - DYSPNEA, UNSPECIFIED (5) ASHD (arteriosclerotic heart disease) Code(s): I25.10 - ATHSCL HEART DISEASE OF [place] CORONARY ARTERY W/O ANG PCTRS (6) Axillary lymphadenopathy Code(s): R59.0 - LOCALIZED ENLARGED LYMPH NODES (7) Breast cancer Code(s): C50.919 - MALIGNANT NEOPLASM OF UNSP SITE OF UNSPECIFIED FEMALE BREAST (8) Malignant pleural effusion Code(s): J91.0 - MALIGNANT PLEURAL EFFUSION
--- NOTE | 2017-10-08 11:36 | PN ---
Progress Note (short form) - Note Progress Note: Patient seen and examined. daughter at bedside O/E: NAD NCAT Decreased size of the neck mass. Decreased rt breath sounds +1+ edema LE. CBC, BMP 10/08/17 10:40 10/08/17 10:40 Current Medications Generic Name Dose Route Start Last Admin Trade Name Charlene PRN Reason Stop Dose Admin Anastrozole 1 mg 09/30/17 10:00 10/08/17 09:42 Arimidex - PO 1 mg DAILY [facility] Administration Atorvastatin Calcium 40 mg 09/30/17 22:00 10/07/17 21:24 Lipitor - PO 40 mg HS [facility] Administration Carvedilol 12.5 mg 09/30/17 10:00 10/08/17 09:43 Coreg - PO 12.5 mg BID [facility] Administration Furosemide 60 mg 10/05/17 14:00 10/08/17 05:49 Lasix - PO 60 mg BID@0600,1400 [facility] Administration Insulin Aspart 1 vial 09/30/17 07:00 10/08/17 06:05 Novolog Vial Sliding Scale - SQ Not Given ACHS [facility] Protocol Last Vital Signs Temp Pulse Resp BP Pulse Ox 98.5 F 71 18 113/54 96 10/08/17 08:00 10/08/17 10:00 10/08/17 10:00 10/08/17 10:00 10/07/17 20:25 Widely metastatic Hormone positive breast cancer on Arimidex, declined systemic chemo (during discussion in the office ) Neck LAD metastatic site, on Palliative RT. Pleural effusion ( Surg path noted, but has proven malignant effusion in 07/2017 ) Multiple cardiovascular co-morbidities. -c/w arimidex -on diuresis -for pleurex on Wednesday (ASA held ), hold DVT ppx from Wednesday night, d/w IR
[2017-10-08] MEDS: ATORVASTATIN CA 40 MG TABLET (FP) PO SCH (22:15)
[2017-10-09] MEDS: FUROSEMIDE 20 MG TABLET (FP) PO SCH ×2 (06:54→14:30)
[2017-10-09] MEDS: INSULIN SLIDING SCALE (NOVOLOG) 1 VIAL SQ SCH ×4 (06:56→21:48)
[2017-10-09] MEDS ORDERED: PT OWN MED DRAWER 7, Y5N ONE (09:25)
[2017-10-09] MEDS: CARVEDILOL 12.5 MG TABLET (FP) PO SCH ×2 (09:26→21:47)
[2017-10-09] MEDS: ANASTROZOLE 1 MG TABLET PO SCH (09:26)
--- NOTE | 2017-10-09 11:04 | PN ---
Progress Note, Physician History of Present Illness: Feels better pt has not decided regarding pleureX - Current Medication List Current Medications: Active Medications Anastrozole (Arimidex -) 1 mg PO DAILY [facility] Last Admin: 10/09/17 09:26 Dose: 1 mg Atorvastatin Calcium (Lipitor -) 40 mg PO HS [facility] Last Admin: 10/08/17 22:15 Dose: 40 mg Carvedilol (Coreg -) 12.5 mg PO BID [facility] Last Admin: 10/09/17 09:26 Dose: 12.5 mg Furosemide (Lasix -) 60 mg PO BID@0600,1400 [facility] Last Admin: 10/09/17 06:54 Dose: 60 mg Insulin Aspart (Novolog Vial Sliding Scale -) 1 vial SQ ACHS [facility] PRN Reason: Protocol Last Admin: 10/09/17 06:56 Dose: 2 units - Objective Vital Signs: Vital Signs Temperature 98.6 F 10/09/17 02:00 Pulse Rate 71 10/09/17 08:25 Respiratory Rate 18 10/09/17 08:25 Blood Pressure 101/40 10/09/17 08:25 O2 Sat by Pulse Oximetry (%) 96 10/09/17 08:35 Cardiovascular: Yes: S1, S2 Respiratory: Yes: Regular, Rales Gastrointestinal: Yes: Normal Bowel Sounds, Soft Edema: No Labs: CBC, BMP 10/08/17 10:40 10/08/17 10:40 INR, PTT INR 1.04 (0.82-1.09) 10/07/17 05:42 Problem List - Problems (1) Malignant pleural effusion Code(s): J91.0 - MALIGNANT PLEURAL EFFUSION (2) CHF (congestive heart failure) Code(s): I50.9 - HEART FAILURE, UNSPECIFIED Qualifiers: (3) Breast cancer Code(s): C50.919 - MALIGNANT NEOPLASM OF UNSP SITE OF UNSPECIFIED FEMALE BREAST (4) HTN (hypertension) Code(s): I10 - ESSENTIAL (PRIMARY) HYPERTENSION Assessment/Plan - Problems (1) Malignant pleural effusion Assessment/Plan: pleurex placement on wednesday then RT Code(s): J91.0 - MALIGNANT PLEURAL EFFUSION (2) CHF (congestive heart failure) Assessment/Plan: lasix po awaiting pleurex cath placement appreciate Rad onc- plan for RT after pleurex is placed Code(s): I50.9 - HEART FAILURE, UNSPECIFIED Qualifiers: (3) HTN (hypertension) Assessment/Plan: coreg Code(s): I10 - ESSENTIAL (PRIMARY) HYPERTENSION (4) Breast cancer Assessment/Plan: armidiex RT-after pleurex placed dvt ppx Code(s): C50.919 - MALIGNANT NEOPLASM OF UNSP SITE OF UNSPECIFIED FEMALE BREAST PT eval - snf
--- NOTE | 2017-10-09 14:54 | PN ---
Progress Note (short form) - Note Progress Note: CC: sob/pleural effusion s: no cp palps dizzy sob o: Current Medications Anastrozole (Arimidex -) 1 mg PO DAILY [facility] Last Admin: 10/09/17 09:26 Dose: 1 mg Atorvastatin Calcium (Lipitor -) 40 mg PO HS [facility] Last Admin: 10/08/17 22:15 Dose: 40 mg Carvedilol (Coreg -) 12.5 mg PO BID [facility] Last Admin: 10/09/17 09:26 Dose: 12.5 mg Furosemide (Lasix -) 60 mg PO BID@0600,1400 [facility] Last Admin: 10/09/17 14:30 Dose: Not Given Insulin Aspart (Novolog Vial Sliding Scale -) 1 vial SQ ACHS [facility] PRN Reason: Protocol Last Admin: 10/09/17 12:13 Dose: 6 units Vital Signs - 24 hr 10/08/17 10/08/17 10/08/17 20:34 20:35 23:28 Temperature 97.6 F 97.4 F L Pulse Rate 78 Respiratory 26 H Rate Blood Pressure 111/50 O2 Sat by Pulse 95 Oximetry (%) 10/09/17 10/09/17 10/09/17 02:00 08:25 08:35 Temperature 98.6 F Pulse Rate 72 71 Respiratory 22 18 Rate Blood Pressure 98/49 101/40 O2 Sat by Pulse 96 Oximetry (%) 10/09/17 14:12 Temperature 98.3 F Pulse Rate 74 Respiratory 18 Rate Blood Pressure 100/42 O2 Sat by Pulse Oximetry (%) Intake & Output 10/07/17 10/08/17 10/09/17 10/10/17 07:59 07:59 07:59 07:59 Intake Total 230 310 Output Total 2800 5200 2800 1000 Balance -2570 -4890 -2800 -1000 Weight 170 lb 4 oz 172 lb 5 oz 164 lb 2 oz nad calm jvd flat, neck supple rrr s1s2 2/6 sys murmur at lsb/[place] dullness at right base, nl effort + bs. soft, nt nd no hsm no e/c/c no jaundice diaphoresis aaox3 no CBC, BMP today 10/08/17 10:40 10/08/17 10:40 ekg: SR with pac's, IVCD, poor r wave progression. anterolateral twi. similar to priors. tele: sr, occ pvcs cxr 10/08: diminished congestive changes. decreased size of bibasilar pl effusions and associated atelectasis/infiltrates cxr 10/05: worsening bilateral lower lobe consolidation with [id number] rt pleural effusion CXR 10/04: per report, no significant change. CM with residual congestion and bilateral pleural effusions R>L. by my review, right sided congestion/effusion appears slightly worse. chest ct images and report reviewed. interstitial edema. bilateral pl effusion with compressive atelectasis. large on rt, small on left. cardiomegaly. calc cors. diffuse subcutaneous edema/anasarca. mets to l. nodes, bone, likely liver. rt breast mass. Echo 09/30: nl LVSF; + hypo IW, inferolat, inferoseptal; nl RV; valves WNL Echo 10/2016: nl lvef, inf/inflat/infseptal HK, nl rv, mild mr Carotid us 10/2016: 60-79% bl ICA stenosis, chronic LE dopplers 07/2017: no dvt. a/p: 81 f hx cad s/p cabg 2005, htn , hld, niddm, breast cancer with mets to l.nodes, bone, likely liver and malignant rt pleural effusion (s/p thora 2016) p/w progressive lower extremity edema, shortness of breath and noted to have recurrent rt pleural effusion (s/p thora 09/30). pleural effusion (malignant?), acute diast chf - s/p thoracentesis 09/30 - anasarca and signs of pulmonary edema on exam and chest ct. May have contribution from third spacing due to low albumin, but likely also with acute diastolic HF exacerbation. Repeat echo --> no change in systolic function. - 10/04 remains sob, with 10/01 cxr worsening congestion/effusions. UOP approx 2L daily on lasix 40 iv bid. rpt CXR 10/04 --rec incr lasix 80 iv bid if cxr not - 10/06-10/08: cont po lasix 60 bid - 10/09: weight continues to trend down, appears euvolemic will transition to lasix 60 mg PO daily (slightly higher than home dose of 40 mg/day). repeat bmp tomorrow to reassess hyponatremia cad s/p cabg/HL - prior echo with inferior wall motion abnormalities with preserved EF. Had declined stress testing in past, per dr. fong. - no anginal sx's. EKG unchanged from priors. troponin neg x 2 - con't OMT with statin, bb. ACEI on hold for low bp's. Asa on hold 10/07 in anticipation of drain placement. HTN - bp controlled/con't to run low. will decrease coreg dose from 12.5 bid to 6.25 today 10/09. holding lisinopril. carotid atherosclerosis - stable velocities on u/s per office notes. Per report has previously declined further evaluation with cta or surgical eval. - con't statin. asa on hold as mentioned
--- NOTE | 2017-10-09 15:49 | PN ---
Progress Note (short form) - Note Progress Note: PULM/CCM Pt Seen & Examined in the ICU. Pt is in bed, CA + OX3, NAD, pt is still considering pleureX drain for pleural effusion. Active Medications Anastrozole (Arimidex -) 1 mg PO DAILY [facility] Last Admin: 10/09/17 09:26 Dose: 1 mg Atorvastatin Calcium (Lipitor -) 40 mg PO HS [facility] Last Admin: 10/08/17 22:15 Dose: 40 mg Carvedilol (Coreg -) 6.25 mg PO BID [facility] Furosemide (Lasix -) 60 mg PO DAILY [facility] Insulin Aspart (Novolog Vial Sliding Scale -) 1 vial SQ ACHS [facility] PRN Reason: Protocol Last Admin: 10/09/17 12:13 Dose: 6 units V/S Period Temp Pulse Resp BP Sys/Moreno Pulse Ox Last 24 Hr 97.4 F-98.6 F 71-78 98-111/40-50 95-96 Intake & Output 10/06/17 10/07/17 10/08/17 10/09/17 23:59 23:59 23:59 23:59 Intake Total 250 310 Output Total 3000 4500 3300 1200 Balance -2750 -4190 -3300 -1200 Weight 81.601 kg 77.224 kg 78.16 kg 74.446 kg GEN: Elderly woman in bed NAD, calm, friendly HEENT: PERRL, (-) JVD @ 45 degrees, neck supple PULM: breathing easy, bibasilar dullness CV: s1s2, RR, II/ sys murmur heard best @ [facility]x ABD: + BS S/S N/T N/D X4Q EXT: trace LE edema, no CC SKIN: + Pulses, WWPX4, no jaundice NEURO: CA+OX3, Follows all, [facility], no focal deficits CBC, BMP 10/08/17 10:40 10/08/17 10:40 Microbiology 09/29/17 20:37 Blood - Peripheral Venous Blood Culture - Final NO GROWTH AFTER 5 DAYS INCUBATION 09/29/17 20:27 Blood - Peripheral Venous Blood Culture - Final NO GROWTH AFTER 5 DAYS INCUBATION 09/30/17 15:15 Pleural Fluid Gram Stain - Final 09/30/17 15:15 Pleural Fluid Body Fluid Culture - Final NO GROWTH OF AEROBIC ORGANISMS AFTER 48 HOURS INCUBATION 09/30/17 15:15 Pleural Fluid Anaerobic Culture - Final NO ANAEROBES WERE ISOLATED 09/30/17 15:15 Pleural Fluid AFB Smear Concentration - Final 09/30/17 15:15 Pleural Fluid Mycobacterial Culture - Preliminary 09/30/17 17:15 Pleural Fluid DARINEL Preparation - Preliminary 09/30/17 17:15 Pleural Fluid Fungal Culture - Preliminary RECENT STUDIES TO NOTE: CXR 10/08: Since the prior study of 10/06/2017, the congestive changes have diminished along with decreasing bibasilar pleural effusions with atelectasis and/or infiltrates. Impression : Minimal improvement. Slightly better aeration. CT CHEST 09/30: 1. Large layering right pleural effusion with compressive atelectasis of the entire right middle lobe and right lower lobe. Small layering left pleural effusion with compressive atelectasis of two basilar segments in the left lower lobe. 2. Upper lobe predominant interlobular septal thickening is most likely attributed to interstitial pulmonary edema. Please correlate for CHF exacerbation. 3. Right breast malignancy with metastatic right axillary lymph nodes, similar to prior. Enlarged right hilar lymph nodes and prominent left hilar lymph nodes are similar in size to the 06/23/2017 CT. Previously described enlarged pretracheal lymph node is decreased in size. 4. Ill-defined hypoattenuating lesion in the right lobe of the liver is unchanged in size, presumably metastatic. New subcentimeter lesion in the left hepatic lobe is concerning for new metastasis. 5. Extensive osseous metastasis with pathologic compression of the L2 and T2 superior endplates and ventral epidural extension of neoplasm L5. Multiple healed bilateral pathologic rib fractures. 6. Inhomogeneously enhancing solid left renal mass measuring 5.6 x 5.0 cm is unchanged to slightly smaller in size since 06/23/2017 (previously measured 5.9 x 5.0 cm in similar projections). 7. Partially imaged soft tissue lesion within the infrahyoid right neck likely corresponds to metastatic lymph node mass. ASSESS: This is an 81 y/o woman w/ CAD s/p CABG 2005, HTN, HL, NIDDM, breast CA w/ mets to lymph nodes, bone, likely liver, and malignant R pleural effusion (s/ p thora 07/2017), pt does not want a pleureX drain. PLAN: -Supp FiO2 prn for an SpO2 > 92% -CPT -IS -NEBs prn -No FACUNDO-I in the ICU -Hold Coreg here @ 6.25 -Hold ASA -Cont Statin -Cont PO Lasix -FSs -SSI prn -Cont Arimidex (declining systemic chemo) -Pt does NOT want a pleureX drain -DVT -No indictaion for a PPI -PALL CARE -Reg Diet -D/c --> SNF for Out-Pt Palliative XRT -HEME/ONC to Follow DGL, ACNP-BC [facility] ICU PULM/CCM [id number]
[2017-10-09] MEDS: ATORVASTATIN CA 40 MG TABLET (FP) PO SCH (21:46)
[2017-10-10] MEDS: INSULIN SLIDING SCALE (NOVOLOG) 1 VIAL SQ SCH ×4 (06:48→21:48)
[2017-10-10 07:09] LABS: ANION GAP 7 (8-16); BLOOD UREA NITROGEN 10 mg/dL (7-18); CALCIUM 8.6 mg/dL (8.5-10.1); CHLORIDE 93 mmol/L (98-107); CO2 34 mmol/L (21-32); CREATININE 0.4 mg/dL (0.55-1.02); GLUCOSE,RANDOM 126 mg/dL (74-106); MAGNESIUM 1.8 mg/dL (1.8-2.4); POTASSIUM 4.3 mmol/L (3.5-5.1); SODIUM 134 mmol/L (136-145)
--- NOTE | 2017-10-10 09:53 | PN ---
Progress Note, Physician History of Present Illness: Feels better pt has not decided regarding pleureX - Current Medication List Current Medications: Active Medications Anastrozole (Arimidex -) 1 mg PO DAILY [facility] Last Admin: 10/09/17 09:26 Dose: 1 mg Atorvastatin Calcium (Lipitor -) 40 mg PO HS [facility] Last Admin: 10/09/17 21:46 Dose: 40 mg Carvedilol (Coreg -) 6.25 mg PO BID [facility] Last Admin: 10/09/17 21:47 Dose: 6.25 mg Furosemide (Lasix -) 60 mg PO DAILY [facility] Insulin Aspart (Novolog Vial Sliding Scale -) 1 vial SQ ACHS [facility] PRN Reason: Protocol Last Admin: 10/10/17 06:48 Dose: 2 units - Objective Vital Signs: Vital Signs Temperature 98.7 F 10/10/17 06:00 Pulse Rate 75 10/10/17 06:00 Respiratory Rate 20 10/10/17 06:00 Blood Pressure 109/37 10/10/17 06:00 O2 Sat by Pulse Oximetry (%) 99 10/09/17 20:07 Cardiovascular: Yes: S1, S2 Respiratory: Yes: Regular, CTA Bilaterally, On Nasal O2 Gastrointestinal: Yes: Normal Bowel Sounds, Soft Labs: CBC, BMP 10/08/17 10:40 10/10/17 06:15 INR, PTT INR 1.04 (0.82-1.09) 10/07/17 05:42 Problem List - Problems (1) Malignant pleural effusion Code(s): J91.0 - MALIGNANT PLEURAL EFFUSION (2) CHF (congestive heart failure) Code(s): I50.9 - HEART FAILURE, UNSPECIFIED Qualifiers: (3) Breast cancer Code(s): C50.919 - MALIGNANT NEOPLASM OF UNSP SITE OF UNSPECIFIED FEMALE BREAST (4) HTN (hypertension) Code(s): I10 - ESSENTIAL (PRIMARY) HYPERTENSION Assessment/Plan - Problems (1) Malignant pleural effusion Assessment/Plan: pleurex placement on wednesday then RT Code(s): J91.0 - MALIGNANT PLEURAL EFFUSION (2) CHF (congestive heart failure) Assessment/Plan: lasix po awaiting pleurex cath placement appreciate Rad onc- plan for RT after pleurex is placed Code(s): I50.9 - HEART FAILURE, UNSPECIFIED Qualifiers: (3) HTN (hypertension) Assessment/Plan: coreg Code(s): I10 - ESSENTIAL (PRIMARY) HYPERTENSION (4) Breast cancer Assessment/Plan: armidiex RT-after pleurex placed dvt ppx Code(s): C50.919 - MALIGNANT NEOPLASM OF UNSP SITE OF UNSPECIFIED FEMALE BREAST PT eval - snf
[2017-10-10] MEDS ORDERED: PT OWN MED DRAWER 7, Y5N ONE (10:13)
[2017-10-10] MEDS: ANASTROZOLE 1 MG TABLET PO SCH (10:13)
[2017-10-10] MEDS: FUROSEMIDE 20 MG TABLET (FP) PO SCH (10:14)
[2017-10-10] MEDS: CARVEDILOL 12.5 MG TABLET (FP) PO SCH ×2 (10:14→21:41)
--- NOTE | 2017-10-10 14:19 | PN ---
Progress Note (short form) - Note Progress Note: CC: sob/pleural effusion s: . Transitioned to lasix 60 mg daily yesterday (from bid dosing). decreased dose of coreg from 12.5 mg to 6.25 mg. no cp palps dizzy sob o: Current Medications Anastrozole (Arimidex -) 1 mg PO DAILY [facility] Last Admin: 10/10/17 10:13 Dose: 1 mg Atorvastatin Calcium (Lipitor -) 40 mg PO HS [facility] Last Admin: 10/09/17 21:46 Dose: 40 mg Carvedilol (Coreg -) 6.25 mg PO BID [facility] Last Admin: 10/10/17 10:14 Dose: 6.25 mg Furosemide (Lasix -) 60 mg PO DAILY [facility] Last Admin: 10/10/17 10:14 Dose: 60 mg Insulin Aspart (Novolog Vial Sliding Scale -) 1 vial SQ ACHS [facility] PRN Reason: Protocol Last Admin: 10/10/17 12:24 Dose: 4 units Vital Signs - 24 hr 10/09/17 10/09/17 10/09/17 18:00 20:06 20:07 Temperature 98 F 97.4 F L Pulse Rate 75 72 Respiratory 16 22 22 Rate Blood Pressure 110/62 111/47 O2 Sat by Pulse 99 Oximetry (%) 10/09/17 10/10/17 10/10/17 22:00 02:00 06:00 Temperature 98.4 F 98.7 F Pulse Rate 78 74 75 Respiratory 20 20 20 Rate Blood Pressure 123/43 94/34 109/37 O2 Sat by Pulse Oximetry (%) 10/10/17 10/10/17 10/10/17 09:00 10:00 13:36 Temperature 98.1 F 98.2 F Pulse Rate 74 76 Respiratory 20 20 22 Rate Blood Pressure 113/43 115/52 O2 Sat by Pulse 99 Oximetry (%) Intake & Output 10/08/17 10/09/17 10/10/17 10/11/17 07:59 07:59 07:59 07:59 Intake Total 310 Output Total 5200 2800 2600 1400 Balance -4890 -2800 -2600 -1400 Weight 172 lb 5 oz 164 lb 2 oz 159 lb 11.2 oz nad calm jvd flat, neck supple rrr s1s2 2/6 sys murmur at lsb/apex dullness at right base, nl effort + bs. soft, nt nd no hsm no e/c/c no jaundice diaphoresis aaox3 CBC, BMP 10/08/17 10:40 10/10/17 06:15 Laboratory Tests 10/08/17 10/10/17 10:40 06:15 Sodium 133 L Magnesium 1.8 ekg: SR with pac's, IVCD, poor r wave progression. anterolateral twi. similar to priors. tele: sr, occ pvcs cxr 10/08: diminished congestive changes. decreased size of bibasilar pl effusions and associated atelectasis/infiltrates cxr 10/05: worsening bilateral lower lobe consolidation with [id number] rt pleural effusion CXR 10/04: per report, no significant change. CM with residual congestion and bilateral pleural effusions R>L. by my review, right sided congestion/effusion appears slightly worse. chest ct images and report reviewed. interstitial edema. bilateral pl effusion with compressive atelectasis. large on rt, small on left. cardiomegaly. calc cors. diffuse subcutaneous edema/anasarca. mets to l. nodes, bone, likely liver. rt breast mass. Echo 09/30: nl LVSF; + hypo IW, inferolat, inferoseptal; nl RV; valves WNL Echo 10/2016: nl lvef, inf/inflat/infseptal HK, nl rv, mild mr Carotid us 10/2016: 60-79% bl ICA stenosis, chronic LE dopplers 07/2017: no dvt. a/p: 81 f hx cad s/p cabg 2005, htn , hld, niddm, breast cancer with mets to l.nodes, bone, likely liver and malignant rt pleural effusion (s/p thora 2016) p/w progressive lower extremity edema, shortness of breath and noted to have recurrent rt pleural effusion (s/p thora 09/30). pleural effusion (malignant?), acute diast chf - s/p thoracentesis 09/30 - anasarca and signs of pulmonary edema on exam and chest ct. May have contribution from third spacing due to low albumin, but likely also with acute diastolic HF exacerbation. Repeat echo --> no change in systolic function. - 10/04 remains sob, with 10/01 cxr worsening congestion/effusions. UOP approx 2L daily on lasix 40 iv bid. rpt CXR 10/04 --rec incr lasix 80 iv bid if cxr not - 10/06-10/08: cont po lasix 60 bid - 10/09: weight continues to trend down, appears euvolemic will transition to lasix 60 mg PO daily today (slightly higher than home dose of 40 mg/day). repeat bmp tomorrow to reassess hyponatremia - 10/10: sodium slightly better today on daily lasix dosing. weight still trending down. replete lytes prn. con't to monitor. cad s/p cabg/HL - prior echo with inferior wall motion abnormalities with preserved EF. Had declined stress testing in past, per dr. fong. - no anginal sx's. EKG unchanged from priors. troponin neg x 2 - con't OMT with statin, bb. ACEI on hold for low bp's. Asa on hold 10/07 in anticipation of possible drain placement. HTN - bp controlled/running on low end of normal. Decreased coreg dose from 12.5 bid to 6.25 10/09 PM. holding lisinopril. carotid atherosclerosis - stable velocities on u/s per office notes. Per report has previously declined further evaluation with cta or surgical eval. - con't statin. Asa on hold as mentioned
[2017-10-10] MEDS ORDERED: MAGNESIUM SULF 50% (8.12 MEQ/2 ML-1 GM VIAL) IVPB ONE (14:45)
[2017-10-10] MEDS: ATORVASTATIN CA 40 MG TABLET (FP) PO SCH (21:41)
[2017-10-11] MEDS: INSULIN SLIDING SCALE (NOVOLOG) 1 VIAL SQ SCH ×4 (06:44→21:50)
[2017-10-11 06:54] LABS: ANION GAP 5 (8-16); BLOOD UREA NITROGEN 9 mg/dL (7-18); CALCIUM 8.3 mg/dL (8.5-10.1); CHLORIDE 94 mmol/L (98-107); CO2 35 mmol/L (21-32); CREATININE 0.4 mg/dL (0.55-1.02); GLUCOSE,RANDOM 129 mg/dL (74-106); MAGNESIUM 2.2 mg/dL (1.8-2.4); POTASSIUM 4.3 mmol/L (3.5-5.1); SODIUM 134 mmol/L (136-145)
--- NOTE | 2017-10-11 08:16 | PN ---
Progress Note, Physician Chief Complaint: pleural eff History of Present Illness: denies sob or orthopnea pedal edema comes and goes, mild no cp, palp - Current Medication List Current Medications: Active Medications Anastrozole (Arimidex -) 1 mg PO DAILY [facility] Last Admin: 10/10/17 10:13 Dose: 1 mg Atorvastatin Calcium (Lipitor -) 40 mg PO HS [facility] Last Admin: 10/10/17 21:41 Dose: 40 mg Carvedilol (Coreg -) 6.25 mg PO BID [facility] Last Admin: 10/10/17 21:41 Dose: 6.25 mg Furosemide (Lasix -) 60 mg PO DAILY [facility] Last Admin: 10/10/17 10:14 Dose: 60 mg Insulin Aspart (Novolog Vial Sliding Scale -) 1 vial SQ ACHS [facility] PRN Reason: Protocol Last Admin: 10/11/17 06:44 Dose: 2 units - Objective Vital Signs: Vital Signs Temperature 98.8 F 10/11/17 08:03 Pulse Rate 74 10/11/17 08:03 Respiratory Rate 20 10/11/17 08:03 Blood Pressure 118/46 10/11/17 08:03 O2 Sat by Pulse Oximetry (%) 98 10/11/17 08:02 Constitutional: Yes: No Distress, Calm Eyes: No: Sclera Icterus HENT: No: Nasal Congestion Cardiovascular: Yes: Regular Rate and Rhythm, S1, S2, Other (PMI non diplaced). No: JVD, Gallop, Murmur Respiratory: Yes: Diminished (R lower 1/2, L base). No: Accessory Muscle Use Gastrointestinal: Yes: Normal Bowel Sounds, Soft. No: Tenderness Musculoskeletal: Yes: Other (No kyphosis) Extremities: No: Cold Edema: No Integumentary: No: Jaundice Neurological: Yes: Alert, Oriented (x3) Psychiatric: No: Agitated Labs: CBC, BMP 10/08/17 10:40 10/11/17 05:00 INR, PTT INR 1.04 (0.82-1.09) 10/07/17 05:42 - ....Imaging EKG: Other (tele: NSR) Assessment/Plan cxr 10/08: diminished congestive changes. decreased size of bibasilar pl effusions and associated atelectasis/infiltrates chest ct images and report reviewed. interstitial edema. bilateral pl effusion with compressive atelectasis. large on rt, small on left. cardiomegaly. calc cors. diffuse subcutaneous edema/anasarca. mets to l. nodes, bone, likely liver. rt breast mass. Echo 09/30: nl LVSF; + hypo IW, inferolat, inferoseptal; nl RV; valves WNL Echo 10/2016: nl lvef, inf/inflat/infseptal HK, nl rv, mild mr Carotid us 10/2016: 60-79% bl ICA stenosis, chronic LE dopplers 07/2017: no dvt. a/p: 81 f hx cad s/p cabg 2005, htn , hld, niddm, breast cancer with mets to l.nodes, bone, likely liver and malignant rt pleural effusion (s/p thora 2016) p/w progressive lower extremity edema, shortness of breath and noted to have recurrent rt pleural effusion (s/p thora 09/30). pleural effusion (malignant), acute diast chf - s/p thoracentesis 09/30 - anasarca and signs of pulmonary edema on exam and chest ct. May have contribution from third spacing due to low albumin, but likely also with acute diastolic HF exacerbation. Repeat echo --> no change in systolic function. - bedscale wts trended down, sodium improved slightly overall, CXR with improved effusions after several daysof lasix 60 bid, now changed to 60 qd and remains stable on this - same plan - now agreeing to pleur-x catheter, plan per pulm cad s/p cabg/HL - prior echo with inferior wall motion abnormalities with preserved EF. Had declined stress testing in past, per dr. fong. - no anginal sx's. EKG unchanged from priors. troponin neg x 2 - con't OMT with statin, bb. ACEI on hold for low bp's. Asa on hold 10/07 in anticipation of possible drain placement. HTN - bp controlled/running on low end of normal. Decreased coreg dose from 12.5 bid to 6.25 10/09 PM. holding lisinopril. carotid atherosclerosis - stable velocities on u/s per office notes. Per report has previously declined further evaluation with cta or surgical eval. - con't statin. Asa on hold as mentioned
[2017-10-11] MEDS ORDERED: PT OWN MED DRAWER 7, Y5N ONE (08:34)
[2017-10-11] MEDS: CARVEDILOL 12.5 MG TABLET (FP) PO SCH ×2 (09:17→21:50)
[2017-10-11] MEDS: FUROSEMIDE 20 MG TABLET (FP) PO SCH (09:18)
[2017-10-11] MEDS: ANASTROZOLE 1 MG TABLET PO SCH (09:18)
--- NOTE | 2017-10-11 12:06 | PN ---
Progress Note, Physician Chief Complaint: patient seen and examined to get pleurex cath placed tmw NPO - Current Medication List Current Medications: Active Medications Anastrozole (Arimidex -) 1 mg PO DAILY [facility] Last Admin: 10/11/17 09:18 Dose: 1 mg Atorvastatin Calcium (Lipitor -) 40 mg PO HS [facility] Last Admin: 10/10/17 21:41 Dose: 40 mg Carvedilol (Coreg -) 6.25 mg PO BID [facility] Last Admin: 10/11/17 09:17 Dose: 6.25 mg Furosemide (Lasix -) 60 mg PO DAILY [facility] Last Admin: 10/11/17 09:18 Dose: 60 mg Insulin Aspart (Novolog Vial Sliding Scale -) 1 vial SQ ACHS [facility] PRN Reason: Protocol Last Admin: 10/11/17 11:47 Dose: 4 units - Objective Vital Signs: Vital Signs Temperature 98.8 F 10/11/17 08:03 Pulse Rate 74 10/11/17 08:03 Respiratory Rate 20 10/11/17 08:03 Blood Pressure 118/46 10/11/17 08:03 O2 Sat by Pulse Oximetry (%) 98 10/11/17 08:02 Constitutional: Yes: Calm Cardiovascular: Yes: Regular Rate and Rhythm, S1, S2 Respiratory: Yes: Diminished (on right side) Gastrointestinal: Yes: Normal Bowel Sounds, Soft Neurological: Yes: Alert, Oriented Labs: CBC, BMP 10/08/17 10:40 10/11/17 05:00 INR, PTT INR 1.04 (0.82-1.09) 10/07/17 05:42 Problem List - Problems (1) Malignant pleural effusion Assessment/Plan: pleurex placement tmw by IR then RT Code(s): J91.0 - MALIGNANT PLEURAL EFFUSION (2) CHF (congestive heart failure) Assessment/Plan: lasix po awaiting pleurex cath placement- in AM appreciate Rad onc- plan for RT after pleurex is placed Code(s): I50.9 - HEART FAILURE, UNSPECIFIED Qualifiers: (3) HTN (hypertension) Assessment/Plan: coreg Code(s): I10 - ESSENTIAL (PRIMARY) HYPERTENSION (4) Breast cancer Assessment/Plan: armidiex RT-after pleurex to be placed in AM off aspirin dvt ppx on hold Code(s): C50.919 - MALIGNANT NEOPLASM OF UNSP SITE OF UNSPECIFIED FEMALE BREAST Assessment/Plan pleurex in AM dc telemetry
--- NOTE | 2017-10-11 14:13 | PN ---
Progress Note (short form) - Note Progress Note: PULMONARY Denies shortness of breath or chest pain. For pleur-x catheter placement tomorrow. Last Vital Signs Temp Pulse Resp BP Pulse Ox 98.8 F 74 20 118/46 98 10/11/17 08:03 10/11/17 08:03 10/11/17 08:03 10/11/17 08:03 10/11/17 08:02 Intake & Output 10/08/17 10/09/17 10/10/17 10/11/17 23:59 23:59 23:59 23:59 Intake Total 300 Output Total 3300 1550 3550 550 Balance -3300 -1550 -3250 -550 Weight 78.16 kg 74.446 kg 72.439 kg 71.985 kg Gen: NAD at rest Heart: RRR Lung: decreased breath sounds at the bases Abd: soft, nontender Ext: no edema CBC, BMP 10/08/17 10:40 10/11/17 05:00 Active Medications Anastrozole (Arimidex -) 1 mg PO DAILY [facility] Last Admin: 10/11/17 09:18 Dose: 1 mg Atorvastatin Calcium (Lipitor -) 40 mg PO HS [facility] Last Admin: 10/10/17 21:41 Dose: 40 mg Carvedilol (Coreg -) 6.25 mg PO BID [facility] Last Admin: 10/11/17 09:17 Dose: 6.25 mg Furosemide (Lasix -) 60 mg PO DAILY [facility] Last Admin: 10/11/17 09:18 Dose: 60 mg Insulin Aspart (Novolog Vial Sliding Scale -) 1 vial SQ ACHS [facility] PRN Reason: Protocol Last Admin: 10/11/17 11:47 Dose: 4 units A/P Metastatic Breast Ca Recurrent Pleural Effusion CAD s/p CABG Acute on Chronic Diastolic Heart Failure HTN DM Hyperlipidemia - for pleur-x catheter placement - continue lasix - monitor urine output, creatinine - daily weights, I/Os - PO as tolerated - DVT prophylaxis
[2017-10-11] MEDS: ATORVASTATIN CA 40 MG TABLET (FP) PO SCH (21:50)
[2017-10-12] MEDS: INSULIN SLIDING SCALE (NOVOLOG) 1 VIAL SQ SCH (06:10)
--- NOTE | 2017-10-12 10:02 | PN ---
Progress Note (short form) - Note Progress Note: Chief Complaint: pleural eff History of Present Illness: denies sob or orthopnea no le edema no cp, palp Going down for pleur-x catheter placement today Current Medications Anastrozole (Arimidex -) 1 mg PO DAILY [facility] Last Admin: 10/11/17 09:18 Dose: 1 mg Atorvastatin Calcium (Lipitor -) 40 mg PO HS [facility] Last Admin: 10/11/17 21:50 Dose: 40 mg Carvedilol (Coreg -) 6.25 mg PO BID [facility] Last Admin: 10/11/17 21:50 Dose: 6.25 mg Furosemide (Lasix -) 60 mg PO DAILY [facility] Last Admin: 10/11/17 09:18 Dose: 60 mg Insulin Aspart (Novolog Vial Sliding Scale -) 1 vial SQ ACHS [facility] PRN Reason: Protocol Last Admin: 10/12/17 06:10 Dose: Not Given - Objective Vital Signs: Vital Signs - 24 hr 10/11/17 10/11/17 10/11/17 16:00 19:00 21:00 Temperature Pulse Rate 70 75 Respiratory 20 20 20 Rate Blood Pressure 115/42 121/88 O2 Sat by Pulse 98 Oximetry (%) 10/11/17 10/12/17 10/12/17 22:00 00:00 04:00 Temperature 97.5 F L 98.0 F Pulse Rate 72 68 70 Respiratory 21 23 18 Rate Blood Pressure 120/52 117/43 113/41 O2 Sat by Pulse Oximetry (%) 10/12/17 06:49 Temperature 97.9 F Pulse Rate 69 Respiratory 21 Rate Blood Pressure 113/41 O2 Sat by Pulse Oximetry (%) Intake & Output 10/10/17 10/11/17 10/12/17 10/13/17 07:59 07:59 07:59 07:59 Intake Total 300 260 Output Total 2600 2850 2900 Balance -2600 -2550 -2640 Weight 159 lb 11.2 oz 158 lb 11.2 oz 159 lb 14.4 oz nad calm jvd flat, neck supple rrr s1s2 no mrg dullness at right base/mid lung, nl effort + bs. soft, nt nd no hsm no e/c/c no jaundice diaphoresis + dp/pt aaox3 Labs: no CBC, BMP - ....Imaging EKG: Other (tele: NSR) Assessment/Plan cxr 10/08: diminished congestive changes. decreased size of bibasilar pl effusions and associated atelectasis/infiltrates chest ct images and report reviewed. interstitial edema. bilateral pl effusion with compressive atelectasis. large on rt, small on left. cardiomegaly. calc cors. diffuse subcutaneous edema/anasarca. mets to l. nodes, bone, likely liver. rt breast mass. Echo 09/30: nl LVSF; + hypo IW, inferolat, inferoseptal; nl RV; valves WNL Echo 10/2016: nl lvef, inf/inflat/infseptal HK, nl rv, mild mr Carotid us 10/2016: 60-79% bl ICA stenosis, chronic LE dopplers 07/2017: no dvt. a/p: 81 f hx cad s/p cabg 2005, htn , hld, niddm, breast cancer with mets to l.nodes, bone, likely liver and malignant rt pleural effusion (s/p thora 2016) p/w progressive lower extremity edema, shortness of breath and noted to have recurrent rt pleural effusion (s/p thora 09/30). pleural effusion (malignant), acute diast chf - s/p thoracentesis 09/30 - anasarca and signs of pulmonary edema on exam and chest ct. May have contribution from third spacing due to low albumin, but likely also with acute diastolic HF exacerbation. Repeat echo --> no change in systolic function. - bedscale wts trended down, sodium improved slightly overall, CXR with improved effusions after several daysof lasix 60 bid, now changed to 60 qd and remains stable on this --> weights stable, con't - now agreeing to pleur-x catheter (procedure scheduled today 10/12), plan per pulm cad s/p cabg/HL - prior echo with inferior wall motion abnormalities with preserved EF. Had declined stress testing in past, per dr. fong. - no anginal sx's. EKG unchanged from priors. troponin neg x 2 - con't OMT with statin, bb. ACEI on hold for low bp's. Asa on hold 10/07 in anticipation of pleur-x catheter, today 10/12. Can resume tomorrow 10/13 HTN - bp controlled/running on low end of normal. Decreased coreg dose from 12.5 bid to 6.25 10/09 PM --> bp/hr stable on lower dose. holding lisinopril. carotid atherosclerosis - stable velocities on u/s per office notes. Per report has previously declined further evaluation with cta or surgical eval. - con't statin. Asa on hold as mentioned
--- NOTE | 2017-10-12 10:14 | PN ---
Progress Note, Physician Chief Complaint: patient is currently NPO going for pleurex placement - Current Medication List Current Medications: Active Medications Anastrozole (Arimidex -) 1 mg PO DAILY [facility] Last Admin: 10/11/17 09:18 Dose: 1 mg Atorvastatin Calcium (Lipitor -) 40 mg PO HS [facility] Last Admin: 10/11/17 21:50 Dose: 40 mg Carvedilol (Coreg -) 6.25 mg PO BID [facility] Last Admin: 10/11/17 21:50 Dose: 6.25 mg Furosemide (Lasix -) 60 mg PO DAILY [facility] Last Admin: 10/11/17 09:18 Dose: 60 mg Insulin Aspart (Novolog Vial Sliding Scale -) 1 vial SQ ACHS [facility] PRN Reason: Protocol Last Admin: 10/12/17 06:10 Dose: Not Given - Objective Vital Signs: Vital Signs Temperature 97.9 F 10/12/17 06:49 Pulse Rate 69 10/12/17 06:49 Respiratory Rate 21 10/12/17 06:49 Blood Pressure 113/41 10/12/17 06:49 O2 Sat by Pulse Oximetry (%) 98 10/11/17 21:00 Constitutional: Yes: Calm, Thin Cardiovascular: Yes: Regular Rate and Rhythm, S1, S2 Respiratory: Yes: Diminished (on right side) Gastrointestinal: Yes: Normal Bowel Sounds, Soft Edema: No Neurological: Yes: Alert, Oriented Labs: CBC, BMP 10/08/17 10:40 10/11/17 05:00 INR, PTT INR 1.04 (0.82-1.09) 10/07/17 05:42 Problem List - Problems (1) Malignant pleural effusion Assessment/Plan: going for pleurex cath placement today aspirin on hold then plan is to go to snf- [facility] per [facility] notes accepted to [facility]- weekly drainage via the pleurex at the rehab facilty palliative RT as outpatient to FU with Dr solis Code(s): J91.0 - MALIGNANT PLEURAL EFFUSION (2) CHF (congestive heart failure) Assessment/Plan: lucia núñez today and trial of voiding po lasix Code(s): I50.9 - HEART FAILURE, UNSPECIFIED Qualifiers: (3) HTN (hypertension) Assessment/Plan: coreg does decreased Code(s): I10 - ESSENTIAL (PRIMARY) HYPERTENSION (4) Breast cancer Assessment/Plan: armidiex RT-after pleurex dvt ppx on hold for now Code(s): C50.919 - MALIGNANT NEOPLASM OF UNSP SITE OF UNSPECIFIED FEMALE BREAST Assessment/Plan pleurex today dc núñez trial of voiding then dc to snf [facility]
--- NOTE | 2017-10-12 10:19 | DS ---
Physical Examination Vital Signs: Vital Signs Temperature 97.9 F 10/12/17 06:49 Pulse Rate 69 10/12/17 06:49 Respiratory Rate 21 10/12/17 06:49 Blood Pressure 113/41 10/12/17 06:49 O2 Sat by Pulse Oximetry (%) 98 10/11/17 21:00 Labs: CBC, BMP 10/08/17 10:40 10/11/17 05:00 Discharge Summary Reason For Visit: CHF,PLEURAL EFFUSION, EDEMA Current Active Problems CHF (congestive heart failure) (Acute) Edema (Acute) HTN (hypertension) (Acute) Pleural effusion (Acute) Respiratory distress (Acute) Hospital Course: 81 y/o F with PMH CAD s/p CABG, recently dx breast CA (2016) with mets to lung, liver, neck (receives radiation M,T,,,. On Anastrazole), recent admission in July for respiratory distress and pleural effusion, who presents to ED with lower extremity edema and SOB since this past 09/25/17. As per pt , around noon on Wednesday, her daughter looked at her legs and realized they looked incredibly swollen. Pt already noticed during this time that she became increasingly SOB when ambulating four steps. At baseline, pt walks 20 feet before she becomes SOB. Over past wk, pt has gained 9 pounds. She follows with Dr. Frey and she recently changed her lasix regimen of 20mg qd to 20-40- 20mg alternating doses. Pt also endorses productive cough of yellow or white sputum over past 2 weeks (without blood). Denies WONG, fever, chills, chest or abdominal pain, changes in urinary or bowel function, or sick contacts. In ED, pt received one dose of lasix 40mg IVP. ER course was notable for: (1) leukopenia 3.3 (2) Na 129 (3) BNP ~53231 (4) CXR: R effusion (5) Admin of 1 dose lasix 40mg IVP (6) received Mg 2gm IVPB - had Mg level 1.1 Recent Travel: none PAST MEDICAL HISTORY: IDDM, HTN, HLD, CAD/ [place] (s/p CABG), recently dx Breast CA with mets to lung, liver, neck (receives radiation M, T, W, , Wed. On anastrazole), recent admission in July for resp distress and pleural effusion, gluteal pressure ulcers x 2 PAST SURGICAL HISTORY: D&C, tonsillectomy, CABG Social History: Smoking: denies Alcohol: denies Drugs: denies ]n hospital: pleural effusion: iv lasix,núñez, telemonitoring patient got thoracocentesis on 09/30 then changed to po lasix coreg was decreased given low BP aspirin held for 5 days for pleurex placement on 10/12 seen by Radiation oncology and plan for palliative RT as outpatient discontinue núñez cath to give trial of voiding needs SNF- to go to [facility] Condition: Guarded - Instructions Diet, Activity, Other Instructions: weekly drainage from the pleurex cath FU with Dr solis0 Radiation oncology) for palliative Radiation treatment Referrals: William Bazzi MD, MD [Primary Care Provider] - Julius Almeida MD [Staff Physician] - (to [facility] [place] radiation therapy) Disposition: [facility] - Home Medications Comprehensive Discharge Medication List: Ambulatory Orders Aspirin [ASA -] 81 mg PO DAILY #0 tab.chew 06/29/12 Metformin HCl [Metformin HCl ER] 500 mg PO BID 07/17/17 Atorvastatin Ca [Lipitor] 40 mg PO HS tablet 07/21/17 Carvedilol [Coreg -] 12.5 mg PO BID tablet 07/21/17 Lisinopril [Prinivil] 40 mg PO DAILY tablet 07/21/17 Anastrozole [Arimidex -] 1 mg PO DAILY 09/29/17 Furosemide [Lasix -] 40 mg PO DAILY 09/29/17
[2017-10-12] MEDS: FUROSEMIDE 20 MG TABLET (FP) PO SCH (12:20)
[2017-10-12] MEDS: CARVEDILOL 12.5 MG TABLET (FP) PO SCH ×2 (12:21→21:29)
[2017-10-12] MEDS: ANASTROZOLE 1 MG TABLET PO SCH (12:21)
[2017-10-12 12:26] LABS: GLUCOSE,PLEURAL FLUID 157.662; TOTAL PROTEIN,PLEURAL FLUID 3.132
[2017-10-12 14:01] LABS: PLEURAL FLUID APPEARANCE CLEAR; PLEURAL FLUID COLOR SLT YELLOW
[2017-10-12 14:02] LABS: PLEURAL FLUID LYMPHOCYTES 35 %; PLEURAL FLUID MACROPHAGES 65 %; PLEURAL FLUID NEUTROPHIL 2 %; PLEURAL FLUID RBC 467 /mm3
--- NOTE | 2017-10-12 14:31 | PN ---
Progress Note (short form) - Note Progress Note: PULMONARY s/p pleur-x placement. Denies shortness of breath or chest pain. Last Vital Signs Temp Pulse Resp BP Pulse Ox 98.2 F 73 20 124/76 97 10/12/17 13:45 10/12/17 13:45 10/12/17 13:45 10/12/17 13:45 10/12/17 10:00 Gen: NAD at rest Heart: RRR Lung: decreased breath sounds at the bases Abd: soft, nontender Ext: no edema CBC, BMP 10/08/17 10:40 10/11/17 05:00 Active Medications Anastrozole (Arimidex -) 1 mg PO DAILY [facility] Last Admin: 10/12/17 12:21 Dose: 1 mg Atorvastatin Calcium (Lipitor -) 40 mg PO HS [facility] Last Admin: 10/11/17 21:50 Dose: 40 mg Carvedilol (Coreg -) 6.25 mg PO BID [facility] Last Admin: 10/12/17 12:21 Dose: 6.25 mg Furosemide (Lasix -) 60 mg PO DAILY [facility] Last Admin: 10/12/17 12:20 Dose: 60 mg Metformin HCl (Glucophage -) 500 mg PO BID@0700,1630 [facility] A/P Metastatic Breast Ca Recurrent Pleural Effusion CAD s/p CABG Acute on Chronic Diastolic Heart Failure HTN DM Hyperlipidemia - s/p pleur-x catheter placement - continue lasix - monitor urine output, creatinine - daily weights, I/Os - PO as tolerated - DVT prophylaxis
--- NOTE | 2017-10-12 16:30 | PN ---
Progress Note (short form) - Note Progress Note: Patient seen and examined. s/p pleurex O/E: NAD NCAT Decreased size of the neck mass. Decreased rt breath sounds +1+ edema LE. Last Vital Signs Temp Pulse Resp BP Pulse Ox 98.2 F 73 20 124/76 97 10/12/17 13:45 10/12/17 13:45 10/12/17 13:45 10/12/17 13:45 10/12/17 10:00 CBC, BMP 10/08/17 10:40 10/11/17 05:00 Widely metastatic Hormone positive breast cancer on Arimidex, declined systemic chemo (during discussion in the office ) Neck LAD metastatic site, on Palliative RT. Pleural effusion ( Surg path noted, but has proven malignant effusion in 07/2017 ) Multiple cardiovascular co-morbidities. -c/w arimidex -on diuresis -s/p pleurex catheter. -for d/c with OP RT treatments.
[2017-10-12] MEDS: metFORMIN HCL 500 MG TABLET (FP) PO SCH (16:35)
[2017-10-12] MEDS: ATORVASTATIN CA 40 MG TABLET (FP) PO SCH (21:29)
[2017-10-13] MEDS: metFORMIN HCL 500 MG TABLET (FP) PO SCH (06:46)
[2017-10-13 07:44] LABS: ANION GAP 7 (8-16); BLOOD UREA NITROGEN 13 mg/dL (7-18); CALCIUM 8.4 mg/dL (8.5-10.1); CHLORIDE 93 mmol/L (98-107); CO2 30 mmol/L (21-32); CREATININE 0.5 mg/dL (0.55-1.02); GLUCOSE,RANDOM 190 mg/dL (74-106); POTASSIUM 4.3 mmol/L (3.5-5.1); SODIUM 130 mmol/L (136-145)
--- NOTE | 2017-10-13 08:03 | DS ---
Physical Examination Vital Signs: Vital Signs Temperature 98.0 F 10/13/17 06:00 Pulse Rate 83 10/13/17 06:00 Respiratory Rate 20 10/13/17 06:00 Blood Pressure 124/60 10/13/17 06:00 O2 Sat by Pulse Oximetry (%) 96 10/12/17 22:00 Labs: CBC, BMP 10/08/17 10:40 Discharge Summary Reason For Visit: CHF,PLEURAL EFFUSION, EDEMA Current Active Problems CHF (congestive heart failure) (Acute) Edema (Acute) HTN (hypertension) (Acute) Pleural effusion (Acute) Respiratory distress (Acute) Hospital Course: 81 y/o F with PMH CAD s/p CABG, recently dx breast CA (2016) with mets to lung, liver, neck (receives radiation M,,,,. On Anastrazole), recent admission in July for respiratory distress and pleural effusion, who presents to ED with lower extremity edema and SOB since this past 09/25/17. As per pt , around noon on Wednesday, her daughter looked at her legs and realized they looked incredibly swollen. Pt already noticed during this time that she became increasingly SOB when ambulating four steps. At baseline, pt walks 20 feet before she becomes SOB. Over past wk, pt has gained 9 pounds. She follows with Dr. Frey and she recently changed her lasix regimen of 20mg qd to 20-40- 20mg alternating doses. Pt also endorses productive cough of yellow or white sputum over past 2 weeks (without blood). Denies WONG, fever, chills, chest or abdominal pain, changes in urinary or bowel function, or sick contacts. In ED, pt received one dose of lasix 40mg IVP. ER course was notable for: (1) leukopenia 3.3 (2) Na 129 (3) BNP ~78229 (4) CXR: R effusion (5) Admin of 1 dose lasix 40mg IVP (6) received Mg 2gm IVPB - had Mg level 1.1 Recent Travel: none PAST MEDICAL HISTORY: IDDM, HTN, HLD, CAD/ [place] (s/p CABG), recently dx Breast CA with mets to lung, liver, neck (receives radiation M, T, , , Wed. On anastrazole), recent admission in July for resp distress and pleural effusion, gluteal pressure ulcers x 2 PAST SURGICAL HISTORY: D&C, tonsillectomy, CABG Social History: Smoking: denies Alcohol: denies Drugs: denies In hospital: pleural effusion: iv lasix,núñez, tele monitoring patient had thoracocentesis on 09/30 then changed to po lasix coreg was decreased given low BP aspirin held for 5 days for pleurex placement on 10/12 seen by Radiation oncology and plan for palliative RT as outpatient discontinue núñez cath to give trial of voiding needs SNF- to go to [facility] - Problems (1) Malignant pleural effusion Assessment/Plan: going for pleurex cath placement today aspirin on hold then plan is to go to snf- [facility] per [facility] notes accepted to [facility]- weekly drainage via the pleurex at the rehab facilty palliative RT as outpatient to FU with Dr solis Code(s): J91.0 - MALIGNANT PLEURAL EFFUSION (2) CHF (congestive heart failure) Assessment/Plan: dc núñez today and trial of voiding po lasix Code(s): I50.9 - HEART FAILURE, UNSPECIFIED Qualifiers: (3) HTN (hypertension) Assessment/Plan: coreg does decreased Code(s): I10 - ESSENTIAL (PRIMARY) HYPERTENSION (4) Breast cancer Assessment/Plan: armidiex RT-after pleurex dvt ppx Code(s): C50.919 - MALIGNANT NEOPLASM OF UNSP SITE OF UNSPECIFIED FEMALE BREAST Condition: Improved - Instructions Diet, Activity, Other Instructions: weekly drainage from the pleurex cath FU with Dr solis0 Radiation oncology) for palliative Radiation treatment Referrals: Julius Almeida MD [Staff Physician] - (to [facility] [place] radiation therapy) William Bazzi MD, MD [Primary Care Provider] - Disposition: [facility] - Home Medications Comprehensive Discharge Medication List: Ambulatory Orders Aspirin [ASA -] 81 mg PO DAILY #0 tab.chew 06/29/12 Metformin HCl [Metformin HCl ER] 500 mg PO BID 07/17/17 Atorvastatin Ca [Lipitor] 40 mg PO HS tablet 07/21/17 Anastrozole [Arimidex -] 1 mg PO DAILY 09/29/17 Carvedilol [Coreg -] 6.25 mg PO BID #14 tablet MDD 2 10/12/17 Furosemide [Lasix -] 60 mg PO DAILY #30 tablet 10/12/17
[2017-10-13] MEDS ORDERED: PT OWN MED DRAWER 7, Y5N ONE (09:40)
[2017-10-13] MEDS ORDERED: ASPIRIN COATED 81 MG TABLET.EC PO SCH (10:00)
[2017-10-13] MEDS ORDERED: HEPARIN NA (PORCINE) 5,000 UNITS/ML 1ML VIAL SQ SCH (10:00)
[2017-10-13] MEDS: ANASTROZOLE 1 MG TABLET PO SCH (10:45)
[2017-10-13] MEDS: CARVEDILOL 12.5 MG TABLET (FP) PO SCH (10:45)
[2017-10-13] MEDS: FUROSEMIDE 20 MG TABLET (FP) PO SCH (10:46)
--- NOTE | 2017-10-13 11:14 | PN ---
Progress Note (short form) - Note Progress Note: s: no cp palps dizzy sob o: Vital Signs Period Temp Pulse Resp BP Sys/Moreno Pulse Ox Last 24 Hr 98.0 F-98.2 F 73-86 20-20 103-139/50-76 96-96 nad calm jvd flat, neck supple rrr s1s2 2/6 sys murmur at lsb/apex cta bl nl effort + bs. soft, nt nd no hsm no le edema, no c/c no jaundice diaphoresis aaox3 Current Medications Generic Name Dose Route Start Last Admin Trade Name Freq PRN Reason Stop Dose Admin Anastrozole 1 mg 09/30/17 10:00 10/13/17 10:45 Arimidex - PO 1 mg DAILY URSZULA Administration Aspirin 81 mg 10/13/17 10:00 10/13/17 10:45 Ecotrin - PO 81 mg DAILY URSZULA Administration Atorvastatin Calcium 40 mg 09/30/17 22:00 10/12/17 21:29 Lipitor - PO 40 mg HS URSZULA Administration Carvedilol 6.25 mg 10/09/17 22:00 10/13/17 10:45 Coreg - PO 6.25 mg BID URSZULA Administration Furosemide 60 mg 10/10/17 10:00 10/13/17 10:46 Lasix - PO 60 mg DAILY [facility]A Administration Heparin Sodium (Porcine) 5,000 unit 10/13/17 10:00 10/13/17 10:46 Heparin - SQ 5,000 unit BID URSZULA Administration Metformin HCl 500 mg 10/12/17 16:30 10/13/17 06:46 Glucophage - PO 500 mg BID@0700,1630 URSZULA Administration CBC, BMP 10/08/17 10:40 10/13/17 06:55 cxr 10/08: diminished congestive changes. decreased size of bibasilar pl effusions and associated atelectasis/infiltrates chest ct images and report reviewed. interstitial edema. bilateral pl effusion with compressive atelectasis. large on rt, small on left. cardiomegaly. calc cors. diffuse subcutaneous edema/anasarca. mets to l. nodes, bone, likely liver. rt breast mass. Echo 09/30: nl LVSF; + hypo IW, inferolat, inferoseptal; nl RV; valves WNL Echo 10/2016: nl lvef, inf/inflat/infseptal HK, nl rv, mild mr Carotid us 10/2016: 60-79% bl ICA stenosis, chronic LE dopplers 07/2017: no dvt. tele: sr a/p: 81 f hx cad s/p cabg 2005, htn , hld, niddm, breast cancer with mets to l.nodes, bone, likely liver and malignant rt pleural effusion (s/p thora 2016) p/w progressive lower extremity edema, shortness of breath and noted to have recurrent rt pleural effusion (s/p thora 09/30). pleural effusion (malignant), acute diast chf - s/p thoracentesis 09/30 - anasarca and signs of pulmonary edema on exam and chest ct. May have contribution from third spacing due to low albumin, but likely also with acute diastolic HF exacerbation. Repeat echo --> no change in systolic function. - bedscale wts trended down, sodium improved slightly overall, CXR with improved effusions after several days of lasix 60 bid, now changed to 60 qd and remains stable on this --> weights stable, con't - s/p pleur-x catheter cad s/p cabg/HL - prior echo with inferior wall motion abnormalities with preserved EF. Had declined stress testing in past, per dr. fong. - no anginal sx's. EKG unchanged from priors. troponin neg x 2 - con't OMT with statin, bb. ACEI on hold for low bp's. Asa was on hold 10/07 in anticipation of pleur-x catheter, now can be resumed HTN - bp controlled/running on low end of normal. Decreased coreg dose from 12.5 bid to 6.25 10/13 PM --> bp/hr stable on lower dose. holding lisinopril. carotid atherosclerosis - stable velocities on u/s per office notes. Per report has previously declined further evaluation with cta or surgical eval. - con't statin. Asa on hold as mentioned cardiac nolen stable for snf
[2017-10-13 11:49] VITALS: BP 107/56; PULSE 79; TEMP 97.5
--- NOTE | 2017-10-13 13:42 | PATH ---
Cytology Non-Gynecological Report Patient Name: KAIN HOLDEN Med. Rec. #: [id number] /Age/Gender: 1935 (Age: 81) / F Account: [id number] Location: 4 TELEMETRY U Taken: 10/12/2017 Received: 10/12/2017 Reported: 10/13/2017 Physicians: Elvia Walker M.D. Specimen(s) Received PLEURAL FLUID Clinical History Pleural effusion Final Diagnosis PLEURAL FLUID FOR CYTOLOGY: SATISFACTORY FOR EVALUATION. ATYPICAL. RARE ATYPICAL CELLS IN A BACKGROUND OF MESOTHELIAL CELLS PRESENT. Comment: Primary materials are noted. Electronically Signed Zaira Patel M.D. Gross Description Approximately 50 cc of yellow fluid received fixed in 50% alcohol. Two cytofunnels and one cellblock prepared.
== END 2017-10-13 13:29 | DRG 180 ==
LOC: JER 19:36 → JERBED 23:30 → J2W 09-30 02:11 → J4W 10-12 18:36
PROVIDERS: ADMIT Family Medicine; ATTEND Family Medicine
PROC: 0W993ZZ Drainage of Right Pleural Cavity, Percutaneous Approach (ICD-10-PCS; principal; 2017-09-30)
PROC: 0WH933Z Insertion of Infusion Device into Right Pleural Cavity, Percutaneous Approach (ICD-10-PCS; 2017-10-12)
DX: C78.00 Secondary malignant neoplasm of unspecified lung (principal); L89.323 Pressure ulcer of left buttock, stage 3; L89.313 Pressure ulcer of right buttock, stage 3; I50.33 Acute on chronic diastolic (congestive) heart failure; C78.7 Secondary malignant neoplasm of liver and intrahepatic bile duct; C79.89 Secondary malignant neoplasm of other specified sites; C79.51 Secondary malignant neoplasm of bone; E87.1 Hypo-osmolality and hyponatremia; J98.11 Atelectasis; I11.0 Hypertensive heart disease with heart failure; I25.10 Atherosclerotic heart disease of native coronary artery without angina pectoris; Z95.1 Presence of aortocoronary bypass graft; I25.2 Old myocardial infarction; E11.9 Type 2 diabetes mellitus without complications; C50.919 Malignant neoplasm of unspecified site of unspecified female breast; Z88.0 Allergy status to penicillin; Z79.84 Long term (current) use of oral hypoglycemic drugs; E83.42 Hypomagnesemia; E87.6 Hypokalemia; E78.5 Hyperlipidemia, unspecified; D72.819 Decreased white blood cell count, unspecified; R59.0 Localized enlarged lymph nodes; E88.09 Other disorders of plasma-protein metabolism, not elsewhere classified; D64.9 Anemia, unspecified
CPT/HCPCS: 32550; 36415; 36600; 71045-TC; 71260-TC; 74177-TC; 76098-TC; 76942; 76942-TC; 80048; 80053; 81003; 82042; 82150; 82375; 82550; 82607; 82728; 82803; 82945; 82962; 83050; 83540; 83550; 83615; 83735; 83880; 84100; 84157; 84311; 84478; 84484; 85025; 85610; 85730; 86850; 86900; 86901; 87040; 87070; 87075; 87102; 87116; 87205; 87206; 87210; 87899; 88108; 88305-TC; 89051; 93005; 93010; 93306-TC; 94010; 96417; 97116-GP; 99285-25; C1729; C1769; C1894; J1644; J3489

== ENCOUNTER 2018-02-01 10:47 | Day surgery (SDC) | payer OTHER, MEDICARE ==
[2018-01-31 16:42] VITALS: BMI 26.2
[2018-02-01 15:58] VITALS: PULSE 78
[2018-02-01 16:07] VITALS: BP 124/59; TEMP 98.3
== END 2018-02-01 16:28 | disposition home or self-care (01) ==
LOC: JRADIR 10:47
PROVIDERS: ATTEND Nurse Practitioner Family
PROC: 02PY03Z Removal of Infusion Device from Great Vessel, Open Approach (ICD-10-PCS; principal; 2018-02-01)
DX: Z45.2 Encounter for adjustment and management of vascular access device (principal)
CPT/HCPCS: 32552; 71045-TC-FY

== ENCOUNTER 2018-02-12 15:40 | Inpatient (IN) | payer OTHER, MEDICARE ==
--- NOTE | 2018-02-12 16:14 | PDOC ---
History of Present Illness <Francine Isaac - Last Filed: 02/12/18 16:17> - History of Present Illness Initial Comments: 82 year old female with PMH of DM2, HTN, HLD, pleural effusion (pig tail removed 02/01/18), CAD (s/p HI and CABG), breast cancer (with mets to lungs, liver and neck with radiation last dose a few months ago to the neck, never on chemo) presenting with weakness, depressed appetite, and SOB for the past two weeks. Denies nausea, vomiting, diarrhea, fevers, chills, chest pain, visual symptoms, or other sick symptoms. 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, lungs and neck) COPD: No CHF: No Diabetes: Yes (niddm) GI Disorders: No Disorders: No HTN: No Hypercholesterolemia: No Liver Disease: No Seizures: No Thyroid Disease: Yes (GOITER) - Surgical History Abdominal Surgery: No Appendectomy: No Cardiac Surgery: Yes (TRIPLE BYPASS) Cholecystectomy: No Lung Surgery: No Neurologic Surgery: No Orthopedic Surgery: No - Suicide/Smoking/Psychosocial Hx Smoking Status: No Smoking History: Never smoked Have you smoked in the past 12 months: No Number of Cigarettes Smoked Daily: 0 Information on smoking cessation initiated: No Hx Alcohol Use: No Drug/Substance Use Hx: No Substance Use Type: None Hx Substance Use Treatment: No <Kishan Villafana - Last Filed: 02/12/18 19:07> <Sharad Victoria - Last Filed: 02/12/18 19:29> - Past Medical History Allergies/Adverse Reactions: Allergies Allergy/AdvReac Type Severity Reaction Status Date / Time Penicillins AdvReac Intermediate Rash Verified 02/12/18 15:56 Home Medications: Ambulatory Orders Aspirin [ASA -] 81 mg PO DAILY #0 tab.chew 06/29/12 Metformin HCl [Metformin HCl ER] 500 mg PO BID 07/17/17 Atorvastatin Ca [Lipitor] 40 mg PO HS tablet 07/21/17 Anastrozole [Arimidex -] 1 mg PO DAILY 09/29/17 Carvedilol [Coreg -] 6.25 mg PO BID #14 tablet MDD 2 10/12/17 Furosemide [Lasix -] 60 mg PO DAILY #30 tablet 10/12/17 Cholecalciferol (Vitamin D3) [Vitamin D3 -] 800 unit PO DAILY 02/12/18 *Physical Exam - Vital Signs Last Vital Signs Temp Pulse Resp BP Pulse Ox 98.7 F 72 18 112/53 97 02/12/18 15:40 02/12/18 15:40 02/12/18 15:40 02/12/18 15:40 02/12/18 15:40 <Francine Isaac - Last Filed: 02/12/18 16:17> - Vital Signs Last Vital Signs Temp Pulse Resp BP Pulse Ox 98.7 F 72 18 112/53 97 02/12/18 15:40 02/12/18 15:40 02/12/18 15:40 02/12/18 15:40 02/12/18 15:40 <Kishan Villafana - Last Filed: 02/12/18 19:07> - Vital Signs Last Vital Signs Temp Pulse Resp BP Pulse Ox 98.7 F 68 18 131/40 100 02/12/18 15:40 02/12/18 17:36 02/12/18 17:36 02/12/18 17:36 02/12/18 17:36 <Sharad Victoria - Last Filed: 02/12/18 19:29> ED Treatment Course - LABORATORY CBC & Chemistry Diagram: 02/12/18 17:01 02/12/18 17:01 <Kishan Villafana - Last Filed: 02/12/18 19:07> - LABORATORY CBC & Chemistry Diagram: 02/12/18 17:01 02/12/18 17:01 - ADDITIONAL ORDERS Additional order review: Laboratory Results 02/12/18 02/12/18 17:05 17:01 Sodium 136 Potassium 3.4 L Chloride 98 Carbon Dioxide 27 Anion Gap 11 BUN 9 Creatinine 0.6 Creat Clearance w eGFR > 60 Random Glucose 158 H Calcium 8.5 Total Bilirubin 0.4 D AST 16 ALT 24 Alkaline Phosphatase 88 Creatine Kinase 25 L Troponin I 0.03 B-Natriuretic Peptide 1115.14 H Total Protein 5.8 L Albumin 2.4 L Urine Color Yellow Urine Appearance Slcloudy Urine pH 7.0 Ur Specific [place] 1.010 Urine Protein Negative Urine Glucose (UA) 2+ H Urine Ketones Negative Urine Blood Negative Urine Nitrite Positive Urine Bilirubin Negative Urine Urobilinogen Negative Ur Leukocyte Esterase 3+ H Urine WBC (Auto) 102 Urine RBC (Auto) 2 Ur Epithelial Cells Rare Urine Bacteria Rare Urine Mucus Rare 02/12/18 17:01 RBC 4.17 MCV 79.2 L MCHC 32.9 RDW 15.5 MPV 7.0 L Neutrophils % 67.6 Lymphocytes % 20.7 D Monocytes % 11.0 H Eosinophils % 0.2 Basophils % 0.5 - Medications Given in the ED: ED Medications Discontinued Medications Generic Name Dose Route Start Last Admin Trade Name Freq PRN Reason Stop Dose Admin Sodium Chloride 500 ml 02/12/18 16:29 02/12/18 16:45 Normal Saline - IV 02/12/18 16:30 500 ml ONCE ONE Administration <Sharad Victoria - Last Filed: 02/12/18 19:29> *DC/Admit/Observation/Transfer <Francine Isaac - Last Filed: 02/12/18 16:17> <Kishan Villafana - Last Filed: 02/12/18 19:07> - Discharge Dispostion Decision to Admit order: Yes <Sharad Victoria - Last Filed: 02/12/18 19:29> Diagnosis at time of Disposition: UTI (urinary tract infection) Qualifiers: Urinary tract infection type: site unspecified Hematuria presence: without hematuria Qualified Code(s): N39.0 - Urinary tract infection, site not specified - Discharge Dispostion Condition at time of disposition: Stable - Referrals Referrals: William Bazzi MD, [Primary Care Provider] - - Patient Instructions - Post Discharge Activity
--- NOTE | 2018-02-12 16:17 | PDOC ---
Attending Attestation - HPI HPI: 02/12/18 17:24 The patient is a 82 year old female, with a significant PMH of DM2, HTN, HLD, CAD (s/p IN and CABG), breast cancer (with meta and recently diagnosed breast cancer with metastatic tumors in lungs, liver and neck (currently receiving radiation) who presents to the emergency department with multiple complaints including generalized weakness, unsteady gait, loss of appetite, and difficulty swallowing. The patient states she had her pleural cath removed recently. The patient denies chest pain, shortness of breath, headache and dizziness. Denies fever, chills, nausea, vomit, diarrhea and constipation. Denies dysuria, frequency, urgency and hematuria. Allergies: NKA Past surgical history: None reported. Social history: No reported alcohol, drug, or cigarette use. PCP: Dr. Bazzi <Ayla Garcia - Last Filed: 02/12/18 17:24> - Resident Resident Name: Kishan Villafana - ED Attending Attestation I have performed the following: I have examined & evaluated the patient, The case was reviewed & discussed with the resident, I agree w/resident's findings & plan, Exceptions are as noted - Physicial Exam PE: GENERAL: Awake, alert, and fully oriented, in no acute distress. Appears ill. + Pallor. HEAD: No signs of trauma EYES: PERRLA, EOMI, sclera anicteric, conjunctiva clear ENT: Auricles normal inspection, hearing grossly normal, nares patent, oropharynx clear without exudates. Moist mucosa NECK: Normal ROM, supple, no lymphadenopathy, JVD, or masses LUNGS: Breath sounds equal, clear to auscultation bilaterally. No wheezes, and no crackles HEART: Regular rate and rhythm, normal S1 and S2, no murmurs, rubs or gallops ABDOMEN: Soft, nontender, normoactive bowel sounds. No guarding, no rebound. No masses EXTREMITIES: Normal range of motion, no edema. No clubbing or cyanosis. No cords, erythema, or tenderness NEUROLOGICAL: Cranial nerves II through XII grossly intact. Normal speech. Motor and sensation intact. SKIN: Warm, Dry, normal turgor, no rashes or lesions noted. - Medical Decision Making Pt with weakness, complicated medical history. Will treat for UTI, admit as she was having difficulty ambulating due to weakness. <Francine Isaac - Last Filed: 02/13/18 10:20> Heart Score/ECG Review - ECG Impressions Comment:: EKG read 16:00- NSR 73 bpm, no acute ST/T changes <Francine Isaac - Last Filed: 02/13/18 10:20>
[2018-02-12] MEDS ORDERED: SODIUM CHLORIDE 0.9% 500 ML INFUS.BAG IV ONE (16:29)
[2018-02-12 17:12] LABS: BASO % 0.5 % (0-2.0); EOS % 0.2 % (0-4.5); HEMATOCRIT 33.1 % (32.4-45.2); HEMOGLOBIN 10.9 GM/dL (10.7-15.3); LYMPH % 20.7 % (8-40); MCH 26.1 pg (25.7-33.7); MCHC 32.9 g/dl (32.0-36.0); MEAN CELL VOLUME 79.2 fl (80-96); NEUT % 67.6 % (42.8-82.8); PLATELET COUNT 375 K/MM3 (134-434); RBC 4.17 M/mm3 (3.60-5.2); RDW 15.5 % (11.6-15.6); WHITE BLOOD COUNT 5.5 K/mm3 (4.0-10.0)
[2018-02-12 17:27] LABS: URINE APPEARANCE SLCLOUDY; URINE BILIRUBIN NEGATIVE (<2.0 mg/dL); URINE BLOOD NEGATIVE (NEGATIVE); URINE COLOR YELLOW; URINE GLUCOSE (UA) 2+ (NEGATIVE); URINE KETONE NEGATIVE (NEGATIVE); URINE NITRITE POSITIVE (NEGATIVE); URINE PROTEIN NEGATIVE (NEGATIVE); URINE UROBILINOGEN NEGATIVE mg/dL (0.2-1.0)
[2018-02-12 17:34] LABS: ALBUMIN 2.4 g/dl (3.4-5.0); ANION GAP 11 (8-16); BILIRUBIN,TOTAL 0.4 mg/dL (0.2-1.0); BLOOD UREA NITROGEN 9 mg/dL (7-18); CALCIUM 8.5 mg/dL (8.5-10.1); CHLORIDE 98 mmol/L (98-107); CO2 27 mmol/L (21-32); CREATININE 0.6 mg/dL (0.55-1.02); GLUCOSE,RANDOM 158 mg/dL (74-106); POTASSIUM 3.4 mmol/L (3.5-5.1); SGOT/AST 16 U/L (15-37); SGPT/ALT 24 U/L (12-78); SODIUM 136 mmol/L (136-145); TOT PROT 5.8 g/dl (6.4-8.2)
[2018-02-12 17:36] LABS: URINE LEUK ESTERASE 3+ (NEGATIVE)
[2018-02-12 17:37] LABS: ALK PHOS 88 U/L (45-117); N-TERMINAL BNP 1115.14 pg/ml (5-450)
[2018-02-12 17:37] LABS: EPI CELLS RARE /HPF (FEW); URINE BACTERIA RARE /hpf (NONE SEEN); URINE MUCUS RARE
--- NOTE | 2018-02-12 20:49 | HP ---
CHIEF COMPLAINT: fatigue, gen weakness PCP: Ketty Bazzi HISTORY OF PRESENT ILLNESS: This is an 82 year old female with a significant past medical history of metastatic BrCA, mets to lung, liver, neck, recent pleurex catheter removal on who presents to the ED with fatigue and generalized weakness x 2 weeks. She also reports decreased appetite and SOB. Denies chest pain. ER course was notable for: (1) u/a c/w UTI Recent Travel: pt denies PAST MEDICAL HISTORY: DM, HTN, HLD, CAD, SD 2005, BrCA with mets to lung s/p pleural effusion, liver and neck PAST SURGICAL HISTORY: 3v CABG 2005 Social History: Smoking: pt denies Alcohol: pt denies Drugs: pt denies Family History: mother age 89, CHF father age 47, TB 2 brothers, both age 47, lung CA sister in her 70s, lung CA Allergies Penicillins Adverse Reaction (Intermediate, Verified 02/12/18 15:56) Rash HOME MEDICATIONS: 3 Medication Instructions Recorded Aspirin [ASA -] 81 mg PO DAILY #0 tab.chew 06/29/12 Metformin HCl [Metformin HCl ER] 500 mg PO BID 07/17/17 Atorvastatin Ca [Lipitor] 40 mg PO HS tablet 07/21/17 Anastrozole [Arimidex -] 1 mg PO DAILY 09/29/17 Carvedilol [Coreg -] 6.25 mg PO BID #14 tablet MDD 2 10/12/17 Furosemide [Lasix -] 60 mg PO DAILY #30 tablet 10/12/17 Cholecalciferol (Vitamin D3) 800 unit PO DAILY 02/12/18 [Vitamin D3 -] REVIEW OF SYSTEMS CONSTITUTIONAL: Present: generalized weakness, malaise, loss of appetite Absent: fever, chills, diaphoresis, weight change HEENT: Absent: rhinorrhea, nasal congestion, throat pain, throat swelling, difficulty swallowing, mouth swelling, ear pain, eye pain, visual changes CARDIOVASCULAR: Absent: chest pain, syncope, palpitations, irregular heart rate, lightheadedness , peripheral edema RESPIRATORY: Present: shortness of breath Absent: cough, dyspnea with exertion, orthopnea, wheezing, stridor, hemoptysis GASTROINTESTINAL: Absent: abdominal pain, abdominal distension, nausea, vomiting, diarrhea, constipation, melena, hematochezia GENITOURINARY: Absent: dysuria, frequency, urgency, hesitancy, hematuria, flank pain, genital pain MUSCULOSKELETAL: Absent: myalgia, arthralgia, joint swelling, back pain, neck pain SKIN: Absent: rash, itching, pallor HEMATOLOGIC/IMMUNOLOGIC: Absent: easy bleeding, easy bruising, lymphadenopathy, frequent infections ENDOCRINE: Absent: unexplained weight gain, unexplained weight loss, heat intolerance, cold intolerance NEUROLOGIC: Absent: headache, focal weakness or paresthesias, dizziness, unsteady gait, seizure, mental status changes, bladder or bowel incontinence PSYCHIATRIC: Absent: anxiety, depression, suicidal or homicidal ideation, hallucinations. PHYSICAL EXAMINATION Vital Signs - 24 hr 3 02/12/18 02/12/18 02/12/18 15:40 15:51 17:36 Temperature 98.7 F Pulse Rate 72 Pulse Rate [ 68 Left Radial] Respiratory 18 18 Rate Blood Pressure 112/53 Blood Pressure 131/40 [Right Arm] O2 Sat by Pulse 97 98 100 Oximetry (%) GENERAL: Awake, alert, and fully oriented, in no acute distress. HEAD: Normal with no signs of trauma. EYES: Pupils equal, round and reactive to light, extraocular movements intact, sclera anicteric, conjunctiva clear. No lid lag. EARS, NOSE, THROAT: Ears normal, nares patent, oropharynx clear without exudates. Moist mucous membranes. NECK: Normal range of motion, supple without lymphadenopathy, JVD. + mass right neck LUNGS: Breath sounds diminished on right, clear to auscultation left. No wheezes , and no crackles. No accessory muscle use. HEART: Regular rate and rhythm, normal S1 and S2 without murmur, rub or gallop. ABDOMEN: Soft, nontender, not distended, normoactive bowel sounds, no guarding, no rebound, no masses. No hepatomegaly or splenomegaly. MUSCULOSKELETAL: Normal range of motion at all joints. No bony deformities or tenderness. No CVA tenderness. UPPER EXTREMITIES: 2+ pulses, warm, well-perfused. No cyanosis. No clubbing. No peripheral edema. LOWER EXTREMITIES: 2+ pulses, warm, well-perfused. No calf tenderness. No peripheral edema. NEUROLOGICAL: Cranial nerves II-XII intact. Normal speech. Normal gait. PSYCHIATRIC: Cooperative. Good eye contact. Appropriate mood and affect. SKIN: Warm, dry, normal turgor, no rashes or lesions noted, normal capillary refill. Laboratory Results - last 24 hr 3 02/12/18 02/12/18 02/12/18 17:01 17:01 17:05 WBC 5.5 RBC 4.17 Hgb 10.9 Hct 33.1 MCV 79.2 L MCH 26.1 MCHC 32.9 RDW 15.5 Plt Count 375 MPV 7.0 L Neutrophils % 67.6 Lymphocytes % 20.7 D Monocytes % 11.0 H Eosinophils % 0.2 Basophils % 0.5 Nucleated RBC % 0 Sodium 136 Potassium 3.4 L Chloride 98 Carbon Dioxide 27 Anion Gap 11 BUN 9 Creatinine 0.6 Creat Clearance w eGFR > 60 Random Glucose 158 H Calcium 8.5 Total Bilirubin 0.4 D AST 16 ALT 24 Alkaline Phosphatase 88 Creatine Kinase 25 L Troponin I 0.03 B-Natriuretic Peptide 1115.14 H Total Protein 5.8 L Albumin 2.4 L Urine Color Yellow Urine Appearance Slcloudy Urine pH 7.0 Ur Specific Burke 1.010 Urine Protein Negative Urine Glucose (UA) 2+ H Urine Ketones Negative Urine Blood Negative Urine Nitrite Positive Urine Bilirubin Negative Urine Urobilinogen Negative Ur Leukocyte Esterase 3+ H Urine WBC (Auto) 102 Urine RBC (Auto) 2 Ur Epithelial Cells Rare Urine Bacteria Rare Urine Mucus Rare ECG Normal sinus rhythm vent rate 73, QTC 458 ant infarct, age undetermined when compared with ECG 09/29/17, premature complexes no longer found ASSESSMENT/PLAN: 82yF with PMH DM, HTN, HLD, CAD, SD 2005, BrCA with mets to lung s/p pleural effusion, liver and neck presented to the ED with gen weakness, fatigue, decreased appetite and SOB x 2 weeks. Family reported to ED that they are having a difficult time caring for her. UTI - Cont levaquin - follow culture report hypokalemia - will give K 20mEQ - check magnesium level and BMP in am metastatic BrCA - oncology consult - cont arimidex CAD/HTN/HLD - cont home meds: ASA, Lipitor, coreg, furosemide DM - hold home metformin while inpatient - BGM AC/HS with novolog sliding scale - A1C in am DVT PPX - heparin deferred as anticipated LOS <48h, reassess if stay exceeds FEN - tolerating po - BMP ish - diabetic/low sodium diet as tolerated Dispo: pt currently requires further observation for management of her emergent condition. Visit type - Emergency Visit Emergency Visit: Yes ED Registration Date: 02/12/18 Care time: The patient presented to the Emergency Department on the above date and was hospitalized for further evaluation of their emergent condition. - New Patient This patient is new to me today: Yes Date on this admission: 02/12/18 - Critical Care Critical Care patient: No Hospitalist Screening - Colonoscopy Questionnaire Colonoscopy Questionnaire: Colonoscopy Questionnaire - Patient: 50 - 75 years old and never had a screening colonoscopy: No History of colon or rectal polyps, or CA: No History of IBD, Crohn's disease or UC: No History of abdominal radiation therapy as a child: No - Relative: 1 with colon or rectal CA, or polyps at age 60 or younger: No Colon or rectal CA diagnosed at age 45 or younger: No Multiple relatives with colon or rectal CA: No - Outcome: Screening Result: Negative Screen
[2018-02-12] MEDS: ATORVASTATIN CA 40 MG TABLET (FP) PO SCH (22:08)
[2018-02-12] MEDS: CARVEDILOL 6.25 MG TABLET (FP) PO SCH (22:14)
[2018-02-12] MEDS ORDERED: CARVEDILOL 12.5 MG TABLET (FP) ONE (23:02)
[2018-02-12] MEDS ORDERED: ATORVASTATIN CA 40 MG TABLET (FP) ONE (23:03)
[2018-02-13] MEDS: INSULIN SLIDING SCALE (NOVOLOG) 1 VIAL SQ SCH ×5 (00:29→21:10)
[2018-02-13 08:46] LABS: BASO % 0.4 % (0-2.0); HEMATOCRIT 35.8 % (32.4-45.2); LYMPH % 13.6 % (8-40); MCH 26.6 pg (25.7-33.7); MCHC 33.5 g/dl (32.0-36.0); MEAN CELL VOLUME 79.6 fl (80-96); MEAN PLT VOLUME 7.1 fl (7.5-11.1); MONO % 8.2 % (3.8-10.2); NEUT % 77.8 % (42.8-82.8); PLATELET COUNT 392 K/MM3 (134-434); RDW 15.5 % (11.6-15.6); WHITE BLOOD COUNT 5.8 K/mm3 (4.0-10.0)
[2018-02-13 09:06] LABS: ANION GAP 7 (8-16); BLOOD UREA NITROGEN 11 mg/dL (7-18); CALCIUM 8.7 mg/dL (8.5-10.1); CHLORIDE 100 mmol/L (98-107); CO2 28 mmol/L (21-32); CREATININE 0.6 mg/dL (0.55-1.02); GLUCOSE,RANDOM 161 mg/dL (74-106); MAGNESIUM 1.6 mg/dL (1.8-2.4); PHOSPHOROUS 3.1 mg/dL (2.5-4.9); POTASSIUM 3.7 mmol/L (3.5-5.1); SODIUM 135 mmol/L (136-145)
--- NOTE | 2018-02-13 09:25 | PN ---
Progress Note, Physician - Current Medication List Current Medications: Active Medications Anastrozole (Arimidex -) 1 mg PO DAILY [facility] Aspirin (Asa -) 81 mg PO DAILY [facility] Atorvastatin Calcium (Lipitor -) 40 mg PO HS [facility] Last Admin: 02/12/18 22:08 Dose: 40 mg Carvedilol (Coreg -) 6.25 mg PO BID [facility] Last Admin: 02/12/18 22:14 Dose: 6.25 mg Cholecalciferol (Vitamin D3 -) 800 unit PO DAILY [facility] Furosemide 40 mg/ Furosemide (20 mg) 60 mg PO DAILY [facility] Insulin Aspart (Novolog Vial Sliding Scale -) 1 vial SQ HS [facility]; Protocol Last Admin: 02/13/18 00:29 Dose: Not Given Insulin Aspart (Novolog Vial Sliding Scale -) 1 vial SQ TIDAC [facility]; Protocol Last Admin: 02/13/18 06:34 Dose: 2 units Potassium Chloride (K-Dur -) 20 meq PO DAILY [facility] - Objective Vital Signs: Vital Signs Temperature 98.0 F 02/13/18 06:00 Pulse Rate 77 02/13/18 06:00 Respiratory Rate 18 02/13/18 06:00 Blood Pressure 141/61 02/13/18 06:00 O2 Sat by Pulse Oximetry (%) 96 02/13/18 01:29 Cardiovascular: Yes: S1, S2 Respiratory: Yes: Regular, CTA Bilaterally Gastrointestinal: Yes: Normal Bowel Sounds, Soft Labs: CBC, BMP 02/13/18 06:30 02/13/18 06:30 Problem List - Problems (1) Metastatic breast cancer Assessment/Plan: -Oncology consult Code(s): C50.919 - MALIGNANT NEOPLASM OF UNSP SITE OF UNSPECIFIED FEMALE BREAST (2) UTI (urinary tract infection) Assessment/Plan: -IV Abx -Cultures Code(s): N39.0 - URINARY TRACT INFECTION, SITE NOT SPECIFIED Qualifiers: Urinary tract infection type: site unspecified Hematuria presence: without hematuria Qualified Code(s): N39.0 - Urinary tract infection, site not specified (3) CHF (congestive heart failure) Assessment/Plan: -PO Lasix -Follow Labs Code(s): I50.9 - HEART FAILURE, UNSPECIFIED (4) HTN (hypertension) Code(s): I10 - ESSENTIAL (PRIMARY) HYPERTENSION
[2018-02-13] MEDS ORDERED: FUROSEMIDE 20 MG TABLET (FP) PO SCH (10:00)
[2018-02-13] MEDS ORDERED: FUROSEMIDE 20 MG TABLET (FP) ONE (10:40)
[2018-02-13] MEDS ORDERED: FUROSEMIDE 40 MG TABLET (FP) ONE (10:40)
[2018-02-13] MEDS ORDERED: PT OWN MED DRAWER 7, Y5N ONE (10:42)
--- NOTE | 2018-02-13 10:45 | PN ---
Progress Note (short form) - Note Progress Note: Patient known to Oncology. Metastatic breast cancer (lung mets with pleural effusion - prior Pleurex catheter - recently removed, cervical lymph nodes), ER positive, only on Arimidex (declined chemo), previous RTX, presents with non-specific findings, including poor appetite, weakness, failure to thrive. Admitted and being treated empirically for a UTI on basis of suggestive UA. No new complaints at this time - unclear of reliability of patient's history. Inpatient Meds reviewed. Current Medications Generic Name Dose Route Start Last Admin Trade Name Freq PRN Reason Stop Dose Admin Anastrozole 1 mg 02/13/18 10:00 Arimidex - PO DAILY [facility] Aspirin 81 mg 02/13/18 10:00 Asa - PO DAILY [facility] Atorvastatin Calcium 40 mg 02/12/18 22:00 02/12/18 22:08 Lipitor - PO 40 mg HS [facility] Administration Carvedilol 6.25 mg 02/12/18 22:00 02/12/18 22:14 Coreg - PO 6.25 mg BID [facility] Administration Cholecalciferol 800 unit 02/13/18 10:00 Vitamin D3 - PO DAILY [facility] Furosemide 40 mg/ Furosemide 60 mg 02/13/18 10:00 20 mg PO DAILY [facility] Levofloxacin 500 mg in 100 mls @ 100 mls/hr 02/13/18 18:00 Levaquin 500 Mg Premixed Ivpb - IVPB DAILY@1800 [facility] Protocol Insulin Aspart 1 vial 02/12/18 22:00 02/13/18 00:29 Novolog Vial Sliding Scale - SQ Not Given HS [facility] Protocol Insulin Aspart 1 vial 02/13/18 07:00 02/13/18 06:34 Novolog Vial Sliding Scale - SQ 2 units TIDAC [facility] Administration Protocol Potassium Chloride 20 meq 02/13/18 10:00 K-Dur - PO DAILY [facility] On Examination: CBC, BMP 02/13/18 06:30 02/13/18 06:30 General: In no acute distress,sitting up comfortably in bed. Extremities: No pallor or icterus. No pedal edema. No palpable lymphadenopathy. Induration R neck at site of prior RTX, with expected skin changes CVS: S1, S2, regular, no gallop or murmur. Chest: good air entry bilaterally, clear Abdomen: Non-distended, non-tender, no palpable organomegaly. Neuro: Alert, mild confusion, non-focal. Labs: CBC, BMP 02/13/18 06:30 02/13/18 06:30 Assessment: Metastatic breast cancer, ER positive, only on Arimidex (declined chemo), previous RTX, presents with non-specific findings, including poor appetite, weakness, failure to thrive, attributed to a UTI, now on Levaquin. Possible other issues related to her ability to function independently, and possible need for additional resources at home. No acute cancer-related issues - should continue AI. Will follow up with Dr Vinson's office for ongoing outpatient cancer care.
[2018-02-13] MEDS: CHOLECALCIFEROL (VITAMIN D3) 400 UNIT TABLET (FP) PO SCH (10:58)
[2018-02-13] MEDS: FUROSEMIDE 40 MG, FUROSEMIDE 20 MG PO SCH (10:58)
[2018-02-13] MEDS: ASPIRIN 81 MG CHEWABLE TABLETS PO SCH (10:58)
[2018-02-13] MEDS: CARVEDILOL 6.25 MG TABLET (FP) PO SCH ×2 (10:58→21:10)
[2018-02-13] MEDS: POTASSIUM CHLORIDE TABS 20 MEQ TABLET.ER (FP) PO SCH (10:58)
[2018-02-13] MEDS ORDERED: INSULIN (NOVOLOG) ASPART 100 UNITS/ML 10ML VIAL ONE (12:07)
[2018-02-13] MEDS: ANASTROZOLE 1 MG TABLET PO SCH (17:22)
[2018-02-13] MEDS: ATORVASTATIN CA 40 MG TABLET (FP) PO SCH (21:10)
--- NOTE | 2018-02-13 22:10 | EKG ---
Test Reason : Blood Pressure : / mmHG Vent. Rate : 073 BPM Atrial Rate : 073 BPM P-R Int : 174 ms QRS Dur : 114 ms QT Int : 416 ms P-R-T Axes : 065 -05 113 degrees QTc Int : 458 ms NORMAL SINUS RHYTHM INCOMPLETE LEFT BUNDLE BRANCH BLOCK ANTERIOR INFARCT (CITED ON OR BEFORE 23-JUL-2017) T WAVE ABNORMALITY, CONSIDER LATERAL ISCHEMIA ABNORMAL ECG WHEN COMPARED WITH ECG OF 29-SEP-2017 21:34, PREMATURE SUPRAVENTRICULAR COMPLEXES ARE NO LONGER PRESENT Confirmed by BENEDICT STUBBS MD ([id number]) on 02/13/2018 10:10:26 PM Referred By: Confirmed By:BENEDICT STUBBS MD
--- NOTE | 2018-02-14 01:17 | CONSULT ---
Consult Consult Specialty:: endocrine Referred by:: dr.[email or web address] kirk Reason for Consultation:: diabetes mellitus - History of Present Illness Chief Complaint: nauseas weak History of Present Illness: 82 year old female, with a significant PMH of DM2, HTN, HLD, CAD (s/p PR and CABG), breast cancer (with meta and recently diagnosed breast cancer with metastatic tumors in lungs, liver and neck (currently receiving radiation) who presents to the emergency department with multiple complaints including generalized weakness, unsteady gait, loss of appetite, and difficulty swallowing. her blood sugars have been higher since steroid doses have been adjusted The patient denies chest pain, shortness of breath, headache - History Source History Provided By: Patient - Past Medical History Cardio/Vascular: Yes: CHF, HTN, Hyperlipdemia Pulmonary: Yes: COPD ...: No Endocrine: Yes: Diabetes Insipidus - Alcohol/Substance Use Hx Alcohol Use: No - Smoking History Smoking history: Never smoked Have you smoked in the past 12 months: No Aproximately how many cigarettes per day: 0 Home Medications - Allergies Allergies/Adverse Reactions: Allergies Allergy/AdvReac Type Severity Reaction Status Date / Time Penicillins AdvReac Intermediate Rash Verified 02/12/18 15:56 - Home Medications Home Medications: Ambulatory Orders Aspirin [ASA -] 81 mg PO DAILY #0 tab.chew 06/29/12 Metformin HCl [Metformin HCl ER] 500 mg PO BID 07/17/17 Atorvastatin Ca [Lipitor] 40 mg PO HS tablet 07/21/17 Anastrozole [Arimidex -] 1 mg PO DAILY 09/29/17 Carvedilol [Coreg -] 6.25 mg PO BID #14 tablet MDD 2 10/12/17 Furosemide [Lasix -] 60 mg PO DAILY #30 tablet 10/12/17 Cholecalciferol (Vitamin D3) [Vitamin D3 -] 800 unit PO DAILY 02/12/18 Review of Systems - Review of Systems Constitutional: reports: Lethargy, Weakness Eyes: reports: Blurred Vision HENT: reports: No Symptoms Neck: reports: No Symptoms Cardiovascular: reports: Shortness of Breath Respiratory: reports: Exercise Intolerance, SOB on Exertion Gastrointestinal: reports: Bloating, Nausea Genitourinary: reports: No Symptoms Breasts: reports: Skin Changes Musculoskeletal: reports: Back Pain, Extremity Pain, Muscle Cramps Endocrine: reports: Excessive Sweating Hematology/Lymphatic: reports: No Symptoms Physical Exam Vital Signs: Vital Signs Temperature 97.9 F 02/13/18 20:00 Pulse Rate 73 02/13/18 20:00 Respiratory Rate 17 02/13/18 20:00 Blood Pressure 128/54 02/13/18 20:00 O2 Sat by Pulse Oximetry (%) 96 02/13/18 19:00 Constitutional: Yes: Anxious Eyes: Yes: EOM Intact HENT: Yes: Normocephalic Neck: Yes: Trachea Midline Cardiovascular: Yes: Tachycardia Respiratory: Yes: CTA Bilaterally Gastrointestinal: Yes: Normal Bowel Sounds ...Rectal Exam: Yes: Deferred Renal/: Yes: WNL Breast(s): Yes: WNL, Skin Changes Musculoskeletal: Yes: Joint Stiffness Extremities: Yes: WNL Neurological: Yes: Alert, Oriented Labs: CBC, BMP 02/13/18 06:30 02/13/18 06:30 Problem List - Problems (1) Type 2 diabetes mellitus with diabetic polyneuropathy Code(s): E11.42 - TYPE 2 DIABETES MELLITUS WITH DIABETIC POLYNEUROPATHY Qualifiers: Diabetes mellitus terminal press operator insulin use: with prison use Qualified Code( s): E11.42 - Type 2 diabetes mellitus with diabetic polyneuropathy; Z79.4 - intermediate frame tender (current) use of insulin (2) Metastatic breast cancer Code(s): C50.919 - MALIGNANT NEOPLASM OF UNSP SITE OF UNSPECIFIED FEMALE BREAST (3) UTI (urinary tract infection) Code(s): N39.0 - URINARY TRACT INFECTION, SITE NOT SPECIFIED Qualifiers: Urinary tract infection type: site unspecified Hematuria presence: without hematuria Qualified Code(s): N39.0 - Urinary tract infection, site not specified (4) ASHD (arteriosclerotic heart disease) Code(s): I25.10 - ATHSCL HEART DISEASE OF [place] CORONARY ARTERY W/O ANG PCTRS (5) Axillary lymphadenopathy Code(s): R59.0 - LOCALIZED ENLARGED LYMPH NODES (6) Bacteremia Code(s): R78.81 - BACTEREMIA Assessment/Plan Current Active Problems Metastatic breast cancer (Acute) UTI (urinary tract infection) (Acute) dm 2 insulin requiring diabetic neuropathy hypertension anemia hemolytic chf Abnormal Lab Results 02/13/18 02/13/18 02/13/18 06:30 06:30 06:30 MCV 79.6 L MPV 7.1 L Sodium 135 L Anion Gap 7 L Random Glucose 161 H Hemoglobin A1c % 9.1 H Magnesium 1.6 L Laboratory Results - last 24 hr 02/13/18 02/13/18 02/13/18 06:30 06:30 06:30 WBC 5.8 RBC 4.50 Hgb 12.0 D Hct 35.8 MCV 79.6 L MCH 26.6 MCHC 33.5 RDW 15.5 Plt Count 392 MPV 7.1 L Neutrophils % 77.8 Lymphocytes % 13.6 D Monocytes % 8.2 Eosinophils % 0.0 D Basophils % 0.4 Nucleated RBC % 0 Sodium 135 L Potassium 3.7 Chloride 100 Carbon Dioxide 28 Anion Gap 7 L BUN 11 Creatinine 0.6 POC Glucometer Random Glucose 161 H Hemoglobin A1c % 9.1 H Calcium 8.7 Phosphorus 3.1 Magnesium 1.6 L Creatine Kinase Troponin I 02/13/18 02/13/18 02/13/18 06:30 10:20 12:05 WBC RBC Hgb Hct MCV MCH MCHC RDW Plt Count MPV Neutrophils % Lymphocytes % Monocytes % Eosinophils % Basophils % Nucleated RBC % Sodium Potassium Chloride Carbon Dioxide Anion Gap BUN Creatinine POC Glucometer 185 168 Random Glucose Hemoglobin A1c % Calcium Phosphorus Magnesium Creatine Kinase 34 Troponin I 0.03 02/13/18 02/13/18 17:23 21:09 WBC RBC Hgb Hct MCV MCH MCHC RDW Plt Count MPV Neutrophils % Lymphocytes % Monocytes % Eosinophils % Basophils % Nucleated RBC % Sodium Potassium Chloride Carbon Dioxide Anion Gap BUN Creatinine POC Glucometer 137 170 Random Glucose Hemoglobin A1c % Calcium Phosphorus Magnesium Creatine Kinase Troponin I plan : bgm novolog sliding scale levemir 20 units am metformin 500mg xr daily
[2018-02-14] MEDS: INSULIN (LEVEMIR) 100 UNITS/ML UNITS SQ SCH (06:42)
[2018-02-14] MEDS: INSULIN SLIDING SCALE (NOVOLOG) 1 VIAL SQ SCH ×5 (06:43→21:45)
[2018-02-14] MEDS ORDERED: FUROSEMIDE 20 MG TABLET (FP) ONE (10:00)
[2018-02-14] MEDS ORDERED: FUROSEMIDE 40 MG TABLET (FP) ONE (10:00)
[2018-02-14] MEDS ORDERED: PT OWN MED DRAWER 7, Y5N ONE (10:01)
[2018-02-14] MEDS: ASPIRIN 81 MG CHEWABLE TABLETS PO SCH (10:22)
[2018-02-14] MEDS: CARVEDILOL 6.25 MG TABLET (FP) PO SCH ×2 (10:22→21:44)
[2018-02-14] MEDS: FUROSEMIDE 40 MG, FUROSEMIDE 20 MG PO SCH (10:23)
[2018-02-14] MEDS: ANASTROZOLE 1 MG TABLET PO SCH (10:23)
[2018-02-14] MEDS: CHOLECALCIFEROL (VITAMIN D3) 400 UNIT TABLET (FP) PO SCH (10:23)
[2018-02-14] MEDS: POTASSIUM CHLORIDE TABS 20 MEQ TABLET.ER (FP) PO SCH (10:23)
[2018-02-14 11:16] LABS: ALBUMIN 2.7 g/dl (3.4-5.0); ANION GAP 7 (8-16); BLOOD UREA NITROGEN 11 mg/dL (7-18); CALCIUM 8.8 mg/dL (8.5-10.1); CHLORIDE 96 mmol/L (98-107); CO2 29 mmol/L (21-32); GLUCOSE,RANDOM 204 mg/dL (74-106); POTASSIUM 3.7 mmol/L (3.5-5.1); SODIUM 132 mmol/L (136-145)
--- NOTE | 2018-02-14 11:17 | PN ---
Progress Note, Physician Chief Complaint: patient seen and examined - Current Medication List Current Medications: Active Medications Anastrozole (Arimidex -) 1 mg PO DAILY [facility] Last Admin: 02/14/18 10:23 Dose: 1 mg Aspirin (Asa -) 81 mg PO DAILY [facility] Last Admin: 02/14/18 10:22 Dose: 81 mg Atorvastatin Calcium (Lipitor -) 40 mg PO HS [facility] Last Admin: 02/13/18 21:10 Dose: 40 mg Carvedilol (Coreg -) 6.25 mg PO BID [facility] Last Admin: 02/14/18 10:22 Dose: 6.25 mg Cholecalciferol (Vitamin D3 -) 800 unit PO DAILY [facility] Last Admin: 02/14/18 10:23 Dose: 800 unit Furosemide 40 mg/ Furosemide (20 mg) 60 mg PO DAILY [facility] Last Admin: 02/14/18 10:23 Dose: 60 mg Levofloxacin (Levaquin 500 Mg Premixed Ivpb -) 500 mg in 100 mls @ 100 mls/hr IVPB DAILY@1800 [facility]; Protocol Last Admin: 02/13/18 17:22 Dose: 100 mls/hr Insulin Aspart (Novolog Vial Sliding Scale -) 1 vial SQ HS [facility]; Protocol Last Admin: 02/13/18 21:10 Dose: Not Given Insulin Aspart (Novolog Vial Sliding Scale -) 1 vial SQ TIDAC [facility]; Protocol Last Admin: 02/14/18 06:43 Dose: Not Given Insulin Detemir (Levemir Vial) 20 units SQ AM [facility] Last Admin: 02/14/18 06:42 Dose: 20 units Metformin HCl (Glucophage Xr -) 500 mg PO DAILY@0700 [facility] Last Admin: 02/14/18 06:43 Dose: 500 mg Potassium Chloride (K-Dur -) 20 meq PO DAILY [facility] Last Admin: 02/14/18 10:23 Dose: 20 meq - Objective Vital Signs: Vital Signs Temperature 97.7 F 02/14/18 09:58 Pulse Rate 77 02/14/18 09:58 Respiratory Rate 20 02/14/18 09:58 Blood Pressure 121/65 02/14/18 09:58 O2 Sat by Pulse Oximetry (%) 96 02/14/18 03:00 Constitutional: Yes: Calm Neck: Yes: Other (induration right side of neck) Cardiovascular: Yes: Regular Rate and Rhythm, S1, S2 Respiratory: Yes: CTA Bilaterally Labs: CBC, BMP 02/13/18 06:30 Problem List - Problems (1) Metastatic breast cancer Assessment/Plan: seen by oncology on arimidex Code(s): C50.919 - MALIGNANT NEOPLASM OF UNSP SITE OF UNSPECIFIED FEMALE BREAST (2) Type 2 diabetes mellitus with diabetic polyneuropathy Assessment/Plan: seen by endocrine levemir and metformin Code(s): E11.42 - TYPE 2 DIABETES MELLITUS WITH DIABETIC POLYNEUROPATHY Qualifiers: Diabetes mellitus oysterman insulin use: with [facility] use Qualified Code( s): E11.42 - Type 2 diabetes mellitus with diabetic polyneuropathy; Z79.4 - jail (current) use of insulin (3) UTI (urinary tract infection) Assessment/Plan: levaquin Code(s): N39.0 - URINARY TRACT INFECTION, SITE NOT SPECIFIED Qualifiers: Urinary tract infection type: site unspecified Hematuria presence: without hematuria Qualified Code(s): N39.0 - Urinary tract infection, site not specified (4) Unsteady gait Assessment/Plan: PT eval Code(s): R26.81 - UNSTEADINESS ON FEET
[2018-02-14 11:21] LABS: ALK PHOS 96 U/L (45-117); BILIRUBIN,TOTAL 0.6 mg/dL (0.2-1.0); CREATININE 0.6 mg/dL (0.55-1.02); SGOT/AST 17 U/L (15-37); SGPT/ALT 23 U/L (12-78); TOT PROT 6.6 g/dl (6.4-8.2)
[2018-02-14] MEDS ORDERED: INSULIN (NOVOLOG) ASPART 100 UNITS/ML 10ML VIAL ONE (12:00)
[2018-02-14 12:48] VITALS: BMI 24.7
[2018-02-14] MEDS: ATORVASTATIN CA 40 MG TABLET (FP) PO SCH (21:44)
--- NOTE | 2018-02-14 23:25 | PN ---
Progress Note (short form) - Note Progress Note: PAtient seen and examined Offering no complaints AFVSS Neck: Supple Cor: RSR, No murmurs, No gallops Lungs: Clear to P&A Abd: Soft, Normal bowel sounds, No organomegaly Abnormal Lab Results 02/14/18 02/15/18 10:35 07:30 Sodium 132 L Chloride 96 L Anion Gap 7 L Random Glucose 204 H Magnesium 1.7 L Albumin 2.7 L A/P Metastatic breast cancer, ER positive, only on Arimidex (declined chemo), previous RTX, presents with non-specific findings, including poor appetite, weakness, failure to thrive, attributed to a UTI, now on Levaquin. Possible other issues related to her ability to function independently, and possible need for additional resources at home.
[2018-02-15] MEDS: INSULIN SLIDING SCALE (NOVOLOG) 1 VIAL SQ SCH ×4 (06:24→21:16)
[2018-02-15] MEDS: INSULIN (LEVEMIR) 100 UNITS/ML UNITS SQ SCH (06:30)
[2018-02-15] MEDS ORDERED: FUROSEMIDE 20 MG TABLET (FP) ONE (09:56)
[2018-02-15] MEDS ORDERED: FUROSEMIDE 40 MG TABLET (FP) ONE (09:56)
[2018-02-15] MEDS ORDERED: PT OWN MED DRAWER 7, Y5N ONE ×2 (09:57→21:03)
[2018-02-15] MEDS: ANASTROZOLE 1 MG TABLET PO SCH (09:58)
[2018-02-15] MEDS: ASPIRIN 81 MG CHEWABLE TABLETS PO SCH (09:59)
[2018-02-15] MEDS: CHOLECALCIFEROL (VITAMIN D3) 400 UNIT TABLET (FP) PO SCH (09:59)
[2018-02-15] MEDS: FUROSEMIDE 40 MG, FUROSEMIDE 20 MG PO SCH (09:59)
[2018-02-15] MEDS: CARVEDILOL 6.25 MG TABLET (FP) PO SCH ×2 (09:59→21:16)
[2018-02-15] MEDS: POTASSIUM CHLORIDE TABS 20 MEQ TABLET.ER (FP) PO SCH (09:59)
--- NOTE | 2018-02-15 10:28 | CONSULT ---
Admitting History and Physical - Primary Care Physician PCP: Pooja Horner - Admission History of Present Illness: This is an 82 year old female with PMH of metastatic BrCA, mets to lung, liver, neck, recent pleurex catheter removal on 02/01 who presents to the ED with fatigue and generalized weakness x 2 weeks. She also reports decreased appetite and SOB. u/a c/w UTI Pt was referred last week by Dr. Frey for an out pt MBS. Pt with c/o dysphagia and pooling of saliva. Call placed to schedule the appt and pt asked to schedule MBS this week, but then was admitted. Selected Entries 02/13/18 02/13/18 02/13/18 11:13 14:29 18:00 Breakfast 100% Lunch 50% Supper 25% Temperature 02/14/18 02/14/18 02/14/18 06:00 09:54 09:58 Breakfast 100% Lunch Supper Temperature 98.2 F 97.7 F 02/14/18 02/14/18 02/15/18 14:01 22:00 06:00 Breakfast Lunch 50% Supper Temperature 97.6 F 98.1 F 97.6 F This is my first consult with this pt. History Source: Patient, Family Member, Medical Record Limitations to Obtaining History: No Limitations - Past Medical History Cardiovascular: Yes: CHF, HTN, Hyperlipdemia Pulmonary: Yes: COPD ...: No Heme/Onc: Yes: Cancer (BREAST) Endocrine: Yes: Diabetes Insipidus - Smoking History Smoking history: Never smoked Have you smoked in the past 12 months: No Aproximately how many cigarettes per day: 0 - Alcohol/Substance Use Hx Alcohol Use: No History - Admission Reason For Visit: URINARY TRACT INFECTION - Diagnostics X-ray: Report Reviewed - General Mental Status: Alert and Oriented, Awake and Alert, Able to Follow Commands Attention: Intact Ability to Follow Directions: Good Head/Neck Control: WFL (restricted head rotation.) - Hearing Hearing: Functional Hearing Aide: No Speech Evaluation - Communication Primary Language: IRISH Communication: Yes: Within Normal Limits Oral Expression Ability: Yes: No Impairment - Speech Production Able to Make Needs Known: Yes: WNL Intelligibility: Yes: WNL - Speech Characteristics Voice Loudness: Normal Voice Pitch: Yes: Normal Voice Phonatory-based Quality: Yes: Normal Speech Pattern: Normal Speech Clarity: < 100% Nasal Resonance: Normal Articulation: Yes: Precise Rate of Speech: Intact - Language/Auditory Comprehension Follows: Yes: 2 Stage Simple Commands - Language/Verbal Expression Able to Respond to Simple Queries: Yes: WNL Able to Communicate Wants and Needs: Yes: WNL Functional Communication Status: Yes: WNL - 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 Memory: Yes: WNL Short Term Memory: Yes: WNL - Swallow Evaluation/Bedside Assessment Current Nutritional Intake: Regular, Thin Liquids Oral Secretions: Yes: WFL, Tongue Coated (Thick white coating on tongue- r/o Candidiasis.) Dentition: Yes: Adequate Facial Symmetry at Rest: Symmetrical Facial Symmetry on Retraction: Symmetrical Facial Movement: Controlled Against Resistance Opening: Normal Against Resistance Closing: Normal Pucker Lips: Normal Smile: Normal Lingual Movement: Symmetric, Reduced Protrusion Lingual Speed of Movement: Normal Lingual Movement Characteristics: Normal Laryngeal Movement: Reduced Excursion, Labored,delay initiation Labial Seal: WFL Timing of Swallow: Delayed Coughing/Throat Clear: No Change in Voice: No Recommendations - Speech Evaluation, Impression/Plan Impression: Thick white coating on tongue- r/o Candidiasis. Pt reports solids/ liquids sticking in her throat intermittently, resulting in cough response, "going down the wrong way" or "needing to bring it back up." Onset was 3 weeks ago but symptoms have improved. r/o aspiration/stasis, related to Cancer, RT, + /or Manuela. - Dysphagia Impressions/Plan Swallowing Skills: Impaired Dysphagia Impressions: Risk of Aspiration, Ongoing Evaluation *Silent aspiration: cannot be R/O at bedside Dysphagia Treatment Plan: Chin Tuck/Down, Clear Pocket Food, Safe Rate, 1/2 tsp. at a time, Other (Pt told to chew well, add condiments/gravy to food, swallow hard twice with each bite, alternate with sip of liquid.) Recommendations: MBS w Esophagus, Other (r/o candidiasis- medical mgmt)
--- NOTE | 2018-02-15 14:00 | PN ---
Progress Note (short form) - Note Progress Note: Pt seen and examined AFVSS Neck: the left mass, much smaller than before. Rt breast mass unchanged Cor: RSR, No murmurs, No gallops Lungs: Clear to P&A Abd: Soft, Normal bowel sounds, No organomegaly Last Vital Signs Temp Pulse Resp BP Pulse Ox 97.5 F L 79 20 112/61 97 02/15/18 10:00 02/15/18 10:00 02/15/18 10:00 02/15/18 10:00 02/15/18 02:00 CBC, BMP 02/13/18 06:30 02/14/18 10:35 Current Medications Generic Name Dose Route Start Last Admin Trade Name Freq PRN Reason Stop Dose Admin Anastrozole 1 mg 02/13/18 10:00 02/15/18 09:58 Arimidex - PO 1 mg DAILY URSZULA Administration Aspirin 81 mg 02/13/18 10:00 02/15/18 09:59 Asa - PO 81 mg DAILY URSZULA Administration Atorvastatin Calcium 40 mg 02/12/18 22:00 02/14/18 21:44 Lipitor - PO 40 mg HS URSZULA Administration Carvedilol 6.25 mg 02/12/18 22:00 02/15/18 09:59 Coreg - PO 6.25 mg BID URSZULA Administration Cholecalciferol 800 unit 02/13/18 10:00 02/15/18 09:59 Vitamin D3 - PO 800 unit DAILY URSZULA Administration Furosemide 40 mg/ Furosemide 60 mg 02/13/18 10:00 02/15/18 09:59 20 mg PO 60 mg DAILY URSZULA Administration Levofloxacin 500 mg in 100 mls @ 100 mls/hr 02/13/18 18:00 02/14/18 18:12 Levaquin 500 Mg Premixed Ivpb - IVPB 100 mls/hr DAILY@1800 URSZULA Administration Protocol Insulin Aspart 1 vial 02/12/18 22:00 02/14/18 21:45 Novolog Vial Sliding Scale - SQ Not Given HS URSZULA Protocol Insulin Aspart 1 vial 02/13/18 07:00 02/15/18 11:52 Novolog Vial Sliding Scale - SQ Not Given TIDAC [facility] Protocol Insulin Detemir 20 units 02/14/18 07:00 02/15/18 06:30 Levemir Vial SQ 20 units AM URSZULA Administration Metformin HCl 500 mg 02/14/18 07:00 02/15/18 06:59 Glucophage Xr - PO 500 mg DAILY@0700 URSZULA Administration Nystatin 500,000 units 02/15/18 18:00 Nystatin Oral Suspension - PO Q6HPO URSZULA Potassium Chloride 20 meq 02/13/18 10:00 02/15/18 09:59 K-Dur - PO 20 meq DAILY URSZULA Administration FTT Improved UTI on Abx Dysphagia: appreciate Arianna Ochoa consult mBC: d/w pt about faslodex, she agrees to "Injections" as "long as they are not chemo ". if dispo to rehab, asked her to call office post d/c from rehab. Interim will continue with [facility]
[2018-02-15] MEDS ORDERED: MAGNESIUM 1GM/D5W 100ML - 100 ML IVPB IVPB ONE (14:31)
--- NOTE | 2018-02-15 14:38 | PN ---
Progress Note, Physician Chief Complaint: patient went down to MBS thrush on tongue no BM for 3 days wants to try stool softner - Current Medication List Current Medications: Active Medications Anastrozole (Arimidex -) 1 mg PO DAILY [facility] Last Admin: 02/15/18 09:58 Dose: 1 mg Aspirin (Asa -) 81 mg PO DAILY [facility] Last Admin: 02/15/18 09:59 Dose: 81 mg Atorvastatin Calcium (Lipitor -) 40 mg PO HS [facility] Last Admin: 02/14/18 21:44 Dose: 40 mg Carvedilol (Coreg -) 6.25 mg PO BID [facility] Last Admin: 02/15/18 09:59 Dose: 6.25 mg Cholecalciferol (Vitamin D3 -) 800 unit PO DAILY [facility] Last Admin: 02/15/18 09:59 Dose: 800 unit Furosemide 40 mg/ Furosemide (20 mg) 60 mg PO DAILY [facility] Last Admin: 02/15/18 09:59 Dose: 60 mg Levofloxacin (Levaquin 500 Mg Premixed Ivpb -) 500 mg in 100 mls @ 100 mls/hr IVPB DAILY@1800 [facility]; Protocol Last Admin: 02/14/18 18:12 Dose: 100 mls/hr Insulin Aspart (Novolog Vial Sliding Scale -) 1 vial SQ HS [facility]; Protocol Last Admin: 02/14/18 21:45 Dose: Not Given Insulin Aspart (Novolog Vial Sliding Scale -) 1 vial SQ TIDAC [facility]; Protocol Last Admin: 02/15/18 11:52 Dose: Not Given Insulin Detemir (Levemir Vial) 20 units SQ AM [facility] Last Admin: 02/15/18 06:30 Dose: 20 units Magnesium Sulfate (Magnesium Sulfate) 1 gm IVPB ONCE ONE Stop: 02/15/18 14:32 Metformin HCl (Glucophage Xr -) 500 mg PO DAILY@0700 [facility] Last Admin: 02/15/18 06:59 Dose: 500 mg Nystatin (Nystatin Oral Suspension -) 500,000 units PO Q6HPO [facility] Potassium Chloride (K-Dur -) 20 meq PO DAILY [facility] Last Admin: 02/15/18 09:59 Dose: 20 meq - Objective Vital Signs: Vital Signs Temperature 97.5 F L 02/15/18 10:00 Pulse Rate 79 02/15/18 10:00 Respiratory Rate 20 02/15/18 10:00 Blood Pressure 112/61 02/15/18 10:00 O2 Sat by Pulse Oximetry (%) 97 02/15/18 10:00 Constitutional: Yes: Calm HENT: Yes: Thrush Neck: Yes: Trachea Midline Cardiovascular: Yes: Regular Rate and Rhythm, S1, S2 Respiratory: Yes: CTA Bilaterally Gastrointestinal: Yes: Normal Bowel Sounds, Soft Edema: No Neurological: Yes: Alert Labs: CBC, BMP 02/13/18 06:30 02/14/18 10:35 Problem List - Problems (1) Metastatic breast cancer Assessment/Plan: seen by oncology on arimidex Code(s): C50.919 - MALIGNANT NEOPLASM OF UNSP SITE OF UNSPECIFIED FEMALE BREAST (2) Type 2 diabetes mellitus with diabetic polyneuropathy Assessment/Plan: seen by endocrine levemir and metformin XR [id number] 9.1 Code(s): E11.42 - TYPE 2 DIABETES MELLITUS WITH DIABETIC POLYNEUROPATHY Qualifiers: Diabetes mellitus usp insulin use: with usp use Qualified Code( s): E11.42 - Type 2 diabetes mellitus with diabetic polyneuropathy; Z79.4 - assisted (current) use of insulin (3) UTI (urinary tract infection) Assessment/Plan: levaquin Code(s): N39.0 - URINARY TRACT INFECTION, SITE NOT SPECIFIED Qualifiers: Urinary tract infection type: site unspecified Hematuria presence: without hematuria Qualified Code(s): N39.0 - Urinary tract infection, site not specified (4) Unsteady gait Assessment/Plan: PT eval - close cotact guard reduced stride 20 feet snf placement magnsium repleted Code(s): R26.81 - UNSTEADINESS ON FEET
[2018-02-15] MEDS: DOCUSATE SODIUM 100 MG CAPSULE (FP) PO SCH ×2 (16:48→21:16)
[2018-02-15] MEDS: NYSTATIN 500,000 UNITS/5 ML SUSPENSION PO SCH ×2 (18:12→23:57)
[2018-02-15] MEDS ORDERED: INSULIN (NOVOLOG) ASPART 100 UNITS/ML 10ML VIAL ONE (20:48)
[2018-02-15] MEDS: ATORVASTATIN CA 40 MG TABLET (FP) PO SCH (21:16)
[2018-02-16] MEDS: DOCUSATE SODIUM 100 MG CAPSULE (FP) PO SCH ×2 (06:34→17:06)
[2018-02-16] MEDS: INSULIN (LEVEMIR) 100 UNITS/ML UNITS SQ SCH (06:34)
[2018-02-16] MEDS: NYSTATIN 500,000 UNITS/5 ML SUSPENSION PO SCH ×3 (06:34→17:13)
[2018-02-16] MEDS: INSULIN SLIDING SCALE (NOVOLOG) 1 VIAL SQ SCH ×3 (06:36→17:37)
[2018-02-16] MEDS: CHOLECALCIFEROL (VITAMIN D3) 400 UNIT TABLET (FP) PO SCH (09:39)
[2018-02-16] MEDS ORDERED: FUROSEMIDE 20 MG TABLET (FP) ONE (09:39)
[2018-02-16] MEDS ORDERED: FUROSEMIDE 40 MG TABLET (FP) ONE (09:39)
[2018-02-16] MEDS: POTASSIUM CHLORIDE TABS 20 MEQ TABLET.ER (FP) PO SCH ×2 (09:39→12:26)
[2018-02-16] MEDS: ASPIRIN 81 MG CHEWABLE TABLETS PO SCH (09:40)
[2018-02-16] MEDS: FUROSEMIDE 40 MG, FUROSEMIDE 20 MG PO SCH (09:40)
[2018-02-16] MEDS: CARVEDILOL 6.25 MG TABLET (FP) PO SCH (09:40)
[2018-02-16] MEDS ORDERED: PT OWN MED DRAWER 7, Y5N ONE (09:45)
[2018-02-16] MEDS ORDERED: POTASSIUM CHLORIDE ORAL LIQUID 20 MEQ/15 ML PO ONE (11:13)
--- NOTE | 2018-02-16 11:13 | DS ---
Physical Examination Vital Signs: Vital Signs Temperature 97.4 F L 02/16/18 06:00 Pulse Rate 96 H 02/16/18 10:00 Respiratory Rate 18 02/16/18 10:00 Blood Pressure 108/60 02/16/18 10:00 O2 Sat by Pulse Oximetry (%) 98 02/15/18 21:00 Constitutional: Yes: No Distress Eyes: Yes: WNL HENT: Yes: WNL Neck: Yes: WNL Cardiovascular: Yes: WNL Respiratory: Yes: WNL Gastrointestinal: Yes: WNL Renal/: Yes: WNL Musculoskeletal: Yes: Muscle Weakness Extremities: Yes: Other Edema: No Peripheral Pulses WNL: Yes Integumentary: Yes: Rash, Venous Stasis Changes, Other Wound/Incision: Yes: Open to air Neurological: Yes: Pre-Existing Deficit ...Motor Strength: LLE, RLE Psychiatric: Yes: WNL Labs: CBC, BMP 02/13/18 06:30 02/14/18 10:35 Discharge Summary Reason For Visit: URINARY TRACT INFECTION Current Active Problems Metastatic breast cancer (Acute) Type 2 diabetes mellitus with diabetic polyneuropathy (Acute) UTI (urinary tract infection) (Acute) Unsteady gait (Acute) Procedures: Principal: LABS/CX Hospital Course: ADMITED FOR UTI, DYSPHAGIA, SWALLOW EVAL DONE ON CHOPPED DIET WITH THICKENED LIQUIDS IV ABX GIVEN CHANGED TO PO Condition: Stable - Instructions Diet, Activity, Other Instructions: CHOPPED DIET WITH THICKENED LIQUIDS SEE MBS RESULTS FOR FULL INSTRUCTIONS ON MEAL PREP Referrals: William Bazzi MD, MD [Primary Care Provider] - Disposition: LONG-TERM FACILITY - Home Medications Comprehensive Discharge Medication List: Ambulatory Orders Aspirin [ASA -] 81 mg PO DAILY #0 tab.chew 06/29/12 Metformin HCl [Metformin HCl ER] 500 mg PO BID 07/17/17 Atorvastatin Ca [Lipitor] 40 mg PO HS tablet 07/21/17 Anastrozole [Arimidex -] 1 mg PO DAILY 09/29/17 Carvedilol [Coreg -] 6.25 mg PO BID #14 tablet MDD 2 10/12/17 Furosemide [Lasix -] 60 mg PO DAILY #30 tablet 10/12/17 Cholecalciferol (Vitamin D3) [Vitamin D -] 800 unit PO DAILY 02/12/18 Docusate Sodium [Colace -] 100 mg PO TID capsule 02/16/18 Furosemide [Lasix -] 60 mg PO DAILY tablet 02/16/18 Furosemide [Lasix -] 60 mg PO DAILY tablet 02/16/18 Insulin (Levemir) [Levemir Vial] 20 units SQ AM units 02/16/18 Insulin Sliding Scale [Novolog Vial Sliding Scale -] 1 vial SQ TIDAC units 02/28 Nystatin Oral Suspension - [Nystatin Oral Susp 541533 Units/5 ML -] 500,000 units PO Q6HPO cup 02/16/18 levoFLOXacin [Levaquin -] 250 mg PO Q48H #7 tablet 02/16/18 metFORMIN XR [Glucophage Xr -] 500 mg PO DAILY@0700 tab.sr.24h 02/16/18
[2018-02-16] MEDS ORDERED: INSULIN (NOVOLOG) ASPART 100 UNITS/ML 10ML VIAL ONE ×2 (12:10→18:52)
[2018-02-16] MEDS: ANASTROZOLE 1 MG TABLET PO SCH (12:13)
--- NOTE | 2018-02-16 14:17 | PN ---
Progress Note, METER CHANGES RECORDS CLERK - Note Progress Note: Sleeping Pt refusing nectar thick liquid ordered. Nystatin ordered for Thrush. MBS/ diet modification/compensatory swallowing strategies Selected Entries 02/15/18 02/15/18 02/15/18 06:00 09:00 10:00 Breakfast 100% Lunch Supper Temperature 97.6 F 97.5 F L 02/15/18 02/15/18 02/15/18 14:04 18:00 19:16 Breakfast Lunch 50% Supper 75% Temperature 97.7 F 97.7 F 02/15/18 02/16/18 02/16/18 22:00 02:00 06:00 Breakfast Lunch Supper Temperature 98.0 F 97.7 F 97.4 F L 02/16/18 09:10 Breakfast 100% Lunch Supper Temperature Suggest Dys whole/Chopped meat/Trial of thin liquids. Continue swallowing rehabilitation at [facility].
[2018-02-16 17:41] VITALS: PULSE 76; TEMP 98.3
[2018-02-16 17:58] VITALS: BP 110/56
== END 2018-02-16 18:08 | DRG 690 ==
LOC: JER 15:40 → INTOOBSV 19:29 → JERBED 19:29 → J5S 02-13 05:49 → OBSVTOIN 02-15 13:41
PROVIDERS: ADMIT Internal Medicine; ATTEND Family Medicine
DX: N39.0 Urinary tract infection, site not specified (principal); C78.7 Secondary malignant neoplasm of liver and intrahepatic bile duct; C78.00 Secondary malignant neoplasm of unspecified lung; C79.89 Secondary malignant neoplasm of other specified sites; B37.0 Candidal stomatitis; I10 Essential (primary) hypertension; E78.5 Hyperlipidemia, unspecified; I25.10 Atherosclerotic heart disease of native coronary artery without angina pectoris; I25.2 Old myocardial infarction; C50.919 Malignant neoplasm of unspecified site of unspecified female breast; E04.9 Nontoxic goiter, unspecified; E87.6 Hypokalemia; R62.7 Adult failure to thrive; I11.0 Hypertensive heart disease with heart failure; I50.9 Heart failure, unspecified; R13.10 Dysphagia, unspecified; R26.81 Unsteadiness on feet; D64.9 Anemia, unspecified; R59.0 Localized enlarged lymph nodes; E11.42 Type 2 diabetes mellitus with diabetic polyneuropathy; Z17.0 Estrogen receptor positive status [ER+]; Z79.4 Long term (current) use of insulin; Z95.1 Presence of aortocoronary bypass graft
CPT/HCPCS: 36415; 71045-TC-FY; 74230-TC-FY; 80048; 80053; 80076; 81003; 81015; 82550; 82962; 83036; 83735; 83880; 84100; 84484; 85025; 87086; 87186; 92611-GN; 93005; 93010; 96361; 97116-GP; 97161-GP; 99285-25; G0378; J7030

== ENCOUNTER 2018-03-20 07:06 | Emergency (ER) | payer OTHER, MEDICARE ==
[2018-03-20 07:26] VITALS: BMI 27.4
--- NOTE | 2018-03-20 07:49 | PDOC ---
Attending Attestation - Resident Resident Name: Sara Helm - HPI HPI: 03/20/18 08:42 Pt presents to the ED after brought in from [place] for altered mental status. Found by EMs to have FS of 60. On arrival to the ED, patient was cold, altered and mildly hypotensive. - Physicial Exam PE: 03/20/18 08:47 Agree with resident exam. PAtient is now alert and oriented x 3. Abdomen is soft, non tender and non distended. Now is normotensive. - Medical Decision Making 03/20/18 08:48 Pt presents to the ED after sent in fron [place] for altered mental status. Found to be hypoglycemic on arrival to the Ed---improved after IV dextrose. Did not take levimir this AM--only given sliding scale. Now is alert and oriented with improved BP but remains hypothermic. Symptoms may be secondary to hypogylcemia , but differential includes sepsis, less likely ACS, less likely intracranial lesion. Will check labs, check cXR and urine CX, lactate and reassess. 03/20/18 16:30 Lactate is normal. Glucose has remained stable since admission. Labs show no evidence of infection. Case discussed with Dr. Melendez from Dr. Crowe's office, who agree with discharging the patient back to [facility]. Will hold levamir--Dr. Crowe will provide adjusted insulin regimen.
--- NOTE | 2018-03-20 08:11 | PDOC ---
History of Present Illness <Monica Iyer - Last Filed: 03/20/18 14:46> - General History Source: Patient Exam Limitations: Clinical Condition - History of Present Illness Initial Comments: 03/20/18 08:05 HPI: Patient is a 82 yo female PMH of DM, MD s/p CABG in 2005, breast cancer treated with radiation in December, decubitus ulcer brought in by ambulance from [facility] for being unresponsive this morning. She was not arousable, she felt cold and clammy and fingerstick showed glucose level of 60 and she was found to be hypotensive. EMS started her on D10W and 2L NC and brought to the ED. In the ED, patient was arousable and was answering questions. Patient states she "feels fine, nothing hurts" but she did complain of being cold. She was aware of why she was brought to the ED. She admits to feeling weak and having a chronic cough productive of clear sputum. She denies headaches, falls, chest pain, neck pain, SOB, abdominal pain, N/V/D, dysuria. PCP Dr. Lira PMH: As per HPI. PSH: As per HPI. Meds: See med rec. 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, lungs and neck) COPD: No CHF: No Dementia: No Diabetes: Yes (niddm) GI Disorders: No Disorders: No HTN: No Hypercholesterolemia: No Liver Disease: No Seizures: No Thyroid Disease: Yes (GOITER) - Surgical History Abdominal Surgery: No Appendectomy: No Cardiac Surgery: Yes (TRIPLE BYPASS) Cholecystectomy: No Lung Surgery: No Neurologic Surgery: No Orthopedic Surgery: No - Suicide/Smoking/Psychosocial Hx Smoking Status: No Smoking History: Unknown if ever smoked Have you smoked in the past 12 months: No Number of Cigarettes Smoked Daily: 0 Information on smoking cessation initiated: No Hx Alcohol Use: No Drug/Substance Use Hx: No Substance Use Type: None Hx Substance Use Treatment: No <Kayla Tovar - Last Filed: 03/20/18 19:10> - Past Medical History Allergies/Adverse Reactions: Allergies Allergy/AdvReac Type Severity Reaction Status Date / Time Penicillins AdvReac Intermediate Rash Verified 03/20/18 07:18 Home Medications: Ambulatory Orders Aspirin [ASA -] 81 mg PO DAILY #0 tab.chew 06/29/12 Atorvastatin Ca [Lipitor] 40 mg PO HS tablet 07/21/17 Anastrozole [Arimidex -] 1 mg PO DAILY 09/29/17 Carvedilol [Coreg -] 6.25 mg PO BID #14 tablet MDD 2 10/12/17 Cholecalciferol (Vitamin D3) [Vitamin D -] 3,000 unit PO DAILY 02/12/18 Furosemide [Lasix -] 60 mg PO DAILY tablet 02/16/18 Insulin (Levemir) [Levemir Vial] 20 units SQ AM units 02/16/18 Potassium Chloride [Klor-Con] 20 meq PO DAILY #30 packet MDD 1 02/16/18 metFORMIN XR [Glucophage Xr -] 500 mg PO DAILY@0700 tab.sr.24h 02/16/18 Docusate Sodium [Colace -] 300 mg PO HS 03/20/18 Guaifenesin [Mucinex] 600 mg PO BID 03/20/18 Insulin Sliding Scale [Novolog Vial Sliding Scale -] 0 units SQ TIDAC 03/20/18 Polyethylene Glycol 3350 [Miralax (For Daily Use) -] 17 gm PO DAILY 03/20/18 Potassium Chloride [K-Dur -] 20 meq PO DAILY 03/20/18 Sennosides [Senna] 2 tab PO HS 03/20/18 Review of Systems - Review of Systems Comments:: 03/20/18 08:11 ROS: Constitutional: Chills, weakness. No fevers, fatigue, malaise HEENT: No Rhinorrhea, nasal congestion, visual changes Cardiovascular: No chest pain, syncope, palpitations, lightheadedness Respiratory: Cough productive of clear sputum. No SOB, Hemoptysis, Gastrointestinal: No Abdominal pain, Nausea, Vomiting, Constipation, Diarrhea, Melena Genitourinary: No Dysuria, Frequency, Urgency, Hesitancy, Hematuria, Flank pain Musculoskeletal: No Myalgia, arthralgia Skin: Decubitus ulcer Neurologic: No Headache, Dizziness, Numbness, or Tingling <Kayla Tovar - Last Filed: 03/20/18 19:10> *Physical Exam - Vital Signs Last Vital Signs Temp Pulse Resp BP Pulse Ox 97.8 F 68 16 124/50 100 03/20/18 11:54 03/20/18 11:54 03/20/18 11:54 03/20/18 11:54 03/20/18 11:54 <Monica Iyer - Last Filed: 03/20/18 14:46> - Vital Signs Last Vital Signs Temp Pulse Resp BP Pulse Ox 94 F L 85 20 134/77 100 03/20/18 07:19 03/20/18 07:19 03/20/18 07:19 03/20/18 07:19 03/20/18 07:19 03/20/18 08:32 Pulse ox 100% on 2L NC - Physical Exam Comments: 03/20/18 08:13 Physical Exam: General Appearance: No apparent distress. HEENT: EOMI, ROLANDA, pink conjunctiva, oral thrush. No Pharyngeal Erythema, Tonsillar Exudate, Tonsillar Erythema Neck: L sided swelling and discoloration from breast cancer and radiation therapy Respiratory/Chest: Lungs Clear, Normal Breath Sounds. No Crackles, Rales, Rhonchi, Wheezing Cardiovascular: Regular Rhythm, Regular Rate. No JVD, Murmur, Gallops, Rubs, Peripheral pulses palpable bilaterally Gastrointestinal/Abdominal: Normal Bowel Sounds, Soft. 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 03/20/18 08:46 03/20/18 14:28 <Kayla Tovar - Last Filed: 03/20/18 19:10> ED Treatment Course - LABORATORY CBC & Chemistry Diagram: 03/20/18 08:20 03/20/18 08:20 - ADDITIONAL ORDERS Additional order review: Laboratory Results 03/20/18 03/20/18 03/20/18 09:36 08:20 08:20 PT with INR INR Sodium 130 L Potassium 4.1 Chloride 92 L Carbon Dioxide 28 Anion Gap 10 BUN 15 Creatinine 0.4 L Creat Clearance w eGFR > 60 Random Glucose 207 H Calcium 8.6 Total Bilirubin 0.4 AST 21 ALT 15 Alkaline Phosphatase 85 Creatine Kinase 24 L Troponin I 0.03 Total Protein 6.1 L Albumin 2.4 L HDL Cholesterol 51 Urine Color Evelyn Urine Appearance Clear Urine pH 5.0 D Ur Specific Dixon 1.021 Urine Protein Negative Urine Glucose (UA) Negative Urine Ketones Trace H Urine Blood Negative Urine Nitrite Negative Urine Bilirubin Negative Urine Urobilinogen 4.0 e.u/dl H Ur Leukocyte Esterase Trace Urine WBC (Auto) 5 Urine RBC (Auto) None Ur Epithelial Cells Rare Urine Bacteria Few Urine Mucus Moderate 03/20/18 08:20 PT with INR 11.40 INR 1.01 Sodium Potassium Chloride Carbon Dioxide Anion Gap BUN Creatinine Creat Clearance w eGFR Random Glucose Calcium Total Bilirubin AST ALT Alkaline Phosphatase Creatine Kinase Troponin I Total Protein Albumin HDL Cholesterol Urine Color Urine Appearance Urine pH Ur Specific Dixon Urine Protein Urine Glucose (UA) Urine Ketones Urine Blood Urine Nitrite Urine Bilirubin Urine Urobilinogen Ur Leukocyte Esterase Urine WBC (Auto) Urine RBC (Auto) Ur Epithelial Cells Urine Bacteria Urine Mucus 03/20/18 08:20 RBC 4.87 MCV 77.6 L MCHC 33.7 RDW 16.3 H MPV 6.9 L Neutrophils % 84.5 H Lymphocytes % 9.9 D Monocytes % 5.3 Eosinophils % 0.0 Basophils % 0.3 - Medications Given in the ED: ED Medications Discontinued Medications Generic Name Dose Route Start Last Admin Trade Name Freq PRN Reason Stop Dose Admin Sodium Chloride 250 mls @ 250 mls/hr 03/20/18 11:30 03/20/18 12:06 Normal Saline - IV 03/20/18 12:29 250 mls/hr ASDIR STA Administration - Consult/PCP Time Called: 14:31 (Awaiting calback from CORTEZ Melendez. 2nd call 14:46) <Monica Iyer - Last Filed: 03/20/18 14:46> - LABORATORY CBC & Chemistry Diagram: 03/20/18 08:20 03/20/18 08:20 - ADDITIONAL ORDERS Additional order review: 03/20/18 08:25 ECG: NSR, incomplete LBBB, T wave abnormality. When compared to ECG done on February 12, 2018 there are no new changes. Lactic acid 1.3 03/20/18 19:06 - RADIOLOGY Radiology Studies Ordered: Category Date Time Status HEAD CT WITHOUT CONTRAST [CT] Stat CT Scan 03/20/18 08:01 Ordered CHEST X-RAY PORTABLE* [RAD] Stat Radiology 03/20/18 08:[address] head: no acute pathology, probable ischemic changes CXR: no acute pathology, no changes since 02/12/2018 <Kayla Tovar - Last Filed: 03/20/18 19:10> Medical Decision Making - Medical Decision Making 03/20/18 08:32 Patient is an 82 yo female with PMH of DM, MD s/p CABG in 2005, breast cancer tx with radiation in December, was brought in by ambulance from [facility] for not being arousable, feeling cold and clammy and hypotensive. EMS started her on D10 and oxygen. Initial ED vitals showed temperature of 94F, BP of 134/77. Patient was started on eloisa hugger and temperature was being monitored. Labs, lactic acid, cardiac enzymes, CXR, CT head, EGC ordered. Results were wnl. Patient's CMP showed glucose of 207, finger stick was 105. Patient can only consume semisolids mixed with thickening powder therefor patient was given pudding to increase blood glucose. 250mL IVF given because patient was feeling dehydrated. Finger stick after pudding was 93. Patient recieved food within her diet limits and was eating. Patient and her family were concerned about patient going back to the halfway because they thought patient might come back to ED for similar problems later tonight. Family was concerned by patient's hypoglycemia and what might have caused it. Family and patient were told about possible hypoglycemia due to insulin use. Dr. Lira's office was called per request of family and patient. CORTEZ Melendez agreed with plan to discharge patient back to halfway and to follow up with PCP and Tripe Washer. Patient was advised to stop Levemir and to continue the rest of her medications as prescribed. Patient's vitals were wnl, glucose levels were between 90-100. Patient was deemed stable and discharged to halfway. 03/20/18 08:48 03/20/18 12:31 03/20/18 12:33 03/20/18 19:05 03/20/18 19:06 <Kayla Tovar - Last Filed: 03/20/18 19:10> *DC/Admit/Observation/Transfer <Monica Iyer - Last Filed: 03/20/18 14:46> <Kayla Tovar - Last Filed: 03/20/18 19:10> Diagnosis at time of Disposition: Hypoglycemia - Discharge Dispostion Disposition: [facility] Condition at time of disposition: Stable - Referrals Referrals: Justin Mejia MD [Staff Physician] - Daya Crowe MD [Staff Physician] - - Patient Instructions Printed Discharge Instructions: DI for Hypoglycemia Additional Instructions: Resume Snf medications Hold Levemir Follow up with Endocrinology- Justin Mejia Follow Novolog sliding scale AC only Continue Metformin BGM ACHS You were seen today for hypoglycemia. This is most likely caused by the use of insulin. Symptoms of hypoglycemia include feelings of weakness, fatigue, fainting. Your PCP has recommended to stop taking Levemir and to follow up with Dr. Mejia. Please return to the ED if you faint or feel excessively fatigued. - Post Discharge Activity
[2018-03-20 08:37] LABS: BASO % 0.3 % (0-2.0); HEMATOCRIT 37.8 % (32.4-45.2); HEMOGLOBIN 12.7 GM/dL (10.7-15.3); LYMPH % 9.9 % (8-40); MCH 26.2 pg (25.7-33.7); MCHC 33.7 g/dl (32.0-36.0); MEAN CELL VOLUME 77.6 fl (80-96); MEAN PLT VOLUME 6.9 fl (7.5-11.1); MONO % 5.3 % (3.8-10.2); NEUT % 84.5 % (42.8-82.8); PLATELET COUNT 533 K/MM3 (134-434); RBC 4.87 M/mm3 (3.60-5.2); RDW 16.3 % (11.6-15.6)
[2018-03-20 08:50] LABS: INR 1.01 (0.82-1.09); PROTHROMBIN TIME (PATIENT) 11.4 SEC (9.7-13.0)
[2018-03-20 08:51] LABS: ALBUMIN 2.4 g/dl (3.4-5.0); ALK PHOS 85 U/L (45-117); ANION GAP 10 (8-16); BILIRUBIN,TOTAL 0.4 mg/dL (0.2-1.0); BLOOD UREA NITROGEN 15 mg/dL (7-18); CALCIUM 8.6 mg/dL (8.5-10.1); CHLORIDE 92 mmol/L (98-107); CO2 28 mmol/L (21-32); CREATININE 0.4 mg/dL (0.55-1.02); GLUCOSE,RANDOM 207 mg/dL (74-106); POTASSIUM 4.1 mmol/L (3.5-5.1); SGOT/AST 21 U/L (15-37); SGPT/ALT 15 U/L (12-78); SODIUM 130 mmol/L (136-145); TOT PROT 6.1 g/dl (6.4-8.2)
[2018-03-20 09:43] LABS: URINE APPEARANCE CLEAR; URINE BILIRUBIN NEGATIVE (<2.0 mg/dL); URINE COLOR AMBER; URINE GLUCOSE (UA) NEGATIVE (NEGATIVE); URINE KETONE TRACE (NEGATIVE); URINE LEUK ESTERASE TRACE (NEGATIVE); URINE NITRITE NEGATIVE (NEGATIVE); URINE PROTEIN NEGATIVE (NEGATIVE); URINE UROBILINOGEN 4.0 E.U/dl mg/dL (0.2-1.0)
--- NOTE | 2018-03-20 10:08 | EKG ---
Test Reason : Blood Pressure : / mmHG Vent. Rate : 087 BPM Atrial Rate : 087 BPM P-R Int : 152 ms QRS Dur : 110 ms QT Int : 388 ms P-R-T Axes : 101 009 118 degrees QTc Int : 466 ms POOR DATA QUALITY, INTERPRETATION MAY BE ADVERSELY AFFECTED NORMAL SINUS RHYTHM INCOMPLETE LEFT BUNDLE BRANCH BLOCK T WAVE ABNORMALITY, CONSIDER LATERAL ISCHEMIA ABNORMAL ECG WHEN COMPARED WITH ECG OF 12-FEB-2018 15:58, CRITERIA FOR ANTERIOR INFARCT ARE NO LONGER PRESENT Confirmed by KAREN EMERSON MD ([id number]) on 03/20/2018 10:07:37 AM Referred By: Confirmed By:KAREN EMERSON MD
[2018-03-20 11:18] LABS: EPI CELLS RARE /HPF (FEW); URINE BACTERIA FEW /hpf (NONE SEEN); URINE MUCUS MODERATE
[2018-03-20] MEDS ORDERED: SODIUM CHLORIDE 250 ML IV STA (11:30)
[2018-03-20 16:00] VITALS: BP 111/55; PULSE 96; TEMP 98.9
== END 2018-03-20 17:11 ==
LOC: JER 07:06
DX: E11.649 Type 2 diabetes mellitus with hypoglycemia without coma (principal); Z79.4 Long term (current) use of insulin; Z79.84 Long term (current) use of oral hypoglycemic drugs; I25.2 Old myocardial infarction; Z95.1 Presence of aortocoronary bypass graft; Z85.3 Personal history of malignant neoplasm of breast; Z85.05 Personal history of malignant neoplasm of liver; Z85.118 Personal history of other malignant neoplasm of bronchus and lung; Z85.89 Personal history of malignant neoplasm of other organs and systems
CPT/HCPCS: 36415; 70450-TC; 71045-TC-FY; 80053; 81003; 81015; 82550; 82962; 83605; 83718; 84484; 85025; 85610; 93005; 93010; 99285-25